=== PATIENT | male | born 1935 | race Caucasian/White ===

== ENCOUNTER 2016-10-06 16:14 | Inpatient (IN) | payer MEDICARE, BC ==
[~2016-10-06] VITALS: Ht 160 cm; Wt 71.2 kg
[~2016-10-06 16:14] MED LIST: ANDR1GEL TD; ASPI325T24 PO; CHOL1CAP6 PO; CITRTAB8 PO; GLIM2TAB PO; LOVA20TA PO; METO25 PO; MOME17I; NEXI40CA PO; NIAS10004 PO; NITR.4 SL; SAXA1TBM PO; TELM40 PO
[2016-10-06 16:15] VITALS: BP 148/69; PULSE 74; RESP 16; TEMP 97.5; O2SAT 94
--- NOTE | 2016-10-06 18:48 | PD ---
HPI Chief Complaint: Abdominal Pain Time Seen by Provider: 18:48 Travel History International Travel<30 days: No Contact w/Intl Traveler<30days: No Traveled to known affect area: No History of Present Illness HPI 80-year-old male with history of CAD, CABG, diverticulitis, small bowel obstruction the past, presents to the emergency department for evaluation of abdominal pain from his umbilicus to his epigastrium. This started this afternoon. He has been nauseous with vomiting. It has been bilious in nature, nonbloody, and not coffee-ground. He has had subjective chills. No definite fever. No chest pain or tightness. No difficulty breathing. His believes this started developing 2 days ago when he didn't quite feel so well. She states that his abdomen became more rigid and firm and then this afternoon he began having significant pain. Patient has history of cholecystectomy. PFSH Past Medical History Hx Anticoagulant Therapy: Yes AAA: Yes (3.8 CM 08/02/2014) Arthritis: Yes Asthma: No Autoimmune Disease: No Blood Disorders: No Anxiety: No Depression: No Heart Rhythm Problems: No Cancer: No Cardiovascular Problems: Yes (BYPASS) High Cholesterol: Yes Chemotherapy: No Chest Pain: No Congestive Heart Failure: No COPD: No Cerebrovascular Accident: No Coronary Artery Disease: Yes Diabetes: Yes Diminished Hearing: No Diverticulitis: Yes Endocrine: Yes Gastrointestinal Disorders: Yes (DIVERTICULITIS) GERD: Yes Genitourinary: Yes Hiatal Hernia: Yes Hypertension: Yes Immune Disorder: Yes Implanted Vascular Access Dvce: Yes Kidney Stones: Yes Musculoskeletal: Yes Neurologic: No Psychiatric: No Reproductive: No Respiratory: Yes Immunizations Current: Yes Migraines: No Radiation Therapy: No Renal Failure: No Seizures: No Sickle Cell Disease: No Sleep Apnea: No Thyroid Disease: No Ulcer: No PNEUMOCCOCAL Vaccine (Year): 1 Past Surgical History AICD: No Appendectomy: Yes Arteriovenous Shunt: No Cardiac Surgery: Yes (QUAD HEART BYPASS) Cholecystectomy: Yes (2007) Coronary Artery Bypass Graft: Yes (1996) Insulin Pump: No Joint Replacement: No Pacemaker: No Other Surgery: Yes Social History Alcohol Use: Yes (OCCASIONALLY) Tobacco Use: No (QUIT 1996) Substance Use: No Allergies-Medications (Allergen,Severity, Reaction): Coded Allergies: No Known Allergies (Verified , 10/06/16) Reported Meds & Prescriptions Reported Meds & Active Scripts Active Reported Lovastatin 20 Mg Tab 10 Mg PO HS Vitamin D-3 (Cholecalciferol) 1,000 Unit Tab 4,000 Unit PO DAILY Micardis (Telmisartan) 40 Mg Tab 40 Mg PO DAILY Nexium (Esomeprazole Magnesium) Esomeprazole Magnesium 40 mg Cap 1 Cap PO DAILY Nasonex (Mometasone Furoate) 50 Mcg/Ac Spr 2 [place] NA DAILY SPRAY IN EACH NOSTRIL Kombiglyze Xr (Saxagliptin-Metformin HCl) 1 Tab Tab 2 Tab PO DAILY Citracal (Calcium Citrate) 200 Mg Tab 500 Iu PO DAILY Androgel (Testosterone) 1 % Gel 1 Applic TD EVERY OTHER DAY Glimepiride 2 Mg Tab 2 Mg PO DAILY Nitroglycerin 0.4 Mg Subl 0.4 Mg SL DAILYPRN Ecotrin (Aspirin) 325 Mg Tabec 325 Mg PO DAILY Niaspan Er (Niacin) 1,000 Er Tab 1,500 Mg PO HS Metoprolol Tartrate 25 mg (Metoprolol Tartrate) 25 Mg Tab 50 Mg PO DAILY Review of Systems Except as stated in HPI: all other systems reviewed are Neg Physical Exam Narrative GENERAL: Well-nourished male patient, lying in bed, in no acute distress SKIN: Warm and dry. HEAD: Atraumatic. Normocephalic. EYES: Pupils equal and round. No scleral icterus. No injection or drainage. ENT: No nasal bleeding or discharge. Mucous membranes pink and moist. NECK: Trachea midline. No JVD. CARDIOVASCULAR: Regular rate and rhythm. RESPIRATORY: No accessory muscle use. Clear to auscultation. Breath sounds equal bilaterally. GASTROINTESTINAL: Rotund, nondistended. Tenderness elicited palpation in the epigastrium. No guarding. No rebound tenderness. Hepatic and splenic margins not palpable. MUSCULOSKELETAL: No obvious deformities. No clubbing. No cyanosis. No edema. NEUROLOGICAL: Awake and alert. No obvious cranial nerve deficits. Motor grossly within normal limits. Normal speech. PSYCHIATRIC: Appropriate mood and affect; insight and judgment normal. Data Data Last Documented VS Vital Signs Date Time Temp Pulse Resp B/P Pulse Ox O2 Delivery O2 Flow Rate FiO2 10/06/16 16:15 97.5 74 16 148/69 94 Room Air Orders Complete Blood Count With Diff (10/06/16 18:47) Comprehensive Metabolic Panel (10/06/16 18:47) Lipase (10/06/16 18:47) Lactic Acid (10/06/16 18:47) Prothrombin Time / Inr (Pt) (10/06/16 18:47) Act Partial Throm Time (Ptt) (10/06/16 18:47) Urinalysis - C+S If Indicated (10/06/16 18:47) Abdomen, Flat & Upright (10/06/16 ) Electrocardiogram (10/06/16 18:47) Ckmb (Isoenzyme) Profile (10/06/16 18:47) Troponin I (10/06/16 18:47) Ct Abd/Pel W/O Iv Contrast (10/06/16 19:47) Sodium Chlorid 0.9% 500 Ml Inj (Ns 500 M (10/06/16 20:00) Sodium Chlor 0.9% 1000 Ml Inj (Ns 1000 M (10/06/16 20:00) Ondansetron Inj (Zofran Inj) (10/06/16 20:00) MDM Medical Decision Making Medical Screen Exam Complete: Yes Emergency Medical Condition: Yes Medical Record Reviewed: Yes Differential Diagnosis Gastritis versus gastroenteritis versus pancreatitis versus obstruction versus ileus Narrative Course 80-year-old male presents to the emergency department for evaluation of abdominal pain. Patient appears without distress. He does have tenderness elicited to palpation in the epigastrium. Workup is initiated in triage. Once a medical bed becomes available, patient will be transferred and care assumed by that provider. Condition: Stable Ellie Purdy Oct 06, 2016 18:48
--- NOTE | 2016-10-06 19:03 | PD ---
Physical Exam Narrative General: The patient is a well-developed well-nourished male in no acute distress Head and Neck exam: Head is normocephalic atraumatic. Eyes: Pupils are equal round and reactive to light. Nose: Midline septum with pink mucous membranes Mouth: Dentition unremarkable. Moist mucus membranes. Posterior oropharynx is not erythematous. No tonsillar hypertrophy. Uvula midline. Airway patent. Neck: No palpable lymphadenopathy. No nuchal rigidity. No thyromegaly. Cardiovascular: Regular rate and rhythm without murmurs, gallops, or rubs. Lungs: Clear to auscultation bilaterally. No wheezes, rhonchi, or rales. Abdomen: Soft, with tenderness on palpation in the midepigastric area and area just above the umbilicus, active bowel sounds are audible. No other tenderness on palpation in bilateral lower quadrants of the abdomen. Negative Adler's sign. No tenderness on palpation of McBurney's point. The patient has frequent belching during examination. Extremities: No clubbing, cyanosis, or edema. 2+ pulses in all 4 extremities. No calf tenderness on palpation. Back: No spinous process tenderness to palpation. No costovertebral angle tenderness to palpation. Neurologic Exam: Grossly nonfocal Skin Exam: No rash noted. Intact skin that is warm and dry. Data Data Last Documented VS Vital Signs Date Time Temp Pulse Resp B/P Pulse Ox O2 Delivery O2 Flow Rate FiO2 10/06/16 20:30 21 10/06/16 16:15 97.5 74 148/69 94 Room Air Orders Complete Blood Count With Diff (10/06/16 18:47) Comprehensive Metabolic Panel (10/06/16 18:47) Lipase (10/06/16 18:47) Lactic Acid (10/06/16 18:47) Prothrombin Time / Inr (Pt) (10/06/16 18:47) Act Partial Throm Time (Ptt) (10/06/16 18:47) Urinalysis - C+S If Indicated (10/06/16 18:47) Abdomen, Flat & Upright (10/06/16 ) Electrocardiogram (10/06/16 18:47) Ckmb (Isoenzyme) Profile (10/06/16 18:47) Troponin I (10/06/16 18:47) Ct Abd/Pel W/O Iv Contrast (10/06/16 19:47) Sodium Chlorid 0.9% 500 Ml Inj (Ns 500 M (10/06/16 20:00) Sodium Chlor 0.9% 1000 Ml Inj (Ns 1000 M (10/06/16 20:00) Ondansetron Inj (Zofran Inj) (10/06/16 20:00) Admit Order (Ed Use Only) (10/06/16 21:14) Labs Laboratory Tests Test 10/06/16 20:00 White Blood Count 10.1 TH/MM3 Red Blood Count 4.84 MIL/MM3 Hemoglobin 14.8 GM/DL Hematocrit 43.9 % Mean Corpuscular Volume 90.6 FL Mean Corpuscular Hemoglobin 30.5 PG Mean Corpuscular Hemoglobin 33.7 % Concent Red Cell Distribution Width 14.0 % Platelet Count 190 TH/MM3 Mean Platelet Volume 8.5 FL Neutrophils (%) (Auto) 90.2 % Lymphocytes (%) (Auto) 4.4 % Monocytes (%) (Auto) 4.8 % Eosinophils (%) (Auto) 0.4 % Basophils (%) (Auto) 0.2 % Neutrophils # (Auto) 9.1 TH/MM3 Lymphocytes # (Auto) 0.4 TH/MM3 Monocytes # (Auto) 0.5 TH/MM3 Eosinophils # (Auto) 0.0 TH/MM3 Basophils # (Auto) 0.0 TH/MM3 CBC Comment DIFF FINAL Differential Comment Prothrombin Time 11.4 SEC Prothromb Time International 1.0 RATIO Ratio Activated Partial 26.6 SEC Thromboplast Time Urine Color YELLOW Urine Turbidity CLEAR Urine pH 5.5 Urine Specific [place] 1.027 Urine Protein TRACE mg/dL Urine Glucose (UA) NEG mg/dL Urine Ketones 40 mg/dL Urine Occult Blood NEG Urine Nitrite NEG Urine Bilirubin NEG Urine Urobilinogen 2.0 MG/DL Urine Leukocyte Esterase SMALL Urine RBC 1 /hpf Urine WBC 5 /hpf Urine Hyaline Casts 24 /lpf Urine Mucus FEW /lpf Microscopic Urinalysis Comment CULT NOT INDICATED Sodium Level 141 MEQ/L Potassium Level 4.5 MEQ/L Chloride Level 105 MEQ/L Carbon Dioxide Level 23.6 MEQ/L Anion Gap 12 MEQ/L Blood Urea Nitrogen 21 MG/DL Creatinine 1.42 MG/DL Estimat Glomerular Filtration 48 ML/MIN Rate Random Glucose 142 MG/DL Lactic Acid Level 1.4 mmol/L Calcium Level 8.5 MG/DL Total Bilirubin 0.4 MG/DL Aspartate Amino Transf 12 U/L (AST/SGOT) Alanine Aminotransferase 22 U/L (ALT/SGPT) Alkaline Phosphatase 118 U/L Total Creatine Kinase 47 U/L Troponin I LESS THAN 0.02 NG/ML Total Protein 7.7 GM/DL Albumin 3.7 GM/DL Lipase 77 U/L [facility] Medical Record Reviewed: Yes Supervised Visit with ARTURO: No Interpretation(s) Last Impressions Abdomen/Pelvis CT 10/06/16 194 Signed Impressions: Service Date/Time: Thursday, October 06, 2016 20:48 - CONCLUSION: 1. Dilated proximal small bowel loops to a diameter of around 4 cm with distal decompression most characteristic of an early or partial small bowel obstruction. No free air or free fluid. 2. Colonic diverticulosis with surgical cris in the pelvis. 3. 3.9 cm infrarenal abdominal aortic aneurysm. 4. Small hiatal hernia. Malcolm Hartmann MD Abdomen X-Ray 10/06/16 0000 Signed Impressions: Service Date/Time: Thursday, October 06, 2016 19:00 - CONCLUSION: 1. Distended bowel with numerous air-fluid levels. Findings could be characteristic of a distal bowel obstruction. No free air. Malcolm Hartmann MD Differential Diagnosis Bowel obstruction, versus acute pancreatitis, versus gastroenteritis, versus diverticulitis Narrative Course During the course of the patients emergency department visit, the patients history, examination, and differential diagnosis were reviewed with the patient. The patient had IV access obtained and blood work sent for analysis. The patient was placed on a director of accreditation with oximetry and blood pressure monitoring. An EKG was ordered to be done on arrival to the room. The patient was initially evaluated by Ellie, the nurse practitioner. She transferred care over to me in the medical pod once the patient was noted to my bed. The patient reports a history of abdominal pain with nausea and vomiting that began approximately 2 days ago worsened today. She ordered an initial blood work. An abdominal flat and upright was ordered. The patient reports that he had vomiting that began at approximate 4 PM today. He reports that he did move his bowels earlier today. He denies having any blood in his stool or black or tarry stools. He reports that his symptoms are similar in pain is similar to when he had a bowel obstruction 6 months ago. He reports that that was treated with bowel rest. He did not require surgery. The patient's initial EKG done on arrival to the room is noted to be a sinus rhythm with occasional ectopic premature complexes no acute ST segment elevation is noted. QRS duration is 86 ms. The patient was initially provided normal saline IV fluids, Zofran 4 mg IV for nausea. The patients laboratory studies were reviewed and remarkable for white count 10.1, hemoglobin 14.8, platelets 190 with 90.2 neutrophils, CMP is remarkable for BUN of 21, creatinine 1.42, glucose 142, lactic acid 1.4 alkaline phosphatase is 118, cardiac enzymes are negative, lipase 77, PT PTT unremarkable. Urinalysis shows 40 ketones otherwise unremarkable. Radiology studies were reviewed and remarkable for distended loops of bowel suspicious for obstruction. CT scan of the abdomen and pelvis has been ordered. CT scan of the abdomen and pelvis shows dilated proximal small bowel loops to a diameter of around 4 cm with distal decompression most characteristic of an early or partial small bowel obstruction. No free air. Colonic diverticulosis with surgical cris in the pelvis, 3.9 cm infrarenal abdominal aortic aneurysm , small hiatal hernia. The patients results were discussed with the patient, including the plan of care. I explained that further testing and/ or monitoring is indicated based on the patients history, examination, and/ or laboratory findings. Therefore, I recommended admission for additional evaluation. The patient expressed understanding and was agreeable with this plan. The patient was admitted to the hospital in stable condition and sent to a bed under the care of the [facility] hospitalist group. Physician Communication Physician Communication The patient's case was discussed with Khoa Scott who did agree to admit the patient to Dr. Walton's service. Diagnosis Primary Impression: Abdominal pain Qualified Code: R10.13 - Epigastric pain Additional Impression: Bowel obstruction Admitting Information Admitting Physician Requests: Admit Condition: Stable Caroline Slade MD Oct 06, 2016 19:03
--- NOTE | 2016-10-06 19:29 | RADRPT ---
EXAM DATE/TIME: 10/06/2016 19:00 [facility] COMPARISON: No previous studies available for comparison. INDICATIONS : Abdominal pain. MEDICAL HISTORY : Diverticulitis. SURGICAL HISTORY : Cholecystectomy. Appendectomy. Diverticulectomy. ENCOUNTER: Subsequent ACUITY: 4 - 6 months PAIN SCORE: 9/10 LOCATION: Abdomen, umbilical FINDINGS: There is diffuse gaseous distention of bowel with air-fluid levels. Findings could represent a distal small bowel obstruction. Numerous surgical clips in the pelvis. No free air identified. CONCLUSION: 1. Distended bowel with numerous air-fluid levels. Findings could be characteristic of a distal bowel obstruction. No free air. Malcolm Hartmann MD on October 06, 2016 at 19:25 Board Certified Radiologist. This report was verified electronically.
[2016-10-06] MEDS ORDERED: SODIUM CHLOR 0.9% 1000 ML INJ 1,000 ML IV SCH (20:00)
[2016-10-06] MEDS ORDERED: SODIUM CHLORID 0.9% 500 ML INJ 500 ML IV ONE (20:00)
[2016-10-06] MEDS ORDERED: ONDANSETRON HCL 4 MG/2 ML VIAL IV PUSH ONE (20:00)
[2016-10-06 20:21] LABS: AUTOMATED NEUTROPHIL # 9.1 TH/MM3 (1.8-7.7); BASOPHIL % 0.2 % (0.0-2.0); EOSINOPHIL % 0.4 % (0.0-4.0); HEMATOCRIT 43.9 % (39.0-51.0); HEMO FLAGS DIFF FINAL; LYMPH % 4.4 % (9.0-44.0); LYMPHOCYTE # 0.4 TH/MM3 (1.0-4.8); MEAN CELL VOLUME 90.6 FL (80.0-100.0); MEAN CORPUSCULAR HEMOGLOBIN 30.5 PG (27.0-34.0); MEAN CORPUSCULAR HGB CONC 33.7 % (32.0-36.0); MONO % 4.8 % (0.0-8.0); NEUT % 90.2 % (16.0-70.0); PLATELET COUNT 190 TH/MM3 (150-450); RED BLOOD COUNT 4.84 MIL/MM3 (4.50-5.90); WHITE BLOOD COUNT 10.1 TH/MM3 (4.0-11.0)
[2016-10-06 20:23] LABS: BLOOD, URINE NEG (NEG); COMMENT (UR) CULT NOT INDICATED; CULTURE IF INDICATED CULT NOT INDICATED; GLUCOSE,URINE NEG (NEG); HYALINE CAST, URINE 24 /lpf (RARE); KETONE, URINE 40 mg/dL (NEG); MUCUS URINE FEW /lpf (OCC); NITRITE,URINE NEG (NEG); PH, URINE 5.5 (5.0-8.5); URINE COLOR YELLOW (YELLW/STRAW)
[2016-10-06 20:36] LABS: ANION GAP 12 MEQ/L (5-15); AST (GOT) 12 U/L (15-37); BICARBONATE 23.6 MEQ/L (21.0-32.0); BLOOD UREA NITROGEN 21 MG/DL (7-18); CHLORIDE 105 MEQ/L (98-107); GLOMERULAR FILTRATION RATE 48 ML/MIN (>89); POTASSIUM 4.5 MEQ/L (3.5-5.1); SODIUM (NA) 141 MEQ/L (136-145)
[2016-10-06 20:41] LABS: ALKALINE PHOSPHATASE 118 U/L (45-117); ALT (GPT) 22 U/L (12-78); TOTAL BILIRUBIN ADULT 0.4 MG/DL (0.2-1.0)
[2016-10-06 20:44] LABS: APTT (PATIENT) 26.6 SEC (24.3-30.1); PROTHROMBIN TIME - PATIENT 11.4 SEC (9.8-11.6)
[2016-10-06 20:45] LABS: CREATINE KINASE 47 U/L (39-308)
--- NOTE | 2016-10-06 22:09 | RADRPT ---
EXAM DATE/TIME: 10/06/2016 20:48 [facility] COMPARISON: No previous studies available for comparison. INDICATIONS : Epigastric pain with nausea. ORAL CONTRAST: No oral contrast ingested. RADIATION DOSE: 14.13 CTDIvol (mGy) MEDICAL HISTORY : Cardiovascular disease. Diverticulitis. SURGICAL HISTORY : Cholecystectomy. ENCOUNTER: Initial ACUITY: 1 day PAIN SCALE: 7/10 LOCATION: epigastric TECHNIQUE: Volumetric scanning of the abdomen and pelvis was performed. Using automated exposure control and ad justment of the mA and/or kV according to patient size, radiation dose was kept as low as reasonably achievable to obtain optimal diagnostic quality images. FINDINGS: There is linear atelectasis or scarring at the lung bases. No acute findings in the liver, spleen, ad renals or pancreas. Vascular calcifications present in both kidneys. There is a 3.9 cm infrarenal abd ominal aortic aneurysm. There is colonic diverticulosis without diverticulitis. There are mildly dilated loops of small bowel with distal decompression most characteristic of an early or partial obstruction. CONCLUSION: 1. Dilated proximal small bowel loops to a diameter of around 4 cm with distal decompression most kush racteristic of an early or partial small bowel obstruction. No free air or free fluid. 2. Colonic diverticulosis with surgical cris in the pelvis. 3. 3.9 cm infrarenal abdominal aortic aneurysm. 4. Small hiatal hernia. Malcolm Hartmann MD on October 06, 2016 at 22:01 Board Certified Radiologist. This report was verified electronically.
[2016-10-06] MEDS ORDERED: ACETAMINOPHEN 650 MG SUPP PR PRN (22:15)
[2016-10-06] MEDS ORDERED: MORPHINE SULFATE 4 MG/ML INJ IV PRN (22:15)
[2016-10-06] MEDS ORDERED: ONDANSETRON HCL 4 MG/2 ML VIAL IV PRN (22:15)
[2016-10-06] MEDS ORDERED: ALBUAER3 INH (23:13)
[2016-10-06] MEDS ORDERED: MOME17I EACH NARE (23:13)
[2016-10-06] MEDS ORDERED: CHOL1CAP8 PO (23:25)
[2016-10-06] MEDS ORDERED: KOMB2.5T PO (23:25)
[2016-10-06] MEDS ORDERED: TRAM50TA PO (23:25)
[2016-10-06] MEDS ORDERED: SULF1TAB23 PO (23:25)
[2016-10-06] MEDS ORDERED: BIOT1000 PO (23:25)
[2016-10-06] MEDS ORDERED: GLIM2TAB PO (23:25)
[2016-10-06] MEDS ORDERED: NIAC500T5 PO (23:25)
[2016-10-06] MEDS ORDERED: CETI10 PO (23:25)
[2016-10-06] MEDS ORDERED: LOVA10TA PO (23:25)
[2016-10-06] MEDS ORDERED: TELM1TAB PO (23:25)
[2016-10-06] MEDS ORDERED: NEXI40CA PO (23:25)
[2016-10-06] MEDS ORDERED: ASPI-146 PO (23:25)
[2016-10-06 23:30] VITALS: BP 125/75; PULSE 90; RESP 21; O2SAT 95
[2016-10-06] MEDS: HEPARIN SODIUM - SQ 10,000 UNITS/ML VIAL SQ SCH (23:34)
[2016-10-07] MEDS: SODIUM CHLOR 0.9% 1000 ML INJ 1,000 ML IV SCH ×2 (02:00→08:09)
[2016-10-07 03:12] VITALS: BP 110/55; PULSE 95; RESP 16; O2SAT 94
--- NOTE | 2016-10-07 06:03 | RADRPT ---
EXAM DATE/TIME: 10/07/2016 05:08 [facility] COMPARISON: ABDOMEN FLAT & UPRIGHT, October 06, 2016, 19:00. CT ABDOMEN & PELVIS W/O CONTRAST, October 06, 2016, 20:48. ABDOMEN KUB ONLY, February 13, 2016, 8:04. INDICATIONS : Abdominal pain. MEDICAL HISTORY : Diverticulitis. SURGICAL HISTORY : Cholecystectomy. Appendectomy. Diverticulectomy. ENCOUNTER: Subsequent ACUITY: 2 days PAIN SCORE: Non-responsive. LOCATION: all quadrants. FINDINGS: Supine view of the abdomen was performed. There continues to be some mildly dilated air-filled loops of small bowel throughout the abdomen. The overall distention appears to be mildly improved compared to the prior exam. The colon is nondistended. The bony structures are stable.. CONCLUSION: Compared to the prior exam there has been some mild improvement of the gaseous distention of the smal l bowel loops. Otherwise, no other significant changes are demonstrated. Joe Christina MD on October 07, 2016 at 5:59 Board Certified Radiologist. This report was verified electronically.
[2016-10-07] MEDS: FAMOTIDINE 20 MG/2 ML VIAL IV PUSH SCH ×2 (08:09→23:13)
--- NOTE | 2016-10-07 09:13 | MH ---
cc: KADE HAINES M.D.,DOROTA Nam MD DATE OF ADMISSION: 10/06/2016 CHIEF COMPLAINT Abdominal discomfort. HISTORY OF PRESENT ILLNESS This is a pleasant 80-year-old male who has had several abdominal surgeries in the past. He had one bout of bowel obstruction several months ago which resolved without surgical intervention. The patient states that today his abdomen became more distended. He had discomfort mainly in the mid abdomen around the periumbilical region up to the epigastric region. He had nausea and vomited twice. He did have bowel movements today which were normal and he is still passing gas. He had some chills. No sweats or fever. No chest pain. No change in his breathing. The pain is similar to his last bowel obstruction. It lasted several days so he came into the emergency room. He has not vomited since being in the emergency department, therefore did not receive an NG tube. He still has pain. He feels less distended. He is passing gas. He is being admitted for further care. MEDICATIONS Medications on admission: Please see the chart. ALLERGIES No known drug allergies. PAST MEDICAL HISTORY 1. Coronary artery disease, status post CABG. 2. Diabetes. 3. Hyperlipidemia. 4. Diverticulitis, requiring a partial colectomy. 5. Cholecystectomy. 6. Appendectomy. 7. Low testosterone. 8. Small bowel obstruction. 9. Abdominal aortic aneurysm; follows with Dr. Curran yearly, just saw him one month ago. 10. COPD. SOCIAL HISTORY Tobacco quit about 20 years ago. Alcohol very rare. He is . FAMILY HISTORY Noncontributory to this admission. REVIEW OF SYSTEMS His weight has been stable. Blood sugars run between 70 and 105. He checks it once a day. He uses his inhalers very sporadically and has not been using them in several weeks. His breathing has been stable. As mentioned above he does follow with Dr. Curran on a yearly basis for his abdominal aortic aneurysm and just saw him a month ago. A 10-point review of systems, no other pertinent findings. PHYSICAL EXAMINATION VITAL SIGNS: The patient is afebrile. Heart rate 74, respirations 16, blood pressure 148/69. O2 sat is 94% on room air. GENERAL: In general this is a 80-year-old male resting comfortably in bed. He is in no respiratory distress. HEENT: Mucous membranes are moist. No jaundice. NECK: Supple. HEART: Regular rate and rhythm. LUNGS: Clear. ABDOMEN: Bowel sounds are present. Mild tenderness in the mid abdomen. The abdomen does not appear to be overly distended at this time. There is no point tenderness, guarding or rebound noted. : No suprapubic tenderness. No CVA tenderness. EXTREMITIES: No edema. Homans is negative. NEUROLOGIC: Awake, alert and oriented x4. Speech is clear and fluent. Moves all extremities freely. INVESTIGATIONS INR is 1. BUN 21, creatinine 1.42, glucose 142, estimated GFR 48, alkaline phosphatase 118. Troponin was negative. Lipase is normal. CBC is normal. Urinalysis shows ketones at 40, leukocyte esterase small, nitrogen and blood negative, culture not indicated. IMAGING X-ray of the abdomen, distended bowel with numerous air fluid levels, could be characteristic of a distal bowel obstruction, no free air. CT of the abdomen and pelvis shows dilated proximal small bowel loops up to 4 cm with distal decompression, most characteristic or an early or partial small bowel obstruction. No free air or fluid. Colonic diverticulosis with surgical cris in the pelvis. A 3.9 cm infrarenal abdominal aortic aneurysm and a small hiatal hernia are noted. IMPRESSION 1. Small bowel obstruction. 2. Abdominal aortic aneurysm. 3. COPD. 4. Hypertension. 5. History of coronary artery disease status post CABG. 6. Diabetes mellitus. 7. History of diverticulitis status post partial colectomy. 8. Chronic kidney disease. DISCUSSION The patient is admitted to Dr. Walton's service. The patient meets inpatient criteria due to the severity of his bowel obstruction and without hospitalization would be at a high risk of developing electrolyte abnormalities, dehydration or possibly a surgical abdomen. During this hospital stay he will be kept n.p.o. initially, he will be put on IV fluids. Will monitor his blood sugar. Will check an x-ray in the morning. Will consult general surgery. Will control pain and nausea. Will insert an NG tube to low intermittent suction if he has recurrent vomiting. Will encourage early ambulation. Will make further recommendations as his case progresses. Estimated length of stay is 3-4 days. Anticipated discharge is home. Dictated by: Douglas Scott PA-C MD NICOLE Cowart/BT /11:36 PM /8:50 AM PT is seen & examined d/w PT d/w Khoa recurrent PBO likely d/t adhesions see Orders see H&P d/w RN will f/u Dorota Walton MD Oct 07, 2016 10:14 MTDD
--- NOTE | 2016-10-07 10:14 | HHI.PR ---
Objective Objective Results - Vital Signs Date Time Temp Pulse Resp B/P Pulse Ox O2 Delivery O2 Flow Rate FiO2 10/07/16 03:12 95 16 110/55 94 10/06/16 23:40 20 10/06/16 23:30 90 21 125/75 95 Room Air 10/06/16 20:30 21 10/06/16 16:15 97.5 74 16 148/69 94 Room Air Result Diagram: 10/06/16199910/06/161999 Other Results Laboratory Tests Test 10/06/16 20:00 White Blood Count 10.1 Red Blood Count 4.84 Hemoglobin 14.8 Hematocrit 43.9 Mean Corpuscular Volume 90.6 Mean Corpuscular Hemoglobin 30.5 Mean Corpuscular Hemoglobin 33.7 Concent Red Cell Distribution Width 14.0 Platelet Count 190 Mean Platelet Volume 8.5 Neutrophils (%) (Auto) 90.2 Lymphocytes (%) (Auto) 4.4 Monocytes (%) (Auto) 4.8 Eosinophils (%) (Auto) 0.4 Basophils (%) (Auto) 0.2 Neutrophils # (Auto) 9.1 Lymphocytes # (Auto) 0.4 Monocytes # (Auto) 0.5 Eosinophils # (Auto) 0.0 Basophils # (Auto) 0.0 CBC Comment DIFF FINAL Differential Comment Prothrombin Time 11.4 Prothromb Time International 1.0 Ratio Activated Partial 26.6 Thromboplast Time Urine Color YELLOW Urine Turbidity CLEAR Urine pH 5.5 Urine Specific [place] 1.027 Urine Protein TRACE Urine Glucose (UA) NEG Urine Ketones 40 Urine Occult Blood NEG Urine Nitrite NEG Urine Bilirubin NEG Urine Urobilinogen 2.0 Urine Leukocyte Esterase SMALL Urine RBC 1 Urine WBC 5 Urine Hyaline Casts 24 Urine Mucus FEW Microscopic Urinalysis Comment CULT NOT INDICATED Sodium Level 141 Potassium Level 4.5 Chloride Level 105 Carbon Dioxide Level 23.6 Anion Gap 12 Blood Urea Nitrogen 21 Creatinine 1.42 Estimat Glomerular Filtration 48 Rate Random Glucose 142 Lactic Acid Level 1.4 Calcium Level 8.5 Total Bilirubin 0.4 Aspartate Amino Transf 12 (AST/SGOT) Alanine Aminotransferase 22 (ALT/SGPT) Alkaline Phosphatase 118 Total Creatine Kinase 47 Troponin I LESS THAN 0.02 Total Protein 7.7 Albumin 3.7 Lipase 77 Physical Exam Physical Exam PT is seen & examined d/w PT d/w Khoa recurrent PBO likely d/t adhesions see Orders see H&P d/w RN jackson f/u Michelle Walton MD Oct 07, 2016 10:14
[2016-10-07 13:00] VITALS: BP 114/64; PULSE 78; RESP 18; TEMP 97.4
--- NOTE | 2016-10-07 13:15 | MB ---
cc: ELTON CHILEL M.D., JAMES T. M.D. DATE OF CONSULTATION: 10/07/2016 HISTORY OF PRESENT ILLNESS The patient is a 80-year-old male who reported having nausea and vomiting last night. He did have bowel movement last night as well. The patient reports that he has had this in the past and takes and Ultram, lies down and the pain goes away and he is fine. He was seen last in February 2016, he was admitted for the same problem. The patient did not have any surgery at that time and it was managed nonoperatively. Diet was advanced and he was sent home after a few days. Currently the patient reports that he is having no abdominal pain and is doing fairly well. He last threw up early this morning. ALLERGIES NO KNOWN DRUG ALLERGIES. MEDICATIONS: He is on multiple medications including; 1. Cetirizine 10 mg tablet daily, 2. telmisartan 40 mg p.o. daily, 3. albuterol inhaler 2 puffs q.6 h p.r.n. 4. Nasonex spray 2 sprays in each nare daily. 5. Saxagliptin Metformin ER 2.01/1000 1 tablet daily 6. Lovastatin 10 mg daily. 7. Aspirin 325 mg daily. 8. Tramadol 50 mg p.o. q eight hours as needed. 9. Nexium 40 mg daily. 10. Sulfamethoxazole trimethoprim a 110 b.i.d. 11. Glimepiride 2 mg p.o. daily 12. Bioten 1000 mg daily. 13. Niacin 1500 mg daily 14. Cholecalciferol 400 units daily. PAST SURGICAL HISTORY: 1. Partial colectomy approximately 30 years ago 2. cholecystectomy by Dr. Tod Jung ten years ago 3. appendectomy many years ago. PAST MEDICAL HISTORY: The patient's past medical history also includes coronary artery disease status post coronary artery bypass graft. Diabetes. Hyperlipidemia. History of abdominal aortic aneurysm for which he follows with Dr. Curran. Chronic obstructive pulmonary disease. SOCIAL HISTORY: The patient does not smoke. He quit 20 years ago. Rare use of alcohol. FAMILY HISTORY: Family history is noncontributory. REVIEW OF SYSTEMS The patient's diabetes is fairly well controlled with blood sugars running between 70-105. The patient uses inhalers sporadically. The review of systems otherwise review of demonstrates no pertinent findings. PHYSICAL EXAMINATION: IN GENERAL: Physical exam reveals a male lying quietly in the bed. He appears comfortable. VITAL SIGNS: Blood pressure 160/60, pulse 74, respirations 16, O2 sat varies between 87 and 96%. CHEST: Chest is clear to auscultation. CARDIOVASCULAR SYSTEM: Cardiac exam reveals regular rate and rhythm. ABDOMEN: Abdomen is soft, mildly distended without tenderness to palpation. There is a infraumbilical midline incision present. No other scars are appreciated. There are no hernias noted. LABORATORY FINDINGS Demonstrate WBCs of 110.1, hemoglobin/hematocrit 14.8, 43.9 platelets are normal 190,000 of BUN and creatinine are elevated 21, 1.4, potassium 4.5, lipase is 77. Troponins are less than 0.02. Urinalysis, is essentially negative except for ketones. IMAGING: Imaging demonstrates dilated loops of small bowel proximally with 4 cm maximum diameter with distal decompression. The infrarenal abdominal aortic aneurysm is seen as 3.9 cm of small hiatal hernia and some diverticulosis. ASSESSMENT Partial small-bowel obstruction, low grade. Agree with withholding placement of a nasogastric tube. Dr. Walton has already written for the patient to receive clear liquids. This is acceptable as long as he does not have any problems. We will monitor and follow him with you. Can likely advance the diet tomorrow if he no problems with liquids today. Thank you Dr. Walton for asking us to see this patient. MD FALLON Smith/chitra /12:14 PM /12:48 PM EDGAR
[2016-10-07] MEDS: HEPARIN SODIUM - SQ 10,000 UNITS/ML VIAL SQ SCH ×2 (13:30→23:13)
[2016-10-07 16:00] VITALS: BP 126/65; PULSE 64; RESP 18; TEMP 97.9; O2SAT 98
--- NOTE | 2016-10-07 16:18 | EKG ---
Date Performed: 10/06/2016 Time Performed: 19:16:24 PTAGE: 80 years EKG: Sinus rhythm WITH OCCASIONAL ECTOPIC PREMATURE COMPLEXES Baseline artifact. When compared to previous tracing, th e right bundle branch block Has resolved. BORDERLINE ECG PREVIOUS TRACING : 02/12/2016 21.47.52 DOCTOR: Yanira Hewitt Interpretating Date/Time 10/07/2016 16:17:38
[2016-10-07 20:00] VITALS: BP 115/82; PULSE 68; RESP 16; TEMP 97.1; O2SAT 95
[2016-10-08 00:30] VITALS: BP 124/75; PULSE 63; RESP 16; TEMP 96.6; O2SAT 95
[2016-10-08] MEDS: SODIUM CHLOR 0.9% 1000 ML INJ 1,000 ML IV SCH ×2 (04:26→18:20)
[2016-10-08 05:00] VITALS: BP 104/61; PULSE 69; RESP 16; TEMP 96.6; O2SAT 95
[2016-10-08 07:24] LABS: MEAN CELL VOLUME 92.4 FL (80.0-100.0); MEAN CORPUSCULAR HEMOGLOBIN 30.2 PG (27.0-34.0); MEAN CORPUSCULAR HGB CONC 32.7 % (32.0-36.0); PLATELET COUNT 164 TH/MM3 (150-450); RED BLOOD COUNT 4.11 MIL/MM3 (4.50-5.90); REVIEW FLAG FINAL; WHITE BLOOD COUNT 7.3 TH/MM3 (4.0-11.0)
[2016-10-08 07:46] LABS: BICARBONATE 26.9 MEQ/L (21.0-32.0); POTASSIUM 4.1 MEQ/L (3.5-5.1)
[2016-10-08 07:50] VITALS: BP 135/68; PULSE 69; RESP 20; TEMP 96.7; O2SAT 94
[2016-10-08] MEDS: HEPARIN SODIUM - SQ 10,000 UNITS/ML VIAL SQ SCH (09:02)
[2016-10-08] MEDS: FAMOTIDINE 20 MG/2 ML VIAL IV PUSH SCH (09:02)
[2016-10-08 11:50] VITALS: BP 161/72; PULSE 69; RESP 20; TEMP 96.3; O2SAT 95
[2016-10-08] MEDS ORDERED: ALBUTEROL SULFATE 90 MCG/ACT HFA 8 GM INHALER INH PRN (13:30)
--- NOTE | 2016-10-08 13:36 | HHI.PR ---
Subjective Remarks No acute pain BM today X 1 normal, Diarrhea X 2 after normal stool. No SOB alert, oriented, talkative , in room No headache tolerating clear liquids 100% (Kari Nunez) Objective Objective Results - Vital Signs Date Time Temp Pulse Resp B/P Pulse Ox O2 Delivery O2 Flow Rate FiO2 10/08/16 07:50 96.7 69 20 135/68 94 10/08/16 05:00 96.6 69 16 104/61 95 10/08/16 00:30 96.6 63 16 124/75 95 10/07/16 20:00 97.1 68 16 115/82 95 10/07/16 16:00 97.9 64 18 126/65 98 I/O 10/07/16 10/07/16 10/07/16 10/08/16 10/08/16 10/08/16 07:00 15:00 23:00 07:00 15:00 23:00 Intake Total 625 ml 600 ml 600 ml Balance 625 ml 600 ml 600 ml Intake IV Total 625 ml 600 ml 600 ml # Voids 2 2 (Kari Nunez) Result Diagram: 10/08/16 0702 10/08/16 0702 Medications and IVs Reconciled home meds. (Kari Nunez) ROS General: Weakness, Other (feeling better, resting in bed. 10 point FELISHA done. Positives noted GI. RUQ pain. weakness.) GI: Abdominal Pain, Other (general abd. pain, worse in rt. UQ) (Kari Nunez) Physical Exam Physical Exam PHYSICAL EXAMINATION GENERAL: In general this is a 80-year-old male resting comfortably in bed. He is in no respiratory distress. HEENT: Mucous membranes are moist. No jaundice. NECK: Supple. HEART: Regular rate and rhythm. No murmur, rub, or gallop. LUNGS: Clear anterior and posterier. Equal breath souths. ABDOMEN: Bowel sounds are present. Mild tenderness in the rt. mid abdomen. The abdomen does not appear to be overly distended at this time. There is no point tenderness, guarding or rebound noted. Active bowel sounds, all 4 quads. Increased activity in the lower guads. : No suprapubic tenderness. No CVA tenderness. EXTREMITIES: No edema. pulse intact. NEUROLOGIC: Awake, alert and oriented x4. Speech is clear and fluent. Moves all extremities. Objective Remarks I just drank all the liquids. Im getting my appetite back. (Kari Nunez) A/P Assessment and Plan A/P 1. Small bowel obstruction. 2. Abdominal aortic aneurysm. 3. COPD. 4. Hypertension. 5. History of coronary artery disease status post CABG. 6. Diabetes mellitus. 7. History of diverticulitis status post partial colectomy. 8. Chronic kidney disease. n.p.o. initially, transitioned to clear liquids today. First BM normal consistency. Diarrhea X 2 after normal BM. IV fluids. gentle hydration. Continue diet advance in am for trials. monitor his blood sugar. Will consult general surgery. Monitor and hoping for medical management, no surgery unless patient declines. labs medications from home reconciled today. Discharge Planning Home with . Discussed With: Nurse, Family (patient and ,), Other (Dr. Walton, patient seen on his behalf) (Kari Nunez) Assessment and Plan pt is seen & Examined tolerating clear liquid diet +ve BM / NO abd pain or nausea will advance diet to full liquid appreciate Gen sx input will f/u (Michelle Walton MD) Kari Nunez Oct 08, 2016 13:35 Michelle Walton MD Oct 08, 2016 14:36
[2016-10-08 15:49] VITALS: BP 145/72; PULSE 67; RESP 20; TEMP 96.4; O2SAT 99
[2016-10-08 20:00] VITALS: BP 126/83; PULSE 61; RESP 18; TEMP 96.6; O2SAT 97
--- NOTE | 2016-10-08 21:11 | HHI.PR ---
Subjective Subjective Notes Feels well; reports two bowel movements today. Tolerated full liquids well. Objective Vitals/I&O Vital Signs Date Time Temp Pulse Resp B/P Pulse Ox O2 Delivery O2 Flow Rate FiO2 10/08/16 20:00 96.6 61 18 126/83 97 10/06/16 23:30 Room Air Labs Laboratory Tests Test 10/08/16 07:02 White Blood Count 7.3 Red Blood Count 4.11 Hemoglobin 12.4 Hematocrit 38.0 Mean Corpuscular Volume 92.4 Mean Corpuscular Hemoglobin 30.2 Mean Corpuscular Hemoglobin 32.7 Concent Red Cell Distribution Width 14.0 Platelet Count 164 Mean Platelet Volume 8.3 Sodium Level 142 Potassium Level 4.1 Chloride Level 109 Carbon Dioxide Level 26.9 Anion Gap 6 Blood Urea Nitrogen 13 Creatinine 1.07 Estimat Glomerular Filtration 67 Rate Random Glucose 85 Calcium Level 7.8 Lungs: Clear Abdomen: Non-distended, Non-tender A/P Assessment and Plan Partial SBO, resolving Plan: Advance diet Likely D/C home tomorrow andres if tolerates solid meals Gómez Philip MD Oct 08, 2016 21:11
[2016-10-09] VITALS: BP 132/84; PULSE 59; RESP 16; TEMP 96.2; O2SAT 96
[2016-10-09] MEDS: HEPARIN SODIUM - SQ 10,000 UNITS/ML VIAL SQ SCH ×2 (00:08→11:00)
[2016-10-09 04:00] VITALS: BP 102/55; PULSE 77; RESP 18; TEMP 96.5; O2SAT 96
[2016-10-09] MEDS: SODIUM CHLOR 0.9% 1000 ML INJ 1,000 ML IV SCH (05:21)
[2016-10-09 08:00] VITALS: BP 104/67; PULSE 65; RESP 16; TEMP 96.6; O2SAT 95
[2016-10-09] MEDS ORDERED: ASPIRIN EC 325 MG TABEC PO SCH (09:00)
[2016-10-09] MEDS ORDERED: SAXAGLIPTIN METFORMIN PO SCH (09:00)
[2016-10-09] MEDS ORDERED: FLUTICASONE PROPIONATE 50 MCG/ACT 16 GM NASAL SPRAY EACH NARE SCH (09:00)
[2016-10-09] MEDS ORDERED: PANTOPRAZOLE SOD 40 MG DELAYED RELEASE TAB PO SCH (09:00)
[2016-10-09] MEDS ORDERED: GLIMEPIRIDE 2 MG TAB PO SCH (09:00)
[2016-10-09] MEDS ORDERED: LOSARTAN 50 MG TAB PO SCH (09:00)
[2016-10-09] MEDS ORDERED: CETIRIZINE HCL 10 MG TAB PO SCH (09:00)
[2016-10-09] MEDS ORDERED: PRAVASTATIN SOD 10 MG TAB PO SCH (09:00)
[2016-10-09 12:00] VITALS: BP 139/66; PULSE 65; RESP 16; TEMP 98; O2SAT 95
--- NOTE | 2016-10-09 12:59 | HHI.PR ---
Subjective Remarks No acute abdominal pain No BM today Eating solid food heart healthy diet this a.m. No SOB alert, oriented, talkative , in room No headache (Kari Nunez) Objective Objective Results - Vital Signs Date Time Temp Pulse Resp B/P Pulse Ox O2 Delivery O2 Flow Rate FiO2 10/09/16 12:00 98.0 65 16 139/66 95 10/09/16 08:00 96.6 65 16 104/67 95 10/09/16 04:00 96.5 77 18 102/55 96 10/09/16 00:00 96.2 59 16 132/84 96 10/08/16 20:00 96.6 61 18 126/83 97 10/08/16 15:49 96.4 67 20 145/72 99 I/O 10/08/16 10/08/16 10/08/16 10/09/16 10/09/16 10/09/16 07:00 15:00 23:00 07:00 15:00 23:00 Intake Total 600 ml 1253 ml 1080 ml 750 ml 960 ml Balance 600 ml 1253 ml 1080 ml 750 ml 960 ml Intake Oral 640 ml 480 ml 150 ml 960 ml IV Total 600 ml 613 ml 600 ml 600 ml # Voids 2 6 2 1 2 # Bowel Movements 2 (Kari Nunez) Result Diagram: 10/08/16 0702 10/08/16 0702 Other Results Last Impressions Abdomen X-Ray 10/07/16 0000 Signed Impressions: Service Date/Time: Friday, October 07, 2016 05:08 - CONCLUSION: Compared to the prior exam there has been some mild improvement of the gaseous distention of the small bowel loops. Otherwise, no other significant changes are demonstrated. Joe Christina MD Abdomen/Pelvis CT 10/06/161946 Signed Impressions: Service Date/Time: Thursday, October 06, 2016 20:48 - CONCLUSION: 1. Dilated proximal small bowel loops to a diameter of around 4 cm with distal decompression most characteristic of an early or partial small bowel obstruction. No free air or free fluid. 2. Colonic diverticulosis with surgical cris in the pelvis. 3. 3.9 cm infrarenal abdominal aortic aneurysm. 4. Small hiatal hernia. Malcolm Hartmann MD Medications and IVs Active Medications Albuterol Sulfate (Proair Hfa Inh) 2 puff Q6H PRN INH; Start 10/08/16 at 13:30 Aspirin (Ecotrin Ec) 325 mg DAILY PO Last administered on 10/09/16 07:55; Admin Dose 325 MG; Start 10/09/16 at 09:00 Cetirizine HCl (ZyrTEC) 10 mg DAILY PO Last administered on 10/09/16 07:55; Admin Dose 10 MG; Start 10/09/16 at 09:00 Fluticasone Propionate (Flonase Juvencio Spr) 2 spray DAILY EACH NARE; Start at 09:00 Glimepiride (Amaryl) 2 mg DAILY PO Last administered on 10/09/16 07:55; Admin Dose 2 MG; Start 10/09/16 at 09:00 Losartan Potassium (Cozaar) 50 mg DAILY PO; Start 10/09/16 at 09:00 Pantoprazole Sodium (Protonix) 40 mg DAILY PO Last administered on 10/09/16 07: 57; Admin Dose 40 MG; Start 10/09/16 at 09:00 Patient Own Medication PT OWN MED: (Saxagliptin-Metformi... DAILY PO; Start at 09:00 Pravastatin Sodium (Pravachol) 10 mg DAILY PO Last administered on 10/09/16 07: 55; Admin Dose 10 MG; Start 10/09/16 at 09:00 (Kari Nunez) ROS General: Other (generalized weakness resolved. 10 point review of ROS done. Negative findings or unremarkable for systems reviewed.) GI: Diarrhea (yesterday. We'll monitor BMs today.) (Kari Nunez) Physical Exam Physical Exam PHYSICAL EXAMINATION GENERAL: In general this is a 80-year-old male sitting up in chair. He is in no respiratory distress. HEENT: Mucous membranes are moist. No jaundice. NECK: Supple. HEART: Regular rate and rhythm. No murmur, rub, or gallop. LUNGS: Clear anterior and posterier. Equal breath sounds bilateral. ABDOMEN: Bowel sounds are present. Mild tenderness in the rt. mid abdomen resolved. The abdomen does not appear to be overly distended at this time. There is no point tenderness, guarding or rebound noted. Active bowel sounds, all 4 quads. Increased activity in the lower guads. : No suprapubic tenderness. No CVA tenderness. EXTREMITIES: No edema. pulse intact. NEUROLOGIC: Awake, alert and oriented x4. Speech is clear and fluent. Moves all extremities with purpose. Gait steady. Objective Remarks I am ready to go home if at all possible this p.m. (Kari Nunez) A/P Assessment and Plan A/P 1. Small bowel obstruction. 2. Abdominal aortic aneurysm. 3. COPD. 4. Hypertension. 5. History of coronary artery disease status post CABG. 6. Diabetes mellitus. 7. History of diverticulitis status post partial colectomy. 8. Chronic kidney disease. Tolerated full liquids yesterday for lunch and dinner. 8 first solid food of heart healthy diet today. No nausea vomiting or acute pain. First BM normal consistency. Diarrhea X 2 after normal BM. No BMs today. Patient is to increase activity and be up in chair and ambulate short distances. IV fluids. gentle hydration. monitor his blood sugar. Will consult general surgery. Monitor and hoping for medical management, no surgery unless patient declines. Today patient will be monitored for 3 meals a heart healthy diet without any nausea vomiting, or acute abdominal pain. Discharge will be considered late p.m. or early a.m. if patient can tolerate food. SBO resolving. labs stable today. Acute kidney injury resolved medications from home reconciled. Possible discharge late p.m., vs a.m. we will monitor. Surgeon is to also review this p.m. Orders initiated. Discharge Planning Home with . Discussed With: Nurse, Family (patient and ,), Other (Dr. Walton, patient seen on his behalf) (Kari Nunez) Assessment and Plan pt is seen & Examined tolerating regular diet No n/V No abd pain +ve flatus NO BM so far to ambulating Independently eager to go home d/c home today d/w PT & his d/w RN 'see Orders see [facility] f/u PCP (Michelle Walton MD) Kari Nunez Oct 09, 2016 12:59 Michelle Walton MD Oct 09, 2016 14:10
--- NOTE | 2016-10-09 18:26 | HHI.DS ---
Discharge Summary Admission Date Oct 06, 2016 at 21:16 Discharge Date: Oct 09, 2016 Admitting Diagnosis Small Bowel obstruction Procedures none Brief History This was a pleasant 80-year-old male who has had several abdominal surgeries in the past. He had one bout of bowel obstruction several months ago which resolved without surgical intervention. The patient stated today of admission his abdomen was more distended. He had discomfort mainly in the mid abdomen around the periumbilical region up to the epigastric region. He had nausea and vomited twice. He did have bowel movements on admission day which were normal and he was still passing gas. He had some chills. No sweats or fever. No chest pain. No change in his breathing. The pain was similar to his last bowel obstruction. CBC/BMP: 10/08/16 0702 10/08/16 0702 Significant Findings Laboratory Tests Test 10/06/16 10/08/16 20:00 07:02 Neutrophils (%) (Auto) 90.2 % (16.0-70.0) Lymphocytes (%) (Auto) 4.4 % (9.0-44.0) Neutrophils # (Auto) 9.1 TH/MM3 (1.8-7.7) Lymphocytes # (Auto) 0.4 TH/MM3 (1.0-4.8) Urine Ketones 40 mg/dL (NEG) Urine Leukocyte Esterase SMALL (NEG) Urine Mucus FEW /lpf (OCC) Blood Urea Nitrogen 21 MG/DL (7-18) Creatinine 1.42 MG/DL (0.60-1.30) Estimat Glomerular Filtration 48 ML/MIN (>89) 67 ML/MIN (>89) Rate Random Glucose 142 MG/DL (74-106) Aspartate Amino Transf 12 U/L (15-37) (AST/SGOT) Alkaline Phosphatase 118 U/L (45-117) Troponin I LESS THAN 0.02 NG/ML (0.02-0.05) Red Blood Count 4.11 MIL/MM3 (4.50-5.90) Hemoglobin 12.4 GM/DL (13.0-17.0) Hematocrit 38.0 % (39.0-51.0) Chloride Level 109 MEQ/L (98-107) Calcium Level 7.8 MG/DL (8.5-10.1) Imaging Last Impressions Abdomen X-Ray 10/07/16 0000 Signed Impressions: Service Date/Time: Friday, October 07, 2016 05:08 - CONCLUSION: Compared to the prior exam there has been some mild improvement of the gaseous distention of the small bowel loops. Otherwise, no other significant changes are demonstrated. Joe Christina MD Abdomen/Pelvis CT 10/06/161946 Signed Impressions: Service Date/Time: Thursday, October 06, 2016 20:48 - CONCLUSION: 1. Dilated proximal small bowel loops to a diameter of around 4 cm with distal decompression most characteristic of an early or partial small bowel obstruction. No free air or free fluid. 2. Colonic diverticulosis with surgical cris in the pelvis. 3. 3.9 cm infrarenal abdominal aortic aneurysm. 4. Small hiatal hernia. Malcolm Hartmann MD PE at Discharge Physical Exam Physical Exam PHYSICAL EXAMINATION GENERAL: In general this was a 80-year-old male sitting up in chair. He was in no respiratory distress. HEENT: Mucous membranes are moist. No jaundice. NECK: Supple. HEART: Regular rate and rhythm. No murmur, rub, or gallop. LUNGS: Clear anterior and posterier. Equal breath sounds bilateral. ABDOMEN: Bowel sounds are present. Mild tenderness in the rt. mid abdomen resolved. The abdomen does not appear to be overly distended at this time. There was no point tenderness, guarding or rebound noted. Active bowel sounds, all 4 quads. Increased activity in the lower guads. : No suprapubic tenderness. No CVA tenderness. EXTREMITIES: No edema. pulse intact. NEUROLOGIC: Awake, alert and oriented x4. Speech was clear and fluent. Moves all extremities with purpose. Gait steady. Transfer Summary home with Hospital Course Pain lasted several days so he came into the emergency room. He had not vomited since being in the emergency department, therefore did not receive an NG tube. He still had pain. He felt less distended. He was passing gas. He was admitted for further care. Patient was followed per surgical consult for their expert opinion. Patient was NPO admission day and day 1. On 10/08, patient was placed on clear liquids, then full liquids, then solid food day of discharge. Patient tolerated liquids and food without any nausea/vomiting. Solid BM yesterday X1 , diarrhea X2 . No diarrhea noted today on discharge. Meds were reconciled on admission. Assessment was centered around these diagnosis. 1. Small bowel obstruction. 2. Abdominal aortic aneurysm. 3. COPD. 4. Hypertension. 5. History of coronary artery disease status post CABG. 6. Diabetes mellitus. 7. History of diverticulitis status post partial colectomy. 8. Chronic kidney disease. IV fluids. gentle hydration recieved until diet was started. blood sugar was monitored. labs stable today and monitored throughout stay. Acute kidney injury resolved vital signs monitored q4hr. Tolerating solid food and liquids today. Ready and stable for discharge. Pt Condition on Discharge: Stable Discharge Disposition: Discharge Home Discharge Instructions DIET: Follow Instructions for: Heart Healthy Diet Speech Therapy-Diet Recommends: Regular Activities you can perform: Regular-No Restrictions Follow up Referrals: PCP Follow-up Continued Medications: Albuterol 8.5 GM Inh (Proair Hfa 8.5 GM Inh) 90 Mcg/Act Aer 2 PUFF INH Q6H 108 mcg/actuation PRN SHORTNESS OF BREATH #1 Ref [address] (Ecotrin Regular Strength) 325 Mg Tabdr 325 MG PO DAILY #30 Ref 0 TAB Biotin (Biotin) 1,000 Mcg Tab 1000 MCG PO #1 BOTTLE Cetirizine (Cetirizine) 10 Mg Tab 10 MG PO DAILY Allergies Ref 0 TAB Cholecalciferol (Vitamin D3) 400 Unit Cap 400 UNITS PO DAILY Nutritional Supplement #1 Ref [address] (Nexium) 40 Mg Capdr 40 MG PO DAILY Ref 0 CAP Glimepiride (Glimepiride) 2 Mg Tab 2 MG PO DAILY Take with breakfast or first main meal Blood Sugar Management #30 Ref 0 TAB Lovastatin (Lovastatin) 10 Mg Tab 10 MG PO DAILY Cholesterol Management #30 Ref 0 TAB Mometasone Nasal Tower (Nasonex Nasal Tower) 50 Mcg/Act Naspr 2 SPRAY EACH NARE DAILY Allergy Management #1 Ref 0 BOTTLE Niacin (Niacin) 500 Mg Tab 1500 MG PO HS Cholesterol Management #60 Ref 0 TAB Saxagliptin-Metformin ER (Kombiglyze Xr) 2.5-1,000 Mg Tab 1 TAB PO DAILY Blood Sugar Management #30 Ref 0 TAB Sulfamethoxazole-Trimethoprim (Sulfamethoxazole-Trimethoprim) 800-160 Mg Tab 1 TAB PO BID Infection Ref 0 TAB Telmisartan (Telmisartan) 40 Mg Tab 40 MG PO DAILY Blood Pressure Management #30 Ref 0 TAB Tramadol (Tramadol) 50 Mg Tab 50 MG PO Q8H PRN PAIN Ref 0 TAB Kari Nunez Oct 09, 2016 18:26
== END 2016-10-09 15:49 | disposition home or self-care (01) | DRG 389 ==
LOC: NEPC 16:14 → NEDA 21:16 → NEDH 10-07 01:31 → HOCB 10-07 12:26
PROVIDERS: ADMIT Specialist; ATTEND Specialist
DX: K56.60 Unspecified intestinal obstruction (principal); I25.810 Atherosclerosis of coronary artery bypass graft(s) without angina pectoris; N17.9 Acute kidney failure, unspecified; E11.22 Type 2 diabetes mellitus with diabetic chronic kidney disease; J44.9 Chronic obstructive pulmonary disease, unspecified; I71.4 Abdominal aortic aneurysm, without rupture; K57.30 Diverticulosis of large intestine without perforation or abscess without bleeding; K44.9 Diaphragmatic hernia without obstruction or gangrene; I12.9 Hypertensive chronic kidney disease with stage 1 through stage 4 chronic kidney disease, or unspecified chronic kidney disease; N18.9 Chronic kidney disease, unspecified; Z95.1 Presence of aortocoronary bypass graft; Z90.49 Acquired absence of other specified parts of digestive tract; E78.5 Hyperlipidemia, unspecified; K21.9 Gastro-esophageal reflux disease without esophagitis; Z87.442 Personal history of urinary calculi; Z87.891 Personal history of nicotine dependence
CPT/HCPCS: 74000; 74020; 74176; 80048; 80053; 81001; 82550; 82948; 83605; 83690; 84484; 85025; 85027; 85610; 85730; 93005; 96361; 96374; J1644; J2270; J2405; J7030; J7040

== ENCOUNTER 2016-10-14 15:13 | Emergency (ER) | payer MEDICARE, BC ==
[~2016-10-14] VITALS: Ht 162.6 cm; Wt 70.0 kg
[~2016-10-14 15:13] MED LIST changes: +ALBUAER3 INH; -ANDR1GEL TD; +ASPI-146 PO; -ASPI325T24 PO; +BIOT1000 PO; +CETI10 PO; -CHOL1CAP6 PO; +CHOL1CAP8 PO; -CITRTAB8 PO; +KOMB2.5T PO; +LOVA10TA PO; -LOVA20TA PO; -METO25 PO; -MOME17I; +MOME17I EACH NARE; +NIAC500T5 PO; -NIAS10004 PO; -NITR.4 SL; -SAXA1TBM PO; +SULF1TAB23 PO; +TELM1TAB PO; -TELM40 PO; +TRAM50TA PO
[2016-10-14 15:14] VITALS: BP 164/83; PULSE 63; RESP 14; TEMP 98.6; O2SAT 96
[2016-10-14] MEDS ORDERED: METO25TA3 PO (17:25)
--- NOTE | 2016-10-14 17:27 | PD ---
HPI Chief Complaint: GI Complaint Time Seen by Provider: 17:12 Travel History International Travel<30 days: No Contact w/Intl Traveler<30days: No Traveled to known affect area: No History of Present Illness HPI 80yo M with PMH of DM, HTN, CAD s/p CABG (follows with Dr. Menon) ,partial small bowel obstructions presents to the ED with epigastric abdominal pain since 12pm today. Pain is intermittent, dull and nonradiating. Associated with NBNB vomiting. Denies any fever, chest pain, sob, urinary complaints, diarrhea. Pt had bowel movement today that was normal. Pt was recently admitted here for partial small bowel obstruction and discharged last week. Abdominal surgical history significant for colectomy for diverticulitis, appendectomy, cholecystectomy. PFSH Past Medical History Hx Anticoagulant Therapy: Yes (ASA) AAA: Yes (3.8 CM 08/02/2014) Arthritis: Yes Asthma: No Autoimmune Disease: No Blood Disorders: No Anxiety: No Depression: No Heart Rhythm Problems: No Cancer: No Cardiovascular Problems: Yes (QUAD BYPASS, HTN) High Cholesterol: Yes Chemotherapy: No Chest Pain: No Congestive Heart Failure: No COPD: Yes Cerebrovascular Accident: No Coronary Artery Disease: Yes Diabetes: Yes Patient Takes Glucophage: No Diminished Hearing: No Diverticulitis: Yes Endocrine: Yes Gastrointestinal Disorders: Yes (DIVERTICULITIS) GERD: Yes Genitourinary: Yes Hiatal Hernia: Yes Hypertension: Yes Immune Disorder: Yes Implanted Vascular Access Dvce: Yes Kidney Stones: Yes Musculoskeletal: Yes Neurologic: No Psychiatric: No Reproductive: No Respiratory: Yes Immunizations Current: Yes Migraines: No Radiation Therapy: No Renal Failure: No Seizures: No Sickle Cell Disease: No Sleep Apnea: No Thyroid Disease: No Ulcer: No Tetanus Vaccination: < 5 Years PNEUMOCCOCAL Vaccine (Year): 1 Past Surgical History AICD: No Appendectomy: Yes Arteriovenous Shunt: No Cardiac Surgery: Yes (QUAD HEART BYPASS) Cholecystectomy: Yes (2007) Coronary Artery Bypass Graft: Yes (1996) Insulin Pump: No Joint Replacement: No Pacemaker: No Other Surgery: Yes Social History Alcohol Use: Yes (OCCASIONALLY) Tobacco Use: No (QUIT 1996) Substance Use: No Allergies-Medications (Allergen,Severity, Reaction): Coded Allergies: No Known Allergies (Verified , 10/14/16) Reported Meds & Prescriptions Reported Meds & Active Scripts Active Reported Metoprolol Tartrate 25 Mg Tab 25 Mg PO DAILY Biotin 1,000 Mcg Tab 1,000 Mcg PO Tramadol (Tramadol HCl) 50 Mg Tab 50 Mg PO Q8H PRN Vitamin D3 (Cholecalciferol) 400 Unit Cap 400 Units PO DAILY Nexium (Esomeprazole DR) 40 Mg Capdr 40 Mg PO DAILY Ecotrin Regular Strength (Aspirin) 325 Mg Tabdr 325 Mg PO DAILY Lovastatin 10 Mg Tab 10 Mg PO DAILY Niacin 500 Mg Tab 1,500 Mg PO HS Telmisartan 40 Mg Tab 40 Mg PO DAILY Kombiglyze Xr (Saxagliptin-Metformin ER) 2.5-1,000 Mg Tab 1 Tab PO DAILY Glimepiride 2 Mg Tab 2 Mg PO DAILY Take with breakfast or first main meal Cetirizine (Cetirizine HCl) 10 Mg Tab 10 Mg PO DAILY Nasonex Nasal [place] (Mometasone Furoate) 50 Mcg/Act Naspr 2 [place] EACH NARE DAILY Proair Hfa 8.5 GM Inh (Albuterol Sulfate) 90 Mcg/Act Aer 2 Puff INH Q6H PRN 108 mcg/actuation Review of Systems Except as stated in HPI: all other systems reviewed are Neg Physical Exam Narrative GENERAL: 80yo M not in distress. SKIN: Warm and dry. HEAD: Atraumatic. Normocephalic. NECK: Trachea midline. No JVD. CARDIOVASCULAR: Regular rate and rhythm. No murmur appreciated. RESPIRATORY: No accessory muscle use. Clear to auscultation. Breath sounds equal bilaterally. GASTROINTESTINAL: Abdomen soft, +TTP epigastric region. Mildly distended. No rebound tenderness or guarding. MUSCULOSKELETAL: No obvious deformities. No clubbing. No cyanosis. + Bilateral lower ext edema. NEUROLOGICAL: Awake and alert. No obvious cranial nerve deficits. Motor grossly within normal limits. Normal speech. PSYCHIATRIC: Appropriate mood and affect; insight and judgment normal. Data Data Last Documented VS Vital Signs Date Time Temp Pulse Resp B/P Pulse Ox O2 Delivery O2 Flow Rate FiO2 10/14/16 19:04 84 20 130/65 10/14/16 17:38 97 10/14/16 15:14 98.6 Room Air Orders Complete Blood Count With Diff (10/14/16 17:20) Comprehensive Metabolic Panel (10/14/16 17:20) Lipase (10/14/16 17:20) Prothrombin Time / Inr (Pt) (10/14/16 17:20) Act Partial Throm Time (Ptt) (10/14/16 17:20) Urinalysis - C+S If Indicated (10/14/16 17:20) Ct Abd/Pel W Iv Contrast(Rout) (10/14/16 17:20) Iv Access Insert/Monitor (10/14/16 17:20) Ecg Monitoring (10/14/16 17:20) Oximetry (10/14/16 17:20) Ondansetron Inj (Zofran Inj) (10/14/16 17:30) Sodium Chloride 0.9% Flush (Ns Flush) (10/14/16 17:30) Electrocardiogram (10/14/16 17:20) Chest, Single Ap (10/14/16 17:20) Troponin I (10/14/16 17:20) Morphine Inj (Morphine Inj) (10/14/16 18:30) Labs Laboratory Tests Test 10/14/16 17:25 White Blood Count 13.4 TH/MM3 Red Blood Count 4.74 MIL/MM3 Hemoglobin 14.4 GM/DL Hematocrit 43.3 % Mean Corpuscular Volume 91.2 FL Mean Corpuscular Hemoglobin 30.4 PG Mean Corpuscular Hemoglobin 33.3 % Concent Red Cell Distribution Width 14.5 % Platelet Count 216 TH/MM3 Mean Platelet Volume 8.7 FL Neutrophils (%) (Auto) 87.3 % Lymphocytes (%) (Auto) 5.7 % Monocytes (%) (Auto) 6.3 % Eosinophils (%) (Auto) 0.4 % Basophils (%) (Auto) 0.3 % Neutrophils # (Auto) 11.7 TH/MM3 Lymphocytes # (Auto) 0.8 TH/MM3 Monocytes # (Auto) 0.8 TH/MM3 Eosinophils # (Auto) 0.0 TH/MM3 Basophils # (Auto) 0.0 TH/MM3 CBC Comment DIFF FINAL Differential Comment Prothrombin Time 11.5 SEC Prothromb Time International 1.0 RATIO Ratio Activated Partial 26.8 SEC Thromboplast Time Urine Color LIGHT-YELLOW Urine Turbidity CLEAR Urine pH 5.0 Urine Specific [place] 1.004 Urine Protein NEG mg/dL Urine Glucose (UA) NEG mg/dL Urine Ketones TRACE mg/dL Urine Occult Blood NEG Urine Nitrite NEG Urine Bilirubin NEG Urine Urobilinogen LESS THAN 2.0 MG/DL Urine Leukocyte Esterase TRACE Urine RBC LESS THAN 1 /hpf Urine WBC 2 /hpf Microscopic Urinalysis Comment CULT NOT INDICATED Sodium Level 142 MEQ/L Potassium Level 4.0 MEQ/L Chloride Level 104 MEQ/L Carbon Dioxide Level 25.6 MEQ/L Anion Gap 12 MEQ/L Blood Urea Nitrogen 11 MG/DL Creatinine 1.16 MG/DL Estimat Glomerular Filtration 61 ML/MIN Rate Random Glucose 81 MG/DL Calcium Level 9.3 MG/DL Total Bilirubin 0.5 MG/DL Aspartate Amino Transf 16 U/L (AST/SGOT) Alanine Aminotransferase 18 U/L (ALT/SGPT) Alkaline Phosphatase 105 U/L Troponin I LESS THAN 0.02 NG/ML Total Protein 7.6 GM/DL Albumin 3.8 GM/DL Lipase 59 U/L [facility] Medical Decision Making Medical Screen Exam Complete: Yes Emergency Medical Condition: Yes Interpretation(s) EKG: NSR 74bpm. Normal axis. +PVC. Q wave in III. No ST segment elevation or depression. Laboratory Tests Test 10/14/16 17:25 White Blood Count 13.4 TH/MM3 (4.0-11.0) Red Blood Count 4.74 MIL/MM3 (4.50-5.90) Hemoglobin 14.4 GM/DL (13.0-17.0) Hematocrit 43.3 % (39.0-51.0) Mean Corpuscular Volume 91.2 FL (80.0-100.0) Mean Corpuscular Hemoglobin 30.4 PG (27.0-34.0) Mean Corpuscular Hemoglobin 33.3 % Concent (32.0-36.0) Red Cell Distribution Width 14.5 % (11.6-17.2) Platelet Count 216 TH/MM3 (150-450) Mean Platelet Volume 8.7 FL (7.0-11.0) Neutrophils (%) (Auto) 87.3 % (16.0-70.0) Lymphocytes (%) (Auto) 5.7 % (9.0-44.0) Monocytes (%) (Auto) 6.3 % (0.0-8.0) Eosinophils (%) (Auto) 0.4 % (0.0-4.0) Basophils (%) (Auto) 0.3 % (0.0-2.0) Neutrophils # (Auto) 11.7 TH/MM3 (1.8-7.7) Lymphocytes # (Auto) 0.8 TH/MM3 (1.0-4.8) Monocytes # (Auto) 0.8 TH/MM3 (0-0.9) Eosinophils # (Auto) 0.0 TH/MM3 (0-0.4) Basophils # (Auto) 0.0 TH/MM3 (0-0.2) CBC Comment DIFF FINAL Differential Comment Prothrombin Time 11.5 SEC (9.8-11.6) Prothromb Time International 1.0 RATIO Ratio Activated Partial 26.8 SEC Thromboplast Time (24.3-30.1) Urine Color LIGHT-YELLOW (YELLW/STRAW) Urine Turbidity CLEAR (CLEAR) Urine pH 5.0 (5.0-8.5) Urine Specific [place] 1.004 (1.002-1.035) Urine Protein NEG mg/dL (NEG-TRACE) Urine Glucose (UA) NEG mg/dL (NEG) Urine Ketones TRACE mg/dL (NEG) Urine Occult Blood NEG (NEG) Urine Nitrite NEG (NEG) Urine Bilirubin NEG (NEG) Urine Urobilinogen LESS THAN 2.0 MG/DL (LESS THAN 2.0) Urine Leukocyte Esterase TRACE (NEG) Urine RBC LESS THAN 1 /hpf (0-3) Urine WBC 2 /hpf (0-5) Microscopic Urinalysis Comment CULT NOT INDICATED Sodium Level 142 MEQ/L (136-145) Potassium Level 4.0 MEQ/L (3.5-5.1) Chloride Level 104 MEQ/L (98-107) Carbon Dioxide Level 25.6 MEQ/L (21.0-32.0) Anion Gap 12 MEQ/L (5-15) Blood Urea Nitrogen 11 MG/DL (7-18) Creatinine 1.16 MG/DL (0.60-1.30) Estimat Glomerular Filtration 61 ML/MIN (>89) Rate Random Glucose 81 MG/DL (74-106) Calcium Level 9.3 MG/DL (8.5-10.1) Total Bilirubin 0.5 MG/DL (0.2-1.0) Aspartate Amino Transf 16 U/L (15-37) (AST/SGOT) Alanine Aminotransferase 18 U/L (12-78) (ALT/SGPT) Alkaline Phosphatase 105 U/L (45-117) Troponin I LESS THAN 0.02 NG/ML (0.02-0.05) Total Protein 7.6 GM/DL (6.4-8.2) Albumin 3.8 GM/DL (3.4-5.0) Lipase 59 U/L (73-393) Last Impressions Chest X-Ray 10/14/16 1720 Signed Impressions: Service Date/Time: Friday, October 14, 2016 17:36 - CONCLUSION: Minimal suspected pleural disease at the left base. Khoa Lizama MD Differential Diagnosis Partial bowel obstruction vs. pancreatitis vs. ACS vs. pneumonia Narrative Course 80yo M here with epigastric abdominal pain that started around 12pm today. Labs reviewed, mild leukocytosis at 13.4. Troponin negative. Lipase low. UA showed trace leukocyte but WBC in urine only 2 and culture not indicated. Pt has been having normal bowel movements. CXR showed minimal suspected pleural disease at left base. Pt has no fever, cough, chest pain or sob. CTa/p showed nonobstructing renal stones. Sigmoid colon diverticula. 4.1 cm abdominal aortic aneurysm. Pt knows about the AAA and states it was larger before. Pt reevaluated at bedside after morphine 2mg IV and zofran 4mg IV and feels better. Abdominal pain has resolved. Pt is no longer nauseous and tolerating PO. Pt has outpatient GI to follow up with. VS stable. Strict return precautions given. Diagnosis Primary Impression: Abdominal pain Qualified Code: R10.13 - Epigastric pain Patient Instructions: General Instructions Departure Forms: Tests/Procedures Additional Instructions: Please follow up with your GI physician as an outpatient in 1-2 days. Return to the ED if you have worsening abdominal pain, vomiting, fever, chest pain, sob or any other concerning symptoms. Med/Other Pt SpecificInfo: Prescription(s) given Scripts Omeprazole 40 Mg Cap40 Mg PO DAILY 5 Days Ref 0 Prov:Isabella Radford DO 10/14/16 Disposition: 01 DISCHARGE HOME Condition: Stable Isabella Radford DO Oct 14, 2016 17:27
[2016-10-14 17:29] VITALS: O2SAT 96
[2016-10-14] MEDS ORDERED: ONDANSETRON HCL 4 MG/2 ML VIAL IVP ONE (17:30)
[2016-10-14] MEDS ORDERED: SODIUM CHLORIDE 0.9% FLUSH 5 ML FLUSH IVF PRN (17:30)
[2016-10-14 17:36] LABS: AUTOMATED NEUTROPHIL # 11.7 TH/MM3 (1.8-7.7); BASOPHIL % 0.3 % (0.0-2.0); EOSINOPHIL % 0.4 % (0.0-4.0); HEMATOCRIT 43.3 % (39.0-51.0); HEMO FLAGS DIFF FINAL; LYMPH % 5.7 % (9.0-44.0); LYMPHOCYTE # 0.8 TH/MM3 (1.0-4.8); MEAN CELL VOLUME 91.2 FL (80.0-100.0); MEAN CORPUSCULAR HEMOGLOBIN 30.4 PG (27.0-34.0); MEAN CORPUSCULAR HGB CONC 33.3 % (32.0-36.0); MONO % 6.3 % (0.0-8.0); NEUT % 87.3 % (16.0-70.0); PLATELET COUNT 216 TH/MM3 (150-450); RED BLOOD COUNT 4.74 MIL/MM3 (4.50-5.90); RED CELL DISTRIBUTION WIDTH 14.5 % (11.6-17.2); WHITE BLOOD COUNT 13.4 TH/MM3 (4.0-11.0)
[2016-10-14 17:38] VITALS: BP 153/76; PULSE 77; RESP 16; O2SAT 97
[2016-10-14 17:50] LABS: APTT (PATIENT) 26.8 SEC (24.3-30.1); PROTHROMBIN TIME - PATIENT 11.5 SEC (9.8-11.6)
[2016-10-14 17:54] LABS: BLOOD, URINE NEG (NEG); GLUCOSE,URINE NEG (NEG); KETONE, URINE TRACE mg/dL (NEG); NITRITE,URINE NEG (NEG); URINE COLOR LIGHT-YELLOW (YELLW/STRAW)
[2016-10-14 17:55] LABS: COMMENT (UR) CULT NOT INDICATED; CULTURE IF INDICATED CULT NOT INDICATED
[2016-10-14 18:01] LABS: ANION GAP 12 MEQ/L (5-15); BICARBONATE 25.6 MEQ/L (21.0-32.0); BLOOD UREA NITROGEN 11 MG/DL (7-18); CHLORIDE 104 MEQ/L (98-107); GLOMERULAR FILTRATION RATE 61 ML/MIN (>89); SODIUM (NA) 142 MEQ/L (136-145)
[2016-10-14 18:06] LABS: ALKALINE PHOSPHATASE 105 U/L (45-117); ALT (GPT) 18 U/L (12-78); AST (GOT) 16 U/L (15-37); TOTAL BILIRUBIN ADULT 0.5 MG/DL (0.2-1.0)
--- NOTE | 2016-10-14 18:20 | RADRPT ---
EXAM DATE/TIME: 10/14/2016 17:36 [facility] COMPARISON: CT ABDOMEN & PELVIS W/O CONTRAST, October 06, 2016, 20:48. ABDOMEN KUB ONLY, October 07, 2016, 5:08. INDICATIONS: Evaluate for free air. MEDICAL HISTORY: Cardiovascular disease. Diverticulitis. Small bowel obstruction. SURGICAL HISTORY: CABG. Cholecystectomy. ENCOUNTER: Initial ACUITY: 1 day PAIN SCORE: 4/10 LOCATION: Bilateral chest FINDINGS: Patient is status post sternotomy. The heart size is normal. The lungs are grossly clear. There is minimal blunting of the left costophrenic angle which may represent some minimal pleural disease. T he bony structures are grossly intact. CONCLUSION: Minimal suspected pleural disease at the left base. Khoa Lizama MD on October 14, 2016 at 18:11 Board Certified Radiologist. This report was verified electronically.
[2016-10-14] MEDS ORDERED: IOHEXOL 350 MG/ML 10 ML VIAL (for RAD DIAG) IV ONE (18:25)
[2016-10-14] MEDS ORDERED: MORPHINE SULFATE 4 MG/ML INJ IV PUSH ONE (18:30)
[2016-10-14 19:04] VITALS: BP 130/65; PULSE 84; RESP 20
--- NOTE | 2016-10-14 19:13 | RADRPT ---
EXAM DATE/TIME: 10/14/2016 18:25 [facility] COMPARISON: CT ABDOMEN & PELVIS W CONTRAST, February 12, 2016, 23:05. INDICATIONS: Abdominal pain, history of small bowel obstruction. IV CONTRAST: 94 cc Omnipaque 350 (iohexol) IV ORAL CONTRAST: No oral contrast ingested. RADIATION DOSE: 14.04 CTDIvol (mGy) MEDICAL HISTORY: Cardiovascular disease. Hypertension. SURGICAL HISTORY: Cholecystectomy. ENCOUNTER: Initial ACUITY: 1 day PAIN SCALE: 5/10 LOCATION: Bilateral lower quadrant TECHNIQUE: Volumetric scanning of the abdomen and pelvis was performed. Using automated exposure control and adjustment of the mA and/or kV according to patient size, radiation dose was kept as low as reasonably achievable to obtain optimal diagnostic quality images. FINDINGS: There are non-obstructing renal stones seen bilaterally. On the right side the stones are seen in th e mid right collection system measuring 0.5 cm. On the left side these are seen at the posterior sup erior aspect of the kidney measuring 0.8 cm. No hydronephrosis identified. The ureters are free of stones. There does continue to be aneurysmal dilatation of the distal abdominal aorta measuring up t o 4.1 cm. This appears unchanged from the prior exam. There continues to be mild intrahepatic biliary ductal dilatation. This likely reflects a reservoir phenomenon following cholecystectomy. There is a stable small area of decreased density seen at the anterior aspect of the medial segmental left lobe of the liver likely related to focal fatty infiltra tion. The spleen, pancreas, and adrenal glands are normal. There appears to be a small hiatal herni a. There do appear to be clips and a suspected bowel mass with suture in the sigmoid region. There are scattered sigmoid colon diverticula. Pelvic structures appear grossly intact. Patient is status post sternotomy. There is some mild increased density identified in posterior lung s bilaterally likely representing areas of atelectasis. There is some degenerative change in the low er lumbar spine. There is degenerative change at the right hip joint. CONCLUSION: 1. Non-obstructing renal stone seen bilaterally. 2. Intrahepatic biliary ductal dilatation likely reflecting a reservoir phenomenon following cholecy stectomy. 3. Sigmoid colon diverticula. The patient does appear to have had resection of part of the sigmoid colon. Suspected mild hiatal hernia. 4. Degenerative changes of the right hip. 5. A 4.1 cm abdominal aortic aneurysm. Khoa Lizama MD on October 14, 2016 at 18:53 Board Certified Radiologist. This report was verified electronically.
[2016-10-14] MEDS ORDERED: OMEP40CA2 PO (19:53)
[2016-10-14 20:27] VITALS: RESP 20
[2016-10-14 20:38] VITALS: BP 150/85
--- NOTE | 2016-10-15 15:48 | EKG ---
Date Performed: 10/14/2016 Time Performed: 17:36:21 PTAGE: 80 years EKG: Sinus rhythm WITH OCCASIONAL ECTOPIC PREMATURE COMPLEXES Compared to prior tracing no significant change BORDERLI NE ECG PREVIOUS TRACING : 10/06/2016 19.16 DOCTOR: Elyse Menon Interpretating Date/Time 10/15/2016 15:45:16
== END 2016-10-14 21:53 | disposition home or self-care (01) ==
LOC: NEPA 15:13
DX: R10.13 Epigastric pain (principal); I71.4 Abdominal aortic aneurysm, without rupture; N20.0 Calculus of kidney; I25.10 Atherosclerotic heart disease of native coronary artery without angina pectoris; I10 Essential (primary) hypertension; E11.9 Type 2 diabetes mellitus without complications; J44.9 Chronic obstructive pulmonary disease, unspecified; K21.9 Gastro-esophageal reflux disease without esophagitis; Z79.82 Long term (current) use of aspirin; Z79.84 Long term (current) use of oral hypoglycemic drugs; Z79.899 Other long term (current) drug therapy; Z87.891 Personal history of nicotine dependence; Z95.1 Presence of aortocoronary bypass graft
CPT/HCPCS: 71010; 74177; 80053; 81001; 83690; 84484; 85025; 85610; 85730; 93005; 96374; 96375; 99284; J2270; J2405; Q9967

== ENCOUNTER 2017-03-11 15:55 | Inpatient (IN) | payer MEDICARE, BC ==
[~2017-03-11] VITALS: Ht 160 cm; Wt 70.3 kg
[~2017-03-11 15:55] MED LIST changes: +METO25TA3 PO; +OMEP40CA2 PO; -SULF1TAB23 PO
[2017-03-11 16:03] VITALS: PULSE 54; RESP 20; O2SAT 97
[2017-03-11] MEDS ORDERED: SODIUM CHLOR 0.9% 1000 ML INJ 1,000 ML IV SCH ×2 (16:06→18:24)
[2017-03-11] MEDS ORDERED: MORPHINE SULFATE 4 MG/ML INJ IV PUSH ONE (16:15)
[2017-03-11] MEDS ORDERED: SODIUM CHLORIDE 0.9% FLUSH 10 ML FLUSH IV FLUSH PRN ×2 (16:15→18:45)
--- NOTE | 2017-03-11 16:18 | PD ---
HPI Chief Complaint: Abdominal Pain Time Seen by Provider: 16:13 Travel History International Travel<30 days: No Contact w/Intl Traveler<30days: No Traveled to known affect area: No History of Present Illness HPI 81-year-old male with a history of hypertension, hyperlipidemia, diabetes, CAD, CABG, COPD presents to the emergency department by EMS for evaluation of epigastric abdominal pain with nausea and vomiting that began about 5 hours ago. Patient states he has a history of recurrent small bowel obstruction and his symptoms are the same today. States that he began to have epigastric pain with nausea and vomiting and is upper abdomen feels hard. States that when he' s had this previously he is able to take a pain pill and his symptoms go away however they did not resolve today. States that he had 2 small bowel movements this morning that were hard as though he is constipated. States he last ate this morning for breakfast. States he's been unable to keep down any food or fluids since then. Denies any aggravating or alleviating factors. Denies any fever, chills, diarrhea, bloody stool, bloody emesis, cough or cold symptoms, chest pain, shortness of breath. PCP is Dr. Fatima. No other complaints. Prior abdominal surgeries include cholecystectomy and appendectomy. PFSH Past Medical History Hx Anticoagulant Therapy: Yes (ASA) AAA: Yes (3.8 CM 08/02/2014) Arthritis: Yes Asthma: No Autoimmune Disease: No Blood Disorders: No Anxiety: No Depression: No Heart Rhythm Problems: No Cancer: No Cardiovascular Problems: Yes (QUAD BYPASS, HTN) High Cholesterol: Yes Chemotherapy: No Chest Pain: No Congestive Heart Failure: No COPD: Yes Cerebrovascular Accident: No Coronary Artery Disease: Yes Diabetes: Yes Patient Takes Glucophage: Yes Diminished Hearing: No Diverticulitis: Yes Endocrine: Yes Gastrointestinal Disorders: Yes (DIVERTICULITIS) GERD: Yes Genitourinary: Yes Hiatal Hernia: Yes Hypertension: Yes Immune Disorder: Yes Implanted Vascular Access Dvce: Yes Kidney Stones: Yes Musculoskeletal: Yes Neurologic: No Psychiatric: No Reproductive: No Respiratory: Yes Immunizations Current: Yes Migraines: No Radiation Therapy: No Renal Failure: No Seizures: No Sickle Cell Disease: No Sleep Apnea: No Thyroid Disease: No Ulcer: No PNEUMOCCOCAL Vaccine (Year): 1 Past Surgical History AICD: No Appendectomy: Yes Arteriovenous Shunt: No Cardiac Surgery: Yes (QUAD HEART BYPASS) Cholecystectomy: Yes (2007) Coronary Artery Bypass Graft: Yes (1996 X) Insulin Pump: No Joint Replacement: No Pacemaker: No Other Surgery: Yes Social History Alcohol Use: Yes (OCCASIONALLY) Tobacco Use: No (QUIT 1996) Substance Use: No Allergies-Medications (Allergen,Severity, Reaction): Coded Allergies: No Known Allergies (Verified , 10/14/16) Reported Meds & Prescriptions Reported Meds & Active Scripts Active Omeprazole 40 Mg Cap 40 Mg PO DAILY 5 Days Reported Biotin 1,000 Mcg Tab 1,000 Mcg PO Tramadol (Tramadol HCl) 50 Mg Tab 50 Mg PO Q8H PRN Vitamin D3 (Cholecalciferol) 400 Unit Cap 400 Units PO DAILY Nexium (Esomeprazole DR) 40 Mg Capdr 40 Mg PO DAILY Ecotrin Regular Strength (Aspirin) 325 Mg Tabdr 325 Mg PO DAILY Lovastatin 10 Mg Tab 10 Mg PO DAILY Niacin 500 Mg Tab 1,500 Mg PO HS Kombiglyze Xr (Saxagliptin-Metformin ER) 2.5-1,000 Mg Tab 1 Tab PO DAILY Glimepiride 2 Mg Tab 2 Mg PO DAILY Take with breakfast or first main meal Cetirizine (Cetirizine HCl) 10 Mg Tab 10 Mg PO DAILY Nasonex Nasal [place] (Mometasone Furoate) 50 Mcg/Act Naspr 2 [place] EACH NARE DAILY Proair Hfa 8.5 GM Inh (Albuterol Sulfate) 90 Mcg/Act Aer 2 Puff INH Q6H PRN 108 mcg/actuation Review of Systems Except as stated in HPI: all other systems reviewed are Neg Physical Exam Narrative GENERAL: Well-nourished and well-developed pleasant male patient in no acute distress but in moderate amount of pain. SKIN: Warm and dry. HEAD: Normocephalic and atraumatic. EYES: No injection, drainage, or hyphema noted. PERRLA. EOMI. ENT: No nasal drainage noted. Oropharynx is clear. NECK: Supple and the trachea is midline. CARDIOVASCULAR: Regular rate and rhythm. RESPIRATORY: Breath sounds are equal bilaterally with no accessory muscle use, wheezing, rhonchi, or crackles. GASTROINTESTINAL: Abdomen is slightly distended and is hard in the epigastric and right upper quadrant region with tenderness to palpation. No guarding or peritoneal signs. MUSCULOSKELETAL: No obvious deformities, swelling, cyanosis, or ecchymosis is present throughout the upper and lower extremities. Patient has full range of motion without any signs of neurovascular compromise. NEUROLOGICAL: Awake, alert, and oriented. Normal speech and gait. Cranial nerves are grossly intact. Data Data Last Documented VS Vital Signs Date Time Temp Pulse Resp B/P Pulse Ox O2 Delivery O2 Flow Rate FiO2 03/11/17 18:05 98.1 102 20 161/84 Room Air 03/11/17 16:03 97 Orders Electrocardiogram (03/11/17 ) Complete Blood Count With Diff (03/11/17 16:06) Comprehensive Metabolic Panel (03/11/17 16:06) Lipase (03/11/17 16:06) Lactic Acid (03/11/17 16:06) Prothrombin Time / Inr (Pt) (03/11/17 16:06) Act Partial Throm Time (Ptt) (03/11/17 16:06) Iv Access Insert/Monitor (03/11/17 16:06) Ecg Monitoring (03/11/17 16:06) Oximetry (03/11/17 16:06) Morphine Inj (Morphine Inj) (03/11/17 16:15) Sodium Chlor 0.9% 1000 Ml Inj (Ns 1000 M (03/11/17 16:06) Sodium Chloride 0.9% Flush (Ns Flush) (03/11/17 16:15) Ct Abd/Pel W Iv Contrast(Rout) (03/11/17 16:06) Iohexol 350 Inj (Omnipaque 350 Inj) (03/11/17 17:54) Nicki-Gastric Tube Insert/Mon (03/11/17 18:04) Ondansetron Inj (Zofran Inj) (03/11/17 18:15) Sodium Chlor 0.9% 1000 Ml Inj (Ns 1000 M (03/11/17 18:24) Admit Order (Ed Use Only) (03/11/17 18:30) Labs Laboratory Tests Test 03/11/17 16:16 White Blood Count 12.5 TH/MM3 Red Blood Count 4.68 MIL/MM3 Hemoglobin 14.6 GM/DL Hematocrit 44.1 % Mean Corpuscular Volume 94.3 FL Mean Corpuscular Hemoglobin 31.2 PG Mean Corpuscular Hemoglobin 33.0 % Concent Red Cell Distribution Width 14.4 % Platelet Count 194 TH/MM3 Mean Platelet Volume 9.0 FL Neutrophils (%) (Auto) 87.4 % Lymphocytes (%) (Auto) 5.9 % Monocytes (%) (Auto) 5.9 % Eosinophils (%) (Auto) 0.3 % Basophils (%) (Auto) 0.5 % Neutrophils # (Auto) 10.9 TH/MM3 Lymphocytes # (Auto) 0.7 TH/MM3 Monocytes # (Auto) 0.7 TH/MM3 Eosinophils # (Auto) 0.0 TH/MM3 Basophils # (Auto) 0.1 TH/MM3 CBC Comment DIFF FINAL Differential Comment Prothrombin Time 10.9 SEC Prothromb Time International 1.0 RATIO Ratio Activated Partial 27.0 SEC Thromboplast Time Sodium Level 139 MEQ/L Potassium Level 4.5 MEQ/L Chloride Level 104 MEQ/L Carbon Dioxide Level 27.3 MEQ/L Anion Gap 8 MEQ/L Blood Urea Nitrogen 16 MG/DL Creatinine 1.16 MG/DL Estimat Glomerular Filtration 61 ML/MIN Rate Random Glucose 157 MG/DL Lactic Acid Level 3.4 mmol/L Calcium Level 9.3 MG/DL Total Bilirubin 0.4 MG/DL Aspartate Amino Transf 17 U/L (AST/SGOT) Alanine Aminotransferase 25 U/L (ALT/SGPT) Alkaline Phosphatase 129 U/L Total Protein 7.8 GM/DL Albumin 4.2 GM/DL Lipase 113 U/L MDM Medical Decision Making Medical Screen Exam Complete: Yes Emergency Medical Condition: Yes Differential Diagnosis Bowel obstruction versus colitis versus gastritis versus GERD Narrative Course 81-year-old male presents to the emergency department for evaluation of abdominal pain with nausea and vomiting and a history of bowel obstruction. Patient is afebrile, vital signs are stable. His epigastric and right upper quadrant region is hard and tender to palpation. States that in the past when he has had bowel structure in his symptoms have been similar. IV access is obtained, labs were drawn and sent. Patient is placed on cardiac telemetry and pulse oximetry monitoring. Patient is administered IV morphine, fluids and Zofran. CT of the abdomen and pelvis has been ordered and is pending. EKG shows sinus rhythm with right bundle-branch block, no acute ST elevations or depressions. CBC shows slightly elevated white blood cell count of 12.5 CMP is unremarkable. Lactic acid is elevated at 3.4. Coags are unremarkable. CT of the abdomen and pelvis with IV contrast shows abnormal bowel gas pattern which is of concern for early or partial small bowel obstruction. Stable infrarenal abdominal aortic aneurysm. Bilateral nonobstructing renal calculi. Status post cholecystectomy and mild biliary prominence. Patient has remained stable while here in the emergency department. An NG tube has been inserted and output about 300 cc of gastric contents. The patient will be admitted to medicine service for partial small bowel obstruction. I discussed the case with my attending physician Dr. Menard who is aware of the patients history, physical examination findings, and treatment plan. Physician Communication Physician Communication I spoke with Dr. [place] who agrees to accept the patient under their service. Requests admission under Dr. Guzman. Diagnosis Primary Impression: Partial small bowel obstruction Additional Impression: Nausea & vomiting Qualified Code: R11.2 - Non-intractable vomiting with nausea, unspecified vomiting type Admitting Information Admitting Physician Requests: Admit Renetta Morel Mar 11, 2017 16:18
[2017-03-11 16:38] LABS: AUTOMATED NEUTROPHIL # 10.9 TH/MM3 (1.8-7.7); BASOPHIL # 0.1 TH/MM3 (0-0.2); BASOPHIL % 0.5 % (0.0-2.0); EOSINOPHIL % 0.3 % (0.0-4.0); HEMATOCRIT 44.1 % (39.0-51.0); HEMO FLAGS DIFF FINAL; LYMPH % 5.9 % (9.0-44.0); LYMPHOCYTE # 0.7 TH/MM3 (1.0-4.8); MEAN CELL VOLUME 94.3 FL (80.0-100.0); MEAN CORPUSCULAR HEMOGLOBIN 31.2 PG (27.0-34.0); MONO % 5.9 % (0.0-8.0); NEUT % 87.4 % (16.0-70.0); PLATELET COUNT 194 TH/MM3 (150-450); RED BLOOD COUNT 4.68 MIL/MM3 (4.50-5.90); RED CELL DISTRIBUTION WIDTH 14.4 % (11.6-17.2); WHITE BLOOD COUNT 12.5 TH/MM3 (4.0-11.0)
[2017-03-11 16:52] LABS: PROTHROMBIN TIME - PATIENT 10.9 SEC (9.8-11.6)
[2017-03-11 17:02] LABS: ALT (GPT) 25 U/L (12-78); ANION GAP 8 MEQ/L (5-15); BICARBONATE 27.3 MEQ/L (21.0-32.0); BLOOD UREA NITROGEN 16 MG/DL (7-18); CHLORIDE 104 MEQ/L (98-107); POTASSIUM 4.5 MEQ/L (3.5-5.1); SODIUM (NA) 139 MEQ/L (136-145)
[2017-03-11 17:06] LABS: ALKALINE PHOSPHATASE 129 U/L (45-117); AST (GOT) 17 U/L (15-37); GLOMERULAR FILTRATION RATE 61 ML/MIN (>89); TOTAL BILIRUBIN ADULT 0.4 MG/DL (0.2-1.0)
[2017-03-11] MEDS ORDERED: IOHEXOL 350 MG/ML 10 ML VIAL (for RAD DIAG) IV ONE (17:54)
[2017-03-11 18:05] VITALS: BP 161/84; PULSE 102; RESP 20; TEMP 98.1
[2017-03-11] MEDS ORDERED: ONDANSETRON HCL 4 MG/2 ML VIAL IV PUSH ONE (18:15)
--- NOTE | 2017-03-11 18:16 | RADRPT ---
EXAM DATE/TIME: 03/11/2017 17:45 [facility] COMPARISON: CT ABDOMEN & PELVIS W CONTRAST, October 14, 2016, 18:25. INDICATIONS : Severe epigastric pain. IV CONTRAST: 95 cc Omnipaque 350 (iohexol) IV ORAL CONTRAST: No oral contrast ingested. RADIATION DOSE: 6.18 CTDIvol (mGy) MEDICAL HISTORY : Hypertension. Diverticulitis. SURGICAL HISTORY : CABG Cholecystectomy.Appendectomy. ENCOUNTER: Initial ACUITY: 1 day PAIN SCALE: 9/10 LOCATION: upper quadrant TECHNIQUE: Volumetric scanning of the abdomen and pelvis was performed. Using automated exposure control and ad justment of the mA and/or kV according to patient size, radiation dose was kept as low as reasonably achievable to obtain optimal diagnostic quality images. DICOM format image data is available electro nically for review and comparison. FINDINGS: LOWER LUNGS: The visualized lower lungs are clear. LIVER: Homogeneous density without lesion. The patient is again noted to be status post cholecystectomy. The re is mild prominence of the intrahepatic central biliary system and common bile duct. SPLEEN: Normal size without lesion. PANCREAS: Within normal limits. KIDNEYS: Normal in size and shape. There is no mass or hydronephrosis. There are bilateral nonobstructing vincenzo al calculi. ADRENAL GLANDS: Within normal limits. VASCULAR: There is a stable for renal abdominal aortic aneurysm measuring up to 4 x 3.9 cm. BOWEL/MESENTERY: Abnormal bowel gas pattern with multiple loops of borderline to mildly dilated small bowel in the ike tral abdomen with multiple air-fluid levels. There is no free air or fluid. There are postoperative c hanges in the distal colon with multiple diverticuli. ABDOMINAL WALL: Within normal limits. RETROPERITONEUM: There is no lymphadenopathy. BLADDER: No wall thickening or mass. REPRODUCTIVE: The prostate gland remains prominent and inhomogeneous. INGUINAL: There is no lymphadenopathy or hernia. MUSCULOSKELETAL: Within normal limits for patient age. CONCLUSION: 1. Abnormal bowel gas pattern which is of concern for early or partial small bowel obstruction. 2. Stable infrarenal abdominal aortic aneurysm. 3. Bilateral nonobstructing renal calculi. 4. Status post cholecystectomy with mild biliary prominence. Gómez Marrero MD on March 11, 2017 at 18:09 Board Certified Radiologist. This report was verified electronically.
[2017-03-11] MEDS ORDERED: BISACODYL 10 MG SUPP RECTAL PRN (18:45)
[2017-03-11] MEDS ORDERED: NALOXONE HCL 0.4 MG/ML AMP IV PRN (18:45)
[2017-03-11] MEDS ORDERED: ONDANSETRON HCL 4 MG/2 ML VIAL IVP PRN (18:45)
[2017-03-11] MEDS ORDERED: LACTULOSE SYRUP 20 GM/30 ML CUP PO PRN (18:45)
[2017-03-11] MEDS ORDERED: GLUCAGON 1 MG/ML VIAL OTHER PRN (18:45)
[2017-03-11] MEDS ORDERED: MAGNESIUM HYDROXIDE SUSP 30 ML CUP PO PRN (18:45)
[2017-03-11] MEDS ORDERED: DEXTROSE 50% IN WATER 50 ML VIAL(D50) IV PRN (18:45)
[2017-03-11] MEDS ORDERED: SENNOSIDES 8.6 MG TAB PO PRN (18:45)
[2017-03-11] MEDS ORDERED: traMADol HCL 50 MG TAB PO PRN (18:45)
[2017-03-11] MEDS ORDERED: ALBUTEROL SULFATE 90 MCG/ACT HFA 18 GM INHALER INH PRN (20:00)
[2017-03-11] MEDS: INSULIN ASPART SUPPLEMENTAL SCALE SQ SCH (21:00)
[2017-03-11] MEDS: DOCUSATE SODIUM 50 MG/SENNA 8.6 MG TAB PO SCH (21:00)
[2017-03-11] MEDS: SODIUM CHLOR 0.9% 1000 ML INJ 1,000 ML IV SCH (21:17)
[2017-03-11 21:27] VITALS: BP 134/76; PULSE 102; RESP 18; TEMP 97.6; O2SAT 95
[2017-03-11] MEDS: PANTOPRAZOLE SODIUM 40 MG VIAL IV PUSH SCH (21:27)
[2017-03-11] MEDS: SODIUM CHLORIDE 0.9% FLUSH 10 ML FLUSH IV FLUSH SCH (21:27)
[2017-03-11] MEDS: HEPARIN SODIUM - SQ 10,000 UNITS/ML VIAL SQ SCH (21:28)
[2017-03-11 22:10] VITALS: PULSE 103
[2017-03-11 23:10] VITALS: BP 136/80; PULSE 96; RESP 18; TEMP 98.1; O2SAT 94
[2017-03-12] VITALS (8 sets, daily range): BP systolic 135–167; BP diastolic 77–92; PULSE 78–92; RESP 16–18; TEMP 97–98.4; O2SAT 92–96
[2017-03-12 05:30] LABS: AUTOMATED NEUTROPHIL # 4.6 TH/MM3 (1.8-7.7); BASOPHIL % 0.3 % (0.0-2.0); EOSINOPHIL % 0.8 % (0.0-4.0); HEMATOCRIT 38.4 % (39.0-51.0); HEMO FLAGS DIFF FINAL; LYMPH % 14.8 % (9.0-44.0); LYMPHOCYTE # 0.9 TH/MM3 (1.0-4.8); MEAN CELL VOLUME 94.2 FL (80.0-100.0); MEAN CORPUSCULAR HEMOGLOBIN 31.1 PG (27.0-34.0); MEAN CORPUSCULAR HGB CONC 33.1 % (32.0-36.0); MONO % 11.3 % (0.0-8.0); NEUT % 72.8 % (16.0-70.0); PLATELET COUNT 170 TH/MM3 (150-450); RED BLOOD COUNT 4.08 MIL/MM3 (4.50-5.90); RED CELL DISTRIBUTION WIDTH 14.4 % (11.6-17.2); WHITE BLOOD COUNT 6.4 TH/MM3 (4.0-11.0)
--- NOTE | 2017-03-12 08:01 | EKG ---
Date Performed: 03/11/2017 Time Performed: 16:13:11 PTAGE: 81 years EKG: SINUS BRADYCARDIA RIGHT BUNDLE BRANCH BLOCK ABNORMAL ECG PREVIOUS TRACING : 10/14/2016 17.36 DOCTOR: Jl Dubose Interpretating Date/Time 03/12/2017 07:56:03
[2017-03-12] MEDS: FLUTICASONE PROPIONATE 50 MCG/ACT 16 GM NASAL SPRAY EACH NARE SCH (09:00)
[2017-03-12] MEDS: DOCUSATE SODIUM 50 MG/SENNA 8.6 MG TAB PO SCH ×2 (09:39→21:13)
[2017-03-12] MEDS: PANTOPRAZOLE SODIUM 40 MG VIAL IV PUSH SCH ×2 (09:40→21:15)
[2017-03-12] MEDS: CETIRIZINE HCL 10 MG TAB PO SCH (09:40)
[2017-03-12] MEDS: SODIUM CHLORIDE 0.9% FLUSH 10 ML FLUSH IV FLUSH SCH ×2 (09:40→21:15)
[2017-03-12] MEDS: HEPARIN SODIUM - SQ 10,000 UNITS/ML VIAL SQ SCH ×2 (09:41→21:14)
[2017-03-12] MEDS: SODIUM CHLOR 0.9% 1000 ML INJ 1,000 ML IV SCH ×2 (09:41→16:00)
--- NOTE | 2017-03-12 10:22 | HHI.HP ---
HPI Service [facility] Primary Care Physician Trevor Graf MD Admission Diagnosis Partial SBO Diagnoses: Chief Complaint: abdominal pain (Niyah Lutz) Travel History International Travel<30 Days: No Contact w/Intl Traveler <30 Da: No Traveled to Known Affected Are: No (Niyah Lutz) History of Present Illness This is a 81-year-old male patient with past medical history which includes coronary artery disease status post coronary artery bypass graft, hypertension, diabetes mellitus type 2, hyperlipidemia, diverticulitis, kidney stones and AAA. Patient presented to the emergency room for evaluation of epigastric abdominal pain with nausea vomiting that began approximately 5 hours before presenting to ED. Patient has a history of recurrent small bowel obstructions with multiple admissions in the last year. Usually these episodes resolve on their own, no recent surgical intervention. Has prior history abdominal surgery including cholecystectomy, appendectomy, partial colectomy secondary to diverticulitis. Patient indicates that he had been in his usual state of health, he started to develop epigastric pain, abdomen felt very firm, painful. He states he has frequent abdominal pains at least 2-3 times a month but usually is able to take a pain pill and that resolves his symptoms. This time, symptoms did not resolve and he decided to come to the emergency room for further evaluation. Denies any fever, no chills. Indicates bowel movements have been regular, no blood is noted, soft. He was able to eat yesterday morning. Laboratory workup was completed in the emergency room, it was essentially unremarkable other than lactic acidosis. Abdomen and pelvis CT showed abnormal bowel gas pattern which is of concern for early or partial small bowel obstruction. Stable infrarenal abdominal aortic aneurysm. Bilateral nonobstructive renal calculi. Status post cholecystectomy with mild biliary prominence. Indicates that he sees Dr. Curran regularly for aneurysm measurements and the last time it was 3.8 cm. At this time, patient indicates he feels better, he wants something to drink. Abdomen is soft, nontender. There's been approximately 600 cc of green gastric drainage since yesterday. Patient is admitted for further evaluation and treatment. (Niyah Lutz) Review of Systems Constitutional: DENIES: Diaphoretic episodes, Fatigue, Fever, Weight gain, Weight loss, Chills, Dizziness, Change in appetite, Night Sweats Endocrine: DENIES: Heat/cold intolerance, Polydipsia, Polyuria, Polyphagia Eyes: DENIES: Blurred vision, Diplopia, Eye inflammation, Eye pain, Vision loss , Photosensitivity, Double Vision Ears, nose, mouth, throat: DENIES: Tinnitus, Hearing loss, Vertigo, Nasal discharge, Oral lesions, Throat pain, Hoarseness, Ear Pain, Running Nose, Epistaxis, Sinus Pain, Toothache, Odynophagia Respiratory: DENIES: Apneas, Cough, Snoring, Wheezing, Hemoptysis, Sputum production, Shortness of breath Cardiovascular: DENIES: Chest pain, Palpitations, Syncope, Dyspnea on Exertion , PND, Lower Extremity Edema, Orthopnea, Claudication Gastrointestinal: COMPLAINS OF: Abdominal pain, Nausea, Vomiting, DENIES: Black stools, Bloody stools, Constipation, Diarrhea, Difficulty Swallowing, Anorexia Genitourinary: DENIES: Sexual dysfunction, Urinary frequency, Urinary incontinence, Urgency, Hematuria, Dysuria, Nocturia, Penile Discharge, Testicular Pain, Testicular Swelling Musculoskeletal: DENIES: Joint pain, Muscle aches, Stiffness, Joint Swelling, Back pain, Neck pain Integumentary: DENIES: Abnormal pigmentation, Nail changes, Pruritus, Rash Hematologic/lymphatic: DENIES: Bruising, Lymphadenopathy Immunologic/allergic: DENIES: Eczema, Urticaria Neurologic: DENIES: Abnormal gait, Headache, Localized weakness, Paresthesias, Seizures, Speech Problems, Tremor, Poor Balance Psychiatric: DENIES: Anxiety, Confusion, Mood changes, Depression, Hallucinations, Agitation, Suicidal Ideation, Homicidal Ideation, Delusions ( Niyah Lutz) Past Family Social History Past Medical History coronary artery disease status post coronary artery bypass graft, hypertension, diabetes mellitus type 2, hyperlipidemia, diverticulitis, kidney stones and AAA Past Surgical History Appendectomy, cholecystectomy, coronary artery bypass graft, prior EGD and colonoscopy, partial colectomy. Reported Medications Reported Meds & Active Scripts Active Omeprazole 40 Mg Cap 40 Mg PO DAILY 5 Days Reported Biotin 1,000 Mcg Tab 1,000 Mcg PO Tramadol (Tramadol HCl) 50 Mg Tab 50 Mg PO Q8H PRN Vitamin D3 (Cholecalciferol) 400 Unit Cap 400 Units PO DAILY Nexium (Esomeprazole DR) 40 Mg Capdr 40 Mg PO DAILY Ecotrin Regular Strength (Aspirin) 325 Mg Tabdr 325 Mg PO DAILY Lovastatin 10 Mg Tab 10 Mg PO DAILY Niacin 500 Mg Tab 1,500 Mg PO HS Kombiglyze Xr (Saxagliptin-Metformin ER) 2.5-1,000 Mg Tab 1 Tab PO DAILY Glimepiride 2 Mg Tab 2 Mg PO DAILY Take with breakfast or first main meal Cetirizine (Cetirizine HCl) 10 Mg Tab 10 Mg PO DAILY Nasonex Nasal Conger (Mometasone Furoate) 50 Mcg/Act Naspr 2 Conger EACH NARE DAILY Proair Hfa 8.5 GM Inh (Albuterol Sulfate) 90 Mcg/Act Aer 2 Puff INH Q6H PRN 108 mcg/actuation (Niyah Lutz) Allergies: Coded Allergies: No Known Allergies (Verified , 10/14/16) Active Ordered Medications Inpatient Medications Albuterol Sulfate (Ventolin Hfa Inh) 2 puff Q6H PRN INH SHORTNESS OF BREATH; Start 03/11/17 at 20:00 Bisacodyl (Dulcolax Supp) 10 mg DAILY PRN RECTAL SEVERE CONSITIPATION; Start at 18:45 Cetirizine HCl (ZyrTEC) 10 mg DAILY PO Last administered on 03/12/17t 09:40; Start 03/12/17 at 09:00 Dextrose (D50w (Vial) Inj) 50 ml UNSCH PRN IV HYPOGLYCEMIA-SEE COMMENTS; Start 03/11/17 at 18:45 Fluticasone Propionate (Flonase Juvencio Spr) 2 spray DAILY EACH NARE ; Start at 09:00 Glucagon (Glucagon Inj) 1 mg UNSCH PRN OTHER HYPOGLYCEMIA-SEE COMMENTS; Start 03/11/17 at 18:45 Heparin Sodium (Porcine) (Heparin Inj) 5,000 units Q12H SQ Last administered on 03/12/17t 09:41; Start 03/11/17 at 21:00 Insulin Aspart (NovoLOG SUPPLEMENTAL SCALE) 1 ACHS SLIDING SCALE SQ ; Start at 21:00 Lactulose (Lactulose Liq) 30 ml DAILY PRN PO SEVERE CONSITIPATION; Start at 18:45 Magnesium Hydroxide (Milk Of Magnesia Liq) 30 ml Q12H PRN PO MILD - MODERATE CONSTIPATION; Start 03/11/17 at 18:45 Morphine Sulfate (Morphine Inj) 4 mg ONCE ONCE IV PUSH Last administered on 16:17; Start 03/11/17 at 16:15; Stop 03/11/17 at 16:16; Status DC Naloxone HCl (Narcan Inj) 0.4 mg UNSCH PRN IV SEE LABEL COMMENTS; Start at 18:45 Ondansetron HCl (Zofran Inj) 4 mg Q6H PRN IVP NAUSEA OR VOMITING; Start at 18:45 Pantoprazole Sodium 40 mg 40 mg Q12H IV PUSH Last administered on 03/12/17 09: 40; Start 03/11/17 at 21:00 Senna/Docusate Sodium (Lanie-Colace) 1 tab BID PO Last administered on 09:39; Start 03/11/17 at 21:00 Sennosides (Senokot) 17.2 mg Q12H PRN PO MODERATE - SEVERE CONSTIPATION; Start 03/11/17 at 18:45 Sodium Chloride (NS 1000 ml Inj) 1,000 ml @ 100 mls/hr Q10H IV Last administered on 03/12/17 09:41; Start 03/11/17 at 20:00 Sodium Chloride (NS Flush) 2 ml BID IV FLUSH Last administered on 03/12/17 09: 40; Start 03/11/17 at 21:00 Tramadol HCl (Ultram) 50 mg Q8H PRN PO PAIN 1-10; Start 03/11/17 at 18:45 Family History Mother at 77 secondary to diverticulitis complications Father at 70 secondary to colon cancer Social History Patient lives at home with his Reports occasional EtOH use proximally once a month denies illicit drug use Denies tobacco use at this time quit smoking 20 years ago prior to that had an approximate 40 year 2 pack-a-day history (Niyah Lutz) Physical Exam Vital Signs Vital Signs Date Time Temp Pulse Resp B/P Pulse Ox O2 Delivery O2 Flow Rate FiO2 03/12/17 08:00 97.7 87 18 148/83 96 03/12/17 03:23 97.0 92 18 135/77 95 03/11/17 23:10 98.1 96 18 136/80 94 03/11/17 22:10 103 03/11/17 21:27 97.6 102 18 134/76 95 03/11/17 18:05 98.1 102 20 161/84 Room Air 03/11/17 16:03 54 20 97 Physical Exam GENERAL: This is a well-nourished, well-developed patient, in no apparent distress. SKIN: No rashes, ecchymoses or lesions. Cool and dry. HEAD: Atraumatic. Normocephalic. No temporal or scalp tenderness. EYES: Pupils equal round and reactive. Extraocular motions intact. No scleral icterus. No injection or drainage. ENT: Nose without bleeding, purulent drainage or septal hematoma. Throat without erythema, tonsillar hypertrophy or exudate. Uvula midline. Airway patent. NECK: Trachea midline. No JVD or lymphadenopathy. Supple, nontender, no meningeal signs. CARDIOVASCULAR: Regular rate and rhythm without murmurs, gallops, or rubs. RESPIRATORY: Clear to auscultation. Breath sounds equal bilaterally. No wheezes , rales, or rhonchi. GASTROINTESTINAL: Abdomen soft, non-tender, nondistended. No hepato-splenomegaly , or palpable masses. No guarding. Bowel sounds normoactive 4. NG tube to low intermittent suction with gastric drainage. MUSCULOSKELETAL: Extremities without clubbing, cyanosis, or edema. No joint tenderness, effusion, or edema noted. No calf tenderness. Negative Homans sign bilaterally. NEUROLOGICAL: Awake, alert oriented 3. No focal deficits. Laboratory Laboratory Tests Test 03/11/17 03/12/17 16:16 05:11 White Blood Count 12.5 6.4 Red Blood Count 4.68 4.08 Hemoglobin 14.6 12.7 Hematocrit 44.1 38.4 Mean Corpuscular Volume 94.3 94.2 Mean Corpuscular Hemoglobin 31.2 31.1 Mean Corpuscular Hemoglobin 33.0 33.1 Concent Red Cell Distribution Width 14.4 14.4 Platelet Count 194 170 Mean Platelet Volume 9.0 8.9 Neutrophils (%) (Auto) 87.4 72.8 Lymphocytes (%) (Auto) 5.9 14.8 Monocytes (%) (Auto) 5.9 11.3 Eosinophils (%) (Auto) 0.3 0.8 Basophils (%) (Auto) 0.5 0.3 Neutrophils # (Auto) 10.9 4.6 Lymphocytes # (Auto) 0.7 0.9 Monocytes # (Auto) 0.7 0.7 Eosinophils # (Auto) 0.0 0.0 Basophils # (Auto) 0.1 0.0 CBC Comment DIFF FINAL DIFF FINAL Differential Comment Prothrombin Time 10.9 Prothromb Time International 1.0 Ratio Activated Partial 27.0 Thromboplast Time Sodium Level 139 145 Potassium Level 4.5 4.0 Chloride Level 104 112 Carbon Dioxide Level 27.3 24.0 Anion Gap 8 9 Blood Urea Nitrogen 16 16 Creatinine 1.16 1.00 Estimat Glomerular Filtration 61 72 Rate Random Glucose 157 83 Lactic Acid Level 3.4 0.9 Calcium Level 9.3 7.6 Total Bilirubin 0.4 Aspartate Amino Transf 17 (AST/SGOT) Alanine Aminotransferase 25 (ALT/SGPT) Alkaline Phosphatase 129 Total Protein 7.8 Albumin 4.2 Lipase 113 (Niyah Lutz) Result Diagram: 03/12/17 0511 03/12/17 0511 Imaging Last Impressions Abdomen/Pelvis CT 03/11/17 1606 Signed Impressions: Service Date/Time: Thursday, March 11, 2017 17:45 - CONCLUSION: 1. Abnormal bowel gas pattern which is of concern for early or partial small bowel obstruction. 2. Stable infrarenal abdominal aortic aneurysm. 3. Bilateral nonobstructing renal calculi. 4. Status post cholecystectomy with mild biliary prominence. Gómez Marrero MD (Niyah Lutz) Assessment and Plan Problem List: (1) Abdominal pain (2) Nausea & vomiting (3) AAA (abdominal aortic aneurysm) (4) Partial small bowel obstruction (5) CAD (coronary artery disease) (6) HTN (hypertension) (7) Diabetes 1.5, managed as type 2 (8) Lactic acidosis Assessment and Plan Admit to Dr. Guzman 81-year-old male with history of recurrent bowel obstructions and multiple admissions in the last year. History of cholecystectomy, appendectomy, partial colectomy. Presents to emergency room with epigastric pain, nausea vomiting. CT abdomen and pelvis shows abnormal bowel gas pattern which is of concern for early or partial small bowel obstruction. Partial small bowel obstruction Lactic acidosis Dehydration -Nothing by mouth status Continue with IV fluids Continue with pain management Antiemetics as needed Consult surgery for evaluation We will repeat KUB Continue with NG tube to low intermittent suction Abdominal aneurysm, stable Monitor, control blood pressure Type 2 diabetes Accu-Cheks before meals and at bedtime with insulin therapy as needed Hypertension, stable Add Vasotec when necessary for systolic greater than 160, diastolic 90 CAD History of CABG -Stable, continue to monitor Home medications reviewed, initiated as indicated SCDs/heparin for DVT prophylaxis Protonix for GI prophylaxis Plan of care has been discussed with the patient, attending and registered nurse. Further management of the patient will be dependent on the hospital course This patient was seen by myself and Dr. Guzman, this H&P is written on his behalf (Niyah Lutz) Assessment and Plan Patient seen and examined as above chart reviewd Medications reviewed Labs reviewed rad data reviewed Plan of care discussed with CATEGORY DEVELOPMENT MANAGER discussed with RN Discussed with patient (Vernon Guzman MD) Physician Certification 2 Midnight Certification Type: Admission for Inpatient Services Order for Inpatient Services The services are ordered in accordance with Medicare regulations or non- Medicare payer requirements, as applicable. In the case of services not specified as inpatient-only, they are appropriately provided as inpatient services in accordance with the 2-midnight benchmark. Estimated LOS (days): 2 2 days is the estimated time the patient will need to remain in the hospital, assuming treatment plan goals are met and no additional complications. Post-Hospital Plan: Home (Niyah Lutz) Problem Qualifiers (1) Abdominal pain: Qualified Code: R10.13 - Epigastric pain (2) Nausea & vomiting: Qualified Code: R11.2 - Non-intractable vomiting with nausea, unspecified vomiting type (3) AAA (abdominal aortic aneurysm): Qualified Code: I71.4 - Abdominal aortic aneurysm (AAA) without rupture (4) CAD (coronary artery disease): Qualified Code: I25.10 - Coronary artery disease involving [place] coronary artery of [place] heart without angina pectoris (5) HTN (hypertension): Qualified Code: I10 - Essential hypertension Niyah Lutz Mar 12, 2017 10:22 Vernon Guzman MD Mar 12, 2017 16:05
[2017-03-12] MEDS: INSULIN ASPART SUPPLEMENTAL SCALE SQ SCH ×3 (11:00→21:00)
--- NOTE | 2017-03-12 12:02 | RADRPT ---
EXAM DATE/TIME: 03/12/2017 11:19 [facility] COMPARISON: ABDOMEN KUB ONLY, October 07, 2016, 5:08. INDICATIONS : Obstruction. MEDICAL HISTORY : Hypertension. Diverticulosis. SURGICAL HISTORY : Cholecystectomy. Appendectomy. CABG. ENCOUNTER: Subsequent ACUITY: 1 day PAIN SCORE: 0/10 LOCATION: Bilateral abdomen FINDINGS: Nasogastric tube has been inserted and is within the stomach. Nonspecific gas pattern with scattered air throughout the small and large intestine is evident. There is no evidence of pathologic distention, mass effect or free air. CONCLUSION: Interval placement of nasogastric tube which is in good position. No evidence of pathologic distention, mass effect or free air. Torres Ashraf MD on March 12, 2017 at 11:58 Board Certified Radiologist. This report was verified electronically.
[2017-03-12] MEDS ORDERED: ENALAPRILAT 1.25 MG/ML VIAL IV PUSH PRN (15:45)
--- NOTE | 2017-03-12 18:13 | PD.CONS ---
cc: Malcolm Regalado MD [facility] Service CONSULTATION NOTE FOR SURGICAL ATTENDING, DR. MALCOLM REGALADO General Surgery Consult Requested By Reason for Consult Evaluation of small bowel obstruction Primary Care Physician Trevor Graf MD History of Present Illness This is an 81 year old male with a past medical history of coronary artery disease, hypertension, diabetes mellitus type 2, hyperlipidemia, diverticulitis , kidney stones, and AAA. He started developing epigastric pain with nausea and vomiting approximately 5 hours before coming to the emergency department. Prior to this he was in his usual state of health. He does have recurrent small bowel obstructions frequently which all have been treated nonoperatively. He reports sometimes at home he becomes distended and bloated with nausea and he is able to take a pain pill and he feels better approximately 3 hours later. He attempted this and it did not work at home. The patient arrives to the emergency department and a CT scan was done. It showed abnormal gas pattern consistent with small bowel obstruction or partial small bowel obstruction. An NG tube was placed with bilious output. A General Surgery she has been requested for evaluation of a small bowel obstruction. Review of Systems Constitutional: COMPLAINS OF: Change in appetite, DENIES: Fatigue Endocrine: DENIES: Polydipsia, Polyuria, Polyphagia Eyes: DENIES: Diplopia Ears, nose, mouth, throat: DENIES: Tinnitus Respiratory: DENIES: Cough, Snoring Cardiovascular: DENIES: Chest pain, Palpitations Gastrointestinal: COMPLAINS OF: Abdominal pain, Nausea, Vomiting Genitourinary: DENIES: Urgency Musculoskeletal: DENIES: Joint pain Integumentary: DENIES: Abnormal pigmentation Hematologic/lymphatic: DENIES: Bruising Immunologic/allergic: DENIES: Eczema Neurologic: DENIES: Headache, Localized weakness, Paresthesias Psychiatric: DENIES: Mood changes, Depression, Hallucinations Past Family Social History Past Medical History Coronary artery disease Hypertension Diabetes mellitus type 2 Hyper-cholesterolemia Diverticulitis Kidney stones AAA Past Surgical History CABG Laparoscopic appendectomy Laparoscopic cholecystectomy Partial colectomy secondary to diverticulitis Reported Medications Niacin Albuterol Nasal neck Kombiglyze Lovastatin Aspirin Terminal Nexium Omeprazole Cetirizine Biotin Vitamin D Allergies: Coded Allergies: No Known Allergies (Verified , 10/14/16) Active Ordered Medications Current Medications Medications (Trade) Dose Ordered Sig/Robin Route Start Time Stop Time Status Last Admin (Ventolin Hfa Inh) 2 puff Q6H PRN INH 03/11/17 20:00 (ZyrTEC) 10 mg DAILY PO 03/12/17 09:00 03/12/17 09:40 (Flonase Juvencio Spr) 2 spray DAILY EACH NARE 03/12/17 09:00 (Ultram) 50 mg Q8H PRN PO 03/11/17 18:45 Pantoprazole Sodium 40 mg 40 mg Q12H IV PUSH 03/11/17 21:00 03/12/17 09:40 (NS 1000 ml Inj) 1,000 ml @ 100 mls/hr Q10H IV 03/11/17 20:00 03/12/17 09:41 (NS Flush) 2 ml UNSCH PRN IV FLUSH 03/11/17 18:45 (NS Flush) 2 ml BID IV FLUSH 03/11/17 21:00 03/12/17 09:40 (Zofran Inj) 4 mg Q6H PRN IVP 03/11/17 18:45 (Heparin Inj) 5,000 units Q12H SQ 03/11/17 21:00 03/12/17 09:41 (Narcan Inj) 0.4 mg UNSCH PRN IV 03/11/17 18:45 (Lanie-Colace) 1 tab BID PO 03/11/17 21:00 03/12/17 09:39 (Milk Of Magnesia Liq) 30 ml Q12H PRN PO 03/11/17 18:45 (Senokot) 17.2 mg Q12H PRN PO 03/11/17 18:45 (Dulcolax Supp) 10 mg DAILY PRN RECTAL 03/11/17 18:45 (Lactulose Liq) 30 ml DAILY PRN PO 03/11/17 18:45 (D50w (Vial) Inj) 50 ml UNSCH PRN IV 03/11/17 18:45 (Glucagon Inj) 1 mg UNSCH PRN OTHER 03/11/17 18:45 (Vasotec Inj) 1.25 mg Q6H PRN IV PUSH 03/12/17 15:45 Family History Noncontributory Social History Denies tobacco use Occasional EtOH use; not daily Denies illicit drug use Physical Exam Vital Signs Vital Signs Date Time Temp Pulse Resp B/P Pulse Ox O2 Delivery O2 Flow Rate FiO2 03/12/17 12:00 97.3 78 16 159/91 96 03/12/17 08:00 78 03/12/17 08:00 97.7 87 18 148/83 96 03/12/17 03:23 97.0 92 18 135/77 95 03/11/17 23:10 98.1 96 18 136/80 94 03/11/17 22:10 103 03/11/17 21:27 97.6 102 18 134/76 95 03/11/17 18:05 98.1 102 20 161/84 Room Air Physical Exam GENERAL: Pleasant 81 year old male resting in bed in no acute distress. SKIN: Warm and dry. HEAD: Atraumatic. Normocephalic. EYES: Pupils equal and round. No scleral icterus. No injection or drainage. ENT: No nasal bleeding or discharge. Mucous membranes pink and moist. NECK: Trachea midline. CARDIOVASCULAR: Regular rate and rhythm. RESPIRATORY: No accessory muscle use. Clear to auscultation. Breath sounds equal bilaterally. GASTROINTESTINAL: Abdomen mildly distended; non tender to palpation. Several healed laparoscopic and midline incision scars. MUSCULOSKELETAL: Extremities without clubbing, cyanosis, or edema. No obvious deformities. NEUROLOGICAL: Awake and alert. No obvious cranial nerve deficits. Motor grossly within normal limits. Five out of 5 muscle strength in the arms and legs. Normal speech. PSYCHIATRIC: Appropriate mood and affect; insight and judgment normal. Laboratory Laboratory Tests Test 03/12/17 05:11 White Blood Count 6.4 Red Blood Count 4.08 Hemoglobin 12.7 Hematocrit 38.4 Mean Corpuscular Volume 94.2 Mean Corpuscular Hemoglobin 31.1 Mean Corpuscular Hemoglobin 33.1 Concent Red Cell Distribution Width 14.4 Platelet Count 170 Mean Platelet Volume 8.9 Neutrophils (%) (Auto) 72.8 Lymphocytes (%) (Auto) 14.8 Monocytes (%) (Auto) 11.3 Eosinophils (%) (Auto) 0.8 Basophils (%) (Auto) 0.3 Neutrophils # (Auto) 4.6 Lymphocytes # (Auto) 0.9 Monocytes # (Auto) 0.7 Eosinophils # (Auto) 0.0 Basophils # (Auto) 0.0 CBC Comment DIFF FINAL Differential Comment Sodium Level 145 Potassium Level 4.0 Chloride Level 112 Carbon Dioxide Level 24.0 Anion Gap 9 Blood Urea Nitrogen 16 Creatinine 1.00 Estimat Glomerular Filtration 72 Rate Random Glucose 83 Lactic Acid Level 0.9 Calcium Level 7.6 Result Diagram: 03/12/17 0511 03/12/17 0511 Imaging Last 48 hours Impressions Abdomen X-Ray 03/12/17 0000 Signed Impressions: Service Date/Time: February 11:19 - CONCLUSION: Interval placement of nasogastric tube which is in good position. No evidence of pathologic distention, mass effect or free air. Torres Ashraf MD Abdomen/Pelvis CT 03/11/17 1606 Signed Impressions: Service Date/Time: Saturday, March 11, 2017 17:45 - CONCLUSION: 1. Abnormal bowel gas pattern which is of concern for early or partial small bowel obstruction. 2. Stable infrarenal abdominal aortic aneurysm. 3. Bilateral nonobstructing renal calculi. 4. Status post cholecystectomy with mild biliary prominence. Gómez Marrero MD Assessment and Plan Problem List: (1) Bowel obstruction (2) AAA (abdominal aortic aneurysm) (3) Abdominal pain (4) Nausea & vomiting (5) Partial small bowel obstruction (6) CAD (coronary artery disease) (7) HTN (hypertension) (8) Diabetes 1.5, managed as type 2 Assessment and Plan This is an 81 year old male with multiple medical problems with recurrent small bowel obstructions -Okay for sips of water and ice chips -Okay to leave NGT off wall suction; connect to LIWS if any nausea/vomiting occur -OOB and mobilize -KUB in AM; pending results may benefit from SBFT---will evaluate tomorrow -Pain control--limit the use of narcotic pain medications in light of SBO -Attempt non operative management -Thank for allowing use to be a part of Mr. Larkin's care -We will follow along with you Code Status Full Discussed Condition With Dr. Fabricio Agudelo and Mrs. Larkin Attending Statement NOTE FOR SURGICAL ATTENDING, DR. MALCOLM REGALADO I agree with above assessment and plan. The exam, history, and the medical decision-making described in the above note were completed with the assistance of the mid-level provider. I reviewed and agree with the findings presented. Patient was seen Abdomen soft nondistended NG tube in place Passing some flatus I suspect he had a intermittent short term bowel obstruction that appears to have resolved Continue management. I suspect this should resolve fairly quickly as he had in the past I attest that I had a [id number] encounter with the patient on the same day, and personally performed and documented my assessment and findings in the medical record. The following services were provided during this hospital visit: Chart data review, vital sign assessments/reviewing monitor data Review of consultations notes if present. Medication orders/review and/or management Ordering and/or reviewing lab tests Ordering and/or interpreting/reviewing x-rays and/or diagnostic studies Care of the patient and discussion of the patient with the care team Documentation time To help prompt me to consider important information that might be impacting today's encounter and assessment, information from prior notes written by myself or my colleagues may have been "brought forward/copy and pasted" into today's note. Problem Qualifiers (1) Bowel obstruction: Qualified Code: K56.69 - Other specified intestinal obstruction (2) AAA (abdominal aortic aneurysm): Qualified Code: I71.4 - Abdominal aortic aneurysm (AAA) without rupture (3) Abdominal pain: Qualified Code: R10.13 - Epigastric pain (4) Nausea & vomiting: Qualified Code: R11.2 - Non-intractable vomiting with nausea, unspecified vomiting type (5) CAD (coronary artery disease): Qualified Code: I25.10 - Coronary artery disease involving [place] coronary artery of [place] heart without angina pectoris (6) HTN (hypertension): Qualified Code: I10 - Essential hypertension Heidi Alegre Mar 12, 2017 18:13 Malcolm Regalado MD Mar 12, 2017 20:42
[2017-03-13] MEDS: SODIUM CHLOR 0.9% 1000 ML INJ 1,000 ML IV SCH ×3 (02:00→21:55)
[2017-03-13 03:40] VITALS: BP 155/87; PULSE 81; RESP 18; TEMP 97.8; O2SAT 94
[2017-03-13] MEDS: INSULIN ASPART SUPPLEMENTAL SCALE SQ SCH ×4 (06:01→19:58)
--- NOTE | 2017-03-13 06:35 | RADRPT ---
EXAM DATE/TIME: 03/13/2017 06:27 [facility] COMPARISON: ABDOMEN KUB ONLY, March 12, 2017, 11:19. INDICATIONS : Evaluate Small Bowel Obstruction MEDICAL HISTORY : Diverticulosis. Hypertension SURGICAL HISTORY : Cholecystectomy. Appendectomy. CABG. ENCOUNTER: Subsequent ACUITY: 2 days PAIN SCORE: 5/10 LOCATION: Bilateral Abdomen FINDINGS: The bowel gas is nonspecific. There are no signs of obstruction or free air for technique. No defini te calcified stones are identified for technique. NG tube is present with tip in the stomach. Slight left lung base atelectasis is seen and tiny bilateral pleural effusions are present. CONCLUSION: Nonspecific abdomen. Holly Stevenson MD on March 13, 2017 at 6:33 Board Certified Radiologist. This report was verified electronically.
[2017-03-13 08:00] VITALS: BP 160/82; PULSE 87; PULSE 90; RESP 18; TEMP 97.8; O2SAT 96
[2017-03-13] MEDS: DOCUSATE SODIUM 50 MG/SENNA 8.6 MG TAB PO SCH ×2 (08:06→19:59)
[2017-03-13] MEDS: CETIRIZINE HCL 10 MG TAB PO SCH (08:06)
[2017-03-13] MEDS: SODIUM CHLORIDE 0.9% FLUSH 10 ML FLUSH IV FLUSH SCH ×2 (08:07→19:58)
[2017-03-13] MEDS: HEPARIN SODIUM - SQ 10,000 UNITS/ML VIAL SQ SCH ×2 (08:07→19:57)
[2017-03-13] MEDS: PANTOPRAZOLE SODIUM 40 MG VIAL IV PUSH SCH ×2 (08:07→19:58)
[2017-03-13] MEDS: FLUTICASONE PROPIONATE 50 MCG/ACT 16 GM NASAL SPRAY EACH NARE SCH (09:46)
[2017-03-13 12:00] VITALS: BP 152/78; PULSE 87; RESP 20; TEMP 97.8; O2SAT 100
--- NOTE | 2017-03-13 13:54 | HHI.PR ---
Subjective Remarks Sitting on side of bed eating his first meal, clear liquids Left eye with erythema, itching, mild edema in room Patient's alert oriented conversational Feeling somewhat better, no acute abdominal pain for now (Kari Nunez) Objective Objective Results - Vital Signs Date Time Temp Pulse Resp B/P Pulse Ox O2 Delivery O2 Flow Rate FiO2 03/13/17 12:00 97.8 87 20 152/78 100 03/13/17 08:00 97.8 90 18 160/82 96 03/13/17 03:40 97.8 81 18 155/87 94 03/12/17 23:00 97.4 78 18 160/92 93 03/12/17 20:19 83 03/12/17 19:30 98.4 83 18 159/77 92 03/12/17 16:00 97.5 79 18 167/86 95 03/12/17 15:00 91 I/O 03/12/17 03/12/17 03/12/17 03/13/17 03/13/17 03/13/17 07:00 15:00 23:00 07:00 15:00 23:00 Intake Total 521 ml 0 ml 878 ml 162 ml Output Total 450 ml 500 ml 275 ml 650 ml Balance 71 ml -500 ml 603 ml -488 ml Intake Oral 0 ml 0 ml 0 ml 0 ml IV Total 521 ml 878 ml 162 ml Output Urine Total 175 ml 500 ml 275 ml 650 ml Gastric Drainage Total 275 ml # Bowel Movements 0 0 0 0 (Kari Nunez) Result Diagram: 03/12/17 0511 03/12/17 0511 ROS General: Weakness (generalized mild), Other (10 point ROS done positives noted) HEENT: Other (left eye erythema mild edema) GI: Abdominal Pain (taut, pain is easing today) (Kari Nunez) Physical Exam Physical Exam PHYSICAL EXAMINATION GENERAL: This is a well-developed, well-nourished male who appears to be in no acute distress. He is alert and awake, HEAD: Normocephalic. Left eye has mild erythema and edema, patient is rubbing and itching OROPHARYNGEAL: Oropharynx without erythema or edema. NECK: Supple. Trachea midline without deviation. CARDIAC: Regular rhythm, regular rate, S1 and S2 are heard. LUNGS: Clear to auscultation bilaterally. ABDOMEN: Soft, nontender taut,. Bowel sounds soft and audible no guarding EXTREMITIES: no edema. Pulses intact NEUROLOGICAL: Patient mood and affect appropriate SKIN:Warm and moist (Kari Nunez) A/P Assessment and Plan 1) Abdominal pain (2) Nausea & vomiting (3) AAA (abdominal aortic aneurysm) (4) Partial small bowel obstruction (5) CAD (coronary artery disease) (6) HTN (hypertension) (7) Diabetes 1.5, managed as type 2 (8) Lactic acidosis Left eye conjunctivitis Vital signs reviewed BP stable at 160/82, when necessary meds if needed, afebrile Labs reviewed, leukocytosis trending down 81-year-old male with history of recurrent bowel obstructions and multiple admissions in the last year. History of cholecystectomy, appendectomy, partial colectomy. Presents to emergency room with epigastric pain, nausea vomiting. CT abdomen and pelvis shows abnormal bowel gas pattern which is of concern for early or partial small bowel obstruction. Partial small bowel obstruction Lactic acidosis Dehydration Continue IV fluids for now, Pain management although abdominal pain is decreased today KUB done today NG tube out, patient is eating clear liquids without acute nausea or vomiting BM today, solid formed, possible mild constipation, continue to increase by mouth intake if patient tolerates Out of bed increase activity today discussed with patient and his Type 2 diabetes Accu-Cheks before meals and at bedtime with insulin therapy as needed Hypertension, stable Add Vasotec when necessary for systolic greater than 160, diastolic 90 CAD History of CABG -Stable, continue to monitor Left eye conjunctivitis, tobramycin drops left eye every 6 hours and monitor effectiveness SCDs/heparin for DVT prophylaxis Protonix for GI prophylaxis Discharge planning within the next day or 2 if patient remains stable Discussed with Dr. Guzman, patient seen on his behalf Discussed with patient Discussed with nurse (Kari Nunez) Assessment and Plan Patient seen and examined as above [id number] time spent with patient Labs reviewed Plan of care discussed with PLATE EMBOSSER Appreciate surgical input Discussed with patient and at bedside (Vernon Guzman MD) Kari Nunez Mar 13, 2017 13:54 Vernon Guzman MD Mar 13, 2017 16:45
--- NOTE | 2017-03-13 15:05 | HHI.PR ---
Subjective Subjective Notes DAILY PROGRESS NOTE FOR SURGICAL ATTENDING, DR. MALCOLM REGALADO Resting in bed Reports 1 BM today Feels ready to eat; hungry Objective Vitals/I&O Vital Signs Date Time Temp Pulse Resp B/P Pulse Ox O2 Delivery O2 Flow Rate FiO2 03/13/17 12:00 97.8 87 20 152/78 100 03/11/17 18:05 Room Air Labs Laboratory Tests Test 03/11/17 03/12/17 16:16 05:11 Prothrombin Time 10.9 SEC Prothromb Time International 1.0 RATIO Ratio Activated Partial 27.0 SEC Thromboplast Time Total Bilirubin 0.4 MG/DL Aspartate Amino Transf 17 U/L (AST/SGOT) Alanine Aminotransferase 25 U/L (ALT/SGPT) Alkaline Phosphatase 129 U/L Total Protein 7.8 GM/DL Albumin 4.2 GM/DL Lipase 113 U/L White Blood Count 6.4 TH/MM3 Red Blood Count 4.08 MIL/MM3 Hemoglobin 12.7 GM/DL Hematocrit 38.4 % Mean Corpuscular Volume 94.2 FL Mean Corpuscular Hemoglobin 31.1 PG Mean Corpuscular Hemoglobin 33.1 % Concent Red Cell Distribution Width 14.4 % Platelet Count 170 TH/MM3 Mean Platelet Volume 8.9 FL Neutrophils (%) (Auto) 72.8 % Lymphocytes (%) (Auto) 14.8 % Monocytes (%) (Auto) 11.3 % Eosinophils (%) (Auto) 0.8 % Basophils (%) (Auto) 0.3 % Neutrophils # (Auto) 4.6 TH/MM3 Lymphocytes # (Auto) 0.9 TH/MM3 Monocytes # (Auto) 0.7 TH/MM3 Eosinophils # (Auto) 0.0 TH/MM3 Basophils # (Auto) 0.0 TH/MM3 CBC Comment DIFF FINAL Differential Comment Sodium Level 145 MEQ/L Potassium Level 4.0 MEQ/L Chloride Level 112 MEQ/L Carbon Dioxide Level 24.0 MEQ/L Anion Gap 9 MEQ/L Blood Urea Nitrogen 16 MG/DL Creatinine 1.00 MG/DL Estimat Glomerular Filtration 72 ML/MIN Rate Random Glucose 83 MG/DL Lactic Acid Level 0.9 mmol/L Calcium Level 7.6 MG/DL Radiology Last 48 hours Impressions Abdomen X-Ray 03/12/17 0000 Signed Impressions: Service Date/Time: February 11:19 - CONCLUSION: Interval placement of nasogastric tube which is in good position. No evidence of pathologic distention, mass effect or free air. Torres Ashraf MD Abdomen/Pelvis CT 03/11/17 1606 Signed Impressions: Service Date/Time: Saturday, March 11, 2017 17:45 - CONCLUSION: 1. Abnormal bowel gas pattern which is of concern for early or partial small bowel obstruction. 2. Stable infrarenal abdominal aortic aneurysm. 3. Bilateral nonobstructing renal calculi. 4. Status post cholecystectomy with mild biliary prominence. Gómez Marrero MD Cardiovascular: Regular Lungs: Clear Abdomen: Non-tender, Other (mildly tender ) Extremities: No edema A/P Problem List: (1) Bowel obstruction (2) AAA (abdominal aortic aneurysm) (3) Abdominal pain (4) Nausea & vomiting (5) Partial small bowel obstruction (6) CAD (coronary artery disease) (7) HTN (hypertension) (8) Diabetes 1.5, managed as type 2 Assessment and Plan This is an 81 year old male with multiple medical problems with recurrent small bowel obstructions -NGT out -Will try soft diet today---encouraged small frequent meals -OOB and mobilize -COY reviewed -Pain control--limit the use of narcotic pain medications in light of SBO -Continue non operative management Attending Statement NOTE FOR SURGICAL ATTENDING, DR. MALCOLM REGALADO I agree with above assessment and plan. The exam, history, and the medical decision-making described in the above note were completed with the assistance of the mid-level provider. I reviewed and agree with the findings presented. I attest that I had a [id number] encounter with the patient on the same day, and personally performed and documented my assessment and findings in the medical record. Patient seen I suspect his ileus is resolved Passing flatus And a bowel movement I pulled the NG tube Advance activity and diet as tolerated The following services were provided during this hospital visit: Chart data review, vital sign assessments/reviewing monitor data Review of consultations notes if present. Medication orders/review and/or management Ordering and/or reviewing lab tests Ordering and/or interpreting/reviewing x-rays and/or diagnostic studies Care of the patient and discussion of the patient with the care team Documentation time To help prompt me to consider important information that might be impacting today's encounter and assessment, information from prior notes written by myself or my colleagues may have been "brought forward/copy and pasted" into today's note. Problem Qualifiers (1) Bowel obstruction: Qualified Code: K56.69 - Other specified intestinal obstruction (2) AAA (abdominal aortic aneurysm): Qualified Code: I71.4 - Abdominal aortic aneurysm (AAA) without rupture (3) Abdominal pain: Qualified Code: R10.13 - Epigastric pain (4) Nausea & vomiting: Qualified Code: R11.2 - Non-intractable vomiting with nausea, unspecified vomiting type (5) CAD (coronary artery disease): Qualified Code: I25.10 - Coronary artery disease involving [place] coronary artery of [place] heart without angina pectoris (6) HTN (hypertension): Qualified Code: I10 - Essential hypertension Heidi Alegre Mar 13, 2017 15:05 Malcolm Regalado MD Mar 13, 2017 15:11
[2017-03-13] MEDS: TOBRAMYCIN SULF 0.3% OPHT SOLN 5 ML BTL LEFT EYE SCH ×2 (15:42→17:03)
[2017-03-13 16:00] VITALS: BP 146/78; PULSE 75; RESP 20; TEMP 99.5; O2SAT 96
[2017-03-13 20:00] VITALS: BP 150/77; PULSE 102; PULSE 82; RESP 18; TEMP 98; O2SAT 96
[2017-03-14] VITALS: BP 137/86; PULSE 77; RESP 18; TEMP 98.2; O2SAT 96
[2017-03-14] MEDS: TOBRAMYCIN SULF 0.3% OPHT SOLN 5 ML BTL LEFT EYE SCH ×3 (00:13→12:00)
[2017-03-14 04:42] VITALS: BP 127/71; PULSE 85; RESP 16; TEMP 98.3; O2SAT 95
[2017-03-14] MEDS: SODIUM CHLOR 0.9% 1000 ML INJ 1,000 ML IV SCH (05:54)
[2017-03-14] MEDS: INSULIN ASPART SUPPLEMENTAL SCALE SQ SCH ×2 (05:55→11:00)
[2017-03-14 08:00] VITALS: BP 137/74; PULSE 80; RESP 20; TEMP 97.7; O2SAT 96
[2017-03-14] MEDS: FLUTICASONE PROPIONATE 50 MCG/ACT 16 GM NASAL SPRAY EACH NARE SCH (08:52)
[2017-03-14] MEDS: CETIRIZINE HCL 10 MG TAB PO SCH (08:53)
[2017-03-14] MEDS: HEPARIN SODIUM - SQ 10,000 UNITS/ML VIAL SQ SCH (08:53)
[2017-03-14] MEDS: DOCUSATE SODIUM 50 MG/SENNA 8.6 MG TAB PO SCH (08:56)
[2017-03-14] MEDS: PANTOPRAZOLE SODIUM 40 MG VIAL IV PUSH SCH (08:56)
[2017-03-14] MEDS: SODIUM CHLORIDE 0.9% FLUSH 10 ML FLUSH IV FLUSH SCH (08:56)
--- NOTE | 2017-03-14 09:58 | HHI.PR ---
Subjective Subjective Notes tolerating a regular diet. Had normal BM this morning. Wants to go home. Objective Vitals/I&O Vital Signs Date Time Temp Pulse Resp B/P Pulse Ox O2 Delivery O2 Flow Rate FiO2 03/14/17 08:00 97.7 80 20 137/74 96 03/11/17 18:05 Room Air Radiology Last 48 hours Impressions Abdomen X-Ray 03/12/17 0000 Signed Impressions: Service Date/Time: February 11:19 - CONCLUSION: Interval placement of nasogastric tube which is in good position. No evidence of pathologic distention, mass effect or free air. Torres Ashraf MD Abdomen/Pelvis CT 03/11/17 1606 Signed Impressions: Service Date/Time: Saturday, March 11, 2017 17:45 - CONCLUSION: 1. Abnormal bowel gas pattern which is of concern for early or partial small bowel obstruction. 2. Stable infrarenal abdominal aortic aneurysm. 3. Bilateral nonobstructing renal calculi. 4. Status post cholecystectomy with mild biliary prominence. Gómez Marrero MD Abdomen: Non-distended, Non-tender, Other (well healed scars.) A/P Problem List: (1) Bowel obstruction (2) AAA (abdominal aortic aneurysm) (3) Abdominal pain (4) Nausea & vomiting (5) Partial small bowel obstruction (6) CAD (coronary artery disease) (7) HTN (hypertension) (8) Diabetes 1.5, managed as type 2 Assessment and Plan Resolved ileus. DC home OK with general surgery. Problem Qualifiers (1) Bowel obstruction: Qualified Code: K56.69 - Other specified intestinal obstruction (2) AAA (abdominal aortic aneurysm): Qualified Code: I71.4 - Abdominal aortic aneurysm (AAA) without rupture (3) Abdominal pain: Qualified Code: R10.13 - Epigastric pain (4) Nausea & vomiting: Qualified Code: R11.2 - Non-intractable vomiting with nausea, unspecified vomiting type (5) CAD (coronary artery disease): Qualified Code: I25.10 - Coronary artery disease involving [place] coronary artery of [place] heart without angina pectoris (6) HTN (hypertension): Qualified Code: I10 - Essential hypertension Tod Jung MD Mar 14, 2017 09:58
[2017-03-14 12:00] VITALS: BP_SYST 116; BP_SYST 166; BP_DIAS 67; BP_DIAS 75; PULSE 71; PULSE 87; RESP 20; TEMP 97.6; O2SAT 93
--- NOTE | 2017-03-14 14:01 | HHI.PR ---
Subjective Remarks sitting up in rm. no nausea or vomiting eating solid food today afebrile (Kari Nunez) Objective Objective Results - Vital Signs Date Time Temp Pulse Resp B/P Pulse Ox O2 Delivery O2 Flow Rate FiO2 03/14/17 12:00 97.6 71 20 166/75 93 03/14/17 08:00 97.7 80 20 137/74 96 03/14/17 04:42 98.3 85 16 127/71 95 03/14/17 00:00 98.2 77 18 137/86 96 03/13/17 20:00 102 03/13/17 20:00 98.0 82 18 150/77 96 03/13/17 16:00 99.5 75 20 146/78 96 I/O 03/13/17 03/13/17 03/13/17 03/14/17 03/14/17 03/14/17 07:00 15:00 23:00 07:00 15:00 23:00 Intake Total 162 ml 480 ml 650 ml Output Total 650 ml 525 ml 600 ml Balance -488 ml -45 ml 50 ml Intake Oral 0 ml 480 ml 650 ml IV Total 162 ml Output Urine Total 650 ml 525 ml 600 ml # Bowel Movements 0 0 1 (Kari Nunez) Result Diagram: 03/12/17 0511 03/12/17 0511 ROS General: Weakness (improved), Other (10 point ROS done positives noted) GI: Abdominal Pain (improved), N/V, Other (able to tolerate food) (Kari Nunez) Physical Exam Physical Exam PHYSICAL EXAMINATION GENERAL: This is a elderly male resting in his room no acute distress He is alert and awake, HEAD: Normocephalic . Facial features appear symmetric. OROPHARYNGEAL: Oropharynx moist and clear NECK: Supple. Trachea midline without deviation. CARDIAC: Regular rhythm, regular rate, S1 and S2 are heard. LUNGS: Clear to auscultation bilaterally. No shortness of breath ABDOMEN: Obese, soft, nontender, Bowel sounds are soft EXTREMITIES: no edema. Strength is warm NEUROLOGICAL: Patient mood and affect appropriate. SKIN:Warm and dry (Kari Nunez) A/P Assessment and Plan 1) Abdominal pain (2) Nausea & vomiting (3) AAA (abdominal aortic aneurysm) (4) Partial small bowel obstruction (5) CAD (coronary artery disease) (6) HTN (hypertension) (7) Diabetes 1.5, managed as type 2 (8) Lactic acidosis Left eye conjunctivitis Vital signs reviewed, trends normal Labs reviewed, leukocytosis resolved 81-year-old male with history of recurrent bowel obstructions and multiple admissions in the last year. History of cholecystectomy, appendectomy, partial colectomy. Presents to emergency room with epigastric pain, nausea vomiting. CT abdomen and pelvis shows abnormal bowel gas pattern which is of concern for early or partial small bowel obstruction. Partial small bowel obstruction, resolved Lactic acidosis, resolved Dehydration, resolved Pain management KUB done for follow-up on 03-12, improving Patient is tolerating solid food no nausea or vomiting BM today, Out of bed increase activity today discussed with patient and his Type 2 diabetes Accu-Cheks before meals and at bedtime with insulin therapy as needed Hypertension, stable Add Vasotec when necessary for systolic greater than 160, diastolic 90 CAD History of CABG -Stable, continue to monitor Left eye conjunctivitis, tobramycin drops left eye every 6 hours and monitor effectiveness SCDs/heparin for DVT prophylaxis Protonix for GI prophylaxis Discharge planning possible today Follow up per surgeon, okay to DC from his perspective and follow up in office Discussed with Dr. Guzman, patient seen on his behalf Discussed with patient Discussed with nurse (Kari Nunez) Assessment and Plan Patient seen and examined as above [id number] time spent with patient Labs reviewed Plan of care discussed with MACHINE BANDER AND CELLOPHANER HELPER Discussed with patient discussed with RN Plan to discharge him home to be followed by his primary care doctor as outpatient (Vernon Guzman MD) Kari Nunez Mar 14, 2017 14:01 Vernon Guzman MD Mar 14, 2017 15:30
--- NOTE | 2017-03-14 14:12 | HHI.DS ---
Discharge Summary Admission Date Mar 11, 2017 at 18:32 Discharge Date: Mar 14, 2017 Admitting Diagnosis Partial SBO (1) Abdominal pain (2) Nausea & vomiting Diagnosis: Principal (3) AAA (abdominal aortic aneurysm) Diagnosis: Secondary (4) Partial small bowel obstruction Diagnosis: Principal (5) CAD (coronary artery disease) Diagnosis: Secondary (6) HTN (hypertension) Diagnosis: Secondary (7) Diabetes 1.5, managed as type 2 Diagnosis: Secondary (8) Lactic acidosis Diagnosis: Principal Brief History This was a 81-year-old male patient with past medical history which includes coronary artery disease status post coronary artery bypass graft, hypertension, diabetes mellitus type 2, hyperlipidemia, diverticulitis, kidney stones and AAA. Patient presented to the emergency room for evaluation of epigastric abdominal pain with nausea vomiting that began approximately 5 hours before presenting to ED. Patient had a history of recurrent small bowel obstructions with multiple admissions in the last year. Usually these episodes resolve on their own, no recent surgical intervention. Has prior history abdominal surgery including cholecystectomy, appendectomy, partial colectomy secondary to diverticulitis. Patient indicated that he had been in his usual state of health, he started to develop epigastric pain, abdomen felt very firm, painful. He stated he has frequent abdominal pains at least 2-3 times a month but usually is able to take a pain pill and that resolves his symptoms. This time, symptoms did not resolve and he decided to come to the emergency room for further evaluation. Denied any fever, no chills. Indicated bowel movements have been regular, no blood is noted, soft. He was able to eat yesterday morning. CBC/BMP: 03/12/17 0511 03/12/17 0511 Significant Findings Laboratory Tests Test 03/11/17 03/12/17 16:16 05:11 White Blood Count 12.5 TH/MM3 (4.0-11.0) Neutrophils (%) (Auto) 87.4 % 72.8 % (16.0-70.0) (16.0-70.0) Lymphocytes (%) (Auto) 5.9 % (9.0-44.0) Neutrophils # (Auto) 10.9 TH/MM3 (1.8-7.7) Lymphocytes # (Auto) 0.7 TH/MM3 0.9 TH/MM3 (1.0-4.8) (1.0-4.8) Estimat Glomerular Filtration 61 ML/MIN (>89) 72 ML/MIN (>89) Rate Random Glucose 157 MG/DL (74-106) Lactic Acid Level 3.4 mmol/L (0.4-2.0) Alkaline Phosphatase 129 U/L (45-117) Red Blood Count 4.08 MIL/MM3 (4.50-5.90) Hemoglobin 12.7 GM/DL (13.0-17.0) Hematocrit 38.4 % (39.0-51.0) Monocytes (%) (Auto) 11.3 % (0.0-8.0) Chloride Level 112 MEQ/L (98-107) Calcium Level 7.6 MG/DL (8.5-10.1) Imaging Last Impressions Abdomen X-Ray 03/13/17 0600 Signed Impressions: Service Date/Time: Monday, March 13, 2017 06:27 - CONCLUSION: Nonspecific abdomen. KAilyn Stevenson MD Abdomen/Pelvis CT 03/11/17 1606 Signed Impressions: Service Date/Time: Saturday, March 11, 2017 17:45 - CONCLUSION: 1. Abnormal bowel gas pattern which is of concern for early or partial small bowel obstruction. 2. Stable infrarenal abdominal aortic aneurysm. 3. Bilateral nonobstructing renal calculi. 4. Status post cholecystectomy with mild biliary prominence. Gómez Marrero MD PE at Discharge PHYSICAL EXAMINATION GENERAL: This was an elderly male resting in his room no acute distress alert and awake, HEAD: Normocephalic . Facial features appear symmetric. OROPHARYNGEAL: Oropharynx moist and clear NECK: Supple. Trachea midline without deviation. CARDIAC: Regular rhythm, regular rate, S1 and S2 are heard. LUNGS: Clear to auscultation bilaterally. No shortness of breath ABDOMEN: Obese, soft, nontender, Bowel sounds are soft EXTREMITIES: no edema. Strength is warm NEUROLOGICAL: Patient mood and affect appropriate. SKIN:Warm and dry Hospital Course Inirially, Laboratory workup was completed in the emergency room, it was essentially unremarkable other than lactic acidosis. Abdomen and pelvis CT showed abnormal bowel gas pattern which was of concern for early or partial small bowel obstruction. Stable infrarenal abdominal aortic aneurysm. Bilateral nonobstructive renal calculi. Status post cholecystectomy with mild biliary prominence. Indicates that he sees Dr. Curran regularly for aneurysm measurements and the last time it was 3.8 cm. patient indicated he feels better , he wants something to drink. Abdomen is soft, nontender. There's been approximately 600 cc of green gastric drainage since yesterday. Patient was admitted for further evaluation and treatment. These are the dx used to treat patient and adjust plan of care. 1) Abdominal pain (2) Nausea & vomiting (3) AAA (abdominal aortic aneurysm) (4) Partial small bowel obstruction (5) CAD (coronary artery disease) (6) HTN (hypertension) (7) Diabetes 1.5, managed as type 2 (8) Lactic acidosis Left eye conjunctivitis Vital signs reviewed, trends normal trends last 24 hrs. Labs reviewed, leukocytosis resolved with IVF, medications. brief hx 81-year-old male with history of recurrent bowel obstructions and multiple admissions in the last year. History of cholecystectomy, appendectomy, partial colectomy. Presents to emergency room with epigastric pain, nausea vomiting. CT abdomen and pelvis shows abnormal bowel gas pattern which is of concern for early or partial small bowel obstruction. Partial small bowel obstruction, resolved on dc Lactic acidosis, resolved on dc Dehydration, resolved on dc Pain management, required minimal amounts KUB done for follow-up on 03-12, improving and resolving Patient is tolerating solid food no nausea or vomiting last 24 hrs. started on liquids on 03-13 at lunch. no nausea or vomiting BM today, normal Out of bed increase activity today discussed with patient and his , pt. tolerated well without acute pain or SOB Type 2 diabetes Accu-Cheks before meals and at bedtime with insulin therapy as needed, no acute issues Hypertension, stable Add Vasotec when necessary for systolic greater than 160, diastolic 90, no acute issues CAD History of CABG -Stable, continue to monitor Left eye conjunctivitis, tobramycin drops left eye every 6 hours and monitor effectiveness Med effective SCDs/heparin for DVT prophylaxis protonix for PUD Discharge planning ok per surgeon and Dr. Guzman Follow up per surgeon, yovaniay to DC from his perspective and follow up in office Pt Condition on Discharge: Good Discharge Disposition: Discharge Home Discharge Instructions DIET: Follow Instructions for: Diabetic Diet Activities you can perform: Weight Bearing as Kartik Follow up Referrals: PCP Follow-up - 1 Week Continued Medications: Albuterol 8.5 GM Inh (Proair Hfa 8.5 GM Inh) 90 Mcg/Act Aer 2 PUFF INH Q6H 108 mcg/actuation PRN SHORTNESS OF BREATH #1 Ref [address] (Ecotrin Regular Strength) 325 Mg Tabdr 325 MG PO DAILY #30 Ref 0 TAB Biotin (Biotin) 1,000 Mcg Tab 1000 MCG PO #1 BOTTLE Cetirizine (Cetirizine) 10 Mg Tab 10 MG PO DAILY Allergies Ref 0 TAB Cholecalciferol (Vitamin D3) 400 Unit Cap 400 UNITS PO DAILY Nutritional Supplement #1 Ref [address] (Nexium) 40 Mg Capdr 40 MG PO DAILY Ref 0 CAP Glimepiride (Glimepiride) 2 Mg Tab 2 MG PO DAILY Take with breakfast or first main meal Blood Sugar Management #30 Ref 0 TAB Lovastatin (Lovastatin) 10 Mg Tab 10 MG PO DAILY Cholesterol Management #30 Ref 0 TAB Mometasone Nasal Leon (Nasonex Nasal Leon) 50 Mcg/Act Naspr 2 SPRAY EACH NARE DAILY Allergy Management #1 Ref 0 BOTTLE Niacin (Niacin) 500 Mg Tab 1500 MG PO HS Cholesterol Management #60 Ref 0 TAB Omeprazole (Omeprazole) 40 Mg Cap 40 MG PO DAILY Days 5 Ref 0 CAP Saxagliptin-Metformin ER (Kombiglyze Xr) 2.5-1,000 Mg Tab 1 TAB PO DAILY Blood Sugar Management #30 Ref 0 TAB Tramadol (Tramadol) 50 Mg Tab 50 MG PO Q8H PRN PAIN Ref 0 TAB Kari Nunez Mar 14, 2017 14:12
== END 2017-03-14 13:55 | disposition home or self-care (01) | DRG 389 ==
LOC: NEPE 15:55 → NEDA 18:32 → N04B 21:37
PROVIDERS: ADMIT Specialist; ATTEND Specialist
DX: K56.69 Other intestinal obstruction (principal); E87.2 Acidosis; J44.9 Chronic obstructive pulmonary disease, unspecified; E11.9 Type 2 diabetes mellitus without complications; I10 Essential (primary) hypertension; D72.829 Elevated white blood cell count, unspecified; E86.0 Dehydration; N20.0 Calculus of kidney; I25.10 Atherosclerotic heart disease of native coronary artery without angina pectoris; I71.4 Abdominal aortic aneurysm, without rupture; H10.9 Unspecified conjunctivitis; K21.9 Gastro-esophageal reflux disease without esophagitis; E78.5 Hyperlipidemia, unspecified; Z95.1 Presence of aortocoronary bypass graft; Z79.84 Long term (current) use of oral hypoglycemic drugs; Z87.891 Personal history of nicotine dependence
CPT/HCPCS: 43753; 74000; 74177; 80048; 80053; 82948; 83605; 83690; 85025; 85610; 85730; 93005; 96361; 96374; 96375; C9113; J1644; J1815; J2270; J2405; J7030; Q9967

== ENCOUNTER 2017-04-30 17:42 | Inpatient (IN) | payer MEDICARE, BC ==
[~2017-04-30] VITALS: Ht 160 cm; Wt 66.0 kg
[~2017-04-30 17:42] MED LIST changes: -METO25TA3 PO; -TELM1TAB PO
[2017-04-30 17:43] VITALS: BP 157/116; PULSE 61; RESP 17; TEMP 97.4; O2SAT 96
--- NOTE | 2017-04-30 17:57 | PD ---
Physical Exam Date Seen by Provider: Apr 30, 2017 Time Seen by Provider: 17:55 Narrative 81 YOWM C/O ABD PAIN WITH N/V/D TODAY. H/O CHRONIC ABD PAIN. . H/O OBSTRUCTION. NO F/C. 9/10 PAIN VS REVIEWED WAITING FOR BED PLACEMENT Data Data Last Documented VS Vital Signs Date Time Temp Pulse Resp B/P Pulse Ox O2 Delivery O2 Flow Rate FiO2 04/30/17 17:43 97.4 61 17 157/116 96 MDM Supervised Visit with ARTURO: Malcolm Sow Apr 30, 2017 17:57
--- NOTE | 2017-04-30 19:24 | PD ---
HPI Chief Complaint: Abdominal Pain Time Seen by Provider: 19:12 Travel History International Travel<30 days: No Contact w/Intl Traveler<30days: No Traveled to known affect area: No History of Present Illness HPI c/o abd pain, 04/23, intermittent since 1100 today, assoc with n/v, distention of abdomen...denies fever/amaro/cough/ all:nkda pmhx: dm, cad, aaa, partial sbo, sbo PFSH Past Medical History Hx Anticoagulant Therapy: Yes (ASA) AAA: Yes (3.8 CM 08/02/2014) Arthritis: Yes Asthma: No Autoimmune Disease: No Blood Disorders: No Anxiety: No Depression: No Heart Rhythm Problems: No Cancer: No Cardiovascular Problems: Yes (QUAD BYPASS, HTN) High Cholesterol: Yes Chemotherapy: No Chest Pain: No Congestive Heart Failure: No COPD: Yes Cerebrovascular Accident: No Coronary Artery Disease: Yes Diabetes: Yes Diminished Hearing: No Diverticulitis: Yes Endocrine: Yes Gastrointestinal Disorders: Yes (DIVERTICULITIS) GERD: Yes Genitourinary: Yes Hiatal Hernia: Yes Hypertension: Yes Immune Disorder: Yes Implanted Vascular Access Dvce: Yes Kidney Stones: Yes Musculoskeletal: Yes Neurologic: No Psychiatric: No Reproductive: No Respiratory: Yes Immunizations Current: Yes Migraines: No Radiation Therapy: No Renal Failure: No Seizures: No Sickle Cell Disease: No Sleep Apnea: No Thyroid Disease: No Ulcer: No PNEUMOCCOCAL Vaccine (Year): 1 Past Surgical History AICD: No Appendectomy: Yes Arteriovenous Shunt: No Cardiac Surgery: Yes (QUAD HEART BYPASS) Cholecystectomy: Yes (2007) Coronary Artery Bypass Graft: Yes (1996) Insulin Pump: No Joint Replacement: No Pacemaker: No Other Surgery: Yes Social History Alcohol Use: Yes (OCCASIONALLY) Tobacco Use: No (QUIT 1996) Substance Use: No Allergies-Medications (Allergen,Severity, Reaction): Coded Allergies: No Known Allergies (Verified , 04/30/17) Reported Meds & Prescriptions Reported Meds & Active Scripts Active Reported Biotin 1,000 Mcg Tab 1,000 Mcg PO Tramadol (Tramadol HCl) 50 Mg Tab 50 Mg PO Q8H PRN Vitamin D3 (Cholecalciferol) 400 Unit Cap 400 Units PO DAILY Nexium (Esomeprazole DR) 40 Mg Capdr 40 Mg PO DAILY Ecotrin Regular Strength (Aspirin) 325 Mg Tabdr 325 Mg PO DAILY Lovastatin 10 Mg Tab 10 Mg PO DAILY Niacin 500 Mg Tab 1,500 Mg PO HS Kombiglyze Xr (Saxagliptin-Metformin ER) 2.5-1,000 Mg Tab 1 Tab PO DAILY Glimepiride 2 Mg Tab 2 Mg PO DAILY Take with breakfast or first main meal Cetirizine (Cetirizine HCl) 10 Mg Tab 10 Mg PO DAILY Nasonex Nasal Casar (Mometasone Furoate) 50 Mcg/Act Naspr 2 Casar EACH NARE DAILY Proair Hfa 8.5 GM Inh (Albuterol Sulfate) 90 Mcg/Act Aer 2 Puff INH Q6H PRN 108 mcg/actuation Review of Systems Except as stated in HPI: all other systems reviewed are Neg Gastrointestinal: Positive: Nausea, Vomiting, Abdominal Pain Physical Exam Narrative GENERAL: SKIN: Warm and dry. HEAD: Atraumatic. Normocephalic. EYES: Pupils equal and round. No scleral icterus. No injection or drainage. ENT: No nasal bleeding or discharge. Mucous membranes pink and moist. NECK: Trachea midline. No JVD. CARDIOVASCULAR: Regular rate and rhythm. RESPIRATORY: No accessory muscle use. Clear to auscultation. Breath sounds equal bilaterally. GASTROINTESTINAL: Abdomen mild distention, hyperactive bs, diffusely ttp MUSCULOSKELETAL: Extremities without clubbing, cyanosis, or edema. No obvious deformities. NEUROLOGICAL: Awake and alert. No obvious cranial nerve deficits. Motor grossly within normal limits. Five out of 5 muscle strength in the arms and legs. Normal speech. PSYCHIATRIC: Appropriate mood and affect; insight and judgment normal. Data Data Last Documented VS Orders Orders Electrocardiogram (04/30/17 19:17) Complete Blood Count With Diff (04/30/17 19:17) Comprehensive Metabolic Panel (04/30/17 19:17) Ckmb (Isoenzyme) Profile (04/30/17 19:17) Troponin I (04/30/17 19:17) Prothrombin Time / Inr (Pt) (04/30/17 19:17) Act Partial Throm Time (Ptt) (04/30/17 19:17) Lipase (04/30/17 19:17) Ct Abd/Pel W Iv Contrast(Rout) (04/30/17 19:17) Iv Access Insert/Monitor (04/30/17 19:17) Ecg Monitoring (04/30/17 19:17) Oximetry (04/30/17 19:17) Ondansetron Inj (Zofran Inj) (04/30/17 19:30) Hydromorphone Pf Inj (Dilaudid Pf Inj) (04/30/17 19:30) Iohexol 350 Inj (Omnipaque 350 Inj) (04/30/17 21:08) Admit Order (Ed Use Only) (04/30/17 22:22) Labs Laboratory Tests Test 04/30/17 19:30 White Blood Count 12.9 TH/MM3 Red Blood Count 5.07 MIL/MM3 Hemoglobin 15.4 GM/DL Hematocrit 48.0 % Mean Corpuscular Volume 94.7 FL Mean Corpuscular Hemoglobin 30.3 PG Mean Corpuscular Hemoglobin Concent 32.0 % Red Cell Distribution Width 14.4 % Platelet Count 204 TH/MM3 Mean Platelet Volume 8.8 FL Neutrophils (%) (Auto) 91.4 % Lymphocytes (%) (Auto) 3.6 % Monocytes (%) (Auto) 4.9 % Eosinophils (%) (Auto) 0.0 % Basophils (%) (Auto) 0.1 % Neutrophils # (Auto) 11.8 TH/MM3 Lymphocytes # (Auto) 0.5 TH/MM3 Monocytes # (Auto) 0.6 TH/MM3 Eosinophils # (Auto) 0.0 TH/MM3 Basophils # (Auto) 0.0 TH/MM3 CBC Comment DIFF FINAL Differential Comment Prothrombin Time 10.8 SEC Prothromb Time International Ratio 1.0 RATIO Activated Partial Thromboplast Time 24.8 SEC Blood Urea Nitrogen 21 MG/DL Creatinine 1.53 MG/DL Random Glucose 213 MG/DL Total Protein 7.9 GM/DL Albumin 3.8 GM/DL Calcium Level 9.8 MG/DL Alkaline Phosphatase 138 U/L Aspartate Amino Transf (AST/SGOT) 19 U/L Alanine Aminotransferase (ALT/SGPT) 22 U/L Total Bilirubin 0.4 MG/DL Sodium Level 134 MEQ/L Potassium Level 4.3 MEQ/L Chloride Level 98 MEQ/L Carbon Dioxide Level 25.1 MEQ/L Anion Gap 11 MEQ/L Estimat Glomerular Filtration Rate 44 ML/MIN Total Creatine Kinase 48 U/L Troponin I LESS THAN 0.02 NG/ML Lipase 69 U/L MDM Medical Decision Making Medical Screen Exam Complete: Yes Emergency Medical Condition: Yes Medical Record Reviewed: Yes Interpretation(s) st 103, nonspec stt changes, no stemi pattern Differential Diagnosis sbo v partial sbo v aaa rupture v pancreatitis Narrative Course ct showed partial sbo without rupture of existing infrarenal AAA. lipase neg for pancreatitis...however did show acute kidney insufficiency as well.pt admitted for observation Diagnosis Primary Impression: Partial small bowel obstruction Additional Impression: AAA (abdominal aortic aneurysm) Blair Haines MD Apr 30, 2017 19:24
[2017-04-30 19:26] VITALS: BP_SYST 157; BP_SYST 161; BP_DIAS 68; BP_DIAS 94
[2017-04-30] MEDS ORDERED: ONDANSETRON HCL 4 MG/2 ML VIAL IVP ONE (19:30)
[2017-04-30] MEDS ORDERED: HYDROmorphone HCL PF 1 MG/ML VIAL IVS ONE (19:30)
[2017-04-30 19:46] VITALS: O2SAT 96
[2017-04-30 20:12] LABS: AUTOMATED NEUTROPHIL # 11.8 TH/MM3 (1.8-7.7); BASOPHIL % 0.1 % (0.0-2.0); HEMO FLAGS DIFF FINAL; LYMPH % 3.6 % (9.0-44.0); LYMPHOCYTE # 0.5 TH/MM3 (1.0-4.8); MEAN CELL VOLUME 94.7 FL (80.0-100.0); MEAN CORPUSCULAR HEMOGLOBIN 30.3 PG (27.0-34.0); MONO % 4.9 % (0.0-8.0); NEUT % 91.4 % (16.0-70.0); PLATELET COUNT 204 TH/MM3 (150-450); RED BLOOD COUNT 5.07 MIL/MM3 (4.50-5.90); RED CELL DISTRIBUTION WIDTH 14.4 % (11.6-17.2); WHITE BLOOD COUNT 12.9 TH/MM3 (4.0-11.0)
[2017-04-30 20:27] LABS: APTT (PATIENT) 24.8 SEC (24.3-30.1); PROTHROMBIN TIME - PATIENT 10.8 SEC (9.8-11.6)
[2017-04-30 20:42] LABS: ANION GAP 11 MEQ/L (5-15); AST (GOT) 19 U/L (15-37); BICARBONATE 25.1 MEQ/L (21.0-32.0); BLOOD UREA NITROGEN 21 MG/DL (7-18); CHLORIDE 98 MEQ/L (98-107); GLOMERULAR FILTRATION RATE 44 ML/MIN (>89); POTASSIUM 4.3 MEQ/L (3.5-5.1); SODIUM (NA) 134 MEQ/L (136-145)
[2017-04-30 20:44] LABS: ALT (GPT) 22 U/L (12-78)
[2017-04-30 20:47] LABS: ALKALINE PHOSPHATASE 138 U/L (45-117); TOTAL BILIRUBIN ADULT 0.4 MG/DL (0.2-1.0)
[2017-04-30 20:48] LABS: CREATINE KINASE 48 U/L (39-308)
[2017-04-30 21:00] VITALS: BP 118/82; PULSE 115; RESP 16; O2SAT 95
[2017-04-30] MEDS ORDERED: IOHEXOL 350 MG/ML 10 ML VIAL (for RAD DIAG) IV ONE (21:08)
--- NOTE | 2017-04-30 21:52 | RADRPT ---
EXAM DATE/TIME: 04/30/2017 21:01 [facility] COMPARISON: No previous studies available for comparison. INDICATIONS : Abdominal pain with nausea, vomiting, and diarrhea. IV CONTRAST: 75 cc Omnipaque 350 (iohexol) IV ORAL CONTRAST: No oral contrast ingested. RADIATION DOSE: 9.96 CTDIvol (mGy) MEDICAL HISTORY : Hypertension. Diabetes mellitus type 2. Diverticulitis. SURGICAL HISTORY : Appendectomy. Cholecystectomy.CABG ENCOUNTER: Initial ACUITY: 3 days PAIN SCALE: 7/10 LOCATION: abdomen TECHNIQUE: Volumetric scanning of the abdomen and pelvis was performed. Using automated exposure control and ad justment of the mA and/or kV according to patient size, radiation dose was kept as low as reasonably achievable to obtain optimal diagnostic quality images. DICOM format image data is available electro nically for review and comparison. FINDINGS: Mild atelectasis at the lung bases. Dilated distal esophagus and stomach. Liver demonstrates mild biliary ductal dilatation. Spleen, adrenals and pancreas unremarkable. Nonobs tructing bilateral renal calculi ranging in size from 3-4 mm. Also vascular calcifications in the kid neys. Aneurysmal dilatation of abdominal aorta to 3.8 cm. There is dilated proximal small bowel with some decompression distally characteristic of an early or partial small bowel obstruction. No free air. CONCLUSION: 1. Dilated distal esophagus, stomach and proximal small bowel with decompression distally characteris tic of an early or partial small bowel obstruction. No free air or significant free fluid. 2. 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 3. Nonobstructing renal calculi. Mild biliary ductal dilatation. Previous cholecystectomy and appende ctomy. Malcolm Hartmann MD on April 30, 2017 at 21:48 Board Certified Radiologist. This report was verified electronically.
[2017-04-30] MEDS ORDERED: MAGNESIUM HYDROXIDE SUSP 30 ML CUP PO PRN (22:45)
[2017-04-30] MEDS ORDERED: GLUCAGON 1 MG/ML VIAL OTHER PRN (22:45)
[2017-04-30] MEDS ORDERED: ALBUTEROL SULFATE 90 MCG/ACT HFA 18 GM INHALER INH PRN (22:45)
[2017-04-30] MEDS ORDERED: LACTULOSE SYRUP 20 GM/30 ML CUP PO PRN (22:45)
[2017-04-30] MEDS ORDERED: SENNOSIDES 8.6 MG TAB PO PRN (22:45)
[2017-04-30] MEDS ORDERED: HYDROmorphone HCL PF 1 MG/ML VIAL IV PUSH ONE (22:45)
[2017-04-30] MEDS ORDERED: DEXTROSE 50% IN WATER 50 ML VIAL(D50) IV PRN (22:45)
[2017-04-30] MEDS ORDERED: BISACODYL 10 MG SUPP RECTAL PRN (22:45)
[2017-04-30] MEDS ORDERED: MORPHINE SULFATE 4 MG/ML INJ IV PRN (22:45)
[2017-04-30] MEDS ORDERED: NALOXONE HCL 0.4 MG/ML AMP IV PRN (22:45)
[2017-04-30] MEDS ORDERED: ONDANSETRON HCL 4 MG/2 ML VIAL IV PUSH ONE (22:45)
[2017-04-30] MEDS ORDERED: SODIUM CHLORIDE 0.9% FLUSH 10 ML FLUSH IV FLUSH PRN (22:45)
[2017-04-30 23:00] VITALS: BP 121/84; PULSE 105; RESP 16; O2SAT 93
[2017-05-01] VITALS (7 sets, daily range): BP systolic 116–162; BP diastolic 75–86; PULSE 93–122; RESP 16–20; TEMP 97–98.3; O2SAT 91–96
[2017-05-01] MEDS: SODIUM CHLOR 0.9% 1000 ML INJ 1,000 ML IV SCH ×3 (01:51→18:40)
[2017-05-01] MEDS: ONDANSETRON HCL 4 MG/2 ML VIAL IVP PRN ×2 (05:56→15:27)
[2017-05-01] MEDS: MORPHINE SULFATE 4 MG/ML INJ IV PRN ×2 (05:57→15:28)
[2017-05-01] MEDS: INSULIN ASPART SUPPLEMENTAL SCALE SQ SCH ×4 (07:00→21:00)
[2017-05-01] MEDS: SODIUM CHLORIDE 0.9% FLUSH 10 ML FLUSH IV FLUSH SCH ×2 (08:34→21:00)
[2017-05-01] MEDS: FLUTICASONE PROPIONATE 50 MCG/ACT 16 GM NASAL SPRAY EACH NARE SCH (08:34)
[2017-05-01] MEDS: DOCUSATE SODIUM 50 MG/SENNA 8.6 MG TAB PO SCH ×2 (08:35→21:00)
--- NOTE | 2017-05-01 11:19 | MH ---
cc: CHILO CERRATO MD DATE OF ADMISSION: 04/30/2017 CHIEF COMPLAINT Abdominal pain, nausea and vomiting. HISTORY OF PRESENT ILLNESS This is an 81-year-old male with past medical/surgical history significant for nasal allergies, history of abdominal aortic aneurysm 3.8 cm, history of arthritis, history of quadruple bypass surgery, hypertension, hyperlipidemia, diverticulitis, GERD, hiatal hernia, hypertension, cholecystectomy 2007, appendectomy, ex-smoker quit smoking in 1996, who came to the ER at [facility] complaining of abdominal pain 8/10, intermittent and cramping in nature and associated with nausea, vomiting and distention of the abdomen. Denies any fever or chills. He was diagnosed with small bowel obstruction and has an NG tube in and passing some gas. He had diarrhea yesterday. He denies any chest pain, any shortness of breath, any fever or chills. Denies any black stool or blood in the stool. Other than that nothing significant. PAST MEDICAL HISTORY 1. As detailed above. 2. Diabetes mellitus. 3. Coronary artery disease. 4. Abdominal aortic anesthesia. 5. Small bowel obstruction in the past. SOCIAL HISTORY Ex-smoker, quit in 1996. Occasionally drinks alcohol. Denies any drug abuse. Lives at home with his . ALLERGIES No known drug allergies. FAMILY HISTORY Nothing significant. MEDICATIONS 1. Omeprazole 40 mg p.o. daily. 2. Biotin 1000 mcg p.o. daily. 3. Tramadol 50 mg p.o. q.8h. p.r.n. pain. 4. Vitamin-D3 400 units p.o. daily. 5. Nexium 40 mg p.o. daily. 6. Aspirin 325 mg p.o. daily. 7. Lovastatin 10 mg p.o. daily. 8. Niacin 1500 mg p.o. h.s. 9. Kombiglyze XR 2.01/1000 p.o. daily. 10. Zyrtec 10 mg p.o. daily. 11. Nasonex nasal spray, two sprays to nostril daily. 12. ProAir HFA, two puff inhalation q.6h. REVIEW OF SYSTEMS Positive for abdominal pain. All other review of systems is negative. PHYSICAL EXAMINATION GENERAL: This is an 81-year-old male sitting on the bed, not in acute distress. VITAL SIGNS: Temperature 97.7, heart rate 120, respirations 16, blood pressure 116/78. O2 saturation 93% on room air. HEENT: Normocephalic, atraumatic. EOMI. PERRL. Oral mucosa moist. NG tube in. NECK: Supple. No visible thyromegaly or neck mass. Trachea is central. CV: Regular rate and rhythm. LUNGS: Respirations clear to auscultation bilaterally. ABDOMEN: Soft. Mild diffuse tenderness. Bowel sounds audible. EXTREMITIES: No cyanosis or clubbing. Full range of motion of all extremities. No edema. NEUROLOGIC: Awake, alert, oriented x4. No focal deficits. SKIN: Warm and dry. PSYCHIATRIC: The patient is cooperative. Mood and affect are normal. LABORATORY CBC showed WBC 12.9 high. Neutrophils high at 91.4, lymphocytes 3.6 low. CMP is unremarkable except for sodium 134 low, BUN 21 high, creatinine 1.53 high, GFR 44 low, glucose 213 high, alkaline phosphatase 138 high, troponin-I less than 0.02, lipase 69. PT 10.8, INR 1.0, APTT 24.8. IMAGING CT abdomen and pelvis was done and shows dilated distal esophagus, stomach and proximal small bowel with decompression distally characteristic of early or partial small bowel obstruction. No free air or significant free fluid. 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 Nonobstructing renal calculi. Mild biliary ductal dilatation. Previous cholecystectomy and appendectomy. ASSESSMENT AND PLAN 1. This is an 81-year-old male who came to the ER diagnosed with abdominal pain with nausea and vomiting secondary to partial small bowel obstruction. The patient has an NG tube in. The patient is passing gas. I will consult general surgery for further recommendation. 2. History of diabetes mellitus. Insulin sliding scale. Will monitor blood sugar closely. 3. History of nasal allergies. Continue home medication. 4. History of hyperlipidemia. Continue with lovastatin and niacin. 5. History of COPD. Continue home medication. 6. History of arthritis. Continue home medication. 7. History of gastroesophageal reflux disease. Protonix 40 mg p.o. daily. 8. DVT prophylaxis. Lovenox 40 mg subcutaneous daily. 9. GI prophylaxis. Protonix 40 mg IV daily. 10. Mild hyponatremia. 11. Renal insufficiency. The patient is on IV fluid and will monitor BUN and creatinine. 12. Leukocytosis. Will monitor. 13. We are going to manage the patient on a daily basis and make recommendations on a daily basis. Chilo Cerrato MD EA/VENKAT /10:27 AM /10:51 AM
[2017-05-01] MEDS ORDERED: DIATRIZOATE MEGLUM/DIATRIZOATE SOD 120 ML BTL (for RAD DIAG) NG ONE (13:00)
--- NOTE | 2017-05-01 14:05 | EKG ---
Date Performed: 04/30/2017 Time Performed: 19:21:28 PTAGE: 81 years EKG: SINUS TACHYCARDIA LEFT ATRIAL ABNORMALITY ABNORMAL RHYTHM ECG Compared to PREVIOUS TRACING right bundle branch block is no longer noted PREVIOUS TRACIN03/11/17 DOCTOR: Tod Dalton Interpretating Date/Time 05/01/2017 14:03:32
--- NOTE | 2017-05-01 16:37 | RADRPT ---
EXAM DATE/TIME: 05/01/2017 13:03 [place] COMPARISON: ABDOMEN KUB ONLY, March 13, 2017, 6:27. INDICATIONS : Pain in middle of abdomen since 11am yesterday, abdominal distension FLUORO TIME: 0 minutes IMAGE COUNT: 12 CONTRAST: [facility] IMAGING TIME(S): 15 min, 30 min, 45 min, 1 hr, 1.5 hrs2HR, 3HR MEDICAL HISTORY : Diverticulosis. small bowel obstruction x 5 SURGICAL HISTORY : Appendectomy. Cholecystectomy. Colon resection. ENCOUNTER: Initial ACUITY: 2 days PAIN SCORE: 8/10 LOCATION: middle abdomen FINDINGS: The preliminary pump runner film demonstrates gas and stool noted segments in the colon with several loops of nondilated air-containing small bowel in the upper abdomen. There are multiple surgical clips in t he left side of the pelvis. There is residual IV contrast in the kidneys and bladder. A nasogastric t ube is present. The stomach is grossly unremarkable. Examination of the small bowel demonstrates a grossly normal mucosal pattern involving the jejunum an d ileum. There is dilution of the Gastrografin with poor detail on the delayed images. There is no e vidence of mass or obstruction. No intraluminal filling defects are identified. Small bowel transit time is at the upper limits of normal at 3 hours. There are multiple loops of overlying dilated ileu m. The terminal ileum was not well-visualized. There is no distinct transition zone identified. CONCLUSION: Nonspecific study with multiple loops of borderline dilated ileum and no evidence of definite obstruction. There is contrast in the colon at 3 hours. Gómez Marrero MD on May 01, 2017 at 16:31 Board Certified Radiologist. This report was verified electronically.
[2017-05-01 18:48] LABS: AUTOMATED NEUTROPHIL # 6.7 TH/MM3 (1.8-7.7); BASOPHIL % 0.4 % (0.0-2.0); EOSINOPHIL % 0.2 % (0.0-4.0); HEMATOCRIT 45.5 % (39.0-51.0); HEMO FLAGS DIFF FINAL; LYMPH % 8.9 % (9.0-44.0); LYMPHOCYTE # 0.7 TH/MM3 (1.0-4.8); MEAN CELL VOLUME 93.4 FL (80.0-100.0); MEAN CORPUSCULAR HEMOGLOBIN 31.6 PG (27.0-34.0); MEAN CORPUSCULAR HGB CONC 33.9 % (32.0-36.0); MONO % 9.6 % (0.0-8.0); NEUT % 80.9 % (16.0-70.0); PLATELET COUNT 179 TH/MM3 (150-450); RED BLOOD COUNT 4.87 MIL/MM3 (4.50-5.90); RED CELL DISTRIBUTION WIDTH 14.3 % (11.6-17.2); WHITE BLOOD COUNT 8.3 TH/MM3 (4.0-11.0)
[2017-05-01 19:08] LABS: BICARBONATE 27.9 MEQ/L (21.0-32.0)
[2017-05-01 19:12] LABS: POTASSIUM 4.8 MEQ/L (3.5-5.1)
[2017-05-02] MEDS: MORPHINE SULFATE 4 MG/ML INJ IV PRN (01:17)
[2017-05-02 03:37] VITALS: BP 128/76; PULSE 95; RESP 16; TEMP 98.6; O2SAT 92
[2017-05-02] MEDS: SODIUM CHLOR 0.9% 1000 ML INJ 1,000 ML IV SCH ×3 (04:40→20:58)
[2017-05-02] MEDS: INSULIN ASPART SUPPLEMENTAL SCALE SQ SCH ×4 (07:00→21:00)
--- NOTE | 2017-05-02 07:10 | MB ---
cc: ELTON CHILEL M.D. DATE OF CONSULTATION: 05/01/2017 REASON FOR CONSULTATION: Abdominal pain, nausea and vomiting and partial bowel obstruction. HISTORY OF PRESENT ILLNESS: The patient is an 81 year-old male with previous history of abdominal aortic aneurysm and history of cholecystectomy and appendectomy in the past. The patient has had multiple episodes of partial bowel obstruction that have resolved spontaneously, he was seen by the undersigned in September of this year with similar problems which resolved without any intervention other then bowel rest. The patient had an nasogastric tube in but is also passing flatus. PAST MEDICAL HISTORY: 1. Past medical history includes diabetes mellitus 2. coronary artery disease 3. history of small bowel obstruction in the past. MEDICATIONS 1. Meds include omeprazole 40 mg q. day. 1. Tramadol 50 mg p.o. q.8 h as needed 2. vitamin D3 400 units a day. 3. Nexium 40 mg daily. 4. Aspirin 325 mg daily. 5. Lovastatin 10 mg p.o. q. day. 6. Niacin 1500 mg p.o. q.h.s. 7. Combi glide XR 2.5 / 1000 mg q. day. 8. Zyrtec 10 mg p.o. daily. 9. Nasonex nasal spray 2 sprays each nostril to the nostrils daily 10. ProAir HFA two puffs q. 6 hours. PHYSICAL EXAMINATION: IN GENERAL: Physical exam reveals a male in no acute distress. VITAL SIGNS: BP 132/86, pulse 122, respirations 20, temperature 97.6, 91% saturation. HEAD, EYES, EARS, NOSE, AND THROAT: Sclerae anicteric. CHEST: Chest is clear. ABDOMEN: Abdomen is soft but distended with diffuse mild tenderness. EXTREMITIES: Full range of motion. NEURO: Alert and oriented x 3, cranial nerves grossly intact; motor grossly intact. LABORATORY FINDINGS: Laboratory values demonstrate WBCs of 8.3 today down from 12.9 yesterday. Chemistries and creatinine 32, 1.7. Potassium 4.8. IMAGING STUDIES CT the abdomen yesterday demonstrated a dilated esophagus, stomach and proximal small bowel with decompression distally. Small bowel x-ray performed earlier demonstrates grossly normal mucosal pattern, small bowel transit time of about 3 hours. This is a nonspecific study with multiple loops of borderline dilated ileum. There is contrast in the colon in 3 hours. ASSESSMENT Partial small-bowel obstruction, one of many episodes, the last in September. PLAN The patient wishes nonoperative management at this time and we will follow with you. We will keep the patient n.p.o. and hydrated. Thank you for asking us to see this patient. MD FALLON Smith/chitra /11:38 PM /6:59 AM MTDD
[2017-05-02] MEDS: DOCUSATE SODIUM 50 MG/SENNA 8.6 MG TAB PO SCH ×2 (08:09→20:58)
[2017-05-02] MEDS: FLUTICASONE PROPIONATE 50 MCG/ACT 16 GM NASAL SPRAY EACH NARE SCH (08:09)
[2017-05-02] MEDS: SODIUM CHLORIDE 0.9% FLUSH 10 ML FLUSH IV FLUSH SCH ×2 (08:09→20:57)
[2017-05-02 08:23] VITALS: PULSE 78; RESP 18; TEMP 96.8; O2SAT 95
[2017-05-02 09:20] LABS: AUTOMATED NEUTROPHIL # 4.4 TH/MM3 (1.8-7.7); BASOPHIL % 0.5 % (0.0-2.0); EOSINOPHIL # 0.1 TH/MM3 (0-0.4); HEMATOCRIT 39.3 % (39.0-51.0); HEMO FLAGS DIFF FINAL; LYMPH % 14.6 % (9.0-44.0); LYMPHOCYTE # 0.9 TH/MM3 (1.0-4.8); MEAN CELL VOLUME 93.9 FL (80.0-100.0); MEAN CORPUSCULAR HEMOGLOBIN 31.4 PG (27.0-34.0); MEAN CORPUSCULAR HGB CONC 33.4 % (32.0-36.0); MONO % 11.6 % (0.0-8.0); NEUT % 72.3 % (16.0-70.0); PLATELET COUNT 144 TH/MM3 (150-450); RED BLOOD COUNT 4.18 MIL/MM3 (4.50-5.90); RED CELL DISTRIBUTION WIDTH 14.4 % (11.6-17.2)
[2017-05-02 09:55] LABS: ALKALINE PHOSPHATASE 95 U/L (45-117); ALT (GPT) 13 U/L (12-78); ANION GAP 6 MEQ/L (5-15); AST (GOT) 13 U/L (15-37); BICARBONATE 29.6 MEQ/L (21.0-32.0); BLOOD UREA NITROGEN 30 MG/DL (7-18); CHLORIDE 109 MEQ/L (98-107); GLOMERULAR FILTRATION RATE 53 ML/MIN (>89); POTASSIUM 3.8 MEQ/L (3.5-5.1); SODIUM (NA) 145 MEQ/L (136-145); TOTAL BILIRUBIN ADULT 0.5 MG/DL (0.2-1.0)
--- NOTE | 2017-05-02 10:05 | HHI.PR ---
Subjective History of Present Illness Patient have diarrhea and feel weak and tired Have Diarrhea checking stool studies..C- Diff negative. d/w patient and at bed side. and abdominal pain resolved.. Review of Systems Constitutional Constitutional: Fatigue, Weakness Ears and Nose Ears and Nose Remarks NG Tube in. GI/Abdomen GI/Abdominal Exam: Diarrhea Vitals/Results Intake & Output 05/01/17 05/01/17 05/02/17 15:00 23:00 07:00 Intake Total 1994 ml Balance 1994 ml Intake IV Total 1994 ml # Bowel Movements 1 4 Vital Signs Vital Signs Date Time Temp Pulse Resp B/P Pulse Ox O2 Delivery O2 Flow Rate FiO2 05/02/17 08:23 96.8 78 18 95 05/02/17 03:37 98.6 95 16 128/76 92 05/02/17 01:22 12 05/01/17 23:38 98.3 93 17 130/75 92 05/01/17 19:35 97.9 114 18 118/75 93 05/01/17 16:33 97.6 122 20 132/86 91 05/01/17 12:03 97.4 96 16 134/76 95 CBC/BMP: 05/02/17 0755 05/02/17 0755 Lab Results Laboratory Tests Test 05/01/17 05/02/17 18:38 07:55 White Blood Count 8.3 TH/MM3 6.0 TH/MM3 Red Blood Count 4.87 MIL/MM3 4.18 MIL/MM3 Hemoglobin 15.4 GM/DL 13.1 GM/DL Hematocrit 45.5 % 39.3 % Mean Corpuscular Volume 93.4 FL 93.9 FL Mean Corpuscular Hemoglobin 31.6 PG 31.4 PG Mean Corpuscular Hemoglobin 33.9 % 33.4 % Concent Red Cell Distribution Width 14.3 % 14.4 % Platelet Count 179 TH/MM3 144 TH/MM3 Mean Platelet Volume 8.6 FL 8.9 FL Neutrophils (%) (Auto) 80.9 % 72.3 % Lymphocytes (%) (Auto) 8.9 % 14.6 % Monocytes (%) (Auto) 9.6 % 11.6 % Eosinophils (%) (Auto) 0.2 % 1.0 % Basophils (%) (Auto) 0.4 % 0.5 % Neutrophils # (Auto) 6.7 TH/MM3 4.4 TH/MM3 Lymphocytes # (Auto) 0.7 TH/MM3 0.9 TH/MM3 Monocytes # (Auto) 0.8 TH/MM3 0.7 TH/MM3 Eosinophils # (Auto) 0.0 TH/MM3 0.1 TH/MM3 Basophils # (Auto) 0.0 TH/MM3 0.0 TH/MM3 CBC Comment DIFF FINAL DIFF FINAL Differential Comment Sodium Level 143 MEQ/L 145 MEQ/L Potassium Level 4.8 MEQ/L 3.8 MEQ/L Chloride Level 107 MEQ/L 109 MEQ/L Carbon Dioxide Level 27.9 MEQ/L 29.6 MEQ/L Anion Gap 8 MEQ/L 6 MEQ/L Blood Urea Nitrogen 32 MG/DL 30 MG/DL Creatinine 1.73 MG/DL 1.31 MG/DL Estimat Glomerular Filtration 38 ML/MIN 53 ML/MIN Rate Random Glucose 146 MG/DL 106 MG/DL Calcium Level 8.8 MG/DL 7.7 MG/DL Total Bilirubin 0.5 MG/DL Aspartate Amino Transf 13 U/L (AST/SGOT) Alanine Aminotransferase 13 U/L (ALT/SGPT) Alkaline Phosphatase 95 U/L Total Protein 5.9 GM/DL Albumin 2.8 GM/DL Microbiology Microbiology 05/02/17 Cryptosporidium Exam, Received Pending 05/02/17 Giardia Antigen (MIRYAM), Received Pending Physical Exam General General Appearance: No Acute Distress, Comfortable Eyes Eye Exam: Sclera White, Extraocular Movement Intact Ears & Nose Ears & Nose Remarks NG Tube in. Throat Throat Exam: Oral Mucosa [place] & Moist, Oral Pharynx Normal Neck Neck Exam: Neck Supple, Trachea Midline Pulmonary Resp Exam: Clear Bilaterally, Breath Sounds Equal Cardiology CV Exam: Regular, Normal Sinus Rhythm Gastrointestinal/Abdomen GI Exam: Soft, Non-Tender, Bowel Sounds Present Musculoskeletal MS Exam: Joints Intact Integumentary Skin Exam: Clear, Warm, Dry Extremeties Extremities Exam: No Edema Neurologic Neuro Exam: Alert, Awake, Oriented, Speech Clear, Moving All Extremities, No Focal Deficits Psychiatric Psych Exam: Appropriate Responses VTE Prophylaxis VTE Prophylaxis Meds: Heparin PUD Prophylasis PUD Prophylaxis: Protonix Assessment/Plan Assessment/Plan ASSESSMENT AND PLAN 1. This is an 81-year-old male who came to the ER diagnosed with abdominal pain with nausea and vomiting secondary to partial small bowel obstruction. The patient has an NG tube in. The patient is passing gas. have diarrhea general surgery in put noted for further recommendation. non operative management. 2. History of diabetes mellitus. Insulin sliding scale. Will monitor blood sugar closely. 3. History of nasal allergies. Continue home medication. 4. History of hyperlipidemia. Continue with lovastatin and niacin. 5. History of COPD. Continue home medication. 6. History of arthritis. Continue home medication. 7. History of gastroesophageal reflux disease. Protonix 40 mg p.o. daily. 8. DVT prophylaxis. Lovenox 40 mg subcutaneous daily. 9. GI prophylaxis. Protonix 40 mg IV daily. 10. Mild hyponatremia. 11. Renal insufficiency. The patient is on IV fluid and will monitor BUN and creatinine... better. 12. Leukocytosis. resolved. will monitor. 13. Diarrhea checking stool studies.. C- Diff negative. Check CBC with diff CMP in AM. We are going to manage the patient on a daily basis and make recommendations on a daily basis. Discussed Condition with: Patient Chilo Loredo MD May 02, 2017 10:05
[2017-05-02 11:06] LABS: C. DIFF EPI 027 PRESUMPTIVE NEGATIVE (NEGATIVE)
[2017-05-02 12:17] VITALS: BP 126/70; PULSE 78; RESP 18; TEMP 96.7; O2SAT 95
[2017-05-02 16:32] VITALS: BP 138/65; PULSE 69; RESP 18; TEMP 97.9; O2SAT 95
--- NOTE | 2017-05-02 17:27 | HHI.PR ---
Subjective Subjective Notes Feels much better today; had a loose BM Objective Vitals/I&O Vital Signs Date Time Temp Pulse Resp B/P Pulse Ox O2 Delivery O2 Flow Rate FiO2 05/02/17 16:32 97.9 69 18 138/65 95 04/30/17 23:00 Room Air 04/30/17 21:00 2 Labs Laboratory Tests Test 05/01/17 05/02/17 05/02/17 18:38 07:55 08:05 White Blood Count 8.3 6.0 Red Blood Count 4.87 4.18 Hemoglobin 15.4 13.1 Hematocrit 45.5 39.3 Mean Corpuscular Volume 93.4 93.9 Mean Corpuscular Hemoglobin 31.6 31.4 Mean Corpuscular Hemoglobin 33.9 33.4 Concent Red Cell Distribution Width 14.3 14.4 Platelet Count 179 144 Mean Platelet Volume 8.6 8.9 Neutrophils (%) (Auto) 80.9 72.3 Lymphocytes (%) (Auto) 8.9 14.6 Monocytes (%) (Auto) 9.6 11.6 Eosinophils (%) (Auto) 0.2 1.0 Basophils (%) (Auto) 0.4 0.5 Neutrophils # (Auto) 6.7 4.4 Lymphocytes # (Auto) 0.7 0.9 Monocytes # (Auto) 0.8 0.7 Eosinophils # (Auto) 0.0 0.1 Basophils # (Auto) 0.0 0.0 CBC Comment DIFF FINAL DIFF FINAL Differential Comment Sodium Level 143 145 Potassium Level 4.8 3.8 Chloride Level 107 109 Carbon Dioxide Level 27.9 29.6 Anion Gap 8 6 Blood Urea Nitrogen 32 30 Creatinine 1.73 1.31 Estimat Glomerular Filtration 38 53 Rate Random Glucose 146 106 Calcium Level 8.8 7.7 Total Bilirubin 0.5 Aspartate Amino Transf 13 (AST/SGOT) Alanine Aminotransferase 13 (ALT/SGPT) Alkaline Phosphatase 95 Total Protein 5.9 Albumin 2.8 Stool C. difficile Toxin (PCR) NEGATIVE Stl C. difficile Toxin PRESUMPTIVE Epiderm 027 NEGATIVE Date/Time Procedure Status Source Growth 05/02/17 08:05 Cryptosporidium Exam Received Stool Stool Pending 05/02/17 08:05 Giardia Antigen (MIRYAM) Received Stool Stool Pending Lungs: Clear Abdomen: Non-tender, Other (moderately distended, but very soft ) A/P Assessment and Plan Partial small bowel obstruction, improved. Will remove NG and start clear liquid diet. Discussed surgery next time this occurs, as it has actually happened in March, but patient did not require hospitalization. (He self-treated). Will advance diet in AM if he tolerates clears; will need surgery if he fails diet advancement. Gómez Philip MD May 02, 2017 17:27
[2017-05-02 23:46] VITALS: BP 135/65; PULSE 68; RESP 17; TEMP 96.8; O2SAT 94
[2017-05-03 04:06] VITALS: BP 135/68; PULSE 69; RESP 18; TEMP 97; O2SAT 94
[2017-05-03 05:19] LABS: AUTOMATED NEUTROPHIL # 4.5 TH/MM3 (1.8-7.7); BASOPHIL % 0.4 % (0.0-2.0); EOSINOPHIL # 0.1 TH/MM3 (0-0.4); EOSINOPHIL % 1.2 % (0.0-4.0); HEMATOCRIT 37.2 % (39.0-51.0); HEMO FLAGS DIFF FINAL; LYMPH % 14.2 % (9.0-44.0); LYMPHOCYTE # 0.9 TH/MM3 (1.0-4.8); MEAN CELL VOLUME 93.5 FL (80.0-100.0); MEAN CORPUSCULAR HEMOGLOBIN 31.2 PG (27.0-34.0); MEAN CORPUSCULAR HGB CONC 33.4 % (32.0-36.0); MONO % 10.2 % (0.0-8.0); PLATELET COUNT 123 TH/MM3 (150-450); RED BLOOD COUNT 3.98 MIL/MM3 (4.50-5.90); RED CELL DISTRIBUTION WIDTH 14.2 % (11.6-17.2); WHITE BLOOD COUNT 6.1 TH/MM3 (4.0-11.0)
[2017-05-03 06:24] LABS: ALKALINE PHOSPHATASE 84 U/L (45-117); ALT (GPT) 13 U/L (12-78); ANION GAP 8 MEQ/L (5-15); AST (GOT) 14 U/L (15-37); BICARBONATE 25.1 MEQ/L (21.0-32.0); BLOOD UREA NITROGEN 17 MG/DL (7-18); CHLORIDE 110 MEQ/L (98-107); GLOMERULAR FILTRATION RATE 78 ML/MIN (>89); POTASSIUM 3.6 MEQ/L (3.5-5.1); SODIUM (NA) 143 MEQ/L (136-145); TOTAL BILIRUBIN ADULT 0.6 MG/DL (0.2-1.0)
[2017-05-03] MEDS: INSULIN ASPART SUPPLEMENTAL SCALE SQ SCH ×4 (06:30→20:54)
[2017-05-03] MEDS: ACETAMINOPHEN 325 MG TAB PO PRN ×2 (06:34→22:43)
[2017-05-03 07:48] VITALS: BP 115/64; PULSE 60; RESP 20; TEMP 97.9; O2SAT 95
[2017-05-03] MEDS: FLUTICASONE PROPIONATE 50 MCG/ACT 16 GM NASAL SPRAY EACH NARE SCH (09:00)
[2017-05-03] MEDS: DOCUSATE SODIUM 50 MG/SENNA 8.6 MG TAB PO SCH ×2 (09:00→20:54)
[2017-05-03] MEDS: SODIUM CHLORIDE 0.9% FLUSH 10 ML FLUSH IV FLUSH SCH ×2 (09:00→20:54)
[2017-05-03] MEDS: SODIUM CHLOR 0.9% 1000 ML INJ 1,000 ML IV SCH ×2 (10:40→20:40)
[2017-05-03 14:26] VITALS: BP 156/74; PULSE 73; RESP 18; TEMP 98; O2SAT 96
--- NOTE | 2017-05-03 18:14 | HHI.PR ---
Subjective Subjective Notes DAILY PROGRESS NOTE FOR SURGICAL ATTENDING, DR. SARAH REGALADO Tolerating a regular diet and having loose bowel movements Objective Vitals/I&O Vital Signs Date Time Temp Pulse Resp B/P (MAP) Pulse Ox O2 Delivery O2 Flow Rate FiO2 05/03/17 14:26 98.0 73 18 156/74 (101) 96 04/30/17 23:00 Room Air 04/30/17 21:00 2 Labs Laboratory Tests Test 05/03/17 04:25 White Blood Count 6.1 Red Blood Count 3.98 Hemoglobin 12.4 Hematocrit 37.2 Mean Corpuscular Volume 93.5 Mean Corpuscular Hemoglobin 31.2 Mean Corpuscular Hemoglobin Concent 33.4 Red Cell Distribution Width 14.2 Platelet Count 123 Mean Platelet Volume 8.6 Neutrophils (%) (Auto) 74.0 Lymphocytes (%) (Auto) 14.2 Monocytes (%) (Auto) 10.2 Eosinophils (%) (Auto) 1.2 Basophils (%) (Auto) 0.4 Neutrophils # (Auto) 4.5 Lymphocytes # (Auto) 0.9 Monocytes # (Auto) 0.6 Eosinophils # (Auto) 0.1 Basophils # (Auto) 0.0 CBC Comment DIFF FINAL Differential Comment Blood Urea Nitrogen 17 Creatinine 0.93 Random Glucose 88 Total Protein 5.5 Albumin 2.5 Calcium Level 7.8 Alkaline Phosphatase 84 Aspartate Amino Transf (AST/SGOT) 14 Alanine Aminotransferase (ALT/SGPT) 13 Total Bilirubin 0.6 Sodium Level 143 Potassium Level 3.6 Chloride Level 110 Carbon Dioxide Level 25.1 Anion Gap 8 Estimat Glomerular Filtration Rate 78 Date/Time Source Procedure Growth Status 05/02/17 08:05 Stool Stool Cryptosporidium Exam - Final NEGATIVE - NO CRYPTOSPORIDIUM ANTIGEN... Complete 05/02/17 08:05 Stool Stool Giardia Antigen (MIRYAM) - Final NEGATIVE - NO GIARDIA ANTIGEN DETECTE... Complete Radiology Last Impressions Small Bowel X-Ray 05/01/17 0000 Signed Impressions: Service Date/Time: Monday, May 01, 2017 13:03 - CONCLUSION: Nonspecific study with multiple loops of borderline dilated ileum and no evidence of definite obstruction. There is contrast in the colon at 3 hours. Gómez Marerro MD Abdomen/Pelvis CT 04/30/17 191 Signed Impressions: Service Date/Time: April 21:01 - CONCLUSION: 1. Dilated distal esophagus, stomach and proximal small bowel with decompression distally characteristic of an early or partial small bowel obstruction. No free air or significant free fluid. 2. 3.8 cm abdominal aortic aneurysm infrarenal with mild aneurysmal dilatation of the common iliac arteries proximally. 3. Nonobstructing renal calculi. Mild biliary ductal dilatation. Previous cholecystectomy and appendectomy. Sarah Hartmann MD Cardiovascular: Regular Lungs: Clear Abdomen: Non-distended, Other (abdomen soft sitting up in bed tolerating a diet ) A/P Problem List: (1) Bowel obstruction ICD Codes: K56.60 - Unspecified intestinal obstruction Status: Resolved (2) Nausea & vomiting ICD Codes: R11.2 - Nausea with vomiting, unspecified Status: Acute (3) AAA (abdominal aortic aneurysm) ICD Codes: I71.4 - AAA (abdominal aortic aneurysm) Status: Acute (4) Partial small bowel obstruction ICD Codes: K56.69 - Other intestinal obstruction Status: Resolved Assessment and Plan Partial small bowel obstruction, improved. Patient feeling so much better he would like to go home tonight Okay to discharge Follow-up Dr. Philip next week or 2 Attending Statement NOTE FOR SURGICAL ATTENDING, DR. SARAH REGALADO I attest that I had a [id number] encounter with the patient on the same day, and personally performed and documented my assessment and findings in the medical record. The following services were provided during this hospital visit: Chart data review, vital sign assessments/reviewing monitor data Review of consultations notes if present. Medication orders/review and/or management Ordering and/or reviewing lab tests Ordering and/or interpreting/reviewing x-rays and/or diagnostic studies Care of the patient and discussion of the patient with the care team Documentation time To help prompt me to consider important information that might be impacting today's encounter and assessment, information from prior notes written by myself or my colleagues may have been "brought forward/copy and pasted" into today's note. Problem Qualifiers (1) AAA (abdominal aortic aneurysm): Sarah Regalado MD May 03, 2017 18:14
[2017-05-03 20:00] VITALS: BP 140/76; PULSE 59; RESP 16; TEMP 97.6; O2SAT 95
[2017-05-04] VITALS: BP 140/71; PULSE 59; RESP 18; TEMP 97.2; O2SAT 97
[2017-05-04] MEDS: SODIUM CHLOR 0.9% 1000 ML INJ 1,000 ML IV SCH (06:40)
[2017-05-04] MEDS: INSULIN ASPART SUPPLEMENTAL SCALE SQ SCH ×2 (07:00→11:00)
[2017-05-04 08:00] VITALS: BP 186/91; PULSE 63; RESP 19; TEMP 97.5; O2SAT 99
[2017-05-04] MEDS: ACETAMINOPHEN 325 MG TAB PO PRN (08:54)
[2017-05-04] MEDS: FLUTICASONE PROPIONATE 50 MCG/ACT 16 GM NASAL SPRAY EACH NARE SCH (08:54)
[2017-05-04] MEDS: DOCUSATE SODIUM 50 MG/SENNA 8.6 MG TAB PO SCH (08:54)
[2017-05-04] MEDS: SODIUM CHLORIDE 0.9% FLUSH 10 ML FLUSH IV FLUSH SCH (08:57)
[2017-05-04 09:54] VITALS: RESP 18
--- NOTE | 2017-05-04 11:53 | HHI.PR ---
Subjective History of Present Illness Patient seen on 05/03/17. Patient feel better Diarrhea resolved.. stool studies..C- Diff negative... d/w patient and at bed side. and abdominal pain resolved.. start solid food if tolerate will discharge tomorrow. Review of Systems Constitutional Constitutional: Fatigue, Weakness Ears and Nose Ears and Nose Remarks NG Tube in. GI/Abdomen GI/Abdominal Exam: Diarrhea Vitals/Results Intake & Output 05/04/17 05/04/17 05/05/17 15:00 23:00 07:00 Intake Total 120 ml Balance 120 ml Intake Oral 120 ml Vital Signs Vital Signs Date Time Temp Pulse Resp B/P (MAP) Pulse Ox O2 Delivery O2 Flow Rate FiO2 05/04/17 09:54 18 05/04/17 08:00 97.5 63 19 186/91 (122) 99 05/04/17 00:00 97.2 59 18 140/71 (94) 97 05/03/17 20:00 97.6 59 16 140/76 (97) 95 05/03/17 14:26 98.0 73 18 156/74 (101) 96 CBC/BMP: 05/03/17 0425 05/03/17 0425 Physical Exam General General Appearance: No Acute Distress, Comfortable Eyes Eye Exam: Sclera White, Extraocular Movement Intact Ears & Nose Ears & Nose Remarks NG Tube in. Throat Throat Exam: Oral Mucosa [place] & Moist, Oral Pharynx Normal Neck Neck Exam: Neck Supple, Trachea Midline Pulmonary Resp Exam: Clear Bilaterally, Breath Sounds Equal Cardiology CV Exam: Regular, Normal Sinus Rhythm Gastrointestinal/Abdomen GI Exam: Soft, Non-Tender, Bowel Sounds Present Musculoskeletal MS Exam: Joints Intact Integumentary Skin Exam: Clear, Warm, Dry Extremeties Extremities Exam: No Edema Neurologic Neuro Exam: Alert, Awake, Oriented, Speech Clear, Moving All Extremities, No Focal Deficits Psychiatric Psych Exam: Appropriate Responses VTE Prophylaxis VTE Prophylaxis Meds: Heparin PUD Prophylasis PUD Prophylaxis: Protonix Assessment/Plan Assessment/Plan ASSESSMENT AND PLAN 1. This is an 81-year-old male who came to the ER diagnosed with abdominal pain with nausea and vomiting secondary to partial small bowel obstruction. The patient has an NG tube out.. The patient is passing gas. diarrhea better general surgery in put noted for further recommendation. non operative management. 2. History of diabetes mellitus. Insulin sliding scale. Will monitor blood sugar closely. 3. History of nasal allergies. Continue home medication. 4. History of hyperlipidemia. Continue with lovastatin and niacin. 5. History of COPD. Continue home medication. 6. History of arthritis. Continue home medication. 7. History of gastroesophageal reflux disease. Protonix 40 mg p.o. daily. 8. DVT prophylaxis. Lovenox 40 mg subcutaneous daily. 9. GI prophylaxis. Protonix 40 mg IV daily. 10. Mild hyponatremia. 11. Renal insufficiency. The patient is on IV fluid and will monitor BUN and creatinine... better. 12. Leukocytosis. resolved. will monitor. 13. Diarrhea checking stool studies.. C- Diff negative. DC Trivedi tomorrow if tolerate solid food. We are going to manage the patient on a daily basis and make recommendations on a daily basis. Discussed Condition with: Patient Chilo Loredo MD May 04, 2017 11:53
--- NOTE | 2017-05-05 08:28 | MD ---
cc: CHILO CERRATO MD ADMISSION DATE: 05/02/2017 DISCHARGE DATE: 05/04/2017 DISPOSITION Okay to discharge the patient home. CONDITION AT THE TIME OF DISCHARGE Satisfactory. ACTIVITY As tolerated. DIET Cardiac diet. ALLERGIES No known drug allergies. DISCHARGE MEDICATIONS 1. Albuterol inhaler 1-2 puff inhalation q.6 hours. 2. Aspirin 325 mg p.o. daily. 3. Biotin 1,000 mcg p.o. daily. 4. Lortab 10 mg p.o. daily. 5. Vitamin D3 400 units daily. 6. Omeprazole 40 mg daily. 7. Glimepiride 2 mg daily. 8. Lovastatin 10 mg daily. 9. Nasonex nasal spray 2 sprays per nostril daily. 10. Niacin 1500 mg at bedtime. 11. Saxagliptin. 12. Metformin 2.01/1000 mg p.o. daily. 13. Tramadol 50 mg p.o. q.8 hours p.r.n. pain. FOLLOWUP The patient was advise to follow up with PCP and General Surgery in one week. ADMISSION DIAGNOSIS Nausea, vomiting and abdominal pain secondary to small bowel obstruction. DISCHARGE DIAGNOSES 1. Nausea, vomiting and abdominal pain, improved. 2. Small bowel obstruction. The patient is status post NG tube placement which is removed. The patient was tolerating a regular diet before the discharge. OTHER DIAGNOSES 1. Nasal allergies. 2. Hyperlipidemia. 3. COPD. 4. Arthritis. 5. Gastroesophageal reflux. 6. Hyponatremia. 7. Renal insufficiency. 8. The patient had diarrhea during her hospital stay which has resolved. C-diff was negative. HOSPITAL COURSE This is an 81-year-old male admitted with the above-mentioned complaints and problems and the patient had NG tube and General Surgery had seen the patient. Conservative management was planned by General Surgery. The patient had mild leukocytosis which has resolved. The patient also had hyperchloremia of 110 chloride. Sodium was 134, increased to 143. The patient had a low albumin at 2.5 and a low total protein at 5.5. The patient had BUN of 30 and creatinine of 1.31 and the patient also had a BUN of 32 and creatinine of 1.73. PT 10.8, INR 1.0, APTT 24.0. The patient's C. diff was negative. The patient's CT of the abdomen and pelvis was done which shows the dilated distal esophagus, stomach and proximal small bowel with decompression distally characteristic of early or partial small bowel obstruction. No free air or significant free fluid. 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 Small bowel series done, shows no evidence of definitive obstruction. Further details in the medical record. Chilo Cerrato MD EA/MARISELA /11:58 AM /8:13 AM
== END 2017-05-04 12:39 | disposition home or self-care (01) | DRG 389 ==
LOC: NEPE 17:42 → NEDA 22:24 → NEPGCP 05-01 00:12 → OBSVTOIN 05-02 13:33 → N07B 05-03 18:57
PROVIDERS: ADMIT Family Medicine; ATTEND Family Medicine
DX: K56.60 Unspecified intestinal obstruction (principal); E87.1 Hypo-osmolality and hyponatremia; J44.9 Chronic obstructive pulmonary disease, unspecified; E11.9 Type 2 diabetes mellitus without complications; I10 Essential (primary) hypertension; I25.10 Atherosclerotic heart disease of native coronary artery without angina pectoris; M19.90 Unspecified osteoarthritis, unspecified site; K21.9 Gastro-esophageal reflux disease without esophagitis; I71.4 Abdominal aortic aneurysm, without rupture; E78.5 Hyperlipidemia, unspecified; Z79.82 Long term (current) use of aspirin; Z95.1 Presence of aortocoronary bypass graft; Z87.891 Personal history of nicotine dependence
CPT/HCPCS: 74177; 74250; 80048; 80053; 82550; 82948; 83690; 84484; 85025; 85610; 85730; 87328; 87329; 87493; 93005; 96374; 96375; G0378; J1170; J2270; J2405; J7030; Q9963; Q9967

== ENCOUNTER 2017-07-22 17:02 | Emergency (ER) | payer MEDICARE, BC ==
[~2017-07-22] VITALS: Ht 160 cm; Wt 63.5 kg
[2017-07-22 17:02] VITALS: BP 147/77; PULSE 86; RESP 18; TEMP 97.7; O2SAT 97
[~2017-07-22 17:02] MED LIST changes: -OMEP40CA2 PO
--- NOTE | 2017-07-22 18:46 | RADRPT ---
EXAM DATE/TIME: 07/22/2017 18:27 [facility] COMPARISON: ABDOMEN KUB ONLY, March 13, 2017, 6:27. INDICATIONS : Abdominal pain, possible obstruction. MEDICAL HISTORY : Diverticulitis. Several obstructions. SURGICAL HISTORY : Cholecystectomy. ENCOUNTER: Initial ACUITY: 1 week PAIN SCORE: 7/10 LOCATION: Bilateral abdomen. FINDINGS: 2 supine frontal views of the abdomen show dilated loops of gas-filled small bowel. Gas and stool is seen within the rectal vault. No gross pneumoperitoneum. Surgical clips overlie the left lower quadra nt. Lung bases are clear with exception of a tiny right effusion. A degenerative spine. Osteoarthriti s of the right hip. CONCLUSION: Dilated small bowel suggesting distal small bowel obstruction. Neo Wood Jr., MD on July 22, 2017 at 18:44 Board Certified Radiologist. This report was verified electronically.
[2017-07-22 19:43] LABS: AUTOMATED NEUTROPHIL # 9.9 TH/MM3 (1.8-7.7); BASOPHIL % 0.1 % (0.0-2.0); EOSINOPHIL # 0.1 TH/MM3 (0-0.4); EOSINOPHIL % 0.5 % (0.0-4.0); HEMATOCRIT 43.7 % (39.0-51.0); HEMO FLAGS DIFF FINAL; LYMPH % 8.8 % (9.0-44.0); LYMPHOCYTE # 1.1 TH/MM3 (1.0-4.8); MEAN CORPUSCULAR HEMOGLOBIN 30.2 PG (27.0-34.0); MEAN CORPUSCULAR HGB CONC 32.4 % (32.0-36.0); MONO % 8.7 % (0.0-8.0); NEUT % 81.9 % (16.0-70.0); PLATELET COUNT 153 TH/MM3 (150-450); RED CELL DISTRIBUTION WIDTH 15.4 % (11.6-17.2); WHITE BLOOD COUNT 12.1 TH/MM3 (4.0-11.0)
[2017-07-22 19:44] LABS: BLOOD, URINE NEG (NEG); COMMENT (UR) CULT NOT INDICATED; CULTURE IF INDICATED CULT NOT INDICATED; GLUCOSE,URINE NEG (NEG); KETONE, URINE 10 mg/dL (NEG); MUCUS URINE FEW /lpf (OCC); NITRITE,URINE NEG (NEG); SQUAMOUS EPITHELIAL CELL URINE <1 /hpf (0-5); URINE COLOR YELLOW (YELLW/STRAW)
[2017-07-22 19:56] LABS: ANION GAP 7 MEQ/L (5-15); AST (GOT) 19 U/L (15-37); BICARBONATE 24.9 MEQ/L (21.0-32.0); BLOOD UREA NITROGEN 19 MG/DL (7-18); CHLORIDE 107 MEQ/L (98-107); GLOMERULAR FILTRATION RATE 74 ML/MIN (>89); SODIUM (NA) 139 MEQ/L (136-145)
[2017-07-22 20:01] LABS: ALKALINE PHOSPHATASE 111 U/L (45-117); ALT (GPT) 28 U/L (12-78); TOTAL BILIRUBIN ADULT 0.4 MG/DL (0.2-1.0)
[2017-07-22] MEDS ORDERED: IOHEXOL 350 MG/ML 10 ML VIAL (for RAD DIAG) IVCONTRAST ONE (20:10)
[2017-07-22] MEDS ORDERED: SULF1TAB23 PO (20:10)
[2017-07-22] MEDS ORDERED: CITRTAB7 PO (20:10)
[2017-07-22] MEDS ORDERED: METO25TA3 PO (20:10)
--- NOTE | 2017-07-22 20:24 | PD ---
HPI Chief Complaint: Abdominal Pain Time Seen by Provider: 19:36 Travel History International Travel<30 days: No Contact w/Intl Traveler<30days: No Traveled to known affect area: No History of Present Illness HPI 4-year-old male that presents to the ED for evaluation of abdominal pain. Patient has a history of multiple small bowel obstructions in the past and this feels exactly the same. Per patient he thinks there about a week ago. Per patient he was hoping it would go away but he has not. He denies any nausea or vomiting. He states that he had a normal bowel movement today and passing gas. Per patient the discomfort is mainly on the left upper quadrant and is 2 out of 10. Sometimes he gets to be severe 8 out of 10. His been taking some tramadol for pain which she takes chronically for acute exacerbations of pain with some relief. He denies any urinary symptoms. No fevers chills or sweats. He does have a history of multiple surgeries to his abdomen has had additions and this is what is believed to because of the symptoms. He denies any bloody stool. PFSH Past Medical History Hx Anticoagulant Therapy: Yes (ASA) AAA: Yes (3.8 CM 08/02/2014) Arthritis: Yes Asthma: No Autoimmune Disease: No Blood Disorders: No Anxiety: No Depression: No Heart Rhythm Problems: No Cancer: No Cardiovascular Problems: Yes (QUAD BYPASS, HTN) High Cholesterol: Yes Chemotherapy: No Chest Pain: No Congestive Heart Failure: No COPD: Yes Cerebrovascular Accident: No Coronary Artery Disease: Yes Diabetes: Yes Patient Takes Glucophage: No Diminished Hearing: No Diverticulitis: Yes Endocrine: Yes Gastrointestinal Disorders: Yes (DIVERTICULITIS ) GERD: Yes Genitourinary: Yes Hiatal Hernia: Yes Hypertension: Yes Immune Disorder: Yes Implanted Vascular Access Dvce: Yes Kidney Stones: Yes Musculoskeletal: Yes Neurologic: No Psychiatric: No Reproductive: No Respiratory: Yes Immunizations Current: Yes Migraines: No Radiation Therapy: No Renal Failure: No Seizures: No Sickle Cell Disease: No Sleep Apnea: No Thyroid Disease: No Ulcer: No PNEUMOCCOCAL Vaccine (Year): 1 Past Surgical History Abdominal Surgery: Yes (APPENDECTOMY) AICD: No Appendectomy: Yes Arteriovenous Shunt: No Cardiac Surgery: Yes (QUADRUPLE BYPASS SX ) Cholecystectomy: Yes (2007) Coronary Artery Bypass Graft: Yes (1996 X) Eye Surgery: Yes (LENS IMPLANTS ) Insulin Pump: No Joint Replacement: No Pacemaker: No Other Surgery: Yes Social History Alcohol Use: Yes (OCCASIONALLY) Tobacco Use: No (QUIT 1996) Substance Use: No Allergies-Medications (Allergen,Severity, Reaction): Coded Allergies: No Known Allergies (Verified Adverse Reaction, Unknown, 07/22/17) Reported Meds & Prescriptions Reported Meds & Active Scripts Active Reported Telmisartan 40 Mg Tab 20 Mg PO DAILY PRN Sulfamethoxazole-Trimethoprim 800-160 Mg Tab 1 Tab PO BID Metoprolol Tartrate 25 Mg Tab 25 Mg PO DAILY Citracal + D3 Maximum (Calcium Citrate-Vitamin D) 315-250 Mg-Unit Tab 1 Tab PO DAILY Biotin 1,000 Mcg Tab 1,000 Mcg PO Tramadol (Tramadol HCl) 50 Mg Tab 50 Mg PO Q8H PRN Vitamin D3 (Cholecalciferol) 400 Unit Cap 400 Units PO DAILY Nexium (Esomeprazole DR) 40 Mg Capdr 40 Mg PO DAILY Ecotrin Regular Strength (Aspirin) 325 Mg Tabdr 325 Mg PO DAILY Lovastatin 10 Mg Tab 10 Mg PO DAILY Niacin 500 Mg Tab 1,500 Mg PO HS Kombiglyze Xr (Saxagliptin-Metformin ER) 2.5-1,000 Mg Tab 1 Tab PO DAILY Glimepiride 2 Mg Tab 2 Mg PO DAILY Take with breakfast or first main meal Cetirizine (Cetirizine HCl) 10 Mg Tab 10 Mg PO DAILY Nasonex Nasal Idalou (Mometasone Furoate) 50 Mcg/Act Naspr 2 Idalou EACH NARE DAILY Proair Hfa 8.5 GM Inh (Albuterol Sulfate) 90 Mcg/Act Aer 2 Puff INH Q6H PRN 108 mcg/actuation Review of Systems Except as stated in HPI: all other systems reviewed are Neg Physical Exam Narrative GENERAL: SKIN: Warm and dry. HEAD: Atraumatic. Normocephalic. EYES: Pupils equal and round. No scleral icterus. No injection or drainage. ENT: No nasal bleeding or discharge. Mucous membranes pink and moist. Tongue is midline. No uvula deviation. NECK: Trachea midline. No JVD. CARDIOVASCULAR: Regular rate and rhythm. No murmurs, S3, S4. RESPIRATORY: No accessory muscle use. Clear to auscultation. Breath sounds equal bilaterally. GASTROINTESTINAL: Abdomen soft, tender to touch in the left upper quadrant with some distention, hyper bowel sounds noted on all quadrants, nondistended. Hepatic and splenic margins not palpable. MUSCULOSKELETAL: Extremities without clubbing, cyanosis, or edema. No obvious deformities. Full range of motion of the upper and lower extremities bilaterally. 2+ pulses bilaterally. NEUROLOGICAL: Awake and alert. No obvious cranial nerve deficits. Motor grossly within normal limits. Five out of 5 muscle strength in the arms and legs. Normal speech. PSYCHIATRIC: Appropriate mood and affect; insight and judgment normal. Data Data Last Documented VS Vital Signs Date Time Temp Pulse Resp B/P (MAP) Pulse Ox O2 Delivery O2 Flow Rate FiO2 07/22/17 19:41 18 07/22/17 17:02 97.7 86 147/77 (100) 97 Room Air Orders Orders Complete Blood Count With Diff (07/22/17 17:29) Comprehensive Metabolic Panel (07/22/17 17:29) Lipase (07/22/17 17:29) Urinalysis - C+S If Indicated (07/22/17 17:29) Abdomen, Kub Only (07/22/17 ) Prothrombin Time / Inr (Pt) (07/22/17 19:38) Act Partial Throm Time (Ptt) (07/22/17 19:38) Ct Abd/Pel W Iv Contrast(Rout) (07/22/17 19:38) Iohexol 350 Inj (Omnipaque 350 Inj) (07/22/17 20:10) Ed Discharge Order (07/22/17 21:59) Labs Laboratory Tests Test 07/22/17 17:50 07/22/17 18:00 07/22/17 19:50 Urine Color YELLOW Urine Turbidity CLEAR Urine pH 5.0 Urine Specific [place] 1.027 Urine Protein TRACE mg/dL Urine Glucose (UA) NEG mg/dL Urine Ketones 10 mg/dL Urine Occult Blood NEG Urine Nitrite NEG Urine Bilirubin NEG Urine Urobilinogen 2.0 MG/DL Urine Leukocyte Esterase NEG Urine RBC 1 /hpf Urine WBC 1 /hpf Urine Squamous Epithelial Cells <1 /hpf Urine Mucus FEW /lpf Microscopic Urinalysis Comment CULT NOT INDICATED White Blood Count 12.1 TH/MM3 Red Blood Count 4.70 MIL/MM3 Hemoglobin 14.2 GM/DL Hematocrit 43.7 % Mean Corpuscular Volume 93.0 FL Mean Corpuscular Hemoglobin 30.2 PG Mean Corpuscular Hemoglobin Concent 32.4 % Red Cell Distribution Width 15.4 % Platelet Count 153 TH/MM3 Mean Platelet Volume 9.3 FL Neutrophils (%) (Auto) 81.9 % Lymphocytes (%) (Auto) 8.8 % Monocytes (%) (Auto) 8.7 % Eosinophils (%) (Auto) 0.5 % Basophils (%) (Auto) 0.1 % Neutrophils # (Auto) 9.9 TH/MM3 Lymphocytes # (Auto) 1.1 TH/MM3 Monocytes # (Auto) 1.0 TH/MM3 Eosinophils # (Auto) 0.1 TH/MM3 Basophils # (Auto) 0.0 TH/MM3 CBC Comment DIFF FINAL Differential Comment Blood Urea Nitrogen 19 MG/DL Creatinine 0.98 MG/DL Random Glucose 110 MG/DL Total Protein 6.6 GM/DL Albumin 2.8 GM/DL Calcium Level 8.8 MG/DL Alkaline Phosphatase 111 U/L Aspartate Amino Transf (AST/SGOT) 19 U/L Alanine Aminotransferase (ALT/SGPT) 28 U/L Total Bilirubin 0.4 MG/DL Sodium Level 139 MEQ/L Potassium Level 4.0 MEQ/L Chloride Level 107 MEQ/L Carbon Dioxide Level 24.9 MEQ/L Anion Gap 7 MEQ/L Estimat Glomerular Filtration Rate 74 ML/MIN Lipase 75 U/L Prothrombin Time 10.6 SEC Prothromb Time International Ratio 1.0 RATIO Activated Partial Thromboplast Time 25.0 SEC MDM Medical Decision Making Medical Screen Exam Complete: Yes Emergency Medical Condition: Yes Medical Record Reviewed: Yes Interpretation(s) CBC & BMP Diagram 07/22/17 18:00 Total Protein 6.6, Albumin 2.8 L, Calcium Level 8.8, Alkaline Phosphatase 111, Aspartate Amino Transf (AST/SGOT) 19, Alanine Aminotransferase (ALT/SGPT) 28, Total Bilirubin 0.4 lipase WNL UA negative Differential Diagnosis Bowel obstruction versus partial bowel obstruction versus diabetes versus nausea and vomiting versus acute abdomen versus diverticulitis Narrative Course 81-year-old male that presents to the ED for evaluation of possible obstruction. Patient was properly examined and was found to have signs and symptoms consistent appears to be bowel obstruction. X-ray and labs were ordered in triage and show possible obstruction. CT was ordered. Patient agrees for us to proceed. Labs and imaging were done and CT did not show any sign of obstruction but did show mild ileus. Case was discussed in my attending who recommends by mouth challenge. This was given to the patient he was able to tolerated well. He has not thrown up. Per patient his pain is completely gone and has minimal discomfort. I did give the option to the patient for observation versus sending him home and he prefers to go home. At this time I believe that this is reasonable as patient does not appear to have an obstruction. I do recommend close follow with a GI specialist for further evaluation and see something can be done to prevent this from happening. He was given a short prescription for Zofran to use only if needed. He agrees with plan. All questions were answered to the best of my ability. See ED worsening symptoms. Diagnosis Primary Impression: Abdominal pain Qualified Codes: R10.9 - Unspecified abdominal pain Additional Impression: Ileus Patient Instructions: General Instructions Additional Instructions: Liquid diet until better. Follow up with PCP. See ED for any worsening symptoms. Especially if he cannot keep anything down. Follow with GI doctor. Med/Other Pt SpecificInfo: Prescription(s) given Disposition: 01 DISCHARGE HOME Condition: Stable Eb Blancas Jul 22, 2017 20:24
[2017-07-22 20:27] LABS: PROTHROMBIN TIME - PATIENT 10.6 SEC (9.8-11.6)
--- NOTE | 2017-07-22 20:31 | RADRPT ---
EXAM DATE/TIME: 07/22/2017 20:00 [facility] COMPARISON: CT ABDOMEN & PELVIS W CONTRAST, April 30, 2017, 21:01. INDICATIONS : Epigastric pain with nausea and vomiting. IV CONTRAST: 98 cc Omnipaque 350 (iohexol) IV ORAL CONTRAST: No oral contrast ingested. RADIATION DOSE: 6.71 CTDIvol (mGy) MEDICAL HISTORY : Cardiovascular disease. Chronic obstructive pulmonary disease. Diverticulitis.Hypertension. Abdominal aortic aneurysm. SURGICAL HISTORY : Cholecystectomy. Appendectomy.CABG ENCOUNTER: Initial ACUITY: 1 day PAIN SCALE: 5/10 LOCATION: Bilateral upper quadrant TECHNIQUE: Volumetric scanning of the abdomen and pelvis was performed. Using automated exposure control and ad justment of the mA and/or kV according to patient size, radiation dose was kept as low as reasonably achievable to obtain optimal diagnostic quality images. DICOM format image data is available electro nically for review and comparison. FINDINGS: LOWER LUNGS: The visualized lower lungs are clear. LIVER: Homogeneous density without lesion. There is no dilation of the biliary tree. Gallbladder is surgica lly absent. SPLEEN: Normal size without lesion. PANCREAS: Within normal limits. KIDNEYS: Normal in size and shape. There is no mass or hydronephrosis. A 2 mm stone is seen involving the rig ht kidney and a 7 mm stone involving the left kidney. ADRENAL GLANDS: Within normal limits. VASCULAR: A fusiform aneurysm involving the infrarenal aorta observed. This extends into the common iliac arter ies bilaterally. Aneurysm measures 3.9 x 3.8 cm which is unchanged from prior study. BOWEL/MESENTERY: Postsurgical changes involving the sigmoid colon are stable from the prior study. Scattered colonic d iverticuli without acute inflammation. Mildly distended loops of fluid-filled large and small bowel i n an ileus type pattern. No free air. No free fluid. No inflammatory process appreciated. ABDOMINAL WALL: Within normal limits. RETROPERITONEUM: There is no lymphadenopathy. BLADDER: No wall thickening or mass. REPRODUCTIVE: Within normal limits. INGUINAL: There is no lymphadenopathy or hernia. MUSCULOSKELETAL: Within normal limits for patient age. CONCLUSION: 1. Mildly distended loops of fluid-filled large and small bowel in a pattern suggesting an ileus. 2. Stable 3.9 x 3.8 cm AAA. 3. Bilateral nonobstructing renal calculi. Neo Wood Jr., MD on July 22, 2017 at 20:26 Board Certified Radiologist. This report was verified electronically.
[2017-07-22] MEDS ORDERED: TELM1TAB PO (21:05)
[2017-07-22] MEDS ORDERED: ZOFR4TAB PO (22:01)
== END 2017-07-22 22:53 | disposition home or self-care (01) ==
LOC: NEPE 17:02
DX: K56.7 Ileus, unspecified (principal); N20.0 Calculus of kidney; I71.4 Abdominal aortic aneurysm, without rupture; M19.90 Unspecified osteoarthritis, unspecified site; E78.00 Pure hypercholesterolemia, unspecified; J44.9 Chronic obstructive pulmonary disease, unspecified; I25.10 Atherosclerotic heart disease of native coronary artery without angina pectoris; E11.9 Type 2 diabetes mellitus without complications; I10 Essential (primary) hypertension; Z79.01 Long term (current) use of anticoagulants; Z79.82 Long term (current) use of aspirin; Z95.1 Presence of aortocoronary bypass graft
CPT/HCPCS: 74000; 74177; 80053; 81001; 83690; 85025; 85610; 85730; 99285; Q9967

== ENCOUNTER 2017-08-08 21:52 | Inpatient (IN) | payer MEDICARE, BC ==
[~2017-08-08] VITALS: Ht 160 cm; Wt 66.3 kg
[~2017-08-08 21:52] MED LIST changes: +CITRTAB7 PO; +METO25TA3 PO; +SULF1TAB23 PO; +TELM1TAB PO; +ZOFR4TAB PO
[2017-08-08] MEDS ORDERED: IOHEXOL 350 MG/ML 10 ML VIAL (for RAD DIAG) IVCONTRAST ONE (21:53)
[2017-08-08 21:54] VITALS: BP 139/92; PULSE 116; RESP 16; TEMP 98.3; O2SAT 98
[2017-08-08] MEDS ORDERED: SODIUM CHLORIDE 0.9% FLUSH 10 ML FLUSH IV FLUSH PRN (22:15)
[2017-08-08] MEDS ORDERED: ONDANSETRON HCL 4 MG/2 ML VIAL IV PUSH ONE (23:00)
[2017-08-08] MEDS ORDERED: MORPHINE SULFATE 4 MG/ML INJ IV PUSH ONE (23:00)
[2017-08-08] MEDS ORDERED: SODIUM CHLORID 0.9% 500 ML INJ 500 ML IV ONE (23:00)
[2017-08-08 23:06] LABS: AUTOMATED NEUTROPHIL # 7.9 TH/MM3 (1.8-7.7); BASOPHIL % 0.3 % (0.0-2.0); EOSINOPHIL # 0.1 TH/MM3 (0-0.4); EOSINOPHIL % 0.9 % (0.0-4.0); HEMATOCRIT 42.6 % (39.0-51.0); HEMO FLAGS DIFF FINAL; LYMPHOCYTE # 0.8 TH/MM3 (1.0-4.8); MEAN CELL VOLUME 92.5 FL (80.0-100.0); MEAN CORPUSCULAR HEMOGLOBIN 31.2 PG (27.0-34.0); MEAN CORPUSCULAR HGB CONC 33.7 % (32.0-36.0); MONO % 8.2 % (0.0-8.0); NEUT % 82.6 % (16.0-70.0); PLATELET COUNT 256 TH/MM3 (150-450); RED BLOOD COUNT 4.61 MIL/MM3 (4.50-5.90); RED CELL DISTRIBUTION WIDTH 14.9 % (11.6-17.2); WHITE BLOOD COUNT 9.6 TH/MM3 (4.0-11.0)
--- NOTE | 2017-08-08 23:11 | PD ---
HPI Chief Complaint: GI Complaint Time Seen by Provider: 22:10 Travel History International Travel<30 days: No Contact w/Intl Traveler<30days: No Traveled to known affect area: No History of Present Illness HPI 81 yo m patient comes to the ED with a cc of abdominal pain. The patient states that earlier this afternoon he began to have abdominal pain and bloating, he has had this numerous times before and has been told that he has adhesions from previous abdominal surgeries. He had a bowel movement earlier today but has been unable to pass flatus this since then. He acknowledges nausea and vomiting. His pain is diffuse and described as burning and pressure. No Fevers or chills. No CP or SOB. States the pain is fairly mild but the nausea is fairly intense he's been having nonbilious nonbloody vomiting. Context as above , associated signs symptoms as above no radiation. PFSH Past Medical History Hx Anticoagulant Therapy: Yes (ASA) AAA: Yes (3.8 CM 08/02/2014) Arthritis: Yes Asthma: No Autoimmune Disease: No Blood Disorders: No Anxiety: No Depression: No Heart Rhythm Problems: No Cancer: No Cardiovascular Problems: Yes (HTN) High Cholesterol: Yes Chemotherapy: No Chest Pain: No Congestive Heart Failure: No COPD: Yes Cerebrovascular Accident: No Coronary Artery Disease: Yes Diabetes: Yes Patient Takes Glucophage: Yes (KOMBIGLYZE/GLYMEPERIDE 0800 08/08/17) Diminished Hearing: No Diverticulitis: Yes Endocrine: Yes Gastrointestinal Disorders: Yes (DIVERTICULITIS ) GERD: Yes Genitourinary: Yes Hiatal Hernia: Yes Hypertension: Yes Immune Disorder: Yes Implanted Vascular Access Dvce: Yes Kidney Stones: Yes Musculoskeletal: Yes Neurologic: No Psychiatric: No Reproductive: No Respiratory: Yes Immunizations Current: Yes Migraines: No Radiation Therapy: No Renal Failure: No Seizures: No Sickle Cell Disease: No Sleep Apnea: No Thyroid Disease: No Ulcer: No PNEUMOCCOCAL Vaccine (Year): 1 Past Surgical History Abdominal Surgery: Yes (APPENDECTOMY) AICD: No Appendectomy: Yes Arteriovenous Shunt: No Cardiac Surgery: Yes (QUADRUPLE BYPASS SX ) Cholecystectomy: Yes (2007) Coronary Artery Bypass Graft: Yes (1996 X) Eye Surgery: Yes (LENS IMPLANTS ) Insulin Pump: No Joint Replacement: No Pacemaker: No Other Surgery: Yes Social History Alcohol Use: Yes (OCCASIONALLY) Tobacco Use: No (QUIT 1996) Substance Use: No Allergies-Medications (Allergen,Severity, Reaction): Coded Allergies: No Known Allergies (Verified Adverse Reaction, Unknown, 08/08/17) Reported Meds & Prescriptions Reported Meds & Active Scripts Active Zofran (Ondansetron HCl) 4 Mg Tab 4 Mg PO Q6HR PRN Reported Sulfamethoxazole-Trimethoprim 800-160 Mg Tab 1 Tab PO BID Metoprolol Tartrate 25 Mg Tab 25 Mg PO DAILY Citracal + D3 Maximum (Calcium Citrate-Vitamin D) 315-250 Mg-Unit Tab 1 Tab PO DAILY Biotin 1,000 Mcg Tab 1,000 Mcg PO Tramadol (Tramadol HCl) 50 Mg Tab 50 Mg PO Q8H PRN Vitamin D3 (Cholecalciferol) 400 Unit Cap 400 Units PO DAILY Nexium (Esomeprazole DR) 40 Mg Capdr 40 Mg PO DAILY Ecotrin Regular Strength (Aspirin) 325 Mg Tabdr 325 Mg PO DAILY Niacin 500 Mg Tab 1,500 Mg PO HS Kombiglyze Xr (Saxagliptin-Metformin ER) 2.5-1,000 Mg Tab 1 Tab PO DAILY Glimepiride 2 Mg Tab 2 Mg PO DAILY Take with breakfast or first main meal Cetirizine (Cetirizine HCl) 10 Mg Tab 10 Mg PO DAILY Nasonex Nasal [place] (Mometasone Furoate) 50 Mcg/Act Naspr 2 [place] EACH NARE DAILY Proair Hfa 8.5 GM Inh (Albuterol Sulfate) 90 Mcg/Act Aer 2 Puff INH Q6H PRN 108 mcg/actuation Review of Systems Except as stated in HPI: all other systems reviewed are Neg Physical Exam Narrative GENERAL: patient is laying in bed in no acute distress SKIN: Warm and dry. HEAD: Atraumatic. Normocephalic. EYES: Pupils equal and round. No scleral icterus. No injection or drainage. ENT: No nasal bleeding or discharge. Mucous membranes pink and moist. NECK: Trachea midline. No JVD. CARDIOVASCULAR: Regular rate and rhythm. occasional premature beats RESPIRATORY: No accessory muscle use. Clear to auscultation. Breath sounds equal bilaterally. GASTROINTESTINAL: Abdomen is tympanic, tender to palpation with voluntary guarding on palpation. Distended. High pitched bowel sounds noted on auscultation. Hepatic and splenic margins not palpable. MUSCULOSKELETAL: Extremities without clubbing, cyanosis, or edema. No obvious deformities. NEUROLOGICAL: Awake and alert. No obvious cranial nerve deficits. Motor grossly within normal limits. Five out of 5 muscle strength in the arms and legs. Normal speech. PSYCHIATRIC: Appropriate mood and affect; insight and judgment normal. Data Data Last Documented VS Vital Signs Date Time Temp Pulse Resp B/P (MAP) Pulse Ox O2 Delivery O2 Flow Rate FiO2 08/09/17 02:00 92 18 124/72 (89) 96 Room Air 08/08/17 21:54 98.3 Orders Orders Complete Blood Count With Diff (08/08/17 22:15) Comprehensive Metabolic Panel (08/08/17 22:15) Lipase (08/08/17 22:15) Prothrombin Time / Inr (Pt) (08/08/17 22:15) Act Partial Throm Time (Ptt) (08/08/17 22:15) Iv Access Insert/Monitor (08/08/17 22:15) Ecg Monitoring (08/08/17 22:15) Oximetry (08/08/17 22:15) Sodium Chloride 0.9% Flush (Ns Flush) (08/08/17 22:15) Ct Abd/Pel W Iv Contrast(Rout) (08/08/17 ) Morphine Inj (Morphine Inj) (08/08/17 23:00) Ondansetron Inj (Zofran Inj) (08/08/17 23:00) Sodium Chlorid 0.9% 500 Ml Inj (Ns 500 M (08/08/17 23:00) Iohexol 350 Inj (Omnipaque 350 Inj) (08/08/17 21:53) Famotidine Inj (Pepcid Inj) (08/09/17 02:30) Famotidine Inj (Pepcid Inj) (08/09/17 21:00) Bedside Glucose LOGAN.CSUGAR (08/09/17 02:19) Blood Glucose Goal (Criteria) (08/09/17 02:19) Hypoglycemia 70 Mg/Dl Or < (08/09/17 02:19) Notify Dr: Other (08/09/17 02:19) Dextrose 50% In Celena (Vial) Inj (D50w (Vi (08/09/17 02:30) Glucagon Inj (Glucagon Inj) (08/09/17 02:30) Insulin Aspart Supplemtl Scale (Novolog (08/09/17 08:00) Admit To Inpatient (08/09/17 ) Vital Signs (Adult) Q4H (08/09/17 02:19) Activity Oob Ad Lillie (08/09/17 02:19) Intake + Output LOGAN.QSHIFT (08/09/17 02:19) Diet Npo (08/09/17 Breakfast) Sodium Chlor 0.9% 1000 Ml Inj (Ns 1000 M (08/09/17 02:19) Sodium Chloride 0.9% Flush (Ns Flush) (08/09/17 02:30) Sodium Chloride 0.9% Flush (Ns Flush) (08/09/17 09:00) Ondansetron Inj (Zofran Inj) (08/09/17 02:30) Comprehensive Metabolic Panel (08/10/17 06:00) Complete Blood Count With Diff (08/10/17 06:00) Scd Bilateral/Knee High LOGAN.BID (08/09/17 02:19) Aman Bilateral/Knee High LOGAN.QSHIFT (08/09/17 02:21) Morphine Inj (Morphine Inj) (08/09/17 02:30) Morphine Inj (Morphine Inj) (08/09/17 02:30) Docusate Sodium-Senna (Lanie-Colace) (08/09/17 09:00) Magnesium Hydroxide Liq (Milk Of Magnesi (08/09/17 02:30) Sennosides (Senokot) (08/09/17 02:30) Bisacodyl Supp (Dulcolax Supp) (08/09/17 02:30) Lactulose Liq (Lactulose Liq) (08/09/17 02:30) Inpatient Certification (08/09/17 ) Metoclopramide Inj (Reglan Inj) (08/09/17 09:00) Metoclopramide Inj (Reglan Inj) (08/09/17 02:30) Admit Order (Ed Use Only) (08/09/17 ) Labs Laboratory Tests Test 08/08/17 22:20 08/08/17 22:25 White Blood Count 9.6 TH/MM3 Red Blood Count 4.61 MIL/MM3 Hemoglobin 14.4 GM/DL Hematocrit 42.6 % Mean Corpuscular Volume 92.5 FL Mean Corpuscular Hemoglobin 31.2 PG Mean Corpuscular Hemoglobin Concent 33.7 % Red Cell Distribution Width 14.9 % Platelet Count 256 TH/MM3 Mean Platelet Volume 8.3 FL Neutrophils (%) (Auto) 82.6 % Lymphocytes (%) (Auto) 8.0 % Monocytes (%) (Auto) 8.2 % Eosinophils (%) (Auto) 0.9 % Basophils (%) (Auto) 0.3 % Neutrophils # (Auto) 7.9 TH/MM3 Lymphocytes # (Auto) 0.8 TH/MM3 Monocytes # (Auto) 0.8 TH/MM3 Eosinophils # (Auto) 0.1 TH/MM3 Basophils # (Auto) 0.0 TH/MM3 CBC Comment DIFF FINAL Differential Comment Blood Urea Nitrogen 16 MG/DL Creatinine 0.95 MG/DL Random Glucose 140 MG/DL Total Protein 6.7 GM/DL Albumin 2.9 GM/DL Calcium Level 8.1 MG/DL Alkaline Phosphatase 139 U/L Aspartate Amino Transf (AST/SGOT) 16 U/L Alanine Aminotransferase (ALT/SGPT) 21 U/L Total Bilirubin 0.3 MG/DL Sodium Level 140 MEQ/L Potassium Level 4.0 MEQ/L Chloride Level 104 MEQ/L Carbon Dioxide Level 25.0 MEQ/L Anion Gap 11 MEQ/L Estimat Glomerular Filtration Rate 76 ML/MIN Lipase 69 U/L Prothrombin Time 12.4 SEC Prothromb Time International Ratio 1.1 RATIO Activated Partial Thromboplast Time 27.8 SEC MDM Medical Decision Making Medical Screen Exam Complete: Yes Emergency Medical Condition: Yes Differential Diagnosis Small Bowel Obstruction, Diverticular disease, ischemic colitis unlikely, ileus , electro-light abnormality, dehydration. Narrative Course Patient roomed emerged Department, certainly distended abdomen and tympanic percussion. Has indications for CAT scan of her abdomen which does show an ileus. Multiple air-fluid levels. No indication for GI decompression at this time. Patient has no obvious obstruction. The patient was discussed the results and recommended admission to the hospital and he is agreeable. Patient discussed with Dr. Ceron and she will admit. Patient was given fluid bolus and pain medicine in the emergency department and heart rate was responding well. Appears much more comfortable on admission also. Diagnosis Primary Impression: Ileus Admitting Information Admitting Physician Requests: Admit Condition: Stable Noe Menard MD Aug 08, 2017 23:11
[2017-08-08 23:29] LABS: APTT (PATIENT) 27.8 SEC (24.3-30.1); INTERNATIONAL NORMALIZED RATIO 1.1 RATIO; PROTHROMBIN TIME - PATIENT 12.4 SEC (9.8-11.6)
[2017-08-08 23:34] LABS: ANION GAP 11 MEQ/L (5-15); AST (GOT) 16 U/L (15-37); BLOOD UREA NITROGEN 16 MG/DL (7-18); CHLORIDE 104 MEQ/L (98-107); GLOMERULAR FILTRATION RATE 76 ML/MIN (>89); SODIUM (NA) 140 MEQ/L (136-145)
[2017-08-08 23:38] LABS: ALKALINE PHOSPHATASE 139 U/L (45-117); ALT (GPT) 21 U/L (12-78); TOTAL BILIRUBIN ADULT 0.3 MG/DL (0.2-1.0)
[2017-08-08 23:54] VITALS: BP 121/78; PULSE 102; RESP 18; O2SAT 95
--- NOTE | 2017-08-09 00:26 | RADRPT ---
EXAM DATE/TIME: 08/08/2017 23:54 [facility] COMPARISON: CT ABDOMEN & PELVIS W CONTRAST, July 22, 2017, 20:00. INDICATIONS : Abdomen pain with nausea and vomiting. Patient has known aneurysm seen on recent CT IV CONTRAST: 80 cc Omnipaque 350 (iohexol) IV ORAL CONTRAST: No oral contrast ingested. RADIATION DOSE: 6.71 CTDIvol (mGy) MEDICAL HISTORY : Aneurysm, abdominal. Cardiovascular disease Hypertension. Diabetes GERD SURGICAL HISTORY : CABG Appendectomy. Cholecystectomy. ENCOUNTER: Initial ACUITY: 1 day PAIN SCALE: 3/10 LOCATION: Bilateral abdomen TECHNIQUE: Volumetric scanning of the abdomen and pelvis was performed. Using automated exposure control and ad justment of the mA and/or kV according to patient size, radiation dose was kept as low as reasonably achievable to obtain optimal diagnostic quality images. DICOM format image data is available electro nically for review and comparison. FINDINGS: LOWER LUNGS: There is stable pleural thickening and fluid along the right posterior and lateral pleura. Patient is status post median sternotomy. The patient is status post median sternotomy. LIVER: Homogeneous density without lesion. There is no dilation of the biliary tree. Status post cholecyste ctomy. SPLEEN: Normal size without lesion. PANCREAS: Within normal limits. KIDNEYS: Normal in size and shape. There is no solid mass or hydronephrosis. Nonobstructing bilateral renal c alculi are again noted. Ureters are unremarkable. There is mild cortical scarring involving the infer ior left kidney. ADRENAL GLANDS: Within normal limits. VASCULAR: Stable infrarenal abdominal aortic aneurysm again noted measuring 3.9 x 3.8 cm with peripheral thromb us and tortuosity. BOWEL/MESENTERY: Postsurgical changes are again noted above in the sigmoid colon. Scattered diverticuli are also again noted with no focal inflammatory change. An abnormal bowel gas pattern is present with mild gaseous distention portions of colon with multiple air-fluid levels. There is are multiple loops of borderlin e dilated air-containing small bowel with air-fluid levels as well. There is no free air or fluid. ABDOMINAL WALL: Within normal limits. RETROPERITONEUM: There is no lymphadenopathy. BLADDER: No wall thickening or mass. REPRODUCTIVE: Within normal limits. INGUINAL: There is no lymphadenopathy or hernia. MUSCULOSKELETAL: Osteopenia, degenerative change and mild scoliosis are present. There are degenerative changes in the hips right greater than left. CONCLUSION: 1. Nonspecific bowel gas pattern with mild gaseous dilatation of portions of the colon and multiple l oops of borderline dilated air-containing small bowel with multiple air-fluid levels in the colon and small bowel. Findings could represent ileus. 2. Stable infrarenal abdominal aortic aneurysm. 3. Stable bilateral nonobstructing renal calculi. 4. Stable thickening and fluid along the right posterior lateral pleura. 5. Status post cholecystectomy. 6. Postsurgical changes in the sigmoid colon. 7. Mild to moderate diverticulosis. Gómez Marrero MD on August 09, 2017 at 0:19 Board Certified Radiologist. This report was verified electronically.
[2017-08-09 02:00] VITALS: BP 124/72; PULSE 92; RESP 18; O2SAT 96
[2017-08-09] MEDS ORDERED: FAMOTIDINE 20 MG/2 ML VIAL IV PUSH ONE (02:30)
[2017-08-09] MEDS ORDERED: ONDANSETRON HCL 4 MG/2 ML VIAL IVP PRN (02:30)
[2017-08-09] MEDS ORDERED: SENNOSIDES 8.6 MG TAB PO PRN (02:30)
[2017-08-09] MEDS ORDERED: MORPHINE SULFATE 4 MG/ML INJ IV PUSH PRN (02:30)
[2017-08-09] MEDS ORDERED: DEXTROSE 50% IN WATER 50 ML VIAL(D50) IV PUSH PRN (02:30)
[2017-08-09] MEDS ORDERED: SODIUM CHLORIDE 0.9% FLUSH 10 ML FLUSH IV FLUSH PRN (02:30)
[2017-08-09] MEDS ORDERED: METOCLOPRAMIDE HCL 10 MG/2 ML VIAL IV PUSH ONE (02:30)
[2017-08-09] MEDS ORDERED: MAGNESIUM HYDROXIDE SUSP 30 ML CUP PO PRN (02:30)
[2017-08-09] MEDS ORDERED: LACTULOSE SYRUP 20 GM/30 ML CUP PO PRN (02:30)
[2017-08-09] MEDS ORDERED: GLUCAGON 1 MG/ML VIAL OTHER PRN (02:30)
[2017-08-09] MEDS ORDERED: BISACODYL 10 MG SUPP RECTAL PRN (02:30)
--- NOTE | 2017-08-09 03:09 | HHI.HP ---
[facility] Trevor Graf MD Admission Diagnosis Ileus Diagnoses: (1) Ileus Diagnosis: Principal (2) HTN (hypertension) Diagnosis: Principal (3) DM (diabetes mellitus) Diagnosis: Principal Travel History International Travel<30 Days: No Contact w/Intl Traveler <30 Da: No Traveled to Known Affected Are: No History of Present Illness This is an 81-year-old male with a PMH of HTN, Hyperlipidemia, AAA, COPD, DM and h/o Recurrent SBO who presented to the ER w/ complaints of abdominal distention, nausea and vomiting starting earlier today. Had small BM this afternoon, minimal gas. Reports symptoms similar to previous episodes of SBO, multiple admissions in the past for same. Follows w/ Dr. Philip as outpatient. On arrival, BP 139/92, HR 116, O2 sat 98% on RA, Afebrile. CBC essentially unremarkable except for elevated neutrophil count. Chemistry unremarkable except for GFR 76. INR 1.1. CT Abd/Pelvis w/ nonspecific bowel gas pattern with mild gaseous dilatation of portions of the colon, likely ileus, otherwise stable findings. S/p Morphine/Zofran in ER, symptoms improved, now more comfortable. Review of Systems Except as stated in HPI: all other systems reviewed are Neg ROS: 14 point review of systems otherwise negative. Past Family Social History Past Medical History PMH: HTN, Hyperlipidemia, AAA, COPD, DM and h/o Recurrent SBO Past Surgical History PAST SURGICAL HISTORY: Appendectomy, CABG, Cholecystectomy, Lens Implants Allergies: Coded Allergies: No Known Allergies (Verified Adverse Reaction, Unknown, 08/08/17) Family History PAST FAMILY HISTORY: Reviewed. No h/o DM or CAD Social History PAST SOCIAL HISTORY: Occasional alcohol. Negative for tobacco or drugs. Physical Exam Vital Signs Vital Signs Date Time Temp Pulse Resp B/P (MAP) Pulse Ox O2 Delivery O2 Flow Rate FiO2 08/08/17 23:54 102 18 121/78 (92) 95 Room Air 08/08/17 23:54 18 08/08/17 21:54 98.3 116 16 139/92 (108) 98 Room Air Physical Exam PE: GENERAL: Very pleasant elderly white male in no acute distress. and son at bedside. HEENT: PERRLA, EOMI. No scleral icterus or conjunctival pallor. No lid lag or facial droop. CARDIOVASCULAR: Regular rate and rhythm. No obvious murmurs to auscultation. No chest tenderness to palpation. RESPIRATORY: No obvious rhonchi or wheezing. Clear to auscultation. Breath sounds equal bilaterally. GASTROINTESTINAL: Abdomen soft, +mildly distended, generalized tenderness to palpation. BS normal. MUSCULOSKELETAL: Extremities without clubbing, cyanosis, or edema. No obvious deformities. NEUROLOGICAL: Awake, alert and oriented x4. No focal neurologic deficits. Moving both upper and lower extremities spontaneously. Laboratory Laboratory Tests Test 08/08/17 22:20 08/08/17 22:25 White Blood Count 9.6 Red Blood Count 4.61 Hemoglobin 14.4 Hematocrit 42.6 Mean Corpuscular Volume 92.5 Mean Corpuscular Hemoglobin 31.2 Mean Corpuscular Hemoglobin Concent 33.7 Red Cell Distribution Width 14.9 Platelet Count 256 Mean Platelet Volume 8.3 Neutrophils (%) (Auto) 82.6 Lymphocytes (%) (Auto) 8.0 Monocytes (%) (Auto) 8.2 Eosinophils (%) (Auto) 0.9 Basophils (%) (Auto) 0.3 Neutrophils # (Auto) 7.9 Lymphocytes # (Auto) 0.8 Monocytes # (Auto) 0.8 Eosinophils # (Auto) 0.1 Basophils # (Auto) 0.0 CBC Comment DIFF FINAL Differential Comment Blood Urea Nitrogen 16 Creatinine 0.95 Random Glucose 140 Total Protein 6.7 Albumin 2.9 Calcium Level 8.1 Alkaline Phosphatase 139 Aspartate Amino Transf (AST/SGOT) 16 Alanine Aminotransferase (ALT/SGPT) 21 Total Bilirubin 0.3 Sodium Level 140 Potassium Level 4.0 Chloride Level 104 Carbon Dioxide Level 25.0 Anion Gap 11 Estimat Glomerular Filtration Rate 76 Lipase 69 Prothrombin Time 12.4 Prothromb Time International Ratio 1.1 Activated Partial Thromboplast Time 27.8 Result Diagram: 08/08/17221908/08/172219 Caprini VTE Risk Assessment Caprini VTE Risk Assessment: No/Low Risk (score <= 1) Caprini Risk Assessment Model Point Value = 1 Point Value = 2 Point Value = 3 Point Value = 5 Age 41-60 Minor surgery BMI > 25 kg/m2 Swollen legs Varicose veins or History of unexplained or recurrent spontaneous Oral contraceptives or hormone replacement Sepsis (< 1 month) Serious lung disease, including pneumonia (< 1 month) Abnormal pulmonary function Acute myocardial infarction Congestive heart failure (< 1 month) History of inflammatory bowel disease Medical patient at bed rest Age 61-74 Arthroscopic surgery Major open surgery (> 45 min) Laparoscopic surgery (> 45 min) Malignancy Confined to bed (> 72 hours) Immobilizing plaster cast Central venous access Age >= 75 History of VTE Family history of VTE Factor V Leiden Prothrombin [id number] Lupus anticoagulant Anticardiolipin antibodies Elevated serum homocysteine Heparin-induced thrombocytopenia Other congenital or acquired thrombophilia Stroke (< 1 month) Elective arthroplasty Hip, pelvis, or leg fracture Acute spinal cord injury (< 1 month) Prophylaxis Regimen Total Risk Factor Score Risk Level Prophylaxis Regimen 0-1 Low Early ambulation 2 Moderate Order ONE of the following: *Sequential Compression Device (SCD) *Heparin 5000 units SQ BID 3-4 Higher Order ONE of the following medications: *Heparin 5000 units SQ TID *Enoxaparin/Lovenox 40 mg SQ daily (WT < 150 kg, CrCl > 30 mL/min) *Enoxaparin/Lovenox 30 mg SQ daily (WT < 150 kg, CrCl > 10-29 mL/min) *Enoxaparin/Lovenox 30 mg SQ BID (WT < 150 kg, CrCl > 30 mL/min) AND/OR *Sequential Compression Device (SCD) 5 or more Highest Order ONE of the following medications: *Heparin 5000 units SQ TID (Preferred with Epidurals) *Enoxaparin/Lovenox 40 mg SQ daily (WT < 150 kg, CrCl > 30 mL/min) *Enoxaparin/Lovenox 30 mg SQ daily (WT < 150 kg, CrCl > 10-29 mL/min) *Enoxaparin/Lovenox 30 mg SQ BID (WT < 150 kg, CrCl > 30 mL/min) AND *Sequential Compression Device (SCD) Assessment and Plan Problem List: (1) Ileus ICD Code: K56.7 - Ileus, unspecified Status: Acute (2) HTN (hypertension) ICD Code: I10 - Essential (primary) hypertension Status: Acute (3) DM (diabetes mellitus) ICD Code: E11.9 - Type 2 diabetes mellitus without complications Assessment and Plan A/P: 1. Ileus: h/o Recurrent SBO w/ multiple admissions, follows w/ Dr. Philip as outpatient, acute onset of abdominal distention, nausea/vomiting, CT Abd/Pelvis w/ likely ileus, otherwise stable findings, images reviewed by me. NPO, IVF, analgesics/antiemetics as needed. Consult Dr. Philip for further eval, do not anticipate surgical intervention at this time. IVF for hydration. 2. HTN: BP controlled, will monitor, hold PO medications for now in light of Ileus. 3. DM: Sliding scale w/ Accu-Cheks. Hold antihyperglycemics as pt NPO. 4. DVT Prophylaxis: SCD/Teds. 5. Social work for d/c planning as needed. 6. Case discussed w/ ER physician at length. Physician Certification 2 Midnight Certification Type: Admission for Inpatient Services Order for Inpatient Services The services are ordered in accordance with Medicare regulations or non- Medicare payer requirements, as applicable. In the case of services not specified as inpatient-only, they are appropriately provided as inpatient services in accordance with the 2-midnight benchmark. Estimated LOS (days): 2 days is the estimated time the patient will need to remain in the hospital, assuming treatment plan goals are met and no additional complications. Post-Hospital Plan: Not yet determined Michelle Schulz MD Aug 09, 2017 03:09
[2017-08-09] MEDS: SODIUM CHLOR 0.9% 1000 ML INJ 1,000 ML IV SCH ×3 (03:29→23:23)
[2017-08-09 04:00] VITALS: BP 105/70; PULSE 92; RESP 20; TEMP 96.9; O2SAT 97
[2017-08-09 08:00] VITALS: BP 125/76; PULSE 97; RESP 18; TEMP 96.7; O2SAT 98
[2017-08-09] MEDS: INSULIN ASPART SUPPLEMENTAL SCALE SQ SCH ×4 (08:00→19:45)
[2017-08-09] MEDS: METOCLOPRAMIDE HCL 10 MG/2 ML VIAL IV PUSH SCH ×2 (08:15→18:19)
[2017-08-09] MEDS: SODIUM CHLORIDE 0.9% FLUSH 10 ML FLUSH IV FLUSH SCH ×2 (08:15→19:45)
[2017-08-09] MEDS: DOCUSATE SODIUM 50 MG/SENNA 8.6 MG TAB PO SCH ×2 (08:15→19:45)
--- NOTE | 2017-08-09 09:37 | MB ---
cc: ELTON CHILEL M.D. DATE OF CONSULTATION: 08/09/2017 REASON FOR CONSULTATION: Recurrent partial small-bowel obstruction. HISTORY OF PRESENT ILLNESS The patient is an 81 year-old male known to me with a previous history of hypertension, previous multiple abdominal procedures, coronary artery disease status post CABG, COPD and diabetes mellitus. The patient had nausea and vomiting starting early on the day of admission and had a bowel movement but minimal gas. I have spoken with the patient and seen him a few weeks ago and indicated that if the he had another episode to be considered for surgery. The patient reports that he has been in the hospital five times this year for recurrent partial obstructions. He has had multiple other admissions over the past few years dating back to 2013. CT scan demonstrates a nonspecific bowel gas pattern but with dilation of portions of the small bowel and colon. CBC is within normal limits. REVIEW OF SYSTEMS: Review of systems is negative except for GI system as indicated above. PAST MEDICAL HISTORY: 1. Hypertension. 2. Hyperlipidemia. 3. COPD. 4. Diabetes mellitus. 5. Abdominal aortic aneurysm. PAST SURGICAL HISTORY: 1. Appendectomy. 2. Coronary artery bypass graft 3. Laparoscopic cholecystectomy 4. Lens implants. ALLERGIES: No known allergies. SOCIAL HISTORY: Occasional alcohol. The patient does not smoke or utilize any other drugs. PHYSICAL EXAMINATION: An elderly male in no acute distress. VITAL SIGNS: BP 125/76, pulse 97, respirations 18, temperature 96.7, 98% saturation on room air. HEENT: Sclerae anicteric. Pupils reactive. Neck is supple. Chest: Clear to auscultation. Cardiac: Exam reveals regular rate and rhythm. Abdomen: Soft, mildly distended without guarding. There is mild diffuse tenderness noted. There are well-healed laparoscopy scars and a left lower quadrant paramedian incision. There are no hernias noted. LABORATORY VALUES: His laboratory values demonstrate WBCs of 9.6. Chemistries demonstrate BUN and creatinine of 16 and 0.95. Liver function tests are within normal limits except for slightly elevated alkaline phosphatase at 139. Lipase is 69. INR is 1.1. CT scan findings are as indicated above. ASSESSMENT Recurrent partial small-bowel obstruction, multiple episodes. PLAN I am attempting to obtain time to perform diagnostic laparoscopy, possible laparoscopic lysis of adhesions, possible open procedure, possible bowel resection. I have discussed risks of the procedure with the patient including but not limited to bleeding, infection, enterotomy and fistula formation, and the high risk of recurrent adhesions given his current problems. I have discussed remedies, consequences, alternatives, convalescence; he vocalizes understand and agrees to proceed. Thank you for allowing us to care for this individual. As noted above, he will have surgery tomorrow as soon as time permits on the operating room schedule. MD FALLON Smith/PATRICK /9:24 AM /9:34 AM
--- NOTE | 2017-08-09 11:10 | HHI.PR ---
Addendum to Inpatient Note Addendum Reason: Additional Documentation Additional Information Pt feeling ok, no nausea or vomiting, has some abdominal pain but not "bad", passing flatus but no BM. hypoactive bowel sounds, some discomfort to deep palpation but no guarding or rebound. Discussed case w Dr. Méndez, plan is to take pt to OR tomorrow. vitals stable Dahlia Desouza MD Aug 09, 2017 11:10
[2017-08-09 12:00] VITALS: BP 140/60; PULSE 85; RESP 20; TEMP 97.1; O2SAT 97
[2017-08-09 16:00] VITALS: BP 126/67; PULSE 92; RESP 18; TEMP 95.7; O2SAT 99
[2017-08-09] MEDS: FAMOTIDINE 20 MG/2 ML VIAL IV PUSH SCH (19:44)
[2017-08-09] MEDS: MORPHINE SULFATE 4 MG/ML INJ IV PUSH PRN (19:45)
[2017-08-09 20:00] VITALS: BP 122/59; PULSE 97; RESP 20; TEMP 98.5; O2SAT 93
[2017-08-10] VITALS: BP 143/80; PULSE 71; RESP 20; TEMP 97.2; O2SAT 93
[2017-08-10] MEDS ORDERED: METOPROLOL TARTRATE 25 MG TAB PO PRN (01:15)
[2017-08-10] MEDS ORDERED: LACTATED RINGER'S 1000 ML IV PRN (01:15)
[2017-08-10] MEDS: METOCLOPRAMIDE HCL 10 MG/2 ML VIAL IV PUSH SCH ×3 (01:20→18:44)
[2017-08-10 07:08] LABS: BASOPHIL % 0.5 % (0.0-2.0); EOSINOPHIL # 0.1 TH/MM3 (0-0.4); HEMATOCRIT 36.7 % (39.0-51.0); HEMO FLAGS DIFF FINAL; LYMPH % 8.5 % (9.0-44.0); LYMPHOCYTE # 0.5 TH/MM3 (1.0-4.8); MEAN CELL VOLUME 91.7 FL (80.0-100.0); MEAN CORPUSCULAR HEMOGLOBIN 31.2 PG (27.0-34.0); MONO % 9.8 % (0.0-8.0); NEUT % 80.2 % (16.0-70.0); PLATELET COUNT 189 TH/MM3 (150-450); RED CELL DISTRIBUTION WIDTH 14.6 % (11.6-17.2); WHITE BLOOD COUNT 6.3 TH/MM3 (4.0-11.0)
[2017-08-10 07:31] LABS: POTASSIUM 3.4 MEQ/L (3.5-5.1); TOTAL BILIRUBIN ADULT 0.4 MG/DL (0.2-1.0)
[2017-08-10 08:00] VITALS: BP 148/81; PULSE 100; RESP 18; TEMP 96.9; O2SAT 92
[2017-08-10] MEDS: INSULIN ASPART SUPPLEMENTAL SCALE SQ SCH ×4 (08:00→22:10)
[2017-08-10] MEDS: DOCUSATE SODIUM 50 MG/SENNA 8.6 MG TAB PO SCH ×2 (08:16→22:00)
[2017-08-10] MEDS: SODIUM CHLORIDE 0.9% FLUSH 10 ML FLUSH IV FLUSH SCH ×2 (08:17→21:51)
[2017-08-10] MEDS: FAMOTIDINE 20 MG/2 ML VIAL IV PUSH SCH ×2 (08:17→22:00)
[2017-08-10] MEDS ORDERED: BUPIVACAINE/EPINEPHRINE 0.25% PF 30 ML VIAL ONE (08:26)
[2017-08-10] MEDS ORDERED: ACETAMINOPHEN 1000 MG/100 ML 0 ML IV ONE (09:02)
[2017-08-10] MEDS ORDERED: ceFAZolin INJ 1,000 MG VIAL IV ONE ×2 (10:00→12:00)
[2017-08-10] MEDS ORDERED: metroNIDAZOLE 500 MG INJ 100 ML IV ONE (10:25)
[2017-08-10] MEDS ORDERED: NEOSTIGMINE 3 MG/3 ML SYR IV ONE (12:00)
[2017-08-10] MEDS ORDERED: ROCURONIUM INJ 50 MG/5 ML SYRINGE IV PUSH ONE (12:00)
[2017-08-10] MEDS ORDERED: DEXAMETHASONE SOD PHOS 4 MG/ML VIAL IV ONE (12:00)
[2017-08-10] MEDS ORDERED: SODIUM CHLORIDE 0.9% 20 ML VIAL IV ONE (12:00)
[2017-08-10] MEDS ORDERED: PHENYLEPH/NS 1000 MCG/10 ML SYR IV ONE (12:00)
[2017-08-10] MEDS ORDERED: LIDOCAINE HCL 1% PF 5 ML SYRINGE OTHER ONE (12:00)
[2017-08-10] MEDS ORDERED: ONDANSETRON HCL 4 MG/2 ML VIAL IV ONE (12:00)
[2017-08-10] MEDS ORDERED: LABETALOL HCL 100 MG/20 ML VIAL IV ONE (12:00)
[2017-08-10] MEDS ORDERED: PROPOFOL 200 MG/20 ML AMP IV ONE (12:00)
[2017-08-10] MEDS ORDERED: LACTATED RINGER'S 1000 ML INJ 3,000 ML IV ONE (12:00)
--- NOTE | 2017-08-10 13:00 | HHI.PR ---
cc: Gómez Philip MD Immediate Post Op Note Procedure Date: Aug 10, 2017 Pre Op Diagnosis: Recurrent partial small bowel obstruction Post Op Diagnosis: Same secondary to adhesions Surgeon: Gómez Philip Lock Fitter(s): ANGÉLICA Limon Procedure: Diagnostic laparoscopy, laparoscopic lysis of adhesions, exploratory laparotomy , small bowel resection. Findings: Three separate areas with adhesions; most proximal with partial twisting on mesenteric cysts Complications: None Specimen(s) removed: mid-jejunum to pathology Estimated blood loss: 100 ml Anesthesia: General Drains: None IVF (2500 ml) Patient to: PACU Patient Condition: Good Date/Time of Procedure: SEE SURGICAL CARE RECORD Gómez Philip MD Aug 10, 2017 13:00
[2017-08-10] MEDS ORDERED: DO NOT ADM ANY ANTICOAGULANT DRUGS PRN (13:13)
[2017-08-10 14:04] LABS: BICARBONATE 21.6 MEQ/L (21.0-32.0); POTASSIUM 3.9 MEQ/L (3.5-5.1)
[2017-08-10] MEDS ORDERED: DIMETHICONE/OXYBENZONE/PADMIATE LIP BALM 4.25 GM TOPICAL ONE (14:23)
[2017-08-10 14:28] LABS: CALCIUM-PROTEIN CORRECTED 8.1 MG/DL (8.5-10.1)
[2017-08-10] MEDS: MORPHINE SULFATE 4 MG/ML INJ IV PUSH PRN ×2 (15:37→18:42)
[2017-08-10 16:00] VITALS: BP 164/87; PULSE 99; RESP 18; TEMP 97.3; O2SAT 94
[2017-08-10] MEDS ORDERED: PHENOL 1.4% SOLN 180 ML BTL OROPHARYNG PRN (18:30)
[2017-08-10] MEDS ORDERED: diphenhydrAMINE HCL 50 MG/ML VIAL IV PUSH PRN (18:30)
[2017-08-10] MEDS ORDERED: NALOXONE HCL 0.4 MG/ML AMP IV PUSH PRN (18:30)
[2017-08-10 20:00] VITALS: BP 147/83; PULSE 101; RESP 17; TEMP 98.4; O2SAT 95
[2017-08-10 21:40] VITALS: RESP 18
[2017-08-10] MEDS: SODIUM CHLOR 0.9% 1000 ML INJ 1,000 ML IV SCH (21:50)
[2017-08-10] MEDS: MORPHINE SULFATE 30 MG/30 ML PCA IV SCH (21:56)
[2017-08-10] MEDS: PCA - TOTAL MG MORPHINE DELIVERED PER SHIFT SCH (22:00)
[2017-08-11] VITALS (8 sets, daily range): BP systolic 121–141; BP diastolic 71–84; PULSE 73–107; RESP 16–18; TEMP 96.7–98.6; O2SAT 92–96
[2017-08-11] MEDS: METOCLOPRAMIDE HCL 10 MG/2 ML VIAL IV PUSH SCH ×3 (00:18→17:32)
[2017-08-11] MEDS: SODIUM CHLOR 0.9% 1000 ML INJ 1,000 ML IV SCH ×3 (04:19→20:36)
[2017-08-11] MEDS: PCA - TOTAL MG MORPHINE DELIVERED PER SHIFT SCH ×3 (06:00→20:36)
[2017-08-11] MEDS: INSULIN ASPART SUPPLEMENTAL SCALE SQ SCH ×4 (08:00→20:40)
[2017-08-11 08:12] LABS: AUTOMATED NEUTROPHIL # 9.1 TH/MM3 (1.8-7.7); BASOPHIL % 0.1 % (0.0-2.0); EOSINOPHIL % 0.1 % (0.0-4.0); HEMO FLAGS DIFF FINAL; LYMPHOCYTE # 0.4 TH/MM3 (1.0-4.8); MEAN CELL VOLUME 92.2 FL (80.0-100.0); MEAN CORPUSCULAR HEMOGLOBIN 30.1 PG (27.0-34.0); MEAN CORPUSCULAR HGB CONC 32.6 % (32.0-36.0); MONO % 5.7 % (0.0-8.0); NEUT % 90.1 % (16.0-70.0); PLATELET COUNT 198 TH/MM3 (150-450); RED BLOOD COUNT 4.12 MIL/MM3 (4.50-5.90); RED CELL DISTRIBUTION WIDTH 14.5 % (11.6-17.2); WHITE BLOOD COUNT 10.1 TH/MM3 (4.0-11.0)
--- NOTE | 2017-08-11 08:39 | HHI.PR ---
Subjective Subjective Notes Up to chair Had ice pack on abdomen but it leaked Objective Vitals/I&O Vital Signs Date Time Temp Pulse Resp B/P (MAP) Pulse Ox O2 Delivery O2 Flow Rate FiO2 08/11/17 08:00 97.1 73 18 141/80 (100) 92 08/10/17 14:45 Nasal Cannula 2 Labs Laboratory Tests Test 08/10/17 13:26 08/11/17 07:40 Blood Urea Nitrogen 8 Creatinine 0.79 Random Glucose 173 Total Protein 5.0 Calcium Level 7.0 Sodium Level 139 Potassium Level 3.9 Chloride Level 106 Carbon Dioxide Level 21.6 Anion Gap 11 Estimat Glomerular Filtration Rate 94 Protein Corrected Calcium 8.1 White Blood Count 10.1 Red Blood Count 4.12 Hemoglobin 12.4 Hematocrit 38.0 Mean Corpuscular Volume 92.2 Mean Corpuscular Hemoglobin 30.1 Mean Corpuscular Hemoglobin Concent 32.6 Red Cell Distribution Width 14.5 Platelet Count 198 Mean Platelet Volume 7.9 Neutrophils (%) (Auto) 90.1 Lymphocytes (%) (Auto) 4.0 Monocytes (%) (Auto) 5.7 Eosinophils (%) (Auto) 0.1 Basophils (%) (Auto) 0.1 Neutrophils # (Auto) 9.1 Lymphocytes # (Auto) 0.4 Monocytes # (Auto) 0.6 Eosinophils # (Auto) 0.0 Basophils # (Auto) 0.0 CBC Comment DIFF FINAL Differential Comment Cardiovascular: Regular Lungs: Clear Abdomen: Other (mildly distended; lap sites with cris in place; small midline incision inferior to umbilicus with scant amount of drainage ), Post-op tenderness Extremities: No edema Narrative Exam NGT clamped A/P Assessment and Plan 81 year old male POD1 dx lap; lap AGATHA; ex lap; SBR -NPO; okay for a few ice chips to moisten mouth -NGT to LIWS -RIP/MOULD OPERATOR for pain control -IVF -OOB and mobilize -Maintain Goodrich for now -Discussed with DIMAS Simms Attending Note - Dr. Philip Abdomen soft and quiet No new drainage on bandage Stable Remove Goodrich in AM The exam, history, and the medical decision-making described in the above note were completed with the assistance of the mid-level provider. I reviewed and agree with the findings presented. I attest that I had a [id number] encounter with the patient on the same day, and personally performed and documented my assessment and findings in the medical record. Heidi Alegre Aug 11, 2017 08:39 Gómez Philip MD Aug 11, 2017 11:40
[2017-08-11 08:45] LABS: BICARBONATE 23.1 MEQ/L (21.0-32.0); POTASSIUM 3.7 MEQ/L (3.5-5.1)
[2017-08-11] MEDS: SODIUM CHLORIDE 0.9% FLUSH 10 ML FLUSH IV FLUSH SCH ×2 (08:46→20:42)
[2017-08-11] MEDS: DOCUSATE SODIUM 50 MG/SENNA 8.6 MG TAB PO SCH ×2 (08:46→20:41)
[2017-08-11] MEDS: FAMOTIDINE 20 MG/2 ML VIAL IV PUSH SCH ×2 (08:46→20:42)
--- NOTE | 2017-08-11 09:11 | HHI.PR ---
Subjective Remarks late entry note pt in preop plan for sx today afebrile Objective Vitals Vital Signs Date Time Temp Pulse Resp B/P (MAP) Pulse Ox O2 Delivery O2 Flow Rate FiO2 08/11/17 08:00 97.1 73 18 141/80 (100) 92 08/11/17 06:00 16 08/11/17 04:00 98.6 92 17 121/71 (88) 95 08/11/17 00:00 98.6 96 17 127/76 (93) 95 08/10/17 22:01 17 08/10/17 22:00 18 08/10/17 21:56 18 08/10/17 21:40 18 08/10/17 20:00 98.4 101 17 147/83 (104) 95 08/10/17 16:00 97.3 99 18 164/87 (112) 94 08/10/17 14:45 99 20 147/77 (100) 94 Nasal Cannula 2 08/10/17 14:30 95 19 142/74 (96) 94 Nasal Cannula 2 08/10/17 14:15 98.0 96 20 144/71 (95) 93 Nasal Cannula 2 08/10/17 14:00 94 18 133/72 (92) 94 Nasal Cannula 2 08/10/17 13:45 104 21 143/71 (95) 94 Nasal Cannula 2 08/10/17 13:30 110 23 149/85 (106) 93 Nasal Cannula 2 08/10/17 13:15 107 20 147/71 (96) 93 Nasal Cannula 2 08/10/17 13:12 98.6 98 12 157/69 (98) 97 Simple Mask 6 I/O 08/10/17 08/10/17 08/10/17 08/11/17 08/11/17 08/11/17 07:00 15:00 23:00 07:00 15:00 23:00 Intake Total 1606 ml 326 ml 724 ml Output Total 500 ml 300 ml 400 ml Balance 1106 ml 326 ml -300 ml 324 ml Intake Oral 0 ml 0 ml IV Total 1606 ml 326 ml 724 ml Output Urine Total 500 ml 300 ml 400 ml # Voids 1 # Bowel Movements 1 0 Result Diagram: 08/11/1773908/11/17739 Objective Remarks GENERAL: This is a well-nourished, well-developed patient, in no apparent distress. CARDIOVASCULAR: Regular rate and rhythm without murmurs, gallops, or rubs. RESPIRATORY: Clear to auscultation. Breath sounds equal bilaterally. No wheezes , rales, or rhonchi. GASTROINTESTINAL: Abdomen soft, non-tender, mildly distended. Normal active bowel sounds MUSCULOSKELETAL: Extremities without clubbing, cyanosis, or edema. NEURO: Alert & Oriented x4 to person, place, time, situation. Moves all ext x4 A/P Problem List: (1) Ileus ICD Code: K56.7 - Ileus, unspecified Status: Acute (2) HTN (hypertension) ICD Code: I10 - Essential (primary) hypertension Status: Acute (3) DM (diabetes mellitus) ICD Code: E11.9 - Type 2 diabetes mellitus without complications Assessment and Plan 1. Ileus: h/o Recurrent SBO w/ multiple admissions, consulted Dr. Philip , acute onset of abdominal distention, nausea/vomiting, CT Abd/Pelvis w/ likely ileus, . NPO, IVF, analgesics/antiemetics as needed. Consult Dr. Philip for further eval, IVF for hydration. FOR OR TODAY 2. HTN: BP controlled, will monitor, hold PO medications for now in light of Ileus. 3. DM: Sliding scale w/ Accu-Cheks. Hold antihyperglycemics as pt NPO. 4. DVT Prophylaxis: SCD/Teds. Odalys Montalvo MD Aug 11, 2017 09:11
--- NOTE | 2017-08-11 13:32 | HHI.PR ---
Subjective Remarks Follow up on a 81-year-old male for recurrent small bowel obstruction. Patient is post-op day one after undergoing exploratory laparoscopic with lysis of adhesions and small bowel resection yesterday. He is up to chair with at bedside, he repots some pain in his abdomen, but does get relief from [employer] SHOP SUPERVISOR pump. He denies any nausea and reports tolerating ice chips without issues. is concerned about patient's arm and leg swelling and is concerned this is related to the surgery. Patient denies any fever, chills, chest pain or headache. Objective Vitals Vital Signs Date Time Temp Pulse Resp B/P (MAP) Pulse Ox O2 Delivery O2 Flow Rate FiO2 08/11/17 12:00 97.3 84 16 140/80 (100) 92 08/11/17 10:43 96 Nasal Cannula 2.00 08/11/17 08:00 97.1 73 18 141/80 (100) 92 08/11/17 06:00 16 08/11/17 04:00 98.6 92 17 121/71 (88) 95 08/11/17 00:00 98.6 96 17 127/76 (93) 95 08/10/17 22:01 17 08/10/17 22:00 18 08/10/17 21:56 18 08/10/17 21:40 18 08/10/17 20:00 98.4 101 17 147/83 (104) 95 08/10/17 16:00 97.3 99 18 164/87 (112) 94 08/10/17 14:45 99 20 147/77 (100) 94 Nasal Cannula 2 08/10/17 14:30 95 19 142/74 (96) 94 Nasal Cannula 2 08/10/17 14:15 98.0 96 20 144/71 (95) 93 Nasal Cannula 2 08/10/17 14:00 94 18 133/72 (92) 94 Nasal Cannula 2 08/10/17 13:45 104 21 143/71 (95) 94 Nasal Cannula 2 08/10/17 13:30 110 23 149/85 (106) 93 Nasal Cannula 2 08/10/17 13:15 107 20 147/71 (96) 93 Nasal Cannula 2 08/10/17 13:12 98.6 98 12 157/69 (98) 97 Simple Mask 6 I/O 11/27/17 11/2708/10/17 08/11/17 08/11/17 08/11/17 07:00 15:00 23:00 07:00 15:00 23:00 Intake Total 1606 ml 326 ml 724 ml Output Total 500 ml 300 ml 400 ml Balance 1106 ml 326 ml -300 ml 324 ml Intake Oral 0 ml 0 ml IV Total 1606 ml 326 ml 724 ml Output Urine Total 500 ml 300 ml 400 ml # Voids 1 # Bowel Movements 1 0 Result Diagram: 08/11/17 0740 08/11/17 0740 Imaging Last Impressions Abdomen/Pelvis CT 08/08/17 0000 Signed Impressions: Service Date/Time: Thursday, August 08, 2017 23:54 - CONCLUSION: 1. Nonspecific bowel gas pattern with mild gaseous dilatation of portions of the colon and multiple loops of borderline dilated air-containing small bowel with multiple air-fluid levels in the colon and small bowel. Findings could represent ileus. 2. Stable infrarenal abdominal aortic aneurysm. 3. Stable bilateral nonobstructing renal calculi. 4. Stable thickening and fluid along the right posterior lateral pleura. 5. Status post cholecystectomy. 6. Postsurgical changes in the sigmoid colon. 7. Mild to moderate diverticulosis. Gómez Marrero MD Objective Remarks GENERAL: Very pleasant elderly white male in no acute distress. at bedside. CARDIOVASCULAR: Regular rate and rhythm. No obvious murmurs to auscultation. RESPIRATORY: No obvious rhonchi or wheezing. Clear to auscultation. Breath sounds equal bilaterally. GASTROINTESTINAL: Abdomen soft, +mildly distended, generalized tenderness to palpation. BS normal. Lower abdominal dressing in place dry and intact, cris above dressing and to right of dressing, no redness or drainage noted. MUSCULOSKELETAL: Extremities without clubbing, cyanosis, +1 bilateral pedal edema, trace bilateral arm and hand edema. No obvious deformities. NEUROLOGICAL: Awake, alert and oriented x4. Moving both upper and lower extremities spontaneously. A/P Problem List: (1) Ileus ICD Code: K56.7 - Ileus, unspecified Status: Acute (2) HTN (hypertension) ICD Code: I10 - Essential (primary) hypertension Status: Acute (3) DM (diabetes mellitus) ICD Code: E11.9 - Type 2 diabetes mellitus without complications Assessment and Plan 81-year-old male with a PMH of HTN, Hyperlipidemia, AAA, COPD, DM and h/o Recurrent SBO who presented to the ER w/ complaints of abdominal distention, nausea and vomiting. Patient is post op day one after undergoing exploratory laparoscopy with lysis of adhesions and small bowel resection by general surgery. Ileus, recurrent with nausea and vomiting. Patient with recurrent SBO's in the past. - CT of the abdomen reviewed revealed nonspecific bowel gas pattern with mild gaseous dilation of portions of the colon and multiple loops of borderline dilated air containing small bowel and multiple air-fluid levels in the colon and small bowel, findings could represent ileus. Mild to moderate diverticulosis - General surgery consulted and patient is s/p exploratory laparoscopy with lysis of adhesions and small bowel resection. - Keep patient NPO, may have ice chips today to mouth moisture per GS, Keep NGT to Mauricio MCCORMACK for GI motility. - IVF for now. - BELT AND LINK SHOP SUPERVISOR pump for pain relief. Bilateral arm and leg edema, acute, possibly secondary to IVF during surgery. - Patient is post-op day one and today is his first day OOB - Encouraged to continue OOB and ambulation to help reduce edema, elevate legs. - Continue IVF for now, since he is NPO will consider reducing rate or D/C if he is is on a diet DM, chronic - At the moment still NPO, use ISS as needed for hyperglycemia - Continue accu-checks and make changes if needed once he starts diet. HTN, controlled -Continue Lopressor VTE -SCD's, LORY's, ambulation with PT Dell Dos Santos Aug 11, 2017 13:31
[2017-08-11] MEDS: MORPHINE SULFATE 30 MG/30 ML PCA IV SCH (21:23)
[2017-08-12] VITALS (7 sets, daily range): BP systolic 137–147; BP diastolic 76–93; PULSE 101–112; RESP 16–20; TEMP 95.5–96.4; O2SAT 92–95
[2017-08-12] MEDS: METOCLOPRAMIDE HCL 10 MG/2 ML VIAL IV PUSH SCH ×3 (00:14→15:58)
[2017-08-12] MEDS: PCA - TOTAL MG MORPHINE DELIVERED PER SHIFT SCH ×3 (06:00→22:34)
[2017-08-12 06:14] LABS: AUTOMATED NEUTROPHIL # 5.3 TH/MM3 (1.8-7.7); BASOPHIL % 0.4 % (0.0-2.0); EOSINOPHIL # 0.1 TH/MM3 (0-0.4); EOSINOPHIL % 1.5 % (0.0-4.0); HEMATOCRIT 35.8 % (39.0-51.0); HEMO FLAGS DIFF FINAL; LYMPH % 6.8 % (9.0-44.0); LYMPHOCYTE # 0.4 TH/MM3 (1.0-4.8); MEAN CELL VOLUME 92.1 FL (80.0-100.0); MEAN CORPUSCULAR HEMOGLOBIN 30.8 PG (27.0-34.0); MEAN CORPUSCULAR HGB CONC 33.4 % (32.0-36.0); MONO % 6.6 % (0.0-8.0); NEUT % 84.7 % (16.0-70.0); PLATELET COUNT 165 TH/MM3 (150-450); RED BLOOD COUNT 3.88 MIL/MM3 (4.50-5.90); RED CELL DISTRIBUTION WIDTH 14.6 % (11.6-17.2); WHITE BLOOD COUNT 6.2 TH/MM3 (4.0-11.0)
[2017-08-12 06:45] LABS: BICARBONATE 25.2 MEQ/L (21.0-32.0); CALCIUM-PROTEIN CORRECTED 8.1 MG/DL (8.5-10.1); POTASSIUM 3.8 MEQ/L (3.5-5.1); TOTAL BILIRUBIN ADULT 0.5 MG/DL (0.2-1.0)
[2017-08-12] MEDS: INSULIN ASPART SUPPLEMENTAL SCALE SQ SCH ×4 (08:47→21:05)
[2017-08-12] MEDS: DOCUSATE SODIUM 50 MG/SENNA 8.6 MG TAB PO SCH ×2 (08:48→21:06)
[2017-08-12] MEDS: FAMOTIDINE 20 MG/2 ML VIAL IV PUSH SCH ×2 (08:48→21:10)
[2017-08-12] MEDS: SODIUM CHLORIDE 0.9% FLUSH 10 ML FLUSH IV FLUSH SCH ×2 (08:49→21:10)
[2017-08-12] MEDS: SODIUM CHLOR 0.9% 1000 ML INJ 1,000 ML IV SCH ×2 (08:50→15:59)
--- NOTE | 2017-08-12 10:48 | HHI.PR ---
Subjective Subjective Notes Resting in bed No issues Going to get up out of bed to walk shortly Objective Vitals/I&O Vital Signs Date Time Temp Pulse Resp B/P (MAP) Pulse Ox O2 Delivery O2 Flow Rate FiO2 08/12/17 10:08 94 Nasal Cannula 2.00 08/12/17 08:00 95.5 105 17 137/93 (108) Labs Laboratory Tests Test 08/12/17 04:30 White Blood Count 6.2 Red Blood Count 3.88 Hemoglobin 11.9 Hematocrit 35.8 Mean Corpuscular Volume 92.1 Mean Corpuscular Hemoglobin 30.8 Mean Corpuscular Hemoglobin Concent 33.4 Red Cell Distribution Width 14.6 Platelet Count 165 Mean Platelet Volume 8.3 Neutrophils (%) (Auto) 84.7 Lymphocytes (%) (Auto) 6.8 Monocytes (%) (Auto) 6.6 Eosinophils (%) (Auto) 1.5 Basophils (%) (Auto) 0.4 Neutrophils # (Auto) 5.3 Lymphocytes # (Auto) 0.4 Monocytes # (Auto) 0.4 Eosinophils # (Auto) 0.1 Basophils # (Auto) 0.0 CBC Comment DIFF FINAL Differential Comment Blood Urea Nitrogen 7 Creatinine 0.69 Random Glucose 101 Total Protein 5.1 Albumin 2.0 Calcium Level 7.0 Alkaline Phosphatase 83 Aspartate Amino Transf (AST/SGOT) 25 Alanine Aminotransferase (ALT/SGPT) 15 Total Bilirubin 0.5 Sodium Level 139 Potassium Level 3.8 Chloride Level 106 Carbon Dioxide Level 25.2 Anion Gap 8 Estimat Glomerular Filtration Rate 110 Protein Corrected Calcium 8.1 Cardiovascular: Regular Lungs: Clear Abdomen: Other (minimally distended; lap sites with cris c/d/i; changed midline dressing inferior to umbilicus--- c/d/i ) Extremities: No edema Narrative Exam NGT to LIWS A/P Assessment and Plan 81 year old male POD2 dx lap; lap AGATHA; ex lap; SBR -NPO; okay for a few ice chips to moisten mouth -Clamp NGT; continue to check residuals --if any nausea/vomiting occur--- connect to LIWS -OUTCOMES MANAGER for pain control -IVF -OOB and mobilize -DC Goodrich -Discussed with RN Ania Attending Note - Dr. Philip Abdomen benign Wound clean and dry May remove NG in AM and start diet if tolerates clamping with minimal residual The exam, history, and the medical decision-making described in the above note were completed with the assistance of the mid-level provider. I reviewed and agree with the findings presented. I attest that I had a [id number] encounter with the patient on the same day, and personally performed and documented my assessment and findings in the medical record. Heidi Alegre Aug 12, 2017 10:48 Gómez Philip MD Aug 12, 2017 12:54
--- NOTE | 2017-08-12 10:54 | MP ---
cc: ELTON CHILEL M.D. DATE OF SURGERY 08/10/2017 PROCEDURE 1. Diagnostic laparoscopy. 2. Laparoscopic lysis of adhesions. 3. Exploratory laparotomy. 4. Small bowel resection with primary anastomosis. PREOPERATIVE DIAGNOSIS Persistent, recurrent partial small-bowel obstruction. POSTOPERATIVE DIAGNOSIS Persistent, recurrent partial small-bowel obstruction secondary to adhesions. ANESTHESIA General endotracheal. SURGEON MD Cedrick ESTIMATED BLOOD LOSS 100 mL. FLUIDS 2500 mL crystalloid PYROTECHNIC ASSEMBLER ANGÉLICA Mtz DRAINS None. SPECIMEN Small bowel to pathology. PROCEDURE AND FINDINGS Three areas of adhesions with two areas suspicious for causing recurrent partial obstruction. Primary site was a twist located at the mid-jejunum where the patient had multiple mesenteric cysts. PROCEDURE IN DETAIL The patient was taken to the operating room and placed on the operating table in the supine position with both arms tucked. The abdomen was prepped and draped. Time-out was taken confirming the correct patient, site and procedure to be performed. Three 5-mm trocars were placed with the first above the umbilicus. This entered the abdominal cavity under direct vision uneventfully with the laparoscope in the trocar. The additional two 5-mm trocars were placed, one further up and the other in the infraumbilical region. These were placed under direct vision uneventfully. Manipulation of the small bowel revealed two obvious areas of adhesions with one at the terminal ileum. This was lysed with sharp dissection. A second area with a loop of intestine fairly tightly looped was taken down sharply as well. When both of these had been completed, the small bowel was run proximally and a third area was noted to have a slight twist and be involved with the mesenteric cysts that were noted in the more proximal small bowel. This was lysed as much as possible laparoscopically and after this had been completed, it was felt to still have a 90-degree twist in it that would result in further episodes of recurrent partial bowel obstruction. At this point, decision was made to open the abdomen and an infraumbilical midline incision was made. This was carried down through the fascia sharply directly over the 5-mm infraumbilical trocar site to allow for entry into the abdomen without difficulty. The two previous areas of laparoscopically lysed adhesions were examined and these were seen to be hemostatic and no further dissection was necessary. The more proximal site was then brought into the wound and exteriorized. When this had been accomplished the patient was noted to have the twist and this could not be freed up adequately with simple lysis of adhesions. The patient was best felt to be served by resection of this area with primary anastomosis. The small bowel proximal to this was seen to be somewhat dilated and distal was decompressed. Given these findings, the small bowel was divided proximal and distal to this and then reanastomosed with a BELLA stapler. The bowel was reanastomosed with a BELLA stapler and the toe of the staple line was reinforced with a 3-0 silk suture. The staple line was examined and seen to be hemostatic. Allis clamps were then used with a DX-type stapler to close the jejunojejunostomy. The mesenteric defect was oversewn with 3-0 silk sutures. When this was completed the entire bowel was run again and no further adhesions were noted. All of the bowel was returned to the abdominal cavity and the fascia was closed with a running #1 PDS suture. The skin was closed with cris and the remaining trocar sites were closed with cris as well. The patient was extubated and taken back to the recovery room in stable condition. Sponge, needle and instrument counts were reported to be correct. The patient tolerated the procedure well. MD FALLON Smith/SSB /10:23 AM /10:37 AM MTDD
--- NOTE | 2017-08-12 11:54 | HHI.PR ---
Subjective Remarks Follow-up on chronic constipation, underwent diagnostic laparoscopy with lysis of adhesions, and small bowel resection with primary anastomosis on 08/10. He is postop day 2. Reports that he has walked the unit twice without difficulties. He had has NGT clamped this AM, denies any nausea or vomiting, no fevers or chills. Has not had a BM, does not yet report passing gas. His abdominal pain is improved and is only using KILN TESTER pump as needed. His arm and leg swelling has also improved greatly since he has been ambulating more. No acute concerns at this moment. Objective Vitals Vital Signs Date Time Temp Pulse Resp B/P (MAP) Pulse Ox O2 Delivery O2 Flow Rate FiO2 08/12/17 10:08 94 Nasal Cannula 2.00 08/12/17 08:00 95.5 105 17 137/93 (108) 94 08/12/17 06:00 16 08/12/17 06:00 16 08/12/17 00:00 96.3 107 17 147/82 (103) 94 08/11/17 22:00 16 08/11/17 21:23 16 08/11/17 20:36 16 08/11/17 20:00 96.7 107 17 134/71 (92) 95 08/11/17 16:00 97.1 90 18 123/84 (97) 92 08/11/17 14:00 17 08/11/17 12:00 97.3 84 16 140/80 (100) 92 I/O 08/11/17 08/11/17 08/11/17 08/12/17 08/12/17 08/12/17 07:00 15:00 23:00 07:00 15:00 23:00 Intake Total 724 ml 1904 ml Output Total 400 ml 1100 ml 500 ml Balance 324 ml -1100 ml 1404 ml Intake Oral 0 ml 0 ml IV Total 724 ml 1904 ml Output Urine Total 400 ml 1000 ml 500 ml Drainage Total 100 ml Result Diagram: 08/12/17 0430 08/12/17 0430 Imaging Last Impressions Abdomen/Pelvis CT 08/08/17 0000 Signed Impressions: Service Date/Time: Tuesday, August 08, 2017 23:54 - CONCLUSION: 1. Nonspecific bowel gas pattern with mild gaseous dilatation of portions of the colon and multiple loops of borderline dilated air-containing small bowel with multiple air-fluid levels in the colon and small bowel. Findings could represent ileus. 2. Stable infrarenal abdominal aortic aneurysm. 3. Stable bilateral nonobstructing renal calculi. 4. Stable thickening and fluid along the right posterior lateral pleura. 5. Status post cholecystectomy. 6. Postsurgical changes in the sigmoid colon. 7. Mild to moderate diverticulosis. Gómez Marrero MD Objective Remarks GENERAL: Very pleasant elderly white male in no acute distress. at bedside. CARDIOVASCULAR: Regular rate and rhythm. No obvious murmurs to auscultation. RESPIRATORY: No obvious rhonchi or wheezing. Clear to auscultation. Breath sounds equal bilaterally. GASTROINTESTINAL: Abdomen soft, mildly distended, generalized tenderness to palpation. BS normal. Lower abdominal dressing in place dry and intact, cris above dressing and to right of dressing, no redness or drainage noted. MUSCULOSKELETAL: Extremities without clubbing, cyanosis,no extremity edema noted. No obvious deformities. NEUROLOGICAL: Awake, alert and oriented x4. Moving both upper and lower extremities spontaneously. A/P Problem List: (1) Ileus ICD Code: K56.7 - Ileus, unspecified Status: Acute (2) HTN (hypertension) ICD Code: I10 - Essential (primary) hypertension Status: Acute (3) DM (diabetes mellitus) ICD Code: E11.9 - Type 2 diabetes mellitus without complications Assessment and Plan 81-year-old male with a PMH of HTN, Hyperlipidemia, AAA, COPD, DM and h/o Recurrent SBO who presented to the ER w/ complaints of abdominal distention, nausea and vomiting. Patient is post op day one after undergoing exploratory laparoscopy with lysis of adhesions and small bowel resection by general surgery. Ileus, recurrent with nausea and vomiting. Patient with recurrent SBO's in the past. - CT of the abdomen reviewed revealed nonspecific bowel gas pattern with mild gaseous dilation of portions of the colon and multiple loops of borderline dilated air containing small bowel and multiple air-fluid levels in the colon and small bowel, findings could represent ileus. Mild to moderate diverticulosis - General surgery consulted and patient is s/p exploratory laparoscopy with lysis of adhesions and small bowel resection. - Patient still NPO. NGT clamped monitor for residual and tolerance. Reglan for GI motility. - IVF for now. - KILN TESTER pump for pain relief, consider switching to PRN and PO once he is on a diet. -Goodrich catheter D/C, voiding without difficulties. Bilateral arm and leg edema, acute, possibly secondary to IVF during surgery. - Patient has increased ambulation and is OOB, edema is much improved. - Continue IVF for now, since he is NPO DM, chronic - At the moment still NPO, use ISS as needed for hyperglycemia - Continue accu-checks and make changes if needed once he starts diet. HTN, controlled -Continue Lopressor VTE -SCD's, LORY's, ambulation with PT Discharge Planning Will need general surgery clearance prior to discharge. Dell Dos Santos Aug 12, 2017 11:54
--- NOTE | 2017-08-12 14:41 | RADRPT ---
EXAM DATE/TIME: 08/12/2017 14:07 [facility] COMPARISON: CT ABDOMEN & PELVIS W CONTRAST, August 08, 2017, 23:54. CHEST SINGLE AP, October 14, 2016, 17:36. INDICATIONS : Short of breath. MEDICAL HISTORY : Cardiovascular disease. Chronic obstructive pulmonary disease. Hypertension. abdominal aortic ane urysm SURGICAL HISTORY : CABG. ENCOUNTER: Initial ACUITY: 4 - 6 days PAIN SCORE: 0/10 LOCATION: Bilateral chest FINDINGS: Nasogastric tube across the GE junction . Mild interstitial edema. Trace free air. CONCLUSION: Mild interstitial edema, trace free air. Dominic Suresh MD FACR on August 12, 2017 at 14:36 Board Certified Radiologist. This report was verified electronically.
[2017-08-12] MEDS ORDERED: FUROSEMIDE 20 MG/2 ML VIAL IV PUSH ONE (14:45)
[2017-08-12] MEDS: ENOXAPARIN SODIUM 30 MG/0.3 ML SYRINGE SQ SCH (15:57)
[2017-08-13] VITALS: BP 131/64; PULSE 88; RESP 20; TEMP 98.1; O2SAT 96
[2017-08-13] MEDS: METOCLOPRAMIDE HCL 10 MG/2 ML VIAL IV PUSH SCH ×3 (00:38→17:19)
[2017-08-13] MEDS: PCA - TOTAL MG MORPHINE DELIVERED PER SHIFT SCH ×3 (06:04→21:21)
[2017-08-13] MEDS: SODIUM CHLOR 0.9% 1000 ML INJ 1,000 ML IV SCH (06:04)
[2017-08-13 08:00] VITALS: BP 160/86; PULSE 83; RESP 16; TEMP 97.6; O2SAT 92
[2017-08-13] MEDS: INSULIN ASPART SUPPLEMENTAL SCALE SQ SCH ×4 (08:14→21:14)
[2017-08-13] MEDS: DOCUSATE SODIUM 50 MG/SENNA 8.6 MG TAB PO SCH ×2 (09:22→21:28)
[2017-08-13] MEDS: FAMOTIDINE 20 MG/2 ML VIAL IV PUSH SCH ×2 (09:23→21:28)
[2017-08-13] MEDS: SODIUM CHLORIDE 0.9% FLUSH 10 ML FLUSH IV FLUSH SCH ×2 (09:26→21:28)
--- NOTE | 2017-08-13 11:18 | HHI.PR ---
Subjective Remarks Follow-up visit s/p diagnostic laparoscopy, lysis of adhesions, and small bowel resection post op day 3. Patient seen and examined with at bedside, patient has been ambulating around the unit without difficulties. He denies any nausea, vomiting, diarrhea, fevers, chills. Still has [employer]ACH[employer] pump in place however only using it sparingly. Denies abdominal pain at the moment, + flatus. Repots that swelling in his arms and legs is still present, would like to know if the NG tube will be taken out before he is given something to eat. Objective Vitals Vital Signs Date Time Temp Pulse Resp B/P (MAP) Pulse Ox O2 Delivery O2 Flow Rate FiO2 08/13/17 08:00 97.6 83 16 160/86 (110) 92 08/13/17 06:04 16 08/13/17 00:00 98.1 88 20 131/64 (86) 96 08/12/17 23:04 95.6 112 20 139/87 (104) 95 08/12/17 16:00 95.5 107 18 137/89 (105) 94 08/12/17 14:00 16 08/12/17 12:00 96.4 101 17 137/76 (96) 92 I/O 08/12/17 08/12/17 08/12/17 08/13/17 08/13/17 08/13/17 07:00 15:00 23:00 07:00 15:00 23:00 Intake Total 1904 ml 1437 ml 1000 ml Output Total 500 ml 1100 ml 0 ml Balance 1404 ml 337 ml 1000 ml 0 ml Intake Oral 0 ml 175 ml IV Total 1904 ml 1262 ml 1000 ml Output Urine Total 500 ml 1100 ml Gastric Drainage Total 0 ml Result Diagram: 08/12/17 0430 08/12/17 0430 Imaging Last Impressions Chest X-Ray 08/12/17 0000 Signed Impressions: Service Date/Time: Saturday, August 12, 2017 14:07 - CONCLUSION: Mild interstitial edema, trace free air. Dominic Suresh MD FACR Abdomen/Pelvis CT 08/08/17 0000 Signed Impressions: Service Date/Time: Tuesday, August 08, 2017 23:54 - CONCLUSION: 1. Nonspecific bowel gas pattern with mild gaseous dilatation of portions of the colon and multiple loops of borderline dilated air-containing small bowel with multiple air-fluid levels in the colon and small bowel. Findings could represent ileus. 2. Stable infrarenal abdominal aortic aneurysm. 3. Stable bilateral nonobstructing renal calculi. 4. Stable thickening and fluid along the right posterior lateral pleura. 5. Status post cholecystectomy. 6. Postsurgical changes in the sigmoid colon. 7. Mild to moderate diverticulosis. Gómez Marrero MD Objective Remarks GENERAL: Very pleasant elderly white male in no acute distress. at bedside. CARDIOVASCULAR: Regular rate and rhythm. No obvious murmurs to auscultation. RESPIRATORY: No obvious rhonchi or wheezing. Bilateral basilar crackles. GASTROINTESTINAL: Abdomen soft, generalized mild tenderness to palpation. BS normal. Lower abdominal dressing in place dry and intact, cris above dressing and to right of dressing, no redness or drainage noted. MUSCULOSKELETAL: Extremities without clubbing, cyanosis, bilateral +2 pitting edema, bilateral +1 arm edema. No obvious deformities. NEUROLOGICAL: Awake, alert and oriented x4. Moving both upper and lower extremities spontaneously. A/P Problem List: (1) Ileus ICD Code: K56.7 - Ileus, unspecified Status: Acute (2) HTN (hypertension) ICD Code: I10 - Essential (primary) hypertension Status: Acute (3) DM (diabetes mellitus) ICD Code: E11.9 - Type 2 diabetes mellitus without complications Assessment and Plan 81-year-old male with a PMH of HTN, Hyperlipidemia, AAA, COPD, DM and h/o Recurrent SBO who presented to the ER w/ complaints of abdominal distention, nausea and vomiting. Patient is post op day one after undergoing exploratory laparoscopy with lysis of adhesions and small bowel resection by general surgery. Ileus, recurrent with nausea and vomiting. Patient with recurrent SBO's in the past. - CT of the abdomen reviewed revealed nonspecific bowel gas pattern with mild gaseous dilation of portions of the colon and multiple loops of borderline dilated air containing small bowel and multiple air-fluid levels in the colon and small bowel, findings could represent ileus. Mild to moderate diverticulosis - General surgery consulted and patient is s/p exploratory laparoscopy with lysis of adhesions and small bowel resection. - Patient still NPO. NGT with little to no residuals per nurse. Reglan for GI motility. - M[employer] pump discontinued with orders for [place] with morphine IV for breakthrough pain. - Diet advanced to clear liquids Bilateral arm and leg edema, acute, possibly secondary to IVF during surgery. - IVF decreased on 08/12 with dose of IV Lasix given by general surgery services due to mild interstitial edema, trace free air on chest x-ray. This morning patient continues to have bilateral arm edema with +2 bilateral leg pitting edema with basilar crackles. - Discussed with PAMELA Villatoro for general surgery services IVF discontinued, one time dose of IV Lasix. DM, chronic - At the moment still NPO, use ISS as needed for hyperglycemia - Continue accu-checks and make changes if needed once he starts diet. HTN, controlled -Continue Lopressor VTE -SCD's, LORY's, Lovenox sq, ambulation. Discharge Planning Will need general surgery clearance prior to discharge. Dell Dos Santos Aug 13, 2017 11:18
[2017-08-13] MEDS ORDERED: MORPHINE SULFATE 2 MG/ML INJ IV PUSH PRN (11:45)
[2017-08-13] MEDS ORDERED: FUROSEMIDE 20 MG/2 ML VIAL IV PUSH ONE (11:45)
[2017-08-13] MEDS ORDERED: ACETAMINOPHEN/HYDROcodone 325 MG/5 MG TAB PO PRN (11:45)
[2017-08-13 12:00] VITALS: BP 167/84; PULSE 86; RESP 15; TEMP 95.8; O2SAT 92
[2017-08-13] MEDS: ENOXAPARIN SODIUM 30 MG/0.3 ML SYRINGE SQ SCH (14:00)
--- NOTE | 2017-08-13 14:30 | HHI.PR ---
Subjective Subjective Notes Sitting on the side of the bed Visiting with family Objective Vitals/I&O Vital Signs Date Time Temp Pulse Resp B/P (MAP) Pulse Ox O2 Delivery O2 Flow Rate FiO2 08/13/17 12:00 95.8 86 15 167/84 (111) 92 08/12/17 10:08 Nasal Cannula 2.00 Cardiovascular: Regular Lungs: Clear Abdomen: Other (soft; minimal tenderness around incision sites; lap sites with cris ) Extremities: No edema Narrative Exam NGT clamped A/P Assessment and Plan 81 year old male POD3 dx lap; lap AGATHA; ex lap; SBR -DC NGT -Start sips of clear liquids -DC [place] -Added [place] and IV morphine for breakthrough pain -DC IVF -OOB and mobilize -Discussed with DIMAS Jorge and PAMELA Sharpe Attending Note - Dr. Philip Abdomen soft; dressing dry and intact Seen in evening; moving bowels x 3 Advance diet to heart healthy in AM Likely discharge on Tuesday 08/14 The exam, history, and the medical decision-making described in the above note were completed with the assistance of the mid-level provider. I reviewed and agree with the findings presented. I attest that I had a [id number] encounter with the patient on the same day, and personally performed and documented my assessment and findings in the medical record. Heidi Alegre Aug 13, 2017 14:30 Gómez Philip MD Aug 14, 2017 10:12
[2017-08-13 16:00] VITALS: BP 157/76; PULSE 87; RESP 18; TEMP 96.1; O2SAT 95
[2017-08-13 20:00] VITALS: BP 156/89; PULSE 80; RESP 20; TEMP 97.1; O2SAT 97
[2017-08-13 20:58] VITALS: O2SAT 97
[2017-08-13] MEDS: ACETAMINOPHEN/HYDROcodone 325 MG/5 MG TAB PO PRN (21:34)
[2017-08-14] VITALS: BP 111/58; PULSE 62; RESP 20; TEMP 96.3; O2SAT 96
[2017-08-14] MEDS: METOCLOPRAMIDE HCL 10 MG/2 ML VIAL IV PUSH SCH ×2 (01:09→09:58)
[2017-08-14] MEDS: PCA - TOTAL MG MORPHINE DELIVERED PER SHIFT SCH ×2 (05:21→14:00)
[2017-08-14 06:26] LABS: AUTOMATED NEUTROPHIL # 3.7 TH/MM3 (1.8-7.7); BASOPHIL % 0.5 % (0.0-2.0); EOSINOPHIL # 0.1 TH/MM3 (0-0.4); EOSINOPHIL % 2.6 % (0.0-4.0); HEMATOCRIT 33.7 % (39.0-51.0); HEMO FLAGS DIFF FINAL; LYMPHOCYTE # 0.5 TH/MM3 (1.0-4.8); MEAN CORPUSCULAR HEMOGLOBIN 30.3 PG (27.0-34.0); MEAN CORPUSCULAR HGB CONC 33.3 % (32.0-36.0); NEUT % 75.9 % (16.0-70.0); PLATELET COUNT 191 TH/MM3 (150-450); RED CELL DISTRIBUTION WIDTH 14.2 % (11.6-17.2); WHITE BLOOD COUNT 4.9 TH/MM3 (4.0-11.0)
[2017-08-14 06:57] LABS: BICARBONATE 26.1 MEQ/L (21.0-32.0); TOTAL BILIRUBIN ADULT 0.5 MG/DL (0.2-1.0)
[2017-08-14 08:00] VITALS: BP 144/68; PULSE 68; RESP 18; TEMP 97.2; O2SAT 95
[2017-08-14] MEDS: INSULIN ASPART SUPPLEMENTAL SCALE SQ SCH ×2 (08:00→12:41)
[2017-08-14] MEDS ORDERED: POTASSIUM CHLORIDE 20 MEQ PWD PACKET PO ONE (08:15)
[2017-08-14] MEDS ORDERED: HYDR-3516 PO (08:44)
[2017-08-14] MEDS: DOCUSATE SODIUM 50 MG/SENNA 8.6 MG TAB PO SCH (09:00)
--- NOTE | 2017-08-14 09:31 | HHI.PR ---
Subjective Remarks Follow up laparoscopy, lysis of adhesions, small bowel resection. Patient up to side of bed with eating regular breakfast. States he had 3 BM's last night dark in color, denies nausea, vomiting, diarrhea, fever or chills. Pain under control , no SOB, pain well controlled. Objective Vitals Vital Signs Date Time Temp Pulse Resp B/P (MAP) Pulse Ox O2 Delivery O2 Flow Rate FiO2 08/14/17 00:00 96.3 62 20 111/58 (75) 96 08/13/17 20:58 97 Nasal Cannula 2.00 08/13/17 20:00 97.1 80 20 156/89 (111) 97 08/13/17 16:00 96.1 87 18 157/76 (103) 95 08/13/17 12:00 95.8 86 15 167/84 (111) 92 08/13/17 10:20 2.00 I/O 08/13/17 08/13/17 08/13/17 08/14/17 08/14/17 08/14/17 07:00 15:00 23:00 07:00 15:00 23:00 Intake Total 1000 ml 625 ml 600 ml 240 ml Output Total 0 ml 1100 ml 100 ml Balance 1000 ml 625 ml -500 ml 140 ml Intake Oral 600 ml 240 ml IV Total 1000 ml 625 ml Output Urine Total 1100 ml 100 ml Gastric Drainage Total 0 ml # Voids 2 # Bowel Movements 3 0 Result Diagram: 08/14/17 0543 08/14/17 0543 Imaging Last Impressions Chest X-Ray 08/12/17 0000 Signed Impressions: Service Date/Time: Saturday, August 12, 2017 14:07 - CONCLUSION: Mild interstitial edema, trace free air. Dominic Suresh MD FACR Abdomen/Pelvis CT 08/08/17 0000 Signed Impressions: Service Date/Time: Tuesday, August 08, 2017 23:54 - CONCLUSION: 1. Nonspecific bowel gas pattern with mild gaseous dilatation of portions of the colon and multiple loops of borderline dilated air-containing small bowel with multiple air-fluid levels in the colon and small bowel. Findings could represent ileus. 2. Stable infrarenal abdominal aortic aneurysm. 3. Stable bilateral nonobstructing renal calculi. 4. Stable thickening and fluid along the right posterior lateral pleura. 5. Status post cholecystectomy. 6. Postsurgical changes in the sigmoid colon. 7. Mild to moderate diverticulosis. Gómez Marrero MD Objective Remarks GENERAL: Very pleasant elderly white male in no acute distress. CARDIOVASCULAR: Regular rate and rhythm. No obvious murmurs to auscultation. RESPIRATORY: No obvious rhonchi or wheezing. Lungs clear in all berrios no crackles. GASTROINTESTINAL: Abdomen soft, generalized mild tenderness to palpation. BS normal. Lower abdominal dressing in place dry and intact, cris above dressing and to right of dressing, no redness or drainage noted. MUSCULOSKELETAL: Extremities without clubbing, cyanosis, bilateral +1 pitting edema, bilateral arm with trace edema. No obvious deformities. NEUROLOGICAL: Awake, alert and oriented x4. Moving both upper and lower extremities spontaneously. A/P Problem List: (1) Ileus ICD Code: K56.7 - Ileus, unspecified Status: Acute (2) HTN (hypertension) ICD Code: I10 - Essential (primary) hypertension Status: Acute (3) DM (diabetes mellitus) ICD Code: E11.9 - Type 2 diabetes mellitus without complications Assessment and Plan 81-year-old male with a PMH of HTN, Hyperlipidemia, AAA, COPD, DM and h/o Recurrent SBO who presented to the ER w/ complaints of abdominal distention, nausea and vomiting. Patient is post op day one after undergoing exploratory laparoscopy with lysis of adhesions and small bowel resection by general surgery. Ileus, recurrent with nausea and vomiting. Patient with recurrent SBO's in the past. - CT of the abdomen reviewed revealed nonspecific bowel gas pattern with mild gaseous dilation of portions of the colon and multiple loops of borderline dilated air containing small bowel and multiple air-fluid levels in the colon and small bowel, findings could represent ileus. Mild to moderate diverticulosis - General surgery consulted and patient is s/p exploratory laparoscopy with lysis of adhesions and small bowel resection. - NGT removed, patient on regular diet - PRN [place] and IV Morphine for breakthrough pain - Moving bowels, monitor regular diet tolerance. Bilateral arm and leg edema, acute, possibly secondary to IVF during surgery. - IV Lasix on 08/13, lung crackles resolved, residual pedal edema. May consider giving additional dose of Lasix later today. Hypokalemia, acute secondary to Lasix dose - 40 Meq KCL PO this AM for replacement. DM, chronic - At the moment still NPO, use ISS as needed for hyperglycemia - Continue accu-checks and make changes if needed. HTN, controlled -Continue Lopressor VTE -SCD's, LORY's, Lovenox sq, ambulation. Discharge Planning Discussed with Heidi SANTIAGO, if tolerating diet may DC later today. Dell Dos Santos Aug 14, 2017 09:31
[2017-08-14] MEDS: FAMOTIDINE 20 MG/2 ML VIAL IV PUSH SCH (09:58)
[2017-08-14] MEDS: SODIUM CHLORIDE 0.9% FLUSH 10 ML FLUSH IV FLUSH SCH (10:01)
[2017-08-14 10:36] VITALS: O2SAT 97
[2017-08-14 12:00] VITALS: BP 128/73; PULSE 70; RESP 16; TEMP 97.9; O2SAT 96
[2017-08-14] MEDS: ACETAMINOPHEN/HYDROcodone 325 MG/5 MG TAB PO PRN (12:46)
[2017-08-14 13:46] VITALS: RESP 18
--- NOTE | 2017-08-14 14:39 | HHI.DS ---
Discharge Summary Admission Date Aug 09, 2017 at 02:25 Discharge Date: Aug 14, 2017 Admitting Diagnosis Ileus (1) Ileus ICD Code: K56.7 - Ileus, unspecified Status: Acute (2) HTN (hypertension) ICD Code: I10 - Essential (primary) hypertension Status: Acute (3) DM (diabetes mellitus) ICD Code: E11.9 - Type 2 diabetes mellitus without complications Procedures 08/10/17 : Diagnostic laparoscopy with laparoscopic lysis of adhesions, small bowel resection with primary anastomosis. Brief History - From Admission This is an 81-year-old male with a PMH of HTN, Hyperlipidemia, AAA, COPD, DM and h/o Recurrent SBO who presented to the ER w/ complaints of abdominal distention, nausea and vomiting starting earlier today. Had small BM this afternoon, minimal gas. Reports symptoms similar to previous episodes of SBO, multiple admissions in the past for same. Follows w/ Dr. Philip as outpatient. On arrival, BP 139/92, HR 116, O2 sat 98% on RA, Afebrile. CBC essentially unremarkable except for elevated neutrophil count. Chemistry unremarkable except for GFR 76. INR 1.1. CT Abd/Pelvis w/ nonspecific bowel gas pattern with mild gaseous dilatation of portions of the colon, likely ileus, otherwise stable findings. S/p Morphine/Zofran in ER, symptoms improved, now more comfortable. CBC/BMP: 08/14/17 0543 08/14/17 0543 Significant Findings Laboratory Tests Test 08/12/17 04:30 08/14/17 05:43 Red Blood Count 3.88 MIL/MM3 (4.50-5.90) 3.70 MIL/MM3 (4.50-5.90) Hemoglobin 11.9 GM/DL (13.0-17.0) 11.2 GM/DL (13.0-17.0) Hematocrit 35.8 % (39.0-51.0) 33.7 % (39.0-51.0) Neutrophils (%) (Auto) 84.7 % (16.0-70.0) 75.9 % (16.0-70.0) Lymphocytes (%) (Auto) 6.8 % (9.0-44.0) Lymphocytes # (Auto) 0.4 TH/MM3 (1.0-4.8) 0.5 TH/MM3 (1.0-4.8) Total Protein 5.1 GM/DL (6.4-8.2) 5.0 GM/DL (6.4-8.2) Albumin 2.0 GM/DL (3.4-5.0) 2.0 GM/DL (3.4-5.0) Calcium Level 7.0 MG/DL (8.5-10.1) 6.9 MG/DL (8.5-10.1) Protein Corrected Calcium 8.1 MG/DL (8.5-10.1) 8.0 MG/DL (8.5-10.1) Monocytes (%) (Auto) 10.0 % (0.0-8.0) Random Glucose 69 MG/DL (74-106) Potassium Level 3.0 MEQ/L (3.5-5.1) Imaging Last Impressions Chest X-Ray 08/12/17 0000 Signed Impressions: Service Date/Time: Saturday, August 12, 2017 14:07 - CONCLUSION: Mild interstitial edema, trace free air. Dominic Suresh MD FACR Abdomen/Pelvis CT 08/08/17 0000 Signed Impressions: Service Date/Time: Tuesday, August 08, 2017 23:54 - CONCLUSION: 1. Nonspecific bowel gas pattern with mild gaseous dilatation of portions of the colon and multiple loops of borderline dilated air-containing small bowel with multiple air-fluid levels in the colon and small bowel. Findings could represent ileus. 2. Stable infrarenal abdominal aortic aneurysm. 3. Stable bilateral nonobstructing renal calculi. 4. Stable thickening and fluid along the right posterior lateral pleura. 5. Status post cholecystectomy. 6. Postsurgical changes in the sigmoid colon. 7. Mild to moderate diverticulosis. Gómez Marrero MD PE at Discharge GENERAL: Very pleasant elderly white male in no acute distress. CARDIOVASCULAR: Regular rate and rhythm. No obvious murmurs to auscultation. RESPIRATORY: No obvious rhonchi or wheezing. Lungs clear in all berrios no crackles. GASTROINTESTINAL: Abdomen soft, generalized mild tenderness to palpation. BS normal. Lower abdominal dressing in place dry and intact, cris above dressing and to right of dressing, no redness or drainage noted. MUSCULOSKELETAL: Extremities without clubbing, cyanosis, bilateral +1 pitting edema, bilateral arm with trace edema. No obvious deformities. NEUROLOGICAL: Awake, alert and oriented x4. Moving both upper and lower extremities spontaneously. Pt update on day of discharge Follow up laparoscopy, lysis of adhesions, small bowel resection. Patient up to side of bed with eating regular breakfast. States he had 3 BM's last night dark in color, denies nausea, vomiting, diarrhea, fever or chills. Pain under control , no SOB, pain well controlled. Hospital Course 81-year-old patient with history of recurrent constipation and SBO who presented to the ED on 08/09 with complaints of abdominal distention, nausea, and vomiting for one day. CT of abdomen & pelvis revealed nonspecific bowel gas patterns with mid gaseous dilatation of portions of the colon and multiple loops of borderline dilated air-containing small bowel with multiple air-fluid levels in the colon and small bowel which were consistent with ileus. General surgery was consulted and on 08/10 patient underwent diagnostic laparoscopy, with lysis of adhesions, and small bowel resection with primary anastomosis. He was gradually started on a diet until tolerated, he is now on a regular diet and tolerating this well, has also had multiple BM's and has transitioned to oral pain medications. Patient has been cleared to go by general surgery services and will follow up with them as an outpatient. Pt Condition on Discharge: Stable Discharge Disposition: Discharge Home Discharge Time: <= 30 minutes Discharge Instructions DIET: Follow Instructions for: As Tolerated, No Restrictions Activities you can perform: Weight Bearing as Kartik Activities to Avoid: Driving for 24 hrs Follow up Referrals: PCP Follow-up - 1 Week Surgical - 08/18/17 with Gómez Philip MD Follow up appointment on Aug 18 at 1:30PM New Medications: Hydrocodone/Acetaminophen (Hydrocodone-Acetamin 5-325 mg) 5 Mg-325 Mg Tablet 1 TAB PO Q4H PRN for pain, #25 TAB Continued Medications: Albuterol 8.5 GM Inh (Proair Hfa 8.5 GM Inh) 90 Mcg/Act Aer 2 PUFF INH Q6H PRN for SHORTNESS OF BREATH, #1 INHALER 0 Refills 108 mcg/actuation Aspirin DR (Ecotrin Regular Strength) 325 Mg Tabdr 325 MG PO DAILY, #30 TAB 0 Refills Biotin (Biotin) 1,000 Mcg Tab 1000 MCG PO, #1 BOTTLE Calcium Citrate-Vitamin D (Citracal + D3 Maximum) 315-250 Mg-Unit Tab 1 TAB PO DAILY for Calcium Supplement, #100 TAB 0 Refills Cetirizine (Cetirizine) 10 Mg Tab 10 MG PO DAILY for Allergies, TAB 0 Refills Cholecalciferol (Vitamin D3) 400 Unit Cap 400 UNITS PO DAILY for Nutritional Supplement, #1 BOTTLE [address] (Nexium) 40 Mg Capdr 40 MG PO DAILY, CAP 0 Refills Glimepiride (Glimepiride) 2 Mg Tab 2 MG PO DAILY for Blood Sugar Management, #30 TAB 0 Refills Take with breakfast or first main meal Metoprolol Tartrate (Metoprolol Tartrate) 25 Mg Tab 25 MG PO DAILY, #30 TAB 0 Refills Mometasone Nasal [place] (Nasonex Nasal [place]) 50 Mcg/Act Naspr 2 SPRAY EACH NARE DAILY for Allergy Management, #1 BOTTLE 0 Refills Niacin (Niacin) 500 Mg Tab 1500 MG PO HS for Cholesterol Management, #60 TAB 0 Refills Saxagliptin-Metformin ER (Kombiglyze Xr) 2.5-1,000 Mg Tab 1 TAB PO DAILY for Blood Sugar Management, #30 TAB 0 Refills Discontinued Medications: Ondansetron (Zofran) 4 Mg Tab 4 MG PO Q6HR PRN for NAUSEA OR VOMITING, #10 TAB 0 Refills Sulfamethoxazole-Trimethoprim (Sulfamethoxazole-Trimethoprim) 800-160 Mg Tab 1 TAB PO BID for Infection, TAB 0 Refills Tramadol (Tramadol) 50 Mg Tab 50 MG PO Q8H PRN for PAIN, TAB 0 Refills Dell Dos Santos Aug 14, 2017 14:39
--- NOTE | 2017-08-14 14:50 | HHI.DCPOC ---
Discharge Care Plan Goals to Promote Your Health * To prevent worsening of your condition and complications * To maintain your health at the optimal level Directions to Meet Your Goals Take your medications as prescribed Follow your dietary instruction Follow activity as directed Keep your appointments as scheduled Take your immunizations and boosters as scheduled If your symptoms worsen call your PCP, if no PCP go to Urgent Care Center or Emergency Room Smoking is Dangerous to Your Health. Avoid second hand smoke Call the 24-hour hour crisis hotline for domestic abuse at Dell Do sSantos Aug 14, 2017 14:50
[2017-08-14] MEDS: ENOXAPARIN SODIUM 30 MG/0.3 ML SYRINGE SQ SCH (15:00)
--- NOTE | 2017-08-14 15:50 | HHI.PR ---
Subjective Subjective Notes Up to chair No issues Tolerated breakfast and lunch at bedside Objective Vitals/I&O Vital Signs Date Time Temp Pulse Resp B/P (MAP) Pulse Ox O2 Delivery O2 Flow Rate FiO2 08/14/17 13:46 18 08/14/17 12:00 97.9 70 128/73 (91) 96 08/13/17 20:58 Nasal Cannula 2.00 Labs Laboratory Tests Test 08/14/17 05:43 White Blood Count 4.9 Red Blood Count 3.70 Hemoglobin 11.2 Hematocrit 33.7 Mean Corpuscular Volume 91.0 Mean Corpuscular Hemoglobin 30.3 Mean Corpuscular Hemoglobin Concent 33.3 Red Cell Distribution Width 14.2 Platelet Count 191 Mean Platelet Volume 7.7 Neutrophils (%) (Auto) 75.9 Lymphocytes (%) (Auto) 11.0 Monocytes (%) (Auto) 10.0 Eosinophils (%) (Auto) 2.6 Basophils (%) (Auto) 0.5 Neutrophils # (Auto) 3.7 Lymphocytes # (Auto) 0.5 Monocytes # (Auto) 0.5 Eosinophils # (Auto) 0.1 Basophils # (Auto) 0.0 CBC Comment DIFF FINAL Differential Comment Blood Urea Nitrogen 9 Creatinine 0.68 Random Glucose 69 Total Protein 5.0 Albumin 2.0 Calcium Level 6.9 Alkaline Phosphatase 73 Aspartate Amino Transf (AST/SGOT) 19 Alanine Aminotransferase (ALT/SGPT) 14 Total Bilirubin 0.5 Sodium Level 140 Potassium Level 3.0 Chloride Level 104 Carbon Dioxide Level 26.1 Anion Gap 10 Estimat Glomerular Filtration Rate 112 Protein Corrected Calcium 8.0 Cardiovascular: Regular Lungs: Clear Abdomen: Other (low midline incision with cris; dx lap sites with cris-- - abdomen soft minimally tender ) Extremities: No edema A/P Assessment and Plan 81 year old male POD4 dx lap; lap AGATHA; ex lap; SBR -Tolerated regular diet -Pain controlled with oral pain medications -OOB and mobilize -Discussed with PAMELA patterson for DC -Follow up Thursday at 1:30PM in the office Attending Note - Dr. Philip Abdomen benign; cris intact The exam, history, and the medical decision-making described in the above note were completed with the assistance of the mid-level provider. I reviewed and agree with the findings presented. I attest that I had a [id number] encounter with the patient on the same day, and personally performed and documented my assessment and findings in the medical record. Heidi Alegre Aug 14, 2017 15:50 Gómez Philip MD Aug 15, 2017 17:44
== END 2017-08-14 15:45 | disposition home or self-care (01) | DRG 331 ==
LOC: NEPE 21:52 → NEDA 08-09 02:25 → N07A 08-09 03:45
PROVIDERS: ADMIT Hospitalist; ATTEND Hospitalist
PROC: 0DNB4ZZ Release Ileum, Percutaneous Endoscopic Approach (ICD-10-PCS; 2017-08-10)
PROC: 0WJP0ZZ Inspection of Gastrointestinal Tract, Open Approach (ICD-10-PCS; 2017-08-10)
PROC: 0DBA0ZZ Excision of Jejunum, Open Approach (ICD-10-PCS; principal; 2017-08-10 09:53)
DX: K56.51 Intestinal adhesions [bands], with partial obstruction (principal); K66.8 Other specified disorders of peritoneum; J44.9 Chronic obstructive pulmonary disease, unspecified; K56.2 Volvulus; E11.9 Type 2 diabetes mellitus without complications; Z95.1 Presence of aortocoronary bypass graft; I10 Essential (primary) hypertension; I25.10 Atherosclerotic heart disease of native coronary artery without angina pectoris; M19.90 Unspecified osteoarthritis, unspecified site; Z79.01 Long term (current) use of anticoagulants; Z79.82 Long term (current) use of aspirin; Z79.84 Long term (current) use of oral hypoglycemic drugs; Z87.442 Personal history of urinary calculi; K21.9 Gastro-esophageal reflux disease without esophagitis; K44.9 Diaphragmatic hernia without obstruction or gangrene; Z87.891 Personal history of nicotine dependence; E78.5 Hyperlipidemia, unspecified; Z96.1 Presence of intraocular lens; I71.4 Abdominal aortic aneurysm, without rupture; K57.90 Diverticulosis of intestine, part unspecified, without perforation or abscess without bleeding; R60.0 Localized edema; E87.6 Hypokalemia; T50.1X5A Adverse effect of loop [high-ceiling] diuretics, initial encounter
CPT/HCPCS: 71010; 74177; 80048; 80053; 82948; 83690; 84155; 85025; 85610; 85730; 86850; 86900; 86901; 88305; 88307; 94150; 96361; 96374; 96375; J0131; J0690; J1100; J1650; J1815; J1940; J2270; J2370; J2405; J2710; J2765; J3010; J7030; J7040; J7120; Q9967

== ENCOUNTER 2018-01-02 09:03 | Observation (INO) | payer BC, MEDICARE ==
[~2018-01-02] VITALS: Ht 162.6 cm; Wt 61.9 kg
[2018-01-02] VITALS (7 sets, daily range): BP systolic 105–136; BP diastolic 58–69; PULSE 74–88; RESP 17–20; TEMP 97.3–97.6; O2SAT 97–100
[~2018-01-02 09:03] MED LIST changes: +HYDR-3516 PO; -LOVA10TA PO; -SULF1TAB23 PO; -TELM1TAB PO; -TRAM50TA PO; -ZOFR4TAB PO
[2018-01-02] MEDS ORDERED: SODIUM CHLORIDE 0.9% FLUSH 10 ML FLUSH IVF PRN (09:15)
[2018-01-02] MEDS ORDERED: KOMB2.5T PO (09:19)
[2018-01-02] MEDS ORDERED: NITR1SUB3 SL (09:19)
--- NOTE | 2018-01-02 09:27 | PD ---
HPI Chief Complaint: Chest Pain Time Seen by Provider: 09:08 Travel History International Travel<30 days: No Contact w/Intl Traveler<30days: No Traveled to known affect area: No History of Present Illness HPI Patient is an 82-year-old male with a history of diabetes high blood pressure high cholesterol and CABG 20 years ago presents the emergency department for evaluation of chest pain. Patient states about 8:00 he noticed bilateral neck pain as well as shoulder pain and then had some mild chest pain as well. He states the discomfort is nearly gone, he states he took some nitroglycerin which he had on hand at home for several years and it did not relieve him but it is relieved by rest. He is followed by Dr. Menon for his history of CABG states he sees him about once every 6 months but cannot remember the last time at a stress test or cardiac catheterization. Last cardiac catheterization we have on file was in October 2003 which showed widely patent grafts to OM1, RCA , BRICENO. However there was total occlusion of the graft to the diagonal branch. Not associated with the dizziness nausea vomiting or diaphoresis, however the patient's arrived says he was nauseous and also having some sweating episodes this morning. Symptoms mild, resolved, radiation as above, context as above. PFSH Past Medical History Hx Anticoagulant Therapy: Yes (ASA) AAA: Yes (3.8 CM 08/02/2014) Arthritis: Yes Asthma: No Autoimmune Disease: No Blood Disorders: No Anxiety: No Depression: No Heart Rhythm Problems: No Cancer: No Cardiovascular Problems: Yes High Cholesterol: Yes Chemotherapy: No Chest Pain: No Congestive Heart Failure: No COPD: Yes Cerebrovascular Accident: No Coronary Artery Disease: Yes Diabetes: Yes (type 2) Diminished Hearing: No Diverticulitis: Yes Endocrine: Yes Gastrointestinal Disorders: Yes (DIVERTICULITIS ) GERD: Yes Genitourinary: Yes Hiatal Hernia: Yes Hypertension: Yes Immune Disorder: No Implanted Vascular Access Dvce: Yes Kidney Stones: Yes Musculoskeletal: Yes Neurologic: No Psychiatric: No Reproductive: No Respiratory: No Immunizations Current: Yes Migraines: No Radiation Therapy: No Renal Failure: No Seizures: No Sickle Cell Disease: No Sleep Apnea: No Thyroid Disease: No Ulcer: No PNEUMOCCOCAL Vaccine (Year): 1 Past Surgical History Abdominal Surgery: Yes (choly appy) AICD: No Appendectomy: Yes Arteriovenous Shunt: No Cardiac Surgery: Yes (bypass) Cholecystectomy: Yes (2007) Coronary Artery Bypass Graft: Yes (1996 X) Eye Surgery: Yes (LENS IMPLANTS ) Insulin Pump: No Joint Replacement: No Pacemaker: No Other Surgery: Yes Social History Alcohol Use: Yes (OCCASIONALLY) Tobacco Use: No (QUIT 1996) Substance Use: No Allergies-Medications (Allergen,Severity, Reaction): Coded Allergies: No Known Allergies (Verified Adverse Reaction, Unknown, 01/02/18) Reported Meds & Prescriptions Reported Meds & Active Scripts Active Hydrocodone-Acetamin 5-325 mg (Hydrocodone/Acetaminophen) 5 Mg-325 Mg Tablet 1 Tab PO Q4H PRN Reported Kombiglyze Xr (Saxagliptin-Metformin ER) 2.5-1,000 Mg Tab 1 Tab PO DAILY Nitroglycerin SL (Nitroglycerin) 0.4 Mg Subl 0.4 Mg SL DIRECTED PRN ONE TABLET UNDER THE TONGUE NEEDED FOR CHEST PAIN, MAY REPEAT EVERY FIVE MINUTES FOR A TOTAL OF 3 DOSES OR CALL 911 IF NO RELIEF Metoprolol Tartrate 25 Mg Tab 25 Mg PO DAILY Citracal + D3 Maximum (Calcium Citrate-Vitamin D) 315-250 Mg-Unit Tab 1 Tab PO DAILY Biotin 1,000 Mcg Tab 1,000 Mcg PO Vitamin D3 (Cholecalciferol) 400 Unit Cap 400 Units PO DAILY Nexium (Esomeprazole DR) 40 Mg Capdr 40 Mg PO DAILY Ecotrin Regular Strength (Aspirin) 325 Mg Tabdr 325 Mg PO DAILY Niacin 500 Mg Tab 1,500 Mg PO HS Glimepiride 2 Mg Tab 2 Mg PO DAILY Take with breakfast or first main meal Cetirizine (Cetirizine HCl) 10 Mg Tab 10 Mg PO DAILY Nasonex Nasal [place] (Mometasone Furoate) 50 Mcg/Act Naspr 2 [place] EACH NARE DAILY Proair Hfa 8.5 GM Inh (Albuterol Sulfate) 90 Mcg/Act Aer 2 Puff INH Q6H PRN 108 mcg/actuation Review of Systems Except as stated in HPI: all other systems reviewed are Neg Physical Exam Narrative GENERAL: Well-developed well-nourished no obvious distress SKIN: Focused skin assessment warm/dry. HEAD: Atraumatic. Normocephalic. EYES: Pupils equal and round. No scleral icterus. No injection or drainage. ENT: No nasal bleeding or discharge. Mucous membranes pink and moist. NECK: Trachea midline. No JVD. CARDIOVASCULAR: Regular rate and rhythm. No murmur appreciated. 2+ bilateral equal pulses in all 4 extremities, no MGR. RESPIRATORY: No accessory muscle use. Clear to auscultation. Breath sounds equal bilaterally. No wheezes rales or rhonchi GASTROINTESTINAL: Abdomen soft, non-tender, nondistended. Hepatic and splenic margins not palpable. MUSCULOSKELETAL: No obvious deformities. No clubbing. No cyanosis. Trace edema bilateral lower extremities NEUROLOGICAL: Awake and alert. No obvious cranial nerve deficits. Motor grossly within normal limits. Normal speech. PSYCHIATRIC: Appropriate mood and affect; insight and judgment normal. Data Data Last Documented VS Vital Signs Date Time Temp Pulse Resp B/P (MAP) Pulse Ox O2 Delivery O2 Flow Rate FiO2 01/02/18 10:35 80 18 116/58 (77) 97 Room Air 01/02/18 09:08 97.6 Orders Orders Electrocardiogram (01/02/18 09:08) Complete Blood Count With Diff (01/02/18 09:08) Comprehensive Metabolic Panel (01/02/18 09:08) Magnesium (Mg) (01/02/18 09:08) Prothrombin Time / Inr (Pt) (01/02/18 09:08) Act Partial Throm Time (Ptt) (01/02/18 09:08) Troponin I (01/02/18 09:08) Ecg Monitoring (01/02/18 09:08) Iv Access Insert/Monitor (01/02/18 09:08) Oximetry (01/02/18 09:08) Oxygen Administration (01/02/18 09:08) Sodium Chloride 0.9% Flush (Ns Flush) (01/02/18 09:15) Aspirin Chew (Aspirin Chew) (01/02/18 09:30) Chest, Single Ap (01/02/18 ) Admit Order (Ed Use Only) (01/02/18 ) Labs Laboratory Tests Test 01/02/18 05:54 01/02/18 09:20 Total Creatine Kinase 52 U/L Troponin I LESS THAN 0.02 NG/ML LESS THAN 0.02 NG/ML White Blood Count 7.4 TH/MM3 Red Blood Count 4.03 MIL/MM3 Hemoglobin 12.3 GM/DL Hematocrit 37.4 % Mean Corpuscular Volume 92.7 FL Mean Corpuscular Hemoglobin 30.5 PG Mean Corpuscular Hemoglobin Concent 32.9 % Red Cell Distribution Width 15.4 % Platelet Count 226 TH/MM3 Mean Platelet Volume 8.7 FL Neutrophils (%) (Auto) 80.8 % Lymphocytes (%) (Auto) 11.1 % Monocytes (%) (Auto) 6.6 % Eosinophils (%) (Auto) 0.8 % Basophils (%) (Auto) 0.7 % Neutrophils # (Auto) 6.0 TH/MM3 Lymphocytes # (Auto) 0.8 TH/MM3 Monocytes # (Auto) 0.5 TH/MM3 Eosinophils # (Auto) 0.1 TH/MM3 Basophils # (Auto) 0.1 TH/MM3 CBC Comment DIFF FINAL Differential Comment Prothrombin Time 11.0 SEC Prothromb Time International Ratio 1.1 RATIO Activated Partial Thromboplast Time 22.6 SEC Blood Urea Nitrogen 23 MG/DL Creatinine 0.99 MG/DL Random Glucose 76 MG/DL Total Protein 5.8 GM/DL Albumin 2.5 GM/DL Calcium Level 7.8 MG/DL Magnesium Level 1.1 MG/DL Alkaline Phosphatase 140 U/L Aspartate Amino Transf (AST/SGOT) 20 U/L Alanine Aminotransferase (ALT/SGPT) 16 U/L Total Bilirubin 0.3 MG/DL Sodium Level 142 MEQ/L Potassium Level 4.3 MEQ/L Chloride Level 110 MEQ/L Carbon Dioxide Level 21.0 MEQ/L Anion Gap 11 MEQ/L Estimat Glomerular Filtration Rate 73 ML/MIN [facility] Medical Decision Making Medical Screen Exam Complete: Yes Emergency Medical Condition: Yes Interpretation(s) EKG shows sinus rhythm right bundle branch block, nonspecific T-wave changes but nothing ischemic. Comparison to 03/11/2017 shows no change at all. Interestingly on 04/30/2017 the patient did not have a right bundle branch block. This is an abnormal EKG Differential Diagnosis ACS, [place], GERD, dissection unlikely, pneumonia. Narrative Course Patient room to the emergency department, initial EKG showed right bundle branch block without any obvious ischemia signs, patient has had right bundle branch block patient certainly does have known coronary artery disease and I think would benefit for additional workup, placed in the chest pain center. patient is chest pain-free at the time of admission. Diagnosis Primary Impression: Chest pain Admitting Information Admitting Physician Requests: Observation Condition: Stable Noe Menard MD Jan 02, 2018 09:27
[2018-01-02] MEDS ORDERED: ASPIRIN 81 MG CHEW TAB CHEW ONE (09:30)
[2018-01-02 09:46] LABS: HEMATOCRIT 37.4 % (39.0-51.0); HEMOGLOBIN 12.3 GM/DL (13.0-17.0); MEAN CELL VOLUME 92.7 FL (80.0-100.0); MEAN CORPUSCULAR HEMOGLOBIN 30.5 PG (27.0-34.0); MEAN CORPUSCULAR HGB CONC 32.9 % (32.0-36.0); PLATELET COUNT 226 TH/MM3 (150-450); RED BLOOD COUNT 4.03 MIL/MM3 (4.50-5.90); RED CELL DISTRIBUTION WIDTH 15.4 % (11.6-17.2); WHITE BLOOD COUNT 7.4 TH/MM3 (4.0-11.0)
[2018-01-02 09:47] LABS: BASOPHIL # 0.1 TH/MM3 (0-0.2); BASOPHIL % 0.7 % (0.0-2.0); EOSINOPHIL # 0.1 TH/MM3 (0-0.4); EOSINOPHIL % 0.8 % (0.0-4.0); LYMPH % 11.1 % (9.0-44.0); LYMPHOCYTE # 0.8 TH/MM3 (1.0-4.8); MEAN PLATELET VOLUME 8.7 FL (7.0-11.0); MONO % 6.6 % (0.0-8.0); MONOCYTE # 0.5 TH/MM3 (0-0.9); NEUT % 80.8 % (16.0-70.0)
--- NOTE | 2018-01-02 09:59 | RADRPT ---
EXAM DATE/TIME: 01/02/2018 09:38 [facility] COMPARISON: CHEST SINGLE AP, August 12, 2017, 14:07. INDICATIONS : Chest pain leading into both shoulders. MEDICAL HISTORY : Chronic obstructive pulmonary disease. Cardiovascular disease. Hypertension. Diabetes. SURGICAL HISTORY : CABG. Appendectomy. ENCOUNTER: Initial ACUITY: 1 day PAIN SCORE: 6/10 LOCATION: Bilateral chest FINDINGS: A single AP erect portable view of the chest was obtained and demonstrates interval removal of the na sogastric tube. Patient is again noted to be status post median sternotomy. There is mild apparent sc arring at the lung bases with no new confluent infiltrates or effusions. The heart size is within nor mal limits with no perihilar edema. There is no free air is now visualized. The bony thorax is intact . CONCLUSION: 1. Mild apparent scarring at the lung bases. 2. No acute cardiac pulmonary disease. Gómez Marrero MD on January 02, 2018 at 9:55 Board Certified Radiologist. This report was verified electronically.
[2018-01-02 10:00] LABS: ALBUMIN 2.5 GM/DL (3.4-5.0); AST (GOT) 20 U/L (15-37); BLOOD UREA NITROGEN 23 MG/DL (7-18); CALCIUM 7.8 MG/DL (8.5-10.1); CHLORIDE 110 MEQ/L (98-107); CREATININE 0.99 MG/DL (0.60-1.30); GLOMERULAR FILTRATION RATE 73 ML/MIN (>89); GLUCOSE,RANDOM 76 MG/DL (74-106); MAGNESIUM 1.1 MG/DL (1.5-2.5); SODIUM (NA) 142 MEQ/L (136-145)
[2018-01-02 10:01] LABS: ALT (GPT) 16 U/L (12-78)
[2018-01-02 10:02] LABS: INTERNATIONAL NORMALIZED RATIO 1.1 RATIO
[2018-01-02 10:05] LABS: ALKALINE PHOSPHATASE 140 U/L (45-117); TOTAL BILIRUBIN ADULT 0.3 MG/DL (0.2-1.0); TOTAL PROTEIN 5.8 GM/DL (6.4-8.2); TROPONIN I LESS THAN 0.02 NG/ML (0.02-0.05)
[2018-01-02] MEDS ORDERED: IOHEXOL 350 MG/ML 100 ML BTL (for Cath Lab) OTHER ONE (11:42)
[2018-01-02] MEDS ORDERED: IOHEXOL 350 MG/ML 50 ML BTL (for Cath Lab) OTHER ONE (11:42)
[2018-01-02] MEDS ORDERED: ACETAMINOPHEN 500 MG CPLT PO PRN (12:00)
[2018-01-02] MEDS ORDERED: NITROGLYCERIN 0.4 MG SL 25 TABS/BTL SL PRN (12:00)
[2018-01-02] MEDS ORDERED: ONDANSETRON HCL 4 MG/2 ML VIAL IV PUSH PRN (12:00)
--- NOTE | 2018-01-02 12:49 | HHI.HP ---
HPI Primary Care Physician Trevor Graf MD Chief Complaint Chest pain History of Present Illness 82-year-old male with history of coronary artery disease, CABG 20 years ago, and type II diabetes-noninsulin dependent presents to the emergency room for further evaluation of chest pain. Onset 8 AM. Location bilateral shoulders and neck. Characterized as pressure with accompanying "light substernal chest pain." Radiation to right arm. Associated symptoms of diaphoresis and nausea. No vomiting or shortness of breath. Duration 1 hour. No known precipitating or relieving factors. Denies discomfort being similar to past cardiac events, reporting a "different kind of pain this time." Took x2 nitro SL tablets at home without relief, however nitro tablets also past expiration date. Routinely does not require Nitro SL, today being the first time taking Nitro tablets. Review of Systems General: No fatigue,weakness, fever, chills, recent illness, or change in appetite. Has been in general state of health. HEENT: No ELDRIDGE, no vision changes, no nasal congestion or drainage, no dysphasia CV: As stated above. No current chest pain or pressure. RESP: No SOB, cough, wheeze. History of COPD, former smoker. GI: Nausea has resolved. No vomiting, bowel changes, diarrhea, constipation, pain, distention, melena, or blood in the stool. : No dysuria, urgency, frequency EXT: No lower leg edema, no paraesthesias MS: No discomfort, injury, trauma, or change in ROM NEURO: No dizziness, difficulty with balance, LOC, motor/sensory deficits PSYCH: No anxiety, depression SKIN: No rashes, no concerning lesions Past Family Social History Allergies: Coded Allergies: No Known Allergies (Verified Adverse Reaction, Unknown, 01/02/18) Past Medical History Coronary artery disease, diabetes type 2, hypertension, hyperlipidemia, COPD, AAA, diverticulitis, GERD, recurrent small bowel obstruction Past Surgical History CABG (20 years ago), appendectomy, cholecystectomy, bowel resection, right knee surgery Reported Medications Reported Meds & Active Scripts Active Hydrocodone-Acetamin 5-325 mg (Hydrocodone/Acetaminophen) 5 Mg-325 Mg Tablet 1 Tab PO Q4H PRN Reported Kombiglyze Xr (Saxagliptin-Metformin ER) 2.5-1,000 Mg Tab 1 Tab PO DAILY Nitroglycerin SL (Nitroglycerin) 0.4 Mg Subl 0.4 Mg SL DIRECTED PRN ONE TABLET UNDER THE TONGUE NEEDED FOR CHEST PAIN, MAY REPEAT EVERY FIVE MINUTES FOR A TOTAL OF 3 DOSES OR CALL 911 IF NO RELIEF Metoprolol Tartrate 25 Mg Tab 25 Mg PO DAILY Citracal + D3 Maximum (Calcium Citrate-Vitamin D) 315-250 Mg-Unit Tab 1 Tab PO DAILY Biotin 1,000 Mcg Tab 1,000 Mcg PO Vitamin D3 (Cholecalciferol) 400 Unit Cap 400 Units PO DAILY Nexium (Esomeprazole DR) 40 Mg Capdr 40 Mg PO DAILY Ecotrin Regular Strength (Aspirin) 325 Mg Tabdr 325 Mg PO DAILY Niacin 500 Mg Tab 1,500 Mg PO HS Glimepiride 2 Mg Tab 2 Mg PO DAILY Take with breakfast or first main meal Cetirizine (Cetirizine HCl) 10 Mg Tab 10 Mg PO DAILY Nasonex Nasal [place] (Mometasone Furoate) 50 Mcg/Act Naspr 2 [place] EACH NARE DAILY Proair Hfa 8.5 GM Inh (Albuterol Sulfate) 90 Mcg/Act Aer 2 Puff INH Q6H PRN 108 mcg/actuation Active Ordered Medications Current Medications Medications (Trade) Dose Ordered Sig/Robin Route Start Time Stop Time Status Last Admin (NS Flush) 2 ml UNSCH PRN IVF 01/02/18 09:15 (NS Flush) 2 ml BID IV FLUSH 01/02/18 21:00 (Tylenol) 500 mg Q4H PRN PO 01/02/18 12:00 (Zofran Inj) 4 mg Q6H PRN IV PUSH 01/02/18 12:00 (Nitrostat Sl) 0.4 mg Q5M PRN SL 01/02/18 12:00 (Aspirin) 325 mg DAILY PO 01/03/18 09:00 Family History Noncontributory for early onset cardiovascular disease. Social History Known coronary artery disease, diabetes, hypertension, and hyperlipidemia. Former smoker, quitting 20 years ago. 85 pack year history. Rare alcohol use. . Retired. Past cardiac testing No recent cardiac testing. Follows with Dr. Menon. 11/07/2003 Cardiac catheterization (Dr. Menon) Conclusions: 1. Normal left ventricular function. Total occlusion of graft to the diagonal branch. Widely patent graft to OM-1. Widely patent graft to right coronary artery. Widely patent graft to left internal mammary artery. There is some diffuse disease of the second obtuse marginal branch of about 60-70% which will be managed medically. Physical Exam Vital Signs Vital Signs Date Time Temp Pulse Resp B/P (MAP) Pulse Ox O2 Delivery O2 Flow Rate FiO2 01/02/18 10:35 80 18 116/58 (77) 97 Room Air 01/02/18 09:08 97.6 74 18 112/63 (79) 100 Physical Exam GENERAL: Alert WN, WD, NAD, pleasant, elderly male HEAD: NC, AT EYES: Sclera clear, conjunctiva without injection CV: RRR, 2/6 systolic murmur, rub, gallop, no JVD, S1-S2 no S3-S4. No carotid or femoral bruits. Chest wall nontender. RESP: Clear lungs throughout bilateral, no crackles, wheeze, rhonchi, symmetrical chest rise, nonlabored, able to speak in full sentences ABD: Soft, NT, ND, no masses, positive bowel tones EXT: Pulses +2x4, no dependent edema MS: Normal tone x4 extremities, nontender, no obvious deformities, full range of motion, no tenderness with passive ROM cervical and bilateral shoulders. NEURO: CN II through CN XII grossly intact, motor strength 5/5 PSYCH: A+O x3, pleasant affect, appropriate speech, mood, insight and judgment SKIN: Normal turgor, normal texture, no lesions, no rashes, brisk cap refill, even hair distribution, midchest and abdominal surgical scars well healed. Laboratory Laboratory Tests Test 01/02/18 09:20 White Blood Count 7.4 Red Blood Count 4.03 Hemoglobin 12.3 Hematocrit 37.4 Mean Corpuscular Volume 92.7 Mean Corpuscular Hemoglobin 30.5 Mean Corpuscular Hemoglobin Concent 32.9 Red Cell Distribution Width 15.4 Platelet Count 226 Mean Platelet Volume 8.7 Neutrophils (%) (Auto) 80.8 Lymphocytes (%) (Auto) 11.1 Monocytes (%) (Auto) 6.6 Eosinophils (%) (Auto) 0.8 Basophils (%) (Auto) 0.7 Neutrophils # (Auto) 6.0 Lymphocytes # (Auto) 0.8 Monocytes # (Auto) 0.5 Eosinophils # (Auto) 0.1 Basophils # (Auto) 0.1 CBC Comment DIFF FINAL Differential Comment Prothrombin Time 11.0 Prothromb Time International Ratio 1.1 Activated Partial Thromboplast Time 22.6 Blood Urea Nitrogen 23 Creatinine 0.99 Random Glucose 76 Total Protein 5.8 Albumin 2.5 Calcium Level 7.8 Magnesium Level 1.1 Alkaline Phosphatase 140 Aspartate Amino Transf (AST/SGOT) 20 Alanine Aminotransferase (ALT/SGPT) 16 Total Bilirubin 0.3 Sodium Level 142 Potassium Level 4.3 Chloride Level 110 Carbon Dioxide Level 21.0 Anion Gap 11 Estimat Glomerular Filtration Rate 73 Troponin I LESS THAN 0.02 Result Diagram: 01/02/18 0920 01/02/18 0920 Imaging Last 48 hours Impressions Chest X-Ray 01/02/18 0000 Signed Impressions: Service Date/Time: Tuesday, January 02, 2018 09:38 - CONCLUSION: 1. Mild apparent scarring at the lung bases. 2. No acute cardiac pulmonary disease. Gómez Marrero MD Course EKG Normal sinus rhythm, right bundle branch block, no ST-T segment changes Caprini VTE Risk Assessment Caprini VTE Risk Assessment: Mod/High Risk (score >= 2) Caprini Risk Assessment Model Point Value = 1 Point Value = 2 Point Value = 3 Point Value = 5 Age 41-60 Minor surgery BMI > 25 kg/m2 Swollen legs Varicose veins or History of unexplained or recurrent spontaneous Oral contraceptives or hormone replacement Sepsis (< 1 month) Serious lung disease, including pneumonia (< 1 month) Abnormal pulmonary function Acute myocardial infarction Congestive heart failure (< 1 month) History of inflammatory bowel disease Medical patient at bed rest Age 61-74 Arthroscopic surgery Major open surgery (> 45 min) Laparoscopic surgery (> 45 min) Malignancy Confined to bed (> 72 hours) Immobilizing plaster cast Central venous access Age >= 75 History of VTE Family history of VTE Factor V Leiden Prothrombin [id number] Lupus anticoagulant Anticardiolipin antibodies Elevated serum homocysteine Heparin-induced thrombocytopenia Other congenital or acquired thrombophilia Stroke (< 1 month) Elective arthroplasty Hip, pelvis, or leg fracture Acute spinal cord injury (< 1 month) Prophylaxis Regimen Total Risk Factor Score Risk Level Prophylaxis Regimen 0-1 Low Early ambulation 2 Moderate Order ONE of the following: *Sequential Compression Device (SCD) *Heparin 5000 units SQ BID 3-4 Higher Order ONE of the following medications: *Heparin 5000 units SQ TID *Enoxaparin/Lovenox 40 mg SQ daily (WT < 150 kg, CrCl > 30 mL/min) *Enoxaparin/Lovenox 30 mg SQ daily (WT < 150 kg, CrCl > 10-29 mL/min) *Enoxaparin/Lovenox 30 mg SQ BID (WT < 150 kg, CrCl > 30 mL/min) AND/OR *Sequential Compression Device (SCD) 5 or more Highest Order ONE of the following medications: *Heparin 5000 units SQ TID (Preferred with Epidurals) *Enoxaparin/Lovenox 40 mg SQ daily (WT < 150 kg, CrCl > 30 mL/min) *Enoxaparin/Lovenox 30 mg SQ daily (WT < 150 kg, CrCl > 10-29 mL/min) *Enoxaparin/Lovenox 30 mg SQ BID (WT < 150 kg, CrCl > 30 mL/min) AND *Sequential Compression Device (SCD) Assessment and Plan Assessment and Plan #1 Chest pain-admitted to chest pain center. Seen and evaluated by Dr. Edwin iHnes. Rule out with 2 sets of EKGs and cardiac enzymes. After being ruled with 2 sets, plans to proceed with Lexiscan this afternoon. There is concern discomfort an angina equivalent and this is been discussed in length with patient and family at bedside. If testing is positive, discussed consulting Dr. Menon's group for further recommendations. Patient and agreeable to plan of care. Nitro paste 0.5" x1 dose now. #2 History of type II diabetes-SSI low dose coverage, hold oral anti-glycemics #3 History of COPD-albuterol q2h prn as needed Maylin Cameron Jan 02, 2018 12:49
[2018-01-02 13:19] LABS: TROPONIN I LESS THAN 0.02 NG/ML (0.02-0.05)
[2018-01-02] MEDS ORDERED: REGADENOSON INJ 0.4 MG/5 ML SYR ONE (13:56)
[2018-01-02] MEDS ORDERED: NITROGLYCERIN 2% OINT 1 GM PACKET TOPICAL ONE (14:00)
--- NOTE | 2018-01-02 15:44 | RADRPT ---
EXAM DATE/TIME: 01/02/2018 13:53 [facility] COMPARISON: No previous studies available for comparison. INDICATIONS : Neck pain radiating to the shoulders and chest with nausea and diaphoresis. Angina. DOSE: 25.6 mCi Tc99m Myoview at stress. 8.4 mCi Tc99m Myoview at rest. 0.4 mg Lexiscan STRESS SYMPTOMS: Chest pressure and dyspnea. EJECTION FRACTION: 69% MEDICAL HISTORY : Diabetes mellitus type 2. Hypercholesterolemia. Chronic obstructive pulmonary disease. Hypertension. Hiatal hernia. SURGICAL HISTORY : CABG Appendectomy. Cholecystectomy. ENCOUNTER: Initial ACUITY: 1 day PAIN SCALE: 4/10 LOCATION: Bilateral chest TECHNIQUE: The patient underwent pharmacologic stress with infusion of prescribed dose. Continuous ECG tracing was monitored during stress. Gated SPECT imaging was performed after stress and conventional SPECT i maging was performed at rest. The examination was performed on a SPECT/CT scanner, both attenuation and non-corrected datasets were reviewed. FINDINGS: DISTRIBUTION: The maximum perfused segment at stress is in the inferoseptal wall. PERFUSION STUDY: The pattern of perfusion at stress shows some redistribution and segments of the inferior and lateral vang concerning for ischemia. GATED STUDY: There is intact wall motion and thickening without hypokinetic or dyskinetic segments. CONCLUSION: 1. Redistribution in segments of the inferior and lateral vang concerning for ischemia. 2. Adequate wall motion throughout with an estimated ejection fraction of 69% RISK CATEGORY: Intermediate (1-3% Annual Mortality Rate) Augustus Cintron MD on January 02, 2018 at 15:39 Board Certified Radiologist. This report was verified electronically.
[2018-01-02] MEDS ORDERED: RESP: ALBUTEROL 2.5 MG/3 ML NEB (PRN) NEB (16:15)
[2018-01-02] MEDS ORDERED: GLUCAGON 1 MG/ML VIAL OTHER PRN (16:15)
[2018-01-02] MEDS ORDERED: DEXTROSE 50% IN WATER 50 ML VIAL(D50) IV PUSH PRN (16:15)
[2018-01-02 16:32] LABS: TROPONIN I LESS THAN 0.02 NG/ML (0.02-0.05)
[2018-01-02] MEDS: INSULIN ASPART SUPPLEMENTAL SCALE SQ SCH ×2 (17:00→20:28)
[2018-01-02] MEDS: NITROGLYCERIN 2% OINT 1 GM PACKET TOPICAL SCH (17:32)
[2018-01-02] MEDS: SODIUM CHLORIDE 0.9% FLUSH 10 ML FLUSH IV FLUSH SCH (20:50)
[2018-01-03] VITALS (7 sets, daily range): BP systolic 114–134; BP diastolic 65–82; PULSE 69–91; RESP 16–18; TEMP 96.7–97.9; O2SAT 96–100
[2018-01-03] MEDS: NITROGLYCERIN 2% OINT 1 GM PACKET TOPICAL SCH ×4 (00:30→18:00)
[2018-01-03] MEDS: INSULIN ASPART SUPPLEMENTAL SCALE SQ SCH ×4 (08:00→21:37)
--- NOTE | 2018-01-03 08:07 | HHI.PR ---
Subjective Remarks in no acute distress. no chest pain or sob. no new complaints. Objective Vitals Vital Signs Date Time Temp Pulse Resp B/P (MAP) Pulse Ox O2 Delivery O2 Flow Rate FiO2 01/03/18 07:28 97.9 91 18 129/71 (90) 96 01/03/18 04:50 97.8 75 18 114/65 (81) 99 01/03/18 00:10 78 01/02/18 20:08 75 01/02/18 20:00 97.3 88 20 107/69 (82) 98 01/02/18 17:27 80 17 105/67 (80) 97 Room Air 01/02/18 17:26 01/02/18 14:00 74 17 136/60 (85) 98 Room Air 01/02/18 13:26 97 01/02/18 10:35 80 18 116/58 (77) 97 Room Air 01/02/18 09:08 97.6 74 18 112/63 (79) 100 I/O 01/02/18 01/02/18 01/02/18 01/03/18 01/03/18 01/03/18 07:00 15:00 23:00 07:00 15:00 23:00 Intake Total 120 ml Balance 120 ml Intake Oral 120 ml # Voids 3 Result Diagram: 01/02/1820 01/02/18919 Imaging Last Impressions Myocardial Perfusion Scan Nuc Med 01/02/18 0000 Signed Impressions: Service Date/Time: Tuesday, January 02, 2018 13:53 - CONCLUSION: 1. Redistribution in segments of the inferior and lateral vang concerning for ischemia. 2. Adequate wall motion throughout with an estimated ejection fraction of 69%% RISK CATEGORY: Intermediate (1-3%% Annual Mortality Rate) Augustus Cintron MD Chest X-Ray 01/02/18 0000 Signed Impressions: Service Date/Time: Tuesday, January 02, 2018 09:38 - CONCLUSION: 1. Mild apparent scarring at the lung bases. 2. No acute cardiac pulmonary disease. Gómez Marrero MD Objective Remarks GENERAL: This is a well-nourished, well-developed patient, in no apparent distress. CARDIOVASCULAR: Regular rate and regular rhythm without murmurs, gallops, or rubs. RESPIRATORY: Clear to auscultation. Breath sounds equal bilaterally. No wheezes , rales, or rhonchi. GASTROINTESTINAL: Abdomen soft, non-tender, nondistended. Normal, active bowel sounds MUSCULOSKELETAL: Extremities without clubbing, cyanosis, or edema. NEURO: Alert & Oriented x4 to person, place, time, situation. Moves all ext x4 Medications and IVs Inpatient Medications Acetaminophen (Tylenol) 500 mg Q4H PRN PO HEADACHE; Start 01/02/18 at 12:00 Albuterol Sulfate (Albuterol Neb) 2.5 mg Q2HR NEB PRN NEB SOB/WHEEZING; Start 01/02/18 at 16:15 Aspirin (Aspirin Chew) 324 mg ONCE ONCE CHEW Last administered on 01/02/18at 09 :33; Start 01/02/18 at 09:30; Stop 01/02/18 at 09:31; Status DC Aspirin (Aspirin) 325 mg DAILY PO ; Start 01/03/18 at 09:00 Cetirizine HCl (ZyrTEC) 10 mg DAILY PO ; Start 01/03/18 at 09:00 Dextrose (D50w (Vial) Inj) 50 ml UNSCH PRN IV PUSH HYPOGLYCEMIA-SEE COMMENTS; Start 01/02/18 at 16:15 Glucagon (Glucagon Inj) 1 mg UNSCH PRN OTHER HYPOGLYCEMIA-SEE COMMENTS; Start 01/02/18 at 16:15 Insulin Aspart (NovoLOG SUPPLEMENTAL SCALE) 1 ACHS SLIDING SCALE SQ ; Start at 17:00 Metoprolol Tartrate (Lopressor) 25 mg DAILY PO ; Start 01/03/18 at 09:00 Nitroglycerin (Nitroglycerin 2% Oint) 0.5 inch Q6HR TOPICAL ; Start 01/02/18 at 18:00 Nitroglycerin (Nitrostat Sl) 0.4 mg Q5M PRN SL CHEST PAIN; Start 01/02/18 at 12 :00 Ondansetron HCl (Zofran Inj) 4 mg Q6H PRN IV PUSH NAUSEA; Start 01/02/18 at 12: 00 Pantoprazole Sodium (Protonix) 40 mg DAILY PO ; Start 01/03/18 at 09:00 Sodium Chloride (NS Flush) 2 ml BID IV FLUSH Last administered on 01/02/18at 20: 50; Start 01/02/18 at 21:00 A/P Assessment and Plan A/P Chest pain with abnormal stress test. continue aspirin and metoprolol- cardiology consulted. History of type II diabetes-SSI low dose coverage, hold oral hypoglycemics History of COPD-albuterol q2h prn as needed Discharge Planning awaiting cardiology evaluation. Briseida Esteban MD Jan 03, 2018 08:07
[2018-01-03] MEDS: PANTOPRAZOLE SOD 40 MG DELAYED RELEASE TAB PO SCH (08:16)
[2018-01-03] MEDS: METOPROLOL TARTRATE 25 MG TAB PO SCH (08:16)
[2018-01-03] MEDS: ASPIRIN 325 MG TAB PO SCH (08:17)
[2018-01-03] MEDS: SODIUM CHLORIDE 0.9% FLUSH 10 ML FLUSH IV FLUSH SCH ×2 (08:17→19:41)
[2018-01-03] MEDS: CETIRIZINE HCL 10 MG TAB PO SCH (08:17)
--- NOTE | 2018-01-03 11:05 | EKG ---
Date Performed: 01/02/2018 Time Performed: 15:40:24 PTAGE: 82 years EKG: Sinus rhythm WITH FREQUENT VENTRICULAR PREMATURE COMPLEXES WITH OCCASIONAL SUPRAVENTRICULAR PREMATURE COMPLEXES I N A BIGEMINAL PATTERN RIGHT BUNDLE BRANCH BLOCK ABNORMAL ECG PREVIOUS TRACING : 01/02/2018 12.49 Compared to previous tracing, PVCs are new. DOCTOR: Edwin Hines Interpretating Date/Time 01/03/2018 11:04:03
--- NOTE | 2018-01-03 11:08 | EKG ---
Date Performed: 01/02/2018 Time Performed: 12:49:45 PTAGE: 82 years EKG: Sinus rhythm RIGHT BUNDLE BRANCH BLOCK ABNORMAL ECG PREVIOUS TRACING : 01/02/2018 12.48 Since previous tracing, no significant change noted DOCTOR: Edwin Hines Interpretating Date/Time 01/03/2018 11:07:19
--- NOTE | 2018-01-03 11:11 | EKG ---
Date Performed: 01/02/2018 Time Performed: 09:12:06 PTAGE: 82 years EKG: Sinus rhythm RIGHT BUNDLE BRANCH BLOCK ABNORMAL ECG INTERPRETATION BASED ON A DEFAULT AGE OF 40 YEARS PREVIOUS TRACING : 04/30/2017 19.21 Compared to previous tracing, changes are new. DOCTOR: Edwin Hines Interpretating Date/Time 01/03/2018 11:09:56
--- NOTE | 2018-01-03 18:57 | PD.CONS ---
HPI Service Cardiology Consult Requested By Chest pain center Reason for Consult Chest pain, positive stress test Primary Care Physician Trevor Graf MD History of Present Illness Mr. Larkin is a pleasant 82 year old known to Dr. Menon. He has a history of CAD, S/P CABG 20 years ago, hypertension, hyperlipidemia, diabetes mellitus. He presented yesterday with complaints of midsternal chest pressure with radiation to his shoulders. The onset was sudden, lasted for about an hour. He did have radiation to his left arm, associated nausea and diaphoresis. He rates pain 3/10 but was fearful of it intensifying and called EMS to be brought to the ED for further evaluation. He initially took sublingual nitros without relief. Pain relieved in ambulance with nitro. Serial troponins were negative. EKG - Normal sinus rhythm, right bundle branch block, no ST-T segment changes. He underwent stress testing that was positive for ischemia in the inferior and lateral vang with normal LV function. Dr. Menon has been consulted for further evaluation with cardiac catheterization. Mr. Larkin is currently resting in the bed without distress. Denies recurrence of chest pain. Denies sob, palpitations. Review of Systems Consitutional: DENIES: Fatigue, Fever, Chills, Weight gain, Weight loss Eyes: DENIES: Amaurosis Fugax, Change in vision HEENT: DENIES: Lightheadedness, Change in hearing Respiratory: DENIES: See HPI, Cough, Snoring, Shortness of breath, Wheezing, Sputum production Cardiovascular: COMPLAINS OF: Chest pain, DENIES: See HPI, Palpitations, Syncope, Tachycardia Gastrointestinal: DENIES: Nausea, Vomiting, Change in bowel habits, Reflux, Bloody stools, Melena Genitourinary: DENIES: Urinary incontinence, Difficulty voiding Integumentary: DENIES: Rash Neurologic: DENIES: Tingling or numbness, Memory problems, Poor Balance, Stroke symptoms Musculoskeletal: DENIES: Joint pain, Muscle pain, Limited range of motion, Back pain Psychiatric: DENIES: Anxiety, Depression, Sleep disturbances Hematologic: DENIES: Bruising tendencies, Bleeding tendencies Endocrine: DENIES: Weight gain, Weight loss, Thyroid disease Past Family Social History Allergies: Coded Allergies: No Known Allergies (Verified Adverse Reaction, Unknown, 01/02/18) Past Medical History CAD DM COPD AAA diverticulitis GERD Recurrent small bowel obstruction Past Surgical History CABG 20 years ago Appendectomy Small bowel resection Reported Medications Reported Meds & Active Scripts Active Hydrocodone-Acetamin 5-325 mg (Hydrocodone/Acetaminophen) 5 Mg-325 Mg Tablet 1 Tab PO Q4H PRN Reported Kombiglyze Xr (Saxagliptin-Metformin ER) 2.5-1,000 Mg Tab 1 Tab PO DAILY Nitroglycerin SL (Nitroglycerin) 0.4 Mg Subl 0.4 Mg SL DIRECTED PRN ONE TABLET UNDER THE TONGUE NEEDED FOR CHEST PAIN, MAY REPEAT EVERY FIVE MINUTES FOR A TOTAL OF 3 DOSES OR CALL 911 IF NO RELIEF Metoprolol Tartrate 25 Mg Tab 25 Mg PO DAILY Citracal + D3 Maximum (Calcium Citrate-Vitamin D) 315-250 Mg-Unit Tab 1 Tab PO DAILY Biotin 1,000 Mcg Tab 1,000 Mcg PO Vitamin D3 (Cholecalciferol) 400 Unit Cap 400 Units PO DAILY Nexium (Esomeprazole DR) 40 Mg Capdr 40 Mg PO DAILY Ecotrin Regular Strength (Aspirin) 325 Mg Tabdr 325 Mg PO DAILY Niacin 500 Mg Tab 1,500 Mg PO HS Glimepiride 2 Mg Tab 2 Mg PO DAILY Take with breakfast or first main meal Cetirizine (Cetirizine HCl) 10 Mg Tab 10 Mg PO DAILY Nasonex Nasal [place] (Mometasone Furoate) 50 Mcg/Act Naspr 2 [place] EACH NARE DAILY Proair Hfa 8.5 GM Inh (Albuterol Sulfate) 90 Mcg/Act Aer 2 Puff INH Q6H PRN 108 mcg/actuation Active Ordered Medications Current Medications Medications (Trade) Dose Ordered Sig/Robin Route Start Time Stop Time Status Last Admin (NS Flush) 2 ml UNSCH PRN IVF 01/02/18 09:15 (NS Flush) 2 ml BID IV FLUSH 01/02/18 21:00 01/03/18 08:17 (Tylenol) 500 mg Q4H PRN PO 01/02/18 12:00 (Zofran Inj) 4 mg Q6H PRN IV PUSH 01/02/18 12:00 (Nitrostat Sl) 0.4 mg Q5M PRN SL 01/02/18 12:00 (Aspirin) 325 mg DAILY PO 01/03/18 09:00 01/03/18 08:17 (ZyrTEC) 10 mg DAILY PO 01/03/18 09:00 01/03/18 08:17 (Lopressor) 25 mg DAILY PO 01/03/18 09:00 01/03/18 08:16 (Protonix) 40 mg DAILY PO 01/03/18 09:00 01/03/18 08:16 (Albuterol Neb) 2.5 mg Q2HR NEB PRN NEB 01/02/18 16:15 (D50w (Vial) Inj) 50 ml UNSCH PRN IV PUSH 01/02/18 16:15 (Glucagon Inj) 1 mg UNSCH PRN OTHER 01/02/18 16:15 (NovoLOG SUPPLEMENTAL SCALE) 1 ACHS SLIDING SCALE SQ 01/02/18 17:00 01/03/18 12:00 (Nitroglycerin 2% Oint) 0.5 inch Q6HR TOPICAL 01/02/18 18:00 Family History NC Social History Former smoker, stopped >20 years ago Occasional ETOH Retired Physical Exam Vital Signs Vital Signs Date Time Temp Pulse Resp B/P (MAP) Pulse Ox O2 Delivery O2 Flow Rate FiO2 01/03/18 15:00 96.9 76 16 127/82 (97) 98 01/03/18 11:01 96.7 69 18 134/76 (95) 100 01/03/18 07:28 98 21 01/03/18 07:28 97.9 91 18 129/71 (90) 96 01/03/18 04:50 97.8 75 18 114/65 (81) 99 01/03/18 00:10 78 01/02/18 20:08 75 01/02/18 20:00 97.3 88 20 107/69 (82) 98 Physical Exam GENERAL: Awake, alert, No distress. SKIN: Warm and dry. HEAD: Atraumatic. Normocephalic. EYES: Pupils equal and round. No scleral icterus. No injection or drainage. ENT: No nasal bleeding or discharge. Mucous membranes pink and moist. NECK: Trachea midline. No JVD. CARDIOVASCULAR: Regular rate and rhythm. RESPIRATORY: No accessory muscle use. Clear to auscultation. Breath sounds equal bilaterally. GASTROINTESTINAL: Abdomen soft, non-tender, nondistended. MUSCULOSKELETAL: Extremities without clubbing, cyanosis, or edema. No obvious deformities. NEUROLOGICAL: Awake and alert. No obvious cranial nerve deficits. Motor grossly within normal limits. Five out of 5 muscle strength in the arms and legs. Normal speech. PSYCHIATRIC: Appropriate mood and affect; insight and judgment normal. Laboratory Current Medications Medications (Trade) Dose Ordered Sig/Robin Route Start Time Stop Time Status Last Admin (NS Flush) 2 ml UNSCH PRN IVF 01/02/18 09:15 (NS Flush) 2 ml BID IV FLUSH 01/02/18 21:00 01/03/18 08:17 (Tylenol) 500 mg Q4H PRN PO 01/02/18 12:00 (Zofran Inj) 4 mg Q6H PRN IV PUSH 01/02/18 12:00 (Nitrostat Sl) 0.4 mg Q5M PRN SL 01/02/18 12:00 (Aspirin) 325 mg DAILY PO 01/03/18 09:00 01/03/18 08:17 (ZyrTEC) 10 mg DAILY PO 01/03/18 09:00 01/03/18 08:17 (Lopressor) 25 mg DAILY PO 01/03/18 09:00 01/03/18 08:16 (Protonix) 40 mg DAILY PO 01/03/18 09:00 01/03/18 08:16 (Albuterol Neb) 2.5 mg Q2HR NEB PRN NEB 01/02/18 16:15 (D50w (Vial) Inj) 50 ml UNSCH PRN IV PUSH 01/02/18 16:15 (Glucagon Inj) 1 mg UNSCH PRN OTHER 01/02/18 16:15 (NovoLOG SUPPLEMENTAL SCALE) 1 ACHS SLIDING SCALE SQ 01/02/18 17:00 01/03/18 12:00 (Nitroglycerin 2% Oint) 0.5 inch Q6HR TOPICAL 01/02/18 18:00 Result Diagram: 01/02/1820 01/02/18 0920 Course EKG - Normal sinus rhythm, right bundle branch block, no ST-T segment changes Assessment and Plan Assessment and Plan Chest pain in a patient with known CAD Hypertension Hyperlipidemia Diabetes mellitus Currently pain free. Stress testing was positive for ischemia in the inferior and lateral vang. Will need further evaluation with cardiac catheterization. The procedure was reviewed with patient and . All questions were answered. Continue aspirin, beta du. Dr. Menon to follow tomorrow. NPO after midnight. Code Status Full Discussed Condition With Jennifer Chahal [facility] Jan 03, 2018 18:57
[2018-01-04] VITALS (10 sets, daily range): BP systolic 99–131; BP diastolic 57–75; PULSE 57–84; RESP 15–18; TEMP 96.9–98.4; O2SAT 94–99
[2018-01-04] MEDS: NITROGLYCERIN 2% OINT 1 GM PACKET TOPICAL SCH ×3 (00:07→13:09)
[2018-01-04 04:26] LABS: AUTOMATED NEUTROPHIL # 4.6 TH/MM3 (1.8-7.7); BASOPHIL % 0.4 % (0.0-2.0); EOSINOPHIL # 0.1 TH/MM3 (0-0.4); EOSINOPHIL % 1.2 % (0.0-4.0); HEMATOCRIT 35.1 % (39.0-51.0); HEMOGLOBIN 11.6 GM/DL (13.0-17.0); LYMPH % 18.4 % (9.0-44.0); LYMPHOCYTE # 1.2 TH/MM3 (1.0-4.8); MEAN CELL VOLUME 91.2 FL (80.0-100.0); MEAN CORPUSCULAR HEMOGLOBIN 30.2 PG (27.0-34.0); MEAN CORPUSCULAR HGB CONC 33.1 % (32.0-36.0); MEAN PLATELET VOLUME 8.3 FL (7.0-11.0); MONO % 10.7 % (0.0-8.0); MONOCYTE # 0.7 TH/MM3 (0-0.9); NEUT % 69.3 % (16.0-70.0); PLATELET COUNT 215 TH/MM3 (150-450); RED BLOOD COUNT 3.85 MIL/MM3 (4.50-5.90); RED CELL DISTRIBUTION WIDTH 15.1 % (11.6-17.2); WHITE BLOOD COUNT 6.7 TH/MM3 (4.0-11.0)
[2018-01-04 04:46] LABS: BICARBONATE 25.8 MEQ/L (21.0-32.0); CALCIUM 7.6 MG/DL (8.5-10.1); CREATININE 0.72 MG/DL (0.60-1.30)
[2018-01-04 04:49] LABS: CHOLESTEROL/ HDL RATIO 2.56 RATIO; HDL CHOLESTEROL 23.4 MG/DL (40.0-60.0)
[2018-01-04] MEDS: INSULIN ASPART SUPPLEMENTAL SCALE SQ SCH ×4 (08:00→20:50)
--- NOTE | 2018-01-04 08:43 | HHI.PR ---
Subjective Remarks in no acute distress. denies chest pain or sob. no new complaints. Objective Vitals Vital Signs Date Time Temp Pulse Resp B/P (MAP) Pulse Ox O2 Delivery O2 Flow Rate FiO2 01/04/18 05:13 97.9 84 15 99/59 (72) 94 01/04/18 00:00 96.9 84 16 107/57 (74) 98 01/03/18 20:00 97.2 85 16 116/79 (91) 96 01/03/18 19:30 87 01/03/18 15:00 96.9 76 16 127/82 (97) 98 01/03/18 11:01 96.7 69 18 134/76 (95) 100 I/O 01/03/18 01/03/18 01/03/18 01/04/18 01/04/18 01/04/18 07:00 15:00 23:00 07:00 15:00 23:00 Intake Total 120 ml 840 ml Balance 120 ml 840 ml Intake Oral 120 ml 840 ml # Voids 3 1 6 # Bowel Movements 0 Result Diagram: 01/04/18 0345 01/04/18 0345 Imaging Last Impressions Myocardial Perfusion Scan Nuc Med 01/02/18 0000 Signed Impressions: Service Date/Time: Tuesday, January 02, 2018 13:53 - CONCLUSION: 1. Redistribution in segments of the inferior and lateral vang concerning for ischemia. 2. Adequate wall motion throughout with an estimated ejection fraction of 69%% RISK CATEGORY: Intermediate (1-3%% Annual Mortality Rate) Augustus Cintron MD Chest X-Ray 01/02/18 0000 Signed Impressions: Service Date/Time: Tuesday, January 02, 2018 09:38 - CONCLUSION: 1. Mild apparent scarring at the lung bases. 2. No acute cardiac pulmonary disease. Gómez Marrero MD Objective Remarks GENERAL: This is a well-nourished, well-developed patient, in no apparent distress. CARDIOVASCULAR: Regular rate and regular rhythm without murmurs, gallops, or rubs. RESPIRATORY: Clear to auscultation. Breath sounds equal bilaterally. No wheezes , rales, or rhonchi. GASTROINTESTINAL: Abdomen soft, non-tender, nondistended. Normal, active bowel sounds MUSCULOSKELETAL: Extremities without clubbing, cyanosis, or edema. NEURO: Alert & Oriented x4 to person, place, time, situation. Moves all ext x4 Medications and IVs Inpatient Medications Acetaminophen (Tylenol) 500 mg Q4H PRN PO HEADACHE; Start 01/02/18 at 12:00 Albuterol Sulfate (Albuterol Neb) 2.5 mg Q2HR NEB PRN NEB SOB/WHEEZING; Start 01/02/18 at 16:15 Aspirin (Aspirin Chew) 324 mg ONCE ONCE CHEW Last administered on 01/02/18at 09 :33; Start 01/02/18 at 09:30; Stop 01/02/18 at 09:31; Status DC Aspirin (Aspirin) 325 mg DAILY PO Last administered on 01/03/18at 08:17; Start 01/03/18 at 09:00 Cetirizine HCl (ZyrTEC) 10 mg DAILY PO Last administered on 01/03/18at 08:17; Start 01/03/18 at 09:00 Dextrose (D50w (Vial) Inj) 50 ml UNSCH PRN IV PUSH HYPOGLYCEMIA-SEE COMMENTS; Start 01/02/18 at 16:15 Glucagon (Glucagon Inj) 1 mg UNSCH PRN OTHER HYPOGLYCEMIA-SEE COMMENTS; Start 01/02/18 at 16:15 Insulin Aspart (NovoLOG SUPPLEMENTAL SCALE) 1 ACHS SLIDING SCALE SQ Last administered on 01/03/18at 21:37; Start 01/02/18 at 17:00 Metoprolol Tartrate (Lopressor) 25 mg DAILY PO Last administered on 01/03/18at 08:16; Start 01/03/18 at 09:00 Nitroglycerin (Nitroglycerin 2% Oint) 0.5 inch Q6HR TOPICAL Last administered on 01/04/18at 06:24; Start 01/02/18 at 18:00 Nitroglycerin (Nitrostat Sl) 0.4 mg Q5M PRN SL CHEST PAIN; Start 01/02/18 at 12 :00 Ondansetron HCl (Zofran Inj) 4 mg Q6H PRN IV PUSH NAUSEA; Start 01/02/18 at 12: 00 Pantoprazole Sodium (Protonix) 40 mg DAILY PO Last administered on 01/03/18at 08 :16; Start 01/03/18 at 09:00 Sodium Chloride (NS Flush) 2 ml BID IV FLUSH Last administered on 01/03/18at 19: 41; Start 01/02/18 at 21:00 A/P Assessment and Plan A/P Chest pain with abnormal stress test. continue aspirin and metoprolol- cardiology consulted- plan for possible cardiac cath today. History of type II diabetes-SSI low dose coverage, hold oral hypoglycemics History of COPD-albuterol q2h prn as needed Discharge Planning awaiting cardiac w/u and cardiology recommendations. Briseida Esteban MD Jan 04, 2018 08:42
--- NOTE | 2018-01-04 09:16 | PD.CARD.PN ---
Subjective Subjective Remarks Patient is lying in bed this in no apparent distress. is at the bedside. He denies any further episodes of chest pain. He reports he typically is very active. He woke up Thursday AM with substernal chest pain/pressure that radiated to his back and shoulders, with associated chest nausea and diaphoresis. He took 2 nitro with no relief. Symptoms lasted close to 1 hour, resolved after arrival to ER. No further pain since arrival to ER. Troponin negative. Lexiscan stress test abnormal, positive for ischemia in the inferior and lateral vang. and patient express their desire to have all necessary testing and procedures done. (Jimbo,Briana SANTIAGO) Objective Medications Current Medications Medications (Trade) Dose Ordered Sig/Robin Route Start Time Stop Time Status Last Admin (NS Flush) 2 ml UNSCH PRN IVF 01/02/18 09:15 (NS Flush) 2 ml BID IV FLUSH 01/02/18 21:00 01/03/18 19:41 (Tylenol) 500 mg Q4H PRN PO 01/02/18 12:00 (Zofran Inj) 4 mg Q6H PRN IV PUSH 01/02/18 12:00 (Nitrostat Sl) 0.4 mg Q5M PRN SL 01/02/18 12:00 (Aspirin) 325 mg DAILY PO 01/03/18 09:00 01/03/18 08:17 (ZyrTEC) 10 mg DAILY PO 01/03/18 09:00 01/03/18 08:17 (Lopressor) 25 mg DAILY PO 01/03/18 09:00 01/03/18 08:16 (Protonix) 40 mg DAILY PO 01/03/18 09:00 01/03/18 08:16 (Albuterol Neb) 2.5 mg Q2HR NEB PRN NEB 01/02/18 16:15 (D50w (Vial) Inj) 50 ml UNSCH PRN IV PUSH 01/02/18 16:15 (Glucagon Inj) 1 mg UNSCH PRN OTHER 01/02/18 16:15 (NovoLOG SUPPLEMENTAL SCALE) 1 ACHS SLIDING SCALE SQ 01/02/18 17:00 01/03/18 21:37 (Nitroglycerin 2% Oint) 0.5 inch Q6HR TOPICAL 01/02/18 18:00 01/04/18 06:24 Vital Signs / I&O Vital Signs Date Time Temp Pulse Resp B/P (MAP) Pulse Ox O2 Delivery O2 Flow Rate FiO2 01/04/18 05:13 97.9 84 15 99/59 (72) 94 01/04/18 00:00 96.9 84 16 107/57 (74) 98 01/03/18 20:00 97.2 85 16 116/79 (91) 96 01/03/18 19:30 87 01/03/18 15:00 96.9 76 16 127/82 (97) 98 01/03/18 11:01 96.7 69 18 134/76 (95) 100 I/O 01/03/18 01/03/18 01/03/18 01/04/18 01/04/18 01/04/18 07:00 15:00 23:00 07:00 15:00 23:00 Intake Total 120 ml 840 ml Balance 120 ml 840 ml Intake Oral 120 ml 840 ml # Voids 3 1 6 # Bowel Movements 0 Physical Exam GENERAL: Elderly male, in no apparent distress SKIN: Warm and dry. HEAD: Atraumatic. Normocephalic. EYES: No injection or drainage. ENT: No nasal bleeding or discharge. Mucous membranes pink and moist. NECK: Trachea midline. No JVD. CARDIOVASCULAR: Regular rate and rhythm, midline chest incision. RESPIRATORY: No accessory muscle use. Clear to auscultation. Breath sounds equal bilaterally. GASTROINTESTINAL: Abdomen soft, non-tender, nondistended. Hepatic and splenic margins not palpable. MUSCULOSKELETAL: Extremities without clubbing, cyanosis, or edema. No obvious deformities. NEUROLOGICAL: Awake and alert. No obvious cranial nerve deficits. Motor grossly within normal limits. Five out of 5 muscle strength in the arms and legs. Normal speech. PSYCHIATRIC: Appropriate mood and affect; insight and judgment normal. Laboratory Laboratory Tests Test 01/04/18 03:45 White Blood Count 6.7 TH/MM3 Red Blood Count 3.85 MIL/MM3 Hemoglobin 11.6 GM/DL Hematocrit 35.1 % Mean Corpuscular Volume 91.2 FL Mean Corpuscular Hemoglobin 30.2 PG Mean Corpuscular Hemoglobin Concent 33.1 % Red Cell Distribution Width 15.1 % Platelet Count 215 TH/MM3 Mean Platelet Volume 8.3 FL Neutrophils (%) (Auto) 69.3 % Lymphocytes (%) (Auto) 18.4 % Monocytes (%) (Auto) 10.7 % Eosinophils (%) (Auto) 1.2 % Basophils (%) (Auto) 0.4 % Neutrophils # (Auto) 4.6 TH/MM3 Lymphocytes # (Auto) 1.2 TH/MM3 Monocytes # (Auto) 0.7 TH/MM3 Eosinophils # (Auto) 0.1 TH/MM3 Basophils # (Auto) 0.0 TH/MM3 CBC Comment DIFF FINAL Differential Comment Blood Urea Nitrogen 13 MG/DL Creatinine 0.72 MG/DL Random Glucose 99 MG/DL Calcium Level 7.6 MG/DL Sodium Level 143 MEQ/L Potassium Level 3.9 MEQ/L Chloride Level 109 MEQ/L Carbon Dioxide Level 25.8 MEQ/L Anion Gap 8 MEQ/L Estimat Glomerular Filtration Rate 105 ML/MIN Triglycerides Level 59 MG/DL Cholesterol Level 60 MG/DL LDL Cholesterol 25 MG/DL HDL Cholesterol 23.4 MG/DL Cholesterol/HDL Ratio 2.56 RATIO Imaging Last 72 hours Impressions Myocardial Perfusion Scan Nuc Med 01/02/18 0000 Signed Impressions: Service Date/Time: Tuesday, January 02, 2018 13:53 - CONCLUSION: 1. Redistribution in segments of the inferior and lateral vang concerning for ischemia. 2. Adequate wall motion throughout with an estimated ejection fraction of 69%% RISK CATEGORY: Intermediate (1-3%% Annual Mortality Rate) Augustus Cintron MD Chest X-Ray 01/02/18 0000 Signed Impressions: Service Date/Time: Tuesday, January 02, 2018 09:38 - CONCLUSION: 1. Mild apparent scarring at the lung bases. 2. No acute cardiac pulmonary disease. Gómez Marrero MD [facility] Assessment and Plan Assessment and Plan -Chest pain-ASHD with CABG 1996, heart cath 2003 showing widely patent vein graft to OM1, RCA intact, vein graft to the diagonal branch totally occluded, BRICENO widely patent, diffuse disease to the second obtuse marginal branch. Echocardiogram 08/2017 showed EF 51%, no significnat valvular abnormalities. -Mild left sided carotid stenosis -Hypotension -DM Plan: -Will plan to proceed with heart catheterization later today. Patient and educated on risk of procedure. They both understand and wish to proceed. -BP runs low. Asymptomatic. The patient was seen and evaluated by Dr. Jamidar who completed face to face encounter and physical exam and participated in management and decision making. Code Status Full Code Discussed Condition With Brandi COCHRAN Patients (JimboBriana Elena SANTIAGO) Assessment and Plan The exam, history, and the medical decision-making described in the above note were completed with the assistance of the mid-level provider. I reviewed and agree with the findings presented. I attest that I had a [id number] encounter with the patient on the same day, and personally performed and documented my assessment and findings in the medical record. abnormal nuclear , admission via ER for [facility]. Risks of cath reviewed in great detail including stroke foreseen and unforeseen complications. Will proceed with urgent heart cath. Lynsey (lEyse Menon MD) TresBriana xavier PAMELA Jan 04, 2018 09:16 Elyse Menon MD Jan 04, 2018 18:16
[2018-01-04] MEDS: METOPROLOL TARTRATE 25 MG TAB PO SCH (09:29)
[2018-01-04] MEDS: SODIUM CHLORIDE 0.9% FLUSH 10 ML FLUSH IV FLUSH SCH ×2 (09:29→20:47)
[2018-01-04] MEDS: PANTOPRAZOLE SOD 40 MG DELAYED RELEASE TAB PO SCH (09:29)
[2018-01-04] MEDS: CETIRIZINE HCL 10 MG TAB PO SCH (09:29)
[2018-01-04] MEDS: ASPIRIN 325 MG TAB PO SCH (09:29)
--- NOTE | 2018-01-04 12:45 | TR ---
Date Performed: 01/02/2018 Time Performed: 14:35:13 DOCTOR: Tod Dalton DRUG LIST: CLINICAL HISTORY: REASON FOR TEST: CHEST PAIN REASON FOR ENDING: OBSERVATION: CONCLUSION: COMMENTS: Lexiscan stress test was performed under standard four minute protocol. Radionuclide was injected one minute prior to ending the test. No electrocardiographic abormalities were present t o suggest ischemia. RBBB was present throughout study with no ST shifts. Nuclear imaging and interpre tation are pending.
[2018-01-04] MEDS ORDERED: MIDAZOLAM HCL 2 MG/2 ML VIAL ONE (13:45)
[2018-01-04] MEDS ORDERED: HEPARIN-NS/PF FLUSH BAG 2,000 ML IV FLUSH ONE (13:45)
[2018-01-04] MEDS ORDERED: LIDOCAINE HCL 1% PF 30 ML VIAL ONE (13:46)
[2018-01-04] MEDS ORDERED: MIDAZOLAM HCL 2 MG/2 ML VIAL IV PUSH ONE ×2 (14:04→15:04)
[2018-01-04] MEDS ORDERED: HEPARIN SODIUM - IV 10,000 UNITS/10 ML VIAL ONE (14:37)
[2018-01-04] MEDS ORDERED: HEPARIN SODIUM - IV 10,000 UNITS/10 ML VIAL IV PUSH ONE ×2 (14:39→14:52)
[2018-01-04] MEDS ORDERED: SODIUM NITROPRUSSIDE 50 MG/2 ML VIAL ONE (14:43)
[2018-01-04] MEDS ORDERED: NITROGLYCERIN 1000 MCG/5 ML VIAL I-CORONARY ONE (14:45)
[2018-01-04] MEDS ORDERED: NITROGLYCERIN INJ 5 ML ONE (14:48)
[2018-01-04] MEDS ORDERED: TICAGRELOR 90 MG TAB PO ONE ×2 (15:08→15:12)
--- NOTE | 2018-01-04 15:37 | CATHPROC ---
[facility] HIS Report Study Information Study Number Admission Scheduled Start Study Start [id number] Jan 02 2018 11:41AM 01/04/2018 Jan 04 2018 1:33PM [place] [facility] Cardiac Catheterization Admit Source Facility Department Emergency department [facility] [employer] Machine Operator Automatic Physician and Clinical Staff Initial MD Menon, Elyse Glass Blower Anuja Olson,DIMAS Recorder Carie Reza,DOG OBEDIENCE INSTRUCTOR TECH2 Scrub Hostmartha, Shawn,RT(R) Procedures Performed Procedure Location (Site) Vessel Name Coronary Angiograms LCA Left Coronary Coronary Angiograms RCA Right Coronary Coronary Angiograms BRICENO-LAD Left Coronary Coronary Angiograms SVG-OM CIRC Coronary Angiograms SVG-PDA Right Coronary Coronary Angiograms Gft. Stump 1 SVG Graft Drug Eluting Inflatio SVG-OM CIRC Wire insertion Fem Art (right) Femoral Art Equipment Time Watch And Clock Repair Clerk Description Size Mfg Part Number Used/Scraped TRANSDUCER, TRUWAVE [id number] 13:43 [employer]TAG Interactive CUEVA * Used W/STOCKCOCK *[id number] INTRODUCER SET, 13:43 [employer] FR 5 [id number] *[id number] Used MICROPUNCTURE STIFF 538-476 *[id number] 538-460 *3044856 538-420 *[id number] 538-421 *[id number] 670-180-00 *0716546 538-472 *[id number] 538-442 *[id number] ENDOVASCULAR WIRE, SPIDERFX 3.0 X [id number] 14:47 30 X 320CM Used COMPANY 320/190CM *[id number] 13:43 [employer] INDUSTRIES PACK, CCL CUSTOM * Used *[id number] 13:43 [employer] PACER PEN, SKIN DUAL W/ RULER * Used *[id number] 14:57 [employer] STENT, 3.5 15MM FLORENTIN 3.5 15MM Used *[id number] [id number] 14:59 [employer] 30 GHULAM INDEFLATOR Used *[id number] [id number] 14:59 [employer] 30 GHULAM INDEFLATOR Used *[id number] 14:39 [employer] SHEATH, FR6.5 PRELUDE 11CM FR 6.5 038ACT Used *[id number] 13:43 [employer] WIRE, 3MMJ .035 180CM 180CM Used *[id number] PROBE COVER, STERILE [id number] 13:43 [employer]ICAL * Used ULTRASOUND W/ GEL *[id number] 13:43 NAMIC MANIFOLD, 4 PORT * Used *[id number] 13:43 [employer] OMNIPAQUE, 350 MG, 150ML 150ML [id number] Used [id number] 13:43 [place] [employer] BL[employer]ET,WARM AIR CCL * Used *[id number] [id number] 13:43 [employer] MEDICAL SHEATH, FR4 TERUMO (10CM) FR 4 Used *[id number] WIRE, RUNTHROUGH NS FLOPPY [id number] 14:48 [employer] MEDICAL 180CM Used .014 180CM *[id number] Scrap: [id number] 15:06 [facility]IG/[facility] MEDICAL ANGIOSEAL, FR6 VIP FR 6 Procedure *[id number] Aborted Equipment Model, Serial, Lot Number and Expiration Data Description Model Number Serial Number Lot Number Expiration Date STENT, 3.5 15MM FLORENTIN [id number] 08-02-2019 History: Current Medications Medication Dosage/Unit Route Frequency Last Date/Time Taken LOPRESSOR Glucophage NTG SL VITAMIN D Nexium ASA Albuterol History: Allergies Allergy Reaction No Known Allergies History: Risk Factors Family History of Hypertension Dyslipidemia Previous [place] Previous Heart Failure Premature CAD Yes Yes No No No Prior Valve Prior PCI Prior CABG Prior CABGDate Surgery No Yes Yes 12/13/1996 Cerebrovascular Peripheral Artery Chronic Lung On Dialysis Diabetes Diabetes Therapy Disease Disease Disease No No No No Yes Oral History: Stress Tests Stress or Imaging Studies Performed Yes Standard Exercise Stress Test No Stress Echo No Stress Test SPECT Stress Test SPECT Result Stress Test SPECT Ischemia Risk/Extent Yes Positive High Stress Test CMR No Cardiac CTA Coronary Calcium Score No No History: Other Disease Selection Items Gerd History: Other Current Smoker Method Quit Packs a Day Years Used Pack Years No Cigarettes 21 Years Ago 2 45 90 Labs Hgb (g/dl) Hct (%) Platelets (thousands) 11.60-17.00 35.00-51.00 150.00-450.00 11.6 35.1 215 Glucose (mg/dl) BUN (mg/dl) Creatinine (mg/dl) BUN:Creatinine (1:x) 74.00-106.00 7.00-18.00 0.50-1.30 10.00-20.00 99 13 0.7 18.6 Na (meq/l) K (meq/l) 136.00-145.00 3.50-5.10 143 3.9 Troponin I (ng/ml) CPK (u/l) CPK-MB (ng/ML) 0.02-0.05 26.00-308.00 0.50-3.60 0.02 46 Not Drawn Medication Medication Total Dose (Bolus/Oral) Medication Total Dosage/Unit 1% XYLOCAINE 20 mL BRILINTA 180 mg FENTANYL 25 mcg HEPARIN 5700 units NITRO OINTMENT 1 inches NTG (IC) 200 mcg VERSED 2 mg Medications (Bolus/Oral) Medication Time Given Dosage/Unit Administered By Reason NITRO OINTMENT 01/04/2018 1:41:16 PM 1 inches Patient arrived on 1 inches NITRO OINTMENT in Right shoulder via Topical. 1% XYLOCAINE 01/04/2018 2:04:06 PM 20 mL Patient arrived on 20 mL 1% XYLOCAINE via Subcutaneous. VERSED 01/04/2018 2:04:08 PM 1 mg Anuja Olson 1 mg VERSED given in lab by Anuja Olson RN in Left Antecubital via Peripheral IV. Ordered by Elyse Serna. FENTANYL 01/04/2018 2:05:10 PM 25 mcg Anuja Olson Patient arrived on 25 mcg FENTANYL given by Anuja Olson RN in Left Antecubital via Peripheral IV . Ordered by Elyse Menon. HEPARIN 01/04/2018 2:39:06 PM 5000 units Anuja Olson 5000 units HEPARIN given in lab by Anuja Olson RN in Left Antecubital via Peripheral IV. Ordered by Elyse Menon. NTG (IC) 01/04/2018 2:45:34 PM 200 mcg Elyse Menon 200 mcg NTG (IC) given in lab by Elyse Menon via Intra-coronary. Ordered by Elyse Menon. SV G/OM HEPARIN 01/04/2018 2:52:40 PM 700 units Anuja Olson 700 units HEPARIN given in lab by nAuja Olson RN in Left Antecubital via Peripheral IV. Ordered by Elyse Menon. VERSED 01/04/2018 3:04:22 PM 1 mg Anuja Olson 1 mg VERSED given in lab by Anuja Olson, RN in Left Antecubital via Peripheral IV. Ordered by Elyse Serna. BRILINTA 01/04/2018 3:12:45 PM 180 mg Anuja Olson 180 mg BRILINTA given in lab by Anuja Olson, RN via Oral. Ordered by Elyse Menon. Medication (Drip) Medication Time Given Dosage/Unit Concentration/Unit Diluent (ml) Solution IV Solutions 01/04/2018 1:43:17 PM 0 mL (IV) 500 NaCl .9 Patient arrived on IV Solutions in Left Antecubital via Peripheral IV. Pump/Drip Flow = 20 ml/hr usin g NaCl .9. Initial Case Assessment Cardiovascular HR Rhythm NIBP Chest Pain 61 sr 144/60 0 Circulatory - Right Pulses Dorsalis Pedis Femoral 1 2 Scale (0,1,2,3,4,d) Circulatory - Left Pulses Dorsalis Pedis Femoral 1 2 Scale (0,1,2,3,4,d) Neurological State Oriented to time-place- Alert Moves all extremities person Respiration - General Respiration Rate SpO2 (%) (B/min) 20 91 Chronological Log Time Study Chronological Log 13:33:47 Patient arrived via Bed. 13:33:48 Patient Name, D.O.B, / Armband Verified By R.N. 13:33:49 Consent signed by the physician and the patient and verified by the Tin Tie Machine Operator Automatic staff. 13:33:50 Pre-op and post- op instructions given; patient acknowledges understanding of instructions. 13:33:54 MD arrived. 13:41:16 Patient arrived on 1 inches NITRO OINTMENT in Right shoulder via Topical. 13:42:04 Verbal Stimulation=2 Physical Stimulation=2 Airway=2 Respiration=2 TOTAL=8. (0=absent, 1=li mited, 2=present) Vitals capture started with the following parameters, Patient=Adult, Interval=5 min, Initial Pr ekmeyv=836 mmHg, 13:42:16 Deflation Rate=5 mmHg, Cuff placed on Right Ankle 13:43:00 Reference ECG taken 13:43:13 Patient has been NPO for More than 6Hrs. 13:43:14 Skin Breakdown-none 13:43:15 Ying Prominences Protected 13:43:16 A # 20 IV was noted in the Antecubital (left). Grade = patent 13:43:17 Patient arrived on IV Solutions in Left Antecubital via Peripheral IV. Pump/Drip Flow = 20 ml/hr using NaCl .9. 13:43:19 History and physical on the chart or being dictated. 13:43:22 HR=61 bpm, QRUC=887/60 mmhg, SpO2=88.0 %, Resp=12 B/min Assessment: Initial Case, HR=61 BPM, Rhythm=sr, LATG=879/60 mmhg, Chest Pain=0 Right Pulses: Sammy Ped=1, Femoral=2 13:44:53 Left Pulses: Sammy Ped=1, Femoral=2 Neurological: State=Alert, Ox3, NICHOLAS Respiration: Resp=20 B/min, SpO2=91 % 13:47:22 Bilateral groins prepped with 2% chlorhexidine, and draped after a 3 minute waiting time. 13:47:51 HR=68 bpm, RCLC=313/91 mmhg, SpO2=97.0 %, Resp=11 B/min 13:52:52 HR=69 bpm, VWHY=511/83 mmhg, SpO2=96.0 %, Resp=20 B/min 13:53:31 Pressure channel 1 zeroed. 13:53:40 MD paged 13:57:53 HR=70 bpm, OFKX=644/78 mmhg, SpO2=94.0 %, Resp=18 B/min 13:59:44 MD arrived. 14:02:52 HR=71 bpm, WIVS=604/76 mmhg, SpO2=96.0 %, Resp=21 B/min Time Out. Correct patient, correct procedure, correct physician, power injector loaded, or not loaded with contrast with 14:03:59 surgical team present. Time Out Concurred by MD and individual staff in procedure. 14:04:05 Case Start 14:04:06 Patient arrived on 20 mL 1% XYLOCAINE via Subcutaneous. 14:04:08 1 mg VERSED given in lab by Anuja Olson RN in Left Antecubital via Peripheral IV. Orde red by Elyse Menon. Patient arrived on 25 mcg FENTANYL given by Anuja Olson RN in Left Antecubital via Periphe ral IV. Ordered by 14:05:10 Elyse Menon. 14:05:13 Access site was Right Femoral Artery. A INTRODUCER SET, MICROPUNCTURE STIFF FR 5 was advanced into the Fem Art (right) using the Perc utaneous 14:06:25 technique. A SHEATH, FR4 TERUMO (10CM) FR 4 was exchanged in the Fem Art (right). This was necessary in or rajat to 14:06:33 accomodate a larger catheter. 14:07:55 HR=69 bpm, BEOI=795/74 mmhg, SpO2=95.0 %, Resp=21 B/min A JL 4.0 INFINITI CATHETER FR 4 was advanced over a wire. OMNIPAQUE, 350 MG, 150ML 150ML was us ed for 14:07:56 injections. Recorded Pressure: Ao, HR=70, Condition=Condition 1 14:08:06 (Aorta) Ao 131/68/95 14:08:21 The LCA was injected and visualized at various angles. OMNIPAQUE, 350 MG, 150ML 150ML used . After removing the current catheter a JR 4.0 INFINITI CATHETER FR 4 was advanced over a WIRE, 3 MMJ .035 180CM 14:08:57 180CM. 14:09:45 The RCA was injected and visualized at various angles. OMNIPAQUE, 350 MG, 150ML 150ML used . 14:10:29 The Gft. Stump 1 was injected and visualized at various angles. OMNIPAQUE, 350 MG, 150ML 15 0ML used. 14:12:52 HR=68 bpm, LXBO=396/76 mmhg, SpO2=95.0 %, Resp=21 B/min 14:12:55 After removing the current catheter a LCB INFINITI FR 4 was advanced over a WIRE, 3MMJ .035 180CM 180CM. 14:15:01 The SVG-OM was injected and visualized at various angles. OMNIPAQUE, 350 MG, 150ML 150ML us ed. After removing the current catheter a MPA-2 INFINITI CATHETER FR 4 was advanced over a WIRE, 3M MJ .035 180CM 14:17:47 180CM. 14:17:51 HR=84 bpm, ZSTW=489/81 mmhg, SpO2=94.0 %, Resp=22 B/min 14:21:13 The SVG-PDA was injected and visualized at various angles. OMNIPAQUE, 350 MG, 150ML 150ML u sed. After removing the current catheter a IM INFINITI CATHETER FR 4 was advanced over a WIRE, 3MMJ .035 180CM 14:21:59 180CM. 14:22:52 HR=81 bpm, MIMP=378/78 mmhg, SpO2=95 %, Resp=20 B/min 14:25:44 Catheter was removed A JR 4.0 INFINITI CATHETER FR 4 was advanced over a wire. OMNIPAQUE, 350 MG, 150ML 150ML was us ed for 14:26:07 injections. 14:27:53 HR=77 bpm, IVMM=027/77 mmhg, SpO2=95.0 %, Resp=21 B/min After removing the current catheter a 3DRC INFINITI CATHETER FR 4 was advanced over a WIRE, 3MM J .035 180CM 14:28:26 180CM. The BRICENO-LAD was sub selectively injected and visualized at various angles. OMNIPAQUE, 350 MG, 150ML 150ML 14:30:20 used. 14:32:52 HR=62 bpm, LEWA=512/88 mmhg, SpO2=94.0 %, Resp=15 B/min 14:34:10 Catheter was removed 14:37:53 HR=65 bpm, YSYK=047/81 mmhg, SpO2=96.0 %, Resp=13 B/min A SHEATH, FR6.5 PRELUDE 11CM FR 6.5 was exchanged in the Fem Art (right). This was necessary in order to 14:38:40 accomodate a larger catheter. 5000 units HEPARIN given in lab by Anuja Olson RN in Left Antecubital via Peripheral IV. O rdered by Lynsey 14:39:06 Elyse. 14:40:00 A LCB GUIDE CATHETER FR 6 was advanced over a wire. OMNIPAQUE, 350 MG, 150ML 150ML was used for injections. 14:42:58 HR=65 bpm, KYAE=316/72 mmhg, SpO2=96.0 %, Resp=20 B/min 14:45:34 200 mcg NTG (IC) given in lab by Elyse Menon via Intra-coronary. Ordered by Shakir Menon. SVG/OM 14:46:43 Activated Clotting Time Drawn 14:47:53 HR=83 bpm, FSLF=382/78 mmhg, SpO2=95 %, Resp=21 B/min 14:48:13 A WIRE, RUNTHROUGH NS FLOPPY .014 180CM 180CM was inserted via Fem Art (right). 14:51:23 ACT (Normal Range 90-180) = 247 14:51:51 A WIRE, SPIDERFX 3.0 X 320/190CM 30 X 320CM was inserted via Fem Art (right). 700 units HEPARIN given in lab by Anuja Olson, DIMAS in Left Antecubital via Peripheral IV. Or dered by Lynsey, 14:52:40 Elyse. 14:52:54 HR=67 bpm, MKZY=078/71 mmhg, SpO2=93.0 %, Resp=20 B/min 14:55:12 Runthrough Wire removed A STENT, 3.5 15MM FLORENTIN 3.5 15MM was advanced through a LCB GUIDE CATHETER FR 6 over a WIRE, SPI DERFX 3.0 14:56:20 X 320/190CM 30 X 320CM. 14:57:55 HR=63 bpm, BDQS=744/72 mmhg, SpO2=95.0 %, Resp=17 B/min A STENT, 3.5 15MM FLORENTIN 3.5 15MM was deployed using a 30 GHULAM INDEFLATOR at 15 atmospheres for 35 seconds in 14:58:55 the SVG-OM. 15:00:05 Delivery device removed 15:02:32 Retrieval catheter advanced, Spiderwire captured and removed. 15:02:58 HR=65 bpm, CANX=317/77 mmhg, SpO2=94.0 %, Resp=18 B/min 15:03:58 Guide Catheter was removed 15:04:22 1 mg VERSED given in lab by Anuja Olson, RN in Left Antecubital via Peripheral IV. Orde red by Elyse Menon. 15:04:40 An injection in the Fem Art (right) was made through the SHEATH, FR6.5 PRELUDE 11CM FR 6.5. 15:07:57 HR=73 bpm, KHHN=551/71 mmhg, SpO2=96.0 %, Resp=21 B/min 15:08:40 In the Fem Art (right) the SHEATH, FR6.5 PRELUDE 11CM FR 6.[address] by Shawn Stubbs, RT(R). 15:08:41 Case End 15:10:27 Sterile dressing applied to site 15:12:45 180 mg BRILINTA given in lab by Anuja Olson, DIMAS via Oral. Ordered by Elyse Menon. 15:13:00 HR=83 bpm, YCGF=225/81 mmhg, SpO2=97.0 %, Resp=16 B/min 15:17:35 Vitals capture stopped. 15:20:30 Patient transported to DOCU. End Study - Contrast Media Used In Study Contrast Total Opened (mL) Total Used (mL) Total Wasted (mL) Omnipaque 135 135 0 End Study - Maximum Contrast Load Max Contrast Load (mL) 457.1 End Study - Radiation Exposure Fluoro Time (minutes) 20.9 End Study - Patient Disposition Complications Transferred To Interventional Outcome No Telemetry Bed successful
--- NOTE | 2018-01-04 16:00 | MA ---
cc: Elyse Menon MD, Jose R MD DATE: 01/04/2018 PROCEDURE: 1. Bilateral coronaries. 2. Saphenous vein grafts. 3. Internal mammary graft injection. 4. Sedation. 5. Left ventriculogram NOT done. 6. Intracoronary stent placement to the saphenous vein graft to the OM1. CONSENT: Full informed consent was obtained for the procedure. The risk of , bleeding, myocardial infarction, perforation, aspiration, foreseen and unforeseen complications were reviewed. The patient fully appeared to understand the risks. URGENCY: Emergent. PROCEDURAL STATEMENT: The patient was draped and prepped in the usual manner. Lidocaine was administered. The right femoral artery was entered using a micropuncture technique with ultrasound guidance. Via the 4-Sudanese sheath, left and right coronary catheters were used to intubate the left and right coronaries, multipurpose catheter the right coronary and left coronary bypass catheter to saphenous vein graft to the OM. JR4 catheter to the right coronary and the stub of the saphenous vein graft to the OM. A 3DRC catheter doing a nonselective injection of the left internal mammary artery because of tortuosity in the left subclavian. 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 Once the heart catheterization was done decision was made to proceed with stenting of the saphenous vein graft to the left circumflex, the patient was given 5000 units of heparin. ACT of 247 was obtained. A further 700 units of heparin were given. The patient has a weight less than 70 kilograms. Following this, the 4-Sudanese sheath was exchanged for a 6-Sudanese sheath. Via the 6-Sudanese sheath, a left coronary bypass catheter was manipulated with difficulty into the left coronary SVG bypass to the obtuse marginal. Intracoronary nitroglycerin was given: 200 mcg to prevent no reflow. A Run through wire was used to cross the lesion. Following this, a spider filter system was passed across the lesion and the spider filter deployed. Following this, a stent 15 x 3.5 mm Tabor was deployed at nominal pressures and postdilated with the same balloon to 15 atmospheres. Check angiograms were performed. At the end of the procedure, femoral angiogram was performed. 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 After all catheters were removed the sheath was left in place to be pulled later once there was an acceptable drop in ACT. The patient was given Brilinta orally 180 mg. FINDINGS: Hemodynamics: Aortic pressure is 131/68 with mean of 95. The left ventricle was not entered. In the interest of dye sparing given the patient's age, LV gram was NOT done. The left main was totally occluded. The LAD was totally occluded and circumflex totally occluded. The right coronary artery was totally occluded. Vein graft to the diagonal branch was totally occluded. The vein graft to the right coronary artery was widely patent with excellent anastomosis to the right coronary, which filled the right coronary retrogradely and antegradely. The left internal mammary artery was widely patent and filled the LAD excellently well. The saphenous vein graft to the obtuse marginal branch, had an 80% irregular thrombotic looking lesion which was very hazy. This was felt to be the culprit lesion, especially since the nuclear stress test dropped out in the lateral wall. Following stent placement, it was reduced to 0%. CONCLUSION: Successful drug eluting Medtronic Tabor stent placement to the saphenous vein graft to the obtuse marginal branch, which was 80%; hazy grumous lesion consistent with the patient's 20-year-old vein graft was noted. It was reduced 0 percent with JARED grade 3 flow before and after. PLAN: We will plan to discharge the patient in the a.m. He will followup with the undersigned in about 1-2 weeks' time and with Dr. Graf in about 3-4 weeks' time. MD STEW Elkins/JACKELYN , 03:24 PM , 03:58 PM EDGAR
[2018-01-04] MEDS ORDERED: SODIUM CHLOR 0.9% 1000 ML INJ 1,000 ML IV SCH (18:30)
[2018-01-04] MEDS ORDERED: ATROPINE SULFATE 1 MG/ML VIAL IV PUSH PRN (18:30)
[2018-01-04] MEDS ORDERED: TEMAZEPAM 15 MG CAP PO PRN (18:30)
[2018-01-04] MEDS ORDERED: oxyCODONE/ACETAMINOPHEN 10 MG/325 MG TAB PO PRN (18:30)
[2018-01-04] MEDS ORDERED: SODIUM CHLOR 0.9% 250 ML INJ 250 ML IV PRN (18:30)
[2018-01-04] MEDS ORDERED: MISC INFORMATION XX ONE (18:30)
[2018-01-04] MEDS ORDERED: BACITRACIN OINT 0.9 GM PKT TOP ONE (18:30)
[2018-01-04] MEDS ORDERED: oxyCODONE/ACETAMINOPHEN 5 MG/325 MG TAB PO PRN (18:30)
[2018-01-04] MEDS ORDERED: ATORVASTATIN 10 MG TAB PO SCH (21:00)
[2018-01-05] VITALS (12 sets, daily range): BP systolic 109–137; BP diastolic 66–82; PULSE 50–74; RESP 18; TEMP 97.4–98.2; O2SAT 97–99
--- NOTE | 2018-01-05 05:26 | EKG ---
Date Performed: 01/04/2018 Time Performed: 22:10:06 PTAGE: 82 years EKG: Sinus rhythm with PAC(s) Right bundle branch block Abnormal ECG PREVIOUS TRACING : 01/02/2018 15.40 No significant change from previous tracing noted. DOCTOR: Marko Freeman Interpretating Date/Time 01/05/2018 05:24:23
[2018-01-05] MEDS: NITROGLYCERIN 2% OINT 1 GM PACKET TOPICAL SCH ×3 (06:00→12:00)
[2018-01-05] MEDS: INSULIN ASPART SUPPLEMENTAL SCALE SQ SCH ×2 (08:00→12:00)
--- NOTE | 2018-01-05 08:21 | EKG ---
Date Performed: 01/05/2018 Time Performed: 05:28:24 PTAGE: 82 years EKG: Sinus rhythm Right bundle branch block Abnormal ECG PREVIOUS TRACING : 01/04/2018 22.10 No significant change from previous tracing noted. DOCTOR: Marko Freeman Interpretating Date/Time 01/05/2018 08:20:32
[2018-01-05] MEDS: PANTOPRAZOLE SOD 40 MG DELAYED RELEASE TAB PO SCH (08:43)
[2018-01-05] MEDS: CETIRIZINE HCL 10 MG TAB PO SCH (08:43)
[2018-01-05] MEDS: METOPROLOL TARTRATE 25 MG TAB PO SCH (08:43)
[2018-01-05] MEDS: ASPIRIN 325 MG TAB PO SCH (08:43)
[2018-01-05] MEDS: SODIUM CHLORIDE 0.9% FLUSH 10 ML FLUSH IV FLUSH SCH (08:45)
[2018-01-05] MEDS ORDERED: RAMIPRIL 2.5 MG CAP PO SCH (09:00)
[2018-01-05] MEDS ORDERED: TICAGRELOR 90 MG TAB PO SCH ×2 (09:00)
[2018-01-05] MEDS ORDERED: PILL SPLITTER OTHER PRN (12:45)
--- NOTE | 2018-01-05 13:21 | HHI.PR ---
Subjective Remarks Denies cp/sob Afebrile Denies cough Objective Vitals Vital Signs Date Time Temp Pulse Resp B/P (MAP) Pulse Ox O2 Delivery O2 Flow Rate FiO2 01/05/18 11:19 97.6 50 18 128/70 (89) 97 01/05/18 10:12 70 01/05/18 09:22 68 01/05/18 08:23 97.4 71 18 137/82 (100) 99 01/05/18 07:37 74 01/05/18 06:00 62 01/05/18 05:00 64 01/05/18 04:00 66 01/05/18 04:00 98.2 66 18 109/66 (80) 98 01/05/18 03:04 66 01/05/18 02:04 59 01/05/18 01:00 60 01/05/18 00:00 98.0 68 18 126/75 (92) 99 01/05/18 00:00 62 01/04/18 23:00 59 01/04/18 22:00 57 01/04/18 21:00 58 01/04/18 20:00 98.4 64 18 131/75 (93) 99 01/04/18 20:00 60 01/04/18 19:00 64 01/04/18 16:02 97 Room Air I/O 01/04/18 01/04/18 01/04/18 01/05/18 01/05/18 01/05/18 07:00 15:00 23:00 07:00 15:00 23:00 Intake Total 354 ml Output Total 300 ml Balance 54 ml Intake Oral 180 ml IV Total 174 ml Output Urine Total 300 ml # Voids 2 Result Diagram: 01/04/18 0345 01/04/18 0345 Imaging Last Impressions Myocardial Perfusion Scan Nuc Med 01/02/18 0000 Signed Impressions: Service Date/Time: Tuesday, January 02, 2018 13:53 - CONCLUSION: 1. Redistribution in segments of the inferior and lateral vang concerning for ischemia. 2. Adequate wall motion throughout with an estimated ejection fraction of 69%% RISK CATEGORY: Intermediate (1-3%% Annual Mortality Rate) Augustus Cintron MD Chest X-Ray 01/02/18 0000 Signed Impressions: Service Date/Time: Tuesday, January 02, 2018 09:38 - CONCLUSION: 1. Mild apparent scarring at the lung bases. 2. No acute cardiac pulmonary disease. Gómez Marrero MD Medications and IVs Current Medications Medications (Trade) Dose Ordered Sig/Robin Route Start Time Stop Time Status Last Admin (NS Flush) 2 ml UNSCH PRN IVF 01/02/18 09:15 (NS Flush) 2 ml BID IV FLUSH 01/02/18 21:00 01/05/18 08:45 (Tylenol) 500 mg Q4H PRN PO 01/02/18 12:00 (Zofran Inj) 4 mg Q6H PRN IV PUSH 01/02/18 12:00 (Nitrostat Sl) 0.4 mg Q5M PRN SL 01/02/18 12:00 (ZyrTEC) 10 mg DAILY PO 01/03/18 09:00 01/05/18 08:43 (Protonix) 40 mg DAILY PO 01/03/18 09:00 01/05/18 08:43 (Albuterol Neb) 2.5 mg Q2HR NEB PRN NEB 01/02/18 16:15 (D50w (Vial) Inj) 50 ml UNSCH PRN IV PUSH 01/02/18 16:15 (Glucagon Inj) 1 mg UNSCH PRN OTHER 01/02/18 16:15 (NovoLOG SUPPLEMENTAL SCALE) 1 ACHS SLIDING SCALE SQ 01/02/18 17:00 01/03/18 21:37 (Nitroglycerin 2% Oint) 0.5 inch Q6HR TOPICAL 01/02/18 18:00 01/04/18 13:09 (Brilinta) 90 mg BID PO 01/05/18 09:00 01/05/18 08:43 (Percocet 5-325 Mg) 1 tab Q4H PRN PO 01/04/18 18:30 (Percocet 10-325 Mg) 1 tab Q4H PRN PO 01/04/18 18:30 (Restoril) 15 mg HS PRN PO 01/04/18 18:30 01/04/18 20:47 (Atropine Inj) 0.5 mg UNSCH PRN IV PUSH 01/04/18 18:30 Sodium Chloride 250 ml @ 500 mls/hr ONCE PRN IV 01/04/18 18:30 01/05/18 18:29 (Altace) 2.5 mg DAILY PO 01/05/18 09:00 01/05/18 08:43 (Lipitor) 10 mg HS PO 01/04/18 21:00 01/04/18 20:47 (Aspirin Chew) 81 mg DAILY PO 01/06/18 09:00 (Lopressor) 12.5 mg BID PO 01/05/18 21:00 (Pill Splitter) 1 ea UNSCH PRN OTHER 01/05/18 12:45 Ralph Dasilva MD Jan 05, 2018 13:21
--- NOTE | 2018-01-05 14:06 | PD.CARD.PN ---
Subjective Subjective Remarks The patient denies CP, SOB, palpitations, right groin pain/swelling or lightheadedness. (Vy Ross) Objective Medications Current Medications Medications (Trade) Dose Ordered Sig/Robin Route Start Time Stop Time Status Last Admin (NS Flush) 2 ml UNSCH PRN IVF 01/02/18 09:15 (NS Flush) 2 ml BID IV FLUSH 01/02/18 21:00 01/05/18 08:45 (Tylenol) 500 mg Q4H PRN PO 01/02/18 12:00 (Zofran Inj) 4 mg Q6H PRN IV PUSH 01/02/18 12:00 (Nitrostat Sl) 0.4 mg Q5M PRN SL 01/02/18 12:00 (ZyrTEC) 10 mg DAILY PO 01/03/18 09:00 01/05/18 08:43 (Protonix) 40 mg DAILY PO 01/03/18 09:00 01/05/18 08:43 (Albuterol Neb) 2.5 mg Q2HR NEB PRN NEB 01/02/18 16:15 (D50w (Vial) Inj) 50 ml UNSCH PRN IV PUSH 01/02/18 16:15 (Glucagon Inj) 1 mg UNSCH PRN OTHER 01/02/18 16:15 (NovoLOG SUPPLEMENTAL SCALE) 1 ACHS SLIDING SCALE SQ 01/02/18 17:00 01/03/18 21:37 (Nitroglycerin 2% Oint) 0.5 inch Q6HR TOPICAL 01/02/18 18:00 01/04/18 13:09 (Brilinta) 90 mg BID PO 01/05/18 09:00 01/05/18 08:43 (Percocet 5-325 Mg) 1 tab Q4H PRN PO 01/04/18 18:30 (Percocet 10-325 Mg) 1 tab Q4H PRN PO 01/04/18 18:30 (Restoril) 15 mg HS PRN PO 01/04/18 18:30 01/04/18 20:47 (Atropine Inj) 0.5 mg UNSCH PRN IV PUSH 01/04/18 18:30 Sodium Chloride 250 ml @ 500 mls/hr ONCE PRN IV 01/04/18 18:30 01/05/18 18:29 (Altace) 2.5 mg DAILY PO 01/05/18 09:00 01/05/18 08:43 (Lipitor) 10 mg HS PO 01/04/18 21:00 01/04/18 20:47 (Aspirin Chew) 81 mg DAILY PO 01/06/18 09:00 (Lopressor) 12.5 mg BID PO 01/05/18 21:00 (Pill Splitter) 1 ea UNSCH PRN OTHER 01/05/18 12:45 Vital Signs / I&O Vital Signs Date Time Temp Pulse Resp B/P (MAP) Pulse Ox O2 Delivery O2 Flow Rate FiO2 01/05/18 11:19 97.6 50 18 128/70 (89) 97 01/05/18 10:12 70 01/05/18 09:22 68 01/05/18 08:23 97.4 71 18 137/82 (100) 99 01/05/18 07:37 74 01/05/18 06:00 62 01/05/18 05:00 64 01/05/18 04:00 66 01/05/18 04:00 98.2 66 18 109/66 (80) 98 01/05/18 03:04 66 01/05/18 02:04 59 01/05/18 01:00 60 01/05/18 00:00 98.0 68 18 126/75 (92) 99 01/05/18 00:00 62 01/04/18 23:00 59 01/04/18 22:00 57 01/04/18 21:00 58 01/04/18 20:00 98.4 64 18 131/75 (93) 99 01/04/18 20:00 60 01/04/18 19:00 64 01/04/18 16:02 97 Room Air I/O 01/04/18 01/04/18 01/04/18 01/05/18 01/05/18 01/05/18 07:00 15:00 23:00 07:00 15:00 23:00 Intake Total 354 ml Output Total 300 ml Balance 54 ml Intake Oral 180 ml IV Total 174 ml Output Urine Total 300 ml # Voids 2 Physical Exam GENERAL: Well appearing 82 year old male SKIN: Warm and dry. HEAD: Normocephalic. EYES: No scleral icterus. No injection or drainage. NECK: Supple, trachea midline. No JVD or lymphadenopathy. CARDIOVASCULAR: Bradycardic rate and rhythm without murmurs, gallops, or rubs. Right groin no ecchymosis or swelling. RESPIRATORY: Breath sounds equal bilaterally. No accessory muscle use. GASTROINTESTINAL: Abdomen soft, non-tender, nondistended. MUSCULOSKELETAL: No cyanosis, or edema. BACK: Nontender without obvious deformity. (Vy Ross) Assessment and Plan Assessment and Plan NSTEMI- cardiac cath 01/04/2018 intracoronary Imer PETER placement to SVT to OM, BRICENO->LAD patent, SVG-> RCA patent, SVG -> diag occluded. ASHD with CABG 1996 Echocardiogram 08/2017 showed EF 51%, no significant valvular abnormalities. Bradycardia Mild left sided carotid stenosis DM HLD on statin PLAN Continue Brilinta 90 mg BID and ASA 81 mg daily Continue statin Continue metoprolol 12.5 mg BID Maintain light activity until seen in the office in 1-2 weeks Okay for dc from cardiac standpoint The patient was seen and evaluated by Dr Menon who completed face to face encounter and physical exam and participated in evaluation and management. (Vy Ross) Assessment and Plan The exam, history, and the medical decision-making described in the above note were completed with the assistance of the mid-level provider. I reviewed and agree with the findings presented. I attest that I had a [id number] encounter with the patient on the same day, and personally performed and documented my assessment and findings in the medical record. Wound ok Brilinta written (Elyse Menon MD) Vy Ross Jan 05, 2018 14:06 Elyse Menon MD Jan 06, 2018 14:52
[2018-01-05] MEDS ORDERED: ASPI81 PO (14:41)
[2018-01-05] MEDS ORDERED: LIPI10TA PO (14:41)
[2018-01-05] MEDS ORDERED: BRIL90TA PO (14:41)
--- NOTE | 2018-01-05 14:43 | HHI.DCPOC ---
Discharge Care Plan Diagnosis: (1) Chest pain (2) DM (diabetes mellitus) (3) HTN (hypertension) (4) CAD (coronary artery disease) (5) COPD (chronic obstructive pulmonary disease) Goals to Promote Your Health * To prevent worsening of your condition and complications * To maintain your health at the optimal level Directions to Meet Your Goals Take your medications as prescribed Follow your dietary instruction Follow activity as directed Keep your appointments as scheduled Take your immunizations and boosters as scheduled If your symptoms worsen call your PCP, if no PCP go to Urgent Care Center or Emergency Room Smoking is Dangerous to Your Health. Avoid second hand smoke Call the 24-hour hour crisis hotline for domestic abuse at Ralph Dasilva MD Jan 05, 2018 14:43
--- NOTE | 2018-01-05 14:56 | HHI.DS ---
Discharge Summary Admission Date Jan 02, 2018 at 11:41 Discharge Date: Jan 05, 2018 Admitting Diagnosis Chest Pain (1) Chest pain ICD Code: R07.9 - Chest pain, unspecified Diagnosis: Principal Status: Resolved (2) CAD (coronary artery disease) ICD Code: I25.10 - Atherosclerotic heart disease of [place] coronary artery without angina pectoris Diagnosis: Principal Status: Acute (3) HTN (hypertension) ICD Code: I10 - Essential (primary) hypertension Diagnosis: Secondary Status: Chronic (4) DM (diabetes mellitus) ICD Code: E11.9 - Type 2 diabetes mellitus without complications Diagnosis: Secondary Status: Chronic (5) COPD (chronic obstructive pulmonary disease) ICD Code: J44.9 - Chronic obstructive pulmonary disease, unspecified Diagnosis: Secondary Status: Chronic Procedures Status post cardiac catheterization with successful drug eluting Medtronic Marcus stent placement to the saphenous vein graft to the obtuse marginal branch, which was 80%; hazy grumous lesion consistent with the patient's 20-year-old vein graft was noted. It was reduced 0 percent with JARED grade 3 flow before and after. Brief History - From Admission 82-year-old male with history of coronary artery disease, CABG 20 years ago, and type II diabetes-noninsulin dependent presents to the emergency room for further evaluation of chest pain. Onset 8 AM. Location bilateral shoulders and neck. Characterized as pressure with accompanying "light substernal chest pain." Radiation to right arm. Associated symptoms of diaphoresis and nausea. No vomiting or shortness of breath. Duration 1 hour. No known precipitating or relieving factors. Denies discomfort being similar to past cardiac events, reporting a "different kind of pain this time." Took x2 nitro SL tablets at home without relief, however nitro tablets also past expiration date. Routinely does not require Nitro SL, today being the first time taking Nitro tablets. CBC/BMP: 01/04/18 0345 01/04/18 0345 Significant Findings Laboratory Tests Test 01/04/18 03:45 Red Blood Count 3.85 MIL/MM3 (4.50-5.90) Hemoglobin 11.6 GM/DL (13.0-17.0) Hematocrit 35.1 % (39.0-51.0) Monocytes (%) (Auto) 10.7 % (0.0-8.0) Calcium Level 7.6 MG/DL (8.5-10.1) Chloride Level 109 MEQ/L (98-107) Cholesterol Level 60 MG/DL (120-200) HDL Cholesterol 23.4 MG/DL (40.0-60.0) Imaging Last Impressions Myocardial Perfusion Scan Nuc Med 01/02/18 0000 Signed Impressions: Service Date/Time: Tuesday, January 02, 2018 13:53 - CONCLUSION: 1. Redistribution in segments of the inferior and lateral vang concerning for ischemia. 2. Adequate wall motion throughout with an estimated ejection fraction of 69%% RISK CATEGORY: Intermediate (1-3%% Annual Mortality Rate) Augustus Cintron MD Chest X-Ray 01/02/18 0000 Signed Impressions: Service Date/Time: Tuesday, January 02, 2018 09:38 - CONCLUSION: 1. Mild apparent scarring at the lung bases. 2. No acute cardiac pulmonary disease. Gómez Marrero MD PE at Discharge GENERAL: This is a well-nourished, well-developed patient, in no apparent distress. CARDIOVASCULAR: Regular rate and regular rhythm without murmurs, gallops, or rubs. RESPIRATORY: Clear to auscultation. Breath sounds equal bilaterally. No wheezes , rales, or rhonchi. GASTROINTESTINAL: Abdomen soft, non-tender, nondistended. Normal, active bowel sounds MUSCULOSKELETAL: Extremities without clubbing, cyanosis, or edema. NEURO: Alert & Oriented x4 to person, place, time, situation. Moves all ext x4 Pt update on day of discharge Denies chest pain or shortness of breath. Hospital Course The patient was admitted to the cardiac floor, monitor on telemetry. Aspirin, metoprolol was continued. Patient had chest pain with abnormal stress test. Cardiology consulted for cardiac catheterization. The patient underwent cardiac catheterization with successful drug-eluting stent placement to the saphenous vein graft to the obtuse marginal branch. The patient stayed overnight in the hospital after the procedure and was then cleared to be discharged by cardiology and follow-up with them in 1 week. Patient discharged on Brilinta, aspirin, statin, beta-du. Pt Condition on Discharge: Stable Discharge Disposition: Discharge Home Discharge Time: <= 30 minutes Discharge Instructions DIET: Follow Instructions for: Heart Healthy Diet, Diabetic Diet Activities you can perform: Regular-No Restrictions, See Additionl Instruction Activities to Avoid: Lifting/Bending, Strenuous Activity Other Activity Instructions: Mantain light activity until seen by building economist Follow up Referrals: Cardiology - 1 Week New Medications: Aspirin (Tgt Aspirin) 81 Mg Chw 81 MG PO DAILY for Cholesterol Management, #31 EA Atorvastatin (Lipitor) 10 Mg Tab 10 MG PO HS for Cholesterol Management, #31 TAB Ticagrelor (Brilinta) 90 Mg Tab 90 MG PO BID for Blood Clot Prevention, #62 TAB Continued Medications: Albuterol 8.5 GM Inh (Proair Hfa 8.5 GM Inh) 90 Mcg/Act Aer 2 PUFF INH Q6H PRN for SHORTNESS OF BREATH, #1 INHALER 0 Refills 108 mcg/actuation Biotin (Biotin) 1,000 Mcg Tab 1000 MCG PO, #1 BOTTLE Calcium Citrate-Vitamin D (Citracal + D3 Maximum) 315-250 Mg-Unit Tab 1 TAB PO DAILY for Calcium Supplement, #100 TAB 0 Refills Cetirizine (Cetirizine) 10 Mg Tab 10 MG PO DAILY for Allergies, TAB 0 Refills Cholecalciferol (Vitamin D3) 400 Unit Cap 400 UNITS PO DAILY for Nutritional Supplement, #1 BOTTLE [address] (Nexium) 40 Mg Capdr 40 MG PO DAILY, CAP 0 Refills Glimepiride (Glimepiride) 2 Mg Tab 2 MG PO DAILY for Blood Sugar Management, #30 TAB 0 Refills Take with breakfast or first main meal Hydrocodone/Acetaminophen (Hydrocodone-Acetamin 5-325 mg) 5 Mg-325 Mg Tablet 1 TAB PO Q4H PRN for pain, #25 TAB Metoprolol Tartrate (Metoprolol Tartrate) 25 Mg Tab 25 MG PO DAILY, #30 TAB 0 Refills Mometasone Nasal [place] (Nasonex Nasal [place]) 50 Mcg/Act Naspr 2 SPRAY EACH NARE DAILY for Allergy Management, #1 BOTTLE 0 Refills Niacin (Niacin) 500 Mg Tab 1500 MG PO HS for Cholesterol Management, #60 TAB 0 Refills Nitroglycerin SL (Nitroglycerin SL) 0.4 Mg Subl 0.4 MG SL DIRECTED PRN for CHEST PAIN, #100 TAB.SL 0 Refills ONE TABLET UNDER THE TONGUE NEEDED FOR CHEST PAIN, MAY REPEAT EVERY FIVE MINUTES FOR A TOTAL OF 3 DOSES OR CALL 911 IF NO RELIEF Saxagliptin-Metformin ER (Kombiglyze Xr) 2.5-1,000 Mg Tab 1 TAB PO DAILY for Blood Sugar Management, #30 TAB 0 Refills Discontinued Medications: Aspirin (Ecotrin Regular Strength) 325 Mg Tabdr 325 MG PO DAILY, #30 TAB 0 Refills Ralph Dasilva MD Jan 05, 2018 14:56
[2018-01-05] MEDS ORDERED: METOPROLOL TARTRATE 25 MG TAB PO SCH (21:00)
[2018-01-06] MEDS ORDERED: ASPIRIN 81 MG CHEW TAB PO SCH (09:00)
== END 2018-01-05 16:37 | disposition home or self-care (01) ==
LOC: NEPE 09:03 → NEDA 11:41 → NEPFCDU 17:54 → HCIS 01-04 14:36
PROVIDERS: ADMIT Hospitalist; ATTEND Hospitalist
DX: I25.118 Atherosclerotic heart disease of native coronary artery with other forms of angina pectoris (principal); I21.4 Non-ST elevation (NSTEMI) myocardial infarction; I45.10 Unspecified right bundle-branch block; I47.1 Supraventricular tachycardia; I65.22 Occlusion and stenosis of left carotid artery; I10 Essential (primary) hypertension; E78.5 Hyperlipidemia, unspecified; J44.9 Chronic obstructive pulmonary disease, unspecified; E11.9 Type 2 diabetes mellitus without complications; K21.9 Gastro-esophageal reflux disease without esophagitis; E78.00 Pure hypercholesterolemia, unspecified; Z79.84 Long term (current) use of oral hypoglycemic drugs; Z79.82 Long term (current) use of aspirin; Z87.442 Personal history of urinary calculi; Z87.891 Personal history of nicotine dependence; Z95.1 Presence of aortocoronary bypass graft
CPT/HCPCS: 71045; 78452; 80048; 80053; 80061; 82550; 82948; 83735; 84484; 85002; 85025; 85347; 85610; 85730; 92928; 93005; 93017; 93454; 96372; 99152; 99153; 99285; A9502; C1769; C1874; C1884; C1887; C1893; G0378; J1644; J1815; J2250; J2785; J3010; J7030; Q9967